=== PATIENT | female | born 1930 | race African-American/Black ===

== ENCOUNTER 2016-08-13 10:10 | Inpatient (IN) | payer OTHER ==
[2016-08-13] MEDS ORDERED: SODIUM CHLORIDE 500 ML IV STA (11:06)
[2016-08-13] MEDS ORDERED: SODIUM CHLORIDE 0.9% 1000 ML INFUS.BAG IV PRN (11:06)
[2016-08-13] MEDS ORDERED: ACETAMINOPHEN 1000 MG/100 ML VIAL (NON FORMULARY) IVPB ONE (11:08)
--- NOTE | 2016-08-13 11:46 | PDOC ---
History of Present Illness - General History Source: Patient Exam Limitations: No Limitations - History of Present Illness Initial Comments: 08/13/16 11:52 The patient is an 86 year old female with significant past medical history of hypertension, a-fib, ESRD on dialysis MWF who presents to the emergency department from home with a cough for 1 week and generalized weakness for 1 day. The patient states that she has had a productive cough for the last week. She has been coughing up white phlegm, no hemoptysis. The patient states that yesterday she started to feel increasingly weak and dizzy. On arrival the patient has a fever, Tmax 99 F, and reports associated chills. She denies any runny nose or sore throat. The patient also started complaining of diffuse abdominal pain that started this morning. She denies any associated nausea, vomiting, or diarrhea. The patient denies any dysuria, frequency, or hematuria. She denies body aches or headache. She denies any recent illness, sick contacts , or recent travels. The patient had her flu shot this year. PMD: Dr. Samaniego Client Care Consultant: Dr. Bean Records Technician: Dr. Dunham <Ruthie Reynoso - Last Filed: 08/13/16 11:52> <Aaron Huizar - Last Filed: 08/13/16 13:59> - General Chief Complaint: Weakness Stated Complaint: WEAKNESS, DIZZY, COUGH Time Seen by Provider: 08/13/16 10:56 Past History <Ruthie Reynoso - Last Filed: 08/13/16 11:52> - Past Medical History Anemia: No Asthma: No Cancer: No Cardiac Disorders: Yes (AFIB) CVA: No COPD: No CHF: No Dementia: No Diabetes: No Dialysis: Yes (M-W-F) GI Disorders: No Disorders: No HTN: Yes Hypercholesterolemia: No Liver Disease: No Seizures: No Thyroid Disease: No - Surgical History Abdominal Surgery: No Appendectomy: No Cardiac Surgery: Yes (pacemaker) Cholecystectomy: No Lung Surgery: No Neurologic Surgery: No Orthopedic Surgery: No - Immunization History Td Vaccination: Yes TDAP Vaccination: No Immunization Up to Date: Yes - Psycho/Social/Smoking Cessation Hx Anxiety: No Suicidal Ideation: No Smoking Status: No Smoking History: Never smoked Have you smoked in the past 12 months: No Number of Cigarettes Smoked Daily: 0 Hx Alcohol Use: No Drug/Substance Use Hx: No Substance Use Type: None Hx Substance Use Treatment: No <Aaron Huizar - Last Filed: 08/13/16 13:59> - Past Medical History Allergies/Adverse Reactions: Allergies Allergy/AdvReac Type Severity Reaction Status Date / Time Penicillins Allergy Severe Hives, RASH Verified 08/13/16 10:18 Home Medications: Ambulatory Orders Metoprolol Succinate [Toprol XL -] 100 mg PO DAILY 03/21/16 Warfarin Na [Coumadin] 6 mg PO DAILY@1800 04/04/16 Review of Systems - Review of Systems Constitutional: Yes: Chills, Fever Respiratory: Yes: Cough. No: Shortness of Breath Cardiac (ROS): Yes: Lightheadedness. No: Chest Pain, Edema ABD/GI: Yes: See HPI. No: Diarrhea, Vomiting : No: Dysuria All Other Systems: Reviewed and Negative <Aaron Huizar - Last Filed: 08/13/16 13:59> *Physical Exam - Vital Signs Last Vital Signs Temp Pulse Resp BP Pulse Ox 99.3 F 108 H 20 121/62 100 08/13/16 10:12 08/13/16 10:12 08/13/16 10:12 08/13/16 10:12 08/13/16 10:12 - Physical Exam Comments: 08/13/16 11:54 GENERAL: The patient is awake, alert, and fully oriented, in no acute distress. HEAD: Normal with no signs of trauma. EYES: Pupils equal, round and reactive to light, extraocular movements intact, sclera anicteric, conjunctiva clear with no pallor. ENT: Ears normal, nares patent, oropharynx clear without exudates. Moist mucous membranes. NECK: Normal range of motion, supple without lymphadenopathy, JVD, or masses. LUNGS: +Coarse and slightly decreased breath sounds at the left base, otherwise good air entry. HEART: +Irregularly irregular and slightly tachycardic. Normal S1 and S2 without murmur or rub. ABDOMEN: Soft/nontender/nondistended. BS wnl. No guarding or rebound. No palpable masses. No hepatosplenomegaly. EXTREMITIES: Normal range of motion, no edema. No clubbing or cyanosis. No cords, erythema, or tenderness. NEUROLOGICAL: Cranial nerves II through XII grossly intact. Normal speech, normal gait. PSYCH: Normal mood, normal affect. SKIN: Warm, Dry, normal turgor, no rashes or lesions noted. <Ruthie Reynoso - Last Filed: 08/13/16 11:52> - Vital Signs Last Vital Signs Temp Pulse Resp BP Pulse Ox 99.3 F 108 H 20 121/62 100 08/13/16 10:12 08/13/16 10:12 08/13/16 10:12 08/13/16 10:12 08/13/16 10:12 <Aaron Huizar - Last Filed: 08/13/16 13:59> Heart Score/ECG Review #1 ECG reviewed & interpreted by me at: 13:39 08/13/16 13:44 Atrial fibrillation at 119, QTC 427, no acute ischemic changes. <Aaron Huizar - Last Filed: 08/13/16 13:59> ED Treatment Course - LABORATORY CBC & Chemistry Diagram: 08/13/16 12:40 08/13/16 12:40 - RADIOLOGY Radiology Studies Ordered: Category Date Time Status CHEST X-RAY PORTABLE* [RAD] Stat Radiology 08/13/16 11:06 Ordered <Aaron Huizar - Last Filed: 08/13/16 13:59> Medical Decision Making - Medical Decision Making 08/13/16 11:43 A portion of this note was documented by scribe services under my direction. I have reviewed the details of the note, within reason, and agree with the documentation with the following case summary and management plan written by me. 86-year-old female with history of hypertension, A. fib status post pacemaker, end-stage renal disease on dialysis Thursday/Thursday/Thursday, peripheral neuropathy and nonambulatory at baseline presents with cough for one week and now generalized weakness with fever/chills/abdominal discomfort this morning. Vital signs as noted, rectal temp pending but oral temp 99.3 Left basilar decreased breath sounds Abdomen nontender, nondistended, soft. No focal guarding or rebound. 86-year-old female presents with cough for one week and now low-grade fever, rule out pneumonia, rule out influenza. Abdominal discomfort but no focal findings on exam, rule out UTI. Sepsis protocol initiated IV fluids Antipyretics Antibiotics as indicated by workup Likely admission 08/13/16 13:29 No leukocytosis, hemoglobin 7.6, near baseline. Chemistries notable for baseline elevated creatinine but no acute electrolytes abnormality. Troponin negative. Chest x-ray shows no acute infiltrate, influenza negative. Awaiting urinalysis, will cover with Levaquin given penicillin ALLERGY, and proceed with admission. 08/13/16 13:51 UA clear, lactate negative. ? bronchitis in frail elderly woman. Received Levaquin earlier 2/ presumed sepsis. Discussed with Dr. Samaniego, agrees with plan, requests admission to Dr. Estevez. 08/13/16 13:58 Accepted for inpatient med/surg by Dr. Estevez. <Aaron Huizar - Last Filed: 08/13/16 13:59> *DC/Admit/Observation/Transfer - Attestations Scribe Attestion: 08/13/16 11:54 Documentation prepared by Ruthie Reynoso, acting as medical radiation dosimetrist for Aaron Huizar MD. <Ruthie Reynoso - Last Filed: 08/13/16 11:52> - Discharge Dispostion Admit: Yes <Aaron Huizar - Last Filed: 08/13/16 13:59> Diagnosis at time of Disposition: ESRD (end stage renal disease) on dialysis, Cough Afib Qualifiers: Atrial fibrillation type: chronic Qualified Code(s): I48.2 - Chronic atrial fibrillation Fever Qualifiers: Fever type: unspecified Qualified Code(s): R50.9 - Fever, unspecified - Discharge Dispostion Condition at time of disposition: Fair - Referrals Referrals: Arnav Samaniego MD [Primary Care Provider] -
--- NOTE | 2016-08-13 12:13 | PN ---
Progress Note (short form) - Note Progress Note: Cardiology Consult Dictated 86F AF, ESRD on HD, Moderate to severe chronic MR presents to ER on her HD day ( missed) for cough of several days with fever and chills. Daughter asked that I see her mother- my office patient. REC: Fever work up--blood cultures, CXR, etc. Will notify renal patient is here (today HD day). Daily INR while on abx.
--- NOTE | 2016-08-13 12:34 | CONS ---
DATE OF CONSULTATION: 08/13/2016 HISTORY OF PRESENT ILLNESS: Patient is in the emergency department, my office patient asked by daughter to see. She is an 86-year-old female with chronic atrial fibrillation, on Coumadin, end-stage renal disease, on hemodialysis, moderate to severe chronic mitral regurgitation with chronic CHF secondary to valvular heart disease and chronic diastolic dysfunction, presents to the ER on her dialysis day with fevers at home, chills, and cough of several days productive. Daughter brought her in for fever workup. Patient is in no acute distress. Denies chest pain, palpitations. She has been coughing for several days with yellow sputum. She was due for dialysis today but did not go and is here in the emergency department. She denies rashes, abdominal pain, diarrhea. No nausea or vomiting. She is allergic to PENICILLIN. MEDICATIONS AT HOME: Include Coumadin and metoprolol succinate 100 mg p.o. daily according to previous medication lists; this needs to be reconciled and confirmed with office records. FAMILY HISTORY: Noncontributory. SOCIAL HISTORY: Nonsmoker. PHYSICAL EXAMINATION: Vital Signs: Temperature 99.3, pulse 108, irregular, blood pressure 121/62, O2 saturation 100% on 2 L. Neck: No bruits. Heart: S1, 2 regular. There is a 3/6 systolic murmur audible at the apex which is chronic. Chest: Clear. No rales. Abdomen: Soft, nontender. Extremities: No significant pitting edema. DIAGNOSTIC DATA: Chest x-ray is pending. Cultures are pending. EKG is pending. IMPRESSION: In summary, an 86-year-old female on dialysis presents to the emergency room with several days of cough, fever, and chills. RECOMMENDATIONS: 1. Fever workup, including chest x-ray, blood cultures. 2. Have notified Nephrology that patient is here on her dialysis day. 3. Recommend daily INRs while patient on antibiotics which is likely. Will follow. Thank you for the consultation. GERA GILBERT M.D. [id number]
[2016-08-13 12:53] LABS: BASOPHIL 0.4 % (0-2.0); EOSINOPHIL 3.4 % (0-4.5); MCH 33.4 pg (25.7-33.7); MCHC 32.9 g/dl (32.0-36.0); MEAN CELL VOLUME 101.3 fl (80-96); MEAN PLT VOLUME 8.3 fl (7.5-11.1); NEUTROPHILS 64.2 % (42.8-82.8); PLATELET COUNT 163 K/MM3 (134-434); RDW 13.2 % (11.6-15.6); WHITE BLOOD COUNT 4.3 K/mm3 (4.0-10.0)
[2016-08-13 13:13] LABS: VENOUS BLOOD GAS HCO3 27.6 meq/L (22-29)
[2016-08-13 13:14] LABS: VENOUS PH 7.46 (7.31-7.41)
[2016-08-13 13:15] LABS: INR 1.28 (0.82-1.09); PROTHROMBIN TIME (PATIENT) 14.2 SEC (9.98-11.88)
[2016-08-13 13:16] LABS: ALBUMIN 2.9 g/dl (3.4-5.0); CALCIUM 8.2 mg/dL (8.5-10.1); CREATININE 4.9 mg/dL (0.55-1.02)
[2016-08-13 13:18] LABS: ACTIVATED PTT 28.1 SECONDS (26.9-34.4)
[2016-08-13 13:20] LABS: BILIRUBIN,TOTAL 0.4 mg/dL (0.2-1.0); TOT PROT 8.3 g/dl (6.4-8.2); TROPONIN I 0.04 ng/ml (0.00-0.05)
[2016-08-13 13:27] LABS: URINE APPEARANCE CLEAR; URINE BILIRUBIN NEGATIVE (NEGATIVE); URINE BLOOD NEGATIVE (NEGATIVE); URINE COLOR LTYELLOW; URINE GLUCOSE (UA) NEGATIVE (NEGATIVE); URINE KETONE NEGATIVE (NEGATIVE); URINE LEUK ESTERASE NEGATIVE (NEGATIVE); URINE NITRITE NEGATIVE (NEGATIVE); URINE UROBILINOGEN NEGATIVE E.U./dl (0.2-1.0)
[2016-08-13] MEDS ORDERED: LEVOFLOXACIN 500 MG IVPB 100 ML IVPB ONE ×2 (13:30→14:54)
[2016-08-13 13:36] LABS: URINE PROTEIN 3+ (NEGATIVE)
[2016-08-13 13:40] LABS: URINE HYALINE CAST 3 /lpf; URINE MUCUS RARE; URINE RBC 5 /hpf (0-3); URINE WBC 1 /hpf (3-5)
--- NOTE | 2016-08-13 15:26 | CONSULT ---
Consult Consult Specialty:: Nephrology Reason for Consultation:: ESRD on HD - History of Present Illness Chief Complaint: cough and generalized weakness History of Present Illness: Pt is an 86 year old female with pmhx of ESRD, a-fib, and HTN who presents to the ER with cough for about 4 days. She feels that it has been getting worse. She now complains of weakness as well. She denies chest pain or palpitations. She complains of decreased PO intake. She says the cough is productive of white phlegm. She did have a fever a few days ago. I was called to evaluate her for HD. She last went to dialysis on Thursday. 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: Yes: Dementia (Pleasant affect and can conduct a reasonable conversation.) Cardio/Vascular: Yes: AFIB, CHF, HTN, Hyperlipdemia, Mitral Insufficiency Pulmonary: Yes: Pneumonia Renal/: Yes: Renal Inusuff, Hemodialysis - Past Surgical History Past Surgical History: Yes: AV Fistula/Graft (03/01/15), Permanent Pacemaker - Alcohol/Substance Use Hx Alcohol Use: No - Smoking History Smoking history: Never smoked Have you smoked in the past 12 months: No Aproximately how many cigarettes per day: 0 - Social History Usual Living Arrangement: Fdc ADL: Support Services History of Recent Travel: No Home Medications - Allergies Allergies/Adverse Reactions: Allergies Allergy/AdvReac Type Severity Reaction Status Date / Time Penicillins Allergy Severe Hives, RASH Verified 08/13/16 10:18 - Home Medications Home Medications: Ambulatory Orders Metoprolol Succinate [Toprol XL -] 100 mg PO DAILY 03/21/16 Warfarin Na [Coumadin] 6 mg PO DAILY@1800 04/04/16 Family Disease History - Family Disease History Family History: Denies Review of Systems - Review of Systems Constitutional: reports: Chills, Fever, Malaise Eyes: reports: No Symptoms HENT: reports: No Symptoms Neck: reports: No Symptoms Cardiovascular: reports: No Symptoms Respiratory: reports: Cough, SOB on Exertion Gastrointestinal: reports: No Symptoms Genitourinary: reports: No Symptoms Musculoskeletal: reports: No Symptoms Integumentary: reports: No Symptoms Neurological: reports: No Symptoms Endocrine: reports: No Symptoms Hematology/Lymphatic: reports: No Symptoms Psychiatric: reports: No Symptoms Physical Exam Vital Signs: Vital Signs Temperature 99.3 F 08/13/16 10:12 Pulse Rate 64 08/13/16 15:08 Respiratory Rate 16 08/13/16 15:08 Blood Pressure 137/90 08/13/16 15:08 O2 Sat by Pulse Oximetry (%) 98 08/13/16 15:08 Constitutional: Yes: Calm Eyes: Yes: Conjunctiva Clear HENT: Yes: Atraumatic Cardiovascular: Yes: S1, S2 Respiratory: Yes: CTA Bilaterally Gastrointestinal: Yes: Normal Bowel Sounds, Soft Musculoskeletal: Yes: WNL Edema: No Integumentary: Yes: WNL Neurological: Yes: Oriented Psychiatric: Yes: Oriented Labs: Laboratory Tests 03/21/16 08/13/16 08/13/16 08:34 12:40 12:40 WBC 4.3 Hgb 7.6 L Sodium 136 136 Potassium 3.7 D 4.9 Chloride 101 Anion Gap 6 L BUN 34 H 21 H D Creatinine 5.3 H 4.9 H Imaging - Results Chest X-ray: Report Reviewed Problem List - Problems (1) Afib Code(s): I48.91 - UNSPECIFIED ATRIAL FIBRILLATION Qualifiers: Atrial fibrillation type: chronic Qualified Code(s): I48.2 - Chronic atrial fibrillation (2) ESRD (end stage renal disease) on dialysis Code(s): N18.6 - END STAGE RENAL DISEASE Z99.2 - DEPENDENCE ON RENAL DIALYSIS (3) Fever Code(s): R50.9 - FEVER, UNSPECIFIED Qualifiers: Fever type: unspecified Qualified Code(s): R50.9 - Fever, unspecified (4) Anemia Code(s): D64.9 - ANEMIA, UNSPECIFIED Qualifiers: Anemia type: other cause Other causes of anemia: other cause, not classified Qualified Code(s): D64.89 - Other specified anemias Assessment/Plan Current Medications Generic Name Dose Route Start Last Admin Trade Name Freq PRN Reason Stop Dose Admin Epoetin Francisco 6,000 units 08/13/16 15:03 Epogen - IVPUSH 08/13/16 15:04 ONCE ONE Sodium Chloride 610 ml 08/13/16 11:06 Normal Saline - IV Q20M PRN MAP<65mm Hg OR SBP <90 Impression 1. ESRD 2. PNA 3. HTN 4. a-fib 5. anemia Plan - will arrange for HD today - epogen on HD - will not take off volume today on dialysis - discussed with cardio - follow up cultures Dr Dunham
[2016-08-13 15:46] VITALS: BMI 23.3
--- NOTE | 2016-08-13 16:04 | EKG ---
Test Reason : Blood Pressure : / mmHG Vent. Rate : 119 BPM Atrial Rate : 120 BPM P-R Int : 000 ms QRS Dur : 084 ms QT Int : 304 ms P-R-T Axes : 000 057 -33 degrees QTc Int : 427 ms ATRIAL FIBRILLATION WITH RAPID VENTRICULAR RESPONSE T WAVE ABNORMALITY, CONSIDER LATERAL ISCHEMIA ABNORMAL ECG WHEN COMPARED WITH ECG OF 21-MAR-2016 08:38, ELECTRONIC DEMAND PACING IS NO LONGER PRESENT VENT. RATE HAS INCREASED BY 53 BPM NON-SPECIFIC CHANGE IN ST SEGMENT IN LATERAL LEADS Confirmed by HIPOLITO LAMB, BINH ([id number]) on 08/13/2016 4:03:35 PM Referred By: Confirmed By:BINH MCMILLAN MD
[2016-08-13] MEDS ORDERED: EPOETIN ALFA 3,000 UNIT/1 ML ML IVPUSH ONE (16:45)
[2016-08-13] MEDS ORDERED: ALBUTEROL SO4 0.083% IH SOL 2.5 MG/3 ML VIAL.NEB. NEB PRN (19:37)
[2016-08-13] MEDS: HEPARIN NA (PORCINE) 5,000 UNITS/ML 1ML VIAL SQ SCH (22:19)
[2016-08-14 08:26] LABS: BASOPHIL 0.2 % (0-2.0); EOSINOPHIL 3.1 % (0-4.5); MCH 33.2 pg (25.7-33.7); MCHC 32.8 g/dl (32.0-36.0); MEAN CELL VOLUME 101.2 fl (80-96); MEAN PLT VOLUME 7.9 fl (7.5-11.1); NEUTROPHILS 67.9 % (42.8-82.8); PLATELET COUNT 140 K/MM3 (134-434); RDW 13.4 % (11.6-15.6); WHITE BLOOD COUNT 4.1 K/mm3 (4.0-10.0)
[2016-08-14 08:54] LABS: INR 1.31 (0.82-1.09); PROTHROMBIN TIME (PATIENT) 14.5 SEC (9.98-11.88)
[2016-08-14 09:08] LABS: ALBUMIN 2.6 g/dl (3.4-5.0); ALK PHOS 74 U/L (45-117); ANION GAP 2 (8-16); BILIRUBIN,TOTAL 0.4 mg/dL (0.2-1.0); CALCIUM 8.3 mg/dL (8.5-10.1); CO2 30 mmol/L (21-32); GLUCOSE,RANDOM 90 mg/dL (74-106); SGOT/AST 16 U/L (15-37); SGPT/ALT < 6 U/L (12-78); TOT PROT 7.4 g/dl (6.4-8.2)
[2016-08-14] MEDS: HEPARIN NA (PORCINE) 5,000 UNITS/ML 1ML VIAL SQ SCH ×2 (09:59→22:02)
[2016-08-14] MEDS: METOPROLOL SUCCINATE 100 MG TAB.SR.24H (FP) PO SCH (10:02)
[2016-08-14 10:14] LABS: HYPOCHROMIA 1+; POLYCHROMASIA 1+
--- NOTE | 2016-08-14 11:02 | PN ---
Progress Note (short form) - Note Progress Note: ID Claudette sputum production chills few days Selected Entries 08/14/16 09:23 Temperature 98.9 F Pulse Rate 101 H Respiratory 16 Rate Blood Pressure 138/98 Lung Rales bases Cor S1 S2 Ext AVF right arm Microbiology Laboratory Tests 08/14/16 06:45 WBC 4.1 MCV 101.2 H Plt Count 140 Assessment ESRD Respiratry tract infection ? PNA Plan Add Tamiflu 30mg bid and Ceftriaxone Mik LAMB Problem List - Problems (1) ESRD (end stage renal disease) on dialysis Code(s): N18.6 - END STAGE RENAL DISEASE Z99.2 - DEPENDENCE ON RENAL DIALYSIS (2) Fever Code(s): R50.9 - FEVER, UNSPECIFIED Qualifiers: Fever type: unspecified Qualified Code(s): R50.9 - Fever, unspecified
--- NOTE | 2016-08-14 12:00 | HP ---
Admitting History and Physical - Primary Care Physician PCP: Arnav Samaniego - Admission Chief Complaint: sent in for cough weakness History of Present Illness: The patient is an 86 year old female with significant past medical history of hypertension, a-fib, ESRD on dialysis MWF who presents to the emergency department from home with a cough for 1 week and generalized weakness for 1 day. The patient states that she has had a productive cough for the last week. She has been coughing up white phlegm, no hemoptysis. The patient states that yesterday she started to feel increasingly weak and dizzy. On arrival the patient has a fever, Tmax 99 F, and reports associated chills. She denies any runny nose or sore throat. The patient also started complaining of diffuse abdominal pain that started this morning. She denies any associated nausea, vomiting, or diarrhea. The patient denies any dysuria, frequency, or hematuria. She denies body aches or headache. She denies any recent illness, sick contacts , or recent travels. The patient had her flu shot this year. PMD: Dr. Samaniego Jewelry Mold Maker: Dr. Bean Underbaster: Dr. 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: Dementia (Pleasant affect and can conduct a reasonable conversation.) Cardiovascular: Yes: AFIB, CHF, HTN, Hyperlipdemia, Mitral Insufficiency Pulmonary: Yes: Pneumonia Renal/: Yes: Renal Inusuff, Hemodialysis Heme/Onc: Yes: Anemia - Past Surgical History Past Surgical History: Yes: AV Fistula/Graft (03/01/15), Permanent Pacemaker - Smoking History Smoking history: Never smoked Have you smoked in the past 12 months: No Aproximately how many cigarettes per day: 0 - Alcohol/Substance Use Hx Alcohol Use: No - Social History ADL: Support Services History of Recent Travel: No Home Medications - Allergies Allergies/Adverse Reactions: Allergies Allergy/AdvReac Type Severity Reaction Status Date / Time Penicillins Allergy Severe Hives, RASH Verified 08/13/16 10:18 - Home Medications Home Medications: Ambulatory Orders Metoprolol Succinate [Toprol XL -] 100 mg PO DAILY 03/21/16 Warfarin Na [Coumadin] 6 mg PO DAILY@1800 04/04/16 Review of Systems - Review of Systems Constitutional: reports: Weakness HENT: reports: Nasal Congestion Respiratory: reports: Cough Physical Examination Vital Signs: Vital Signs Temperature 98.9 F 08/14/16 09:23 Pulse Rate 101 H 08/14/16 09:23 Respiratory Rate 16 08/14/16 09:23 Blood Pressure 138/98 08/14/16 09:23 O2 Sat by Pulse Oximetry (%) 96 08/13/16 22:00 Constitutional: Yes: Calm, Thin Neck: Yes: Trachea Midline Cardiovascular: Yes: Murmur, S1, S2 Respiratory: Yes: Diminished, Rhonchi Gastrointestinal: Yes: Normal Bowel Sounds, Soft Edema: No Neurological: Yes: Alert, Oriented Labs: CBC, BMP 08/14/16 06:45 08/14/16 06:45 Imaging - Results Chest X-ray: Report Reviewed Problem List - Problems (1) Cough Assessment/Plan: seen by HANNA tamodilia and jonatan lactic acid normal WBC normal Microbiology 08/13/16 12:40 Nasopharyngeal Swab Influenza Types A,B Antigen (STACIA) - Final 08/13/16 12:40 Nasopharyngeal Swab - Final Code(s): R05 - COUGH (2) Afib Assessment/Plan: couamdin daily inr metoprolol Code(s): I48.91 - UNSPECIFIED ATRIAL FIBRILLATION Qualifiers: Atrial fibrillation type: chronic Qualified Code(s): I48.2 - Chronic atrial fibrillation (3) ESRD (end stage renal disease) on dialysis Assessment/Plan: HD in am Code(s): N18.6 - END STAGE RENAL DISEASE Z99.2 - DEPENDENCE ON RENAL DIALYSIS (4) Anemia Assessment/Plan: procrit during HD given low h/h will transfuse one unit today Code(s): D64.9 - ANEMIA, UNSPECIFIED Qualifiers: Anemia type: other cause Other causes of anemia: other cause, not classified Qualified Code(s): D64.89 - Other specified anemias
--- NOTE | 2016-08-14 12:00 | CONS ---
DATE OF CONSULTATION: DATE OF DICTATION: 08/14/2016 HISTORY OF PRESENT ILLNESS: This is a 86-year-old female with atrial fibrillation and known end-stage renal disease, who came to the hospital coughing for a week with sputum production, chills, and generalized weakness. Her temperature was noted to be 99, and she was given a dose of Levaquin. I am asked to see her for further evaluation noting that subjectively she states she feels somewhat better today. PAST MEDICAL HISTORY: As noted above. Additional past medical history includes status post pacemaker insertion. MEDICATIONS: Metoprolol and Coumadin. ALLERGIES: To PENICILLIN. SOCIAL HISTORY: Nonsmoker. No history of EtOH use FAMILY HISTORY: Patient unable to provide. REVIEW OF SYSTEMS: Respiratory: Cough. No shortness of breath. Sputum production. No hemoptysis. Cardiac: History of pacemaker, atrial fibrillation. No chest pain, palpitations, syncope. Gastrointestinal: No nausea, vomiting, abdominal pain. Genitourinary: No dysuria or hematuria. PHYSICAL EXAMINATION: General: She was an elderly pleasant woman in no acute distress. Vital signs: Temperature was 98.9, pulse 101, blood pressure 138/98, respirations 16. Neck: Supple. No adenopathy. Lungs: With bibasilar rales. Heart: S1, S2, irregularly irregular. Abdomen: Soft, nontender, without hepatosplenomegaly. Extremities: With a right arm AV graft. The white count was 4.1, hemoglobin 6.9, platelets 140. INR 1.31. Chemistry consistent with end-stage renal disease. Two sets of blood cultures with thus far no growth. Urine culture with no growth. Influenza screening negative. Chest x-ray was reviewed, shows no evidence of acute infiltrate, no pleural effusions seen. ASSESSMENT: An 86-year-old female with end-stage renal disease with flu-like symptoms, possible pneumonia based on physical examination. Would empirically treat with ceftriaxone noting a history of PENICILLIN allergy with rash per patient. Will add Tamiflu empirically for possible influenza. EUNICE SANCHEZ M.D. FARNAZ/[id number]
[2016-08-14] MEDS ORDERED: OSELTAMIVIR PHOSPHATE 30 MG CAPSULE PO ONE (13:00)
[2016-08-14] MEDS: ACETAMINOPHEN 325 MG TABLET (FP) PO PRN (15:39)
--- NOTE | 2016-08-14 16:35 | EKG ---
Test Reason : Blood Pressure : / mmHG Vent. Rate : 132 BPM Atrial Rate : 416 BPM P-R Int : 000 ms QRS Dur : 082 ms QT Int : 266 ms P-R-T Axes : 000 052 -30 degrees QTc Int : 394 ms ATRIAL FIBRILLATION WITH RAPID VENTRICULAR RESPONSE WITH PREMATURE VENTRICULAR OR ABERRANTLY CONDUCTED COMPLEXES NONSPECIFIC T WAVE ABNORMALITY ABNORMAL ECG WHEN COMPARED WITH ECG OF 13-AUG-2016 13:39, NO SIGNIFICANT CHANGE WAS FOUND Confirmed by CARLOS LAMB, JOSE ([id number]) on 08/14/2016 4:35:23 PM Referred By: DONNY AC Confirmed By:JOSE GONZALEZ MD
--- NOTE | 2016-08-14 16:47 | PN ---
Progress Note, Physician History of Present Illness: Pt seen and examined at bedside. She is awake and alert. She feels a little better today. - Current Medication List Current Medications: Active Medications Acetaminophen (Tylenol -) 650 mg PO Q4H PRN PRN Reason: FEVER OR PAIN Last Admin: 08/14/16 15:39 Dose: 650 mg Albuterol Sulfate (Ventolin 0.083% Nebulizer Soln -) 1 amp NEB Q4H PRN PRN Reason: SHORT OF BREATH/WHEEZING Heparin Sodium (Porcine) (Heparin -) 5,000 unit SQ BID [facility] Last Admin: 08/14/16 09:59 Dose: Not Given Ceftriaxone Sodium (Rocephin 1gm Ivpb (Pre-Docked)) 50 mls @ 100 mls/hr IVPB DAILY [facility] Metoprolol Succinate (Toprol Xl -) 100 mg PO DAILY [facility] Last Admin: 08/14/16 10:02 Dose: 100 mg Oseltamivir Phosphate (Tamiflu -) 30 mg PO MoFr [facility] Stop: 08/18/16 14:30 Sodium Chloride (Normal Saline -) 610 ml IV Q20M PRN PRN Reason: MAP<65mm Hg OR SBP <90 Warfarin Sodium (Coumadin -) 6 mg PO DAILY@1800 [facility] - Objective Vital Signs: Vital Signs Temperature 98.9 F 08/14/16 09:23 Pulse Rate 119 H 08/14/16 15:13 Respiratory Rate 18 08/14/16 15:13 Blood Pressure 131/89 08/14/16 15:13 O2 Sat by Pulse Oximetry (%) 96 08/13/16 22:00 Constitutional: Yes: Calm Eyes: Yes: Conjunctiva Clear HENT: Yes: Atraumatic Cardiovascular: Yes: S1, S2 Respiratory: Yes: CTA Bilaterally, On Nasal O2 Gastrointestinal: Yes: Soft Genitourinary: Yes: WNL Extremities: Yes: WNL, Other (right arm weakness, graft with thrill and bruit) Neurological: Yes: Oriented Psychiatric: Yes: Oriented Labs: CBC, BMP 08/14/16 06:45 08/14/16 06:45 INR, PTT INR 1.31 (0.82-1.09) H 08/14/16 06:45 Problem List - Problems (1) Afib Code(s): I48.91 - UNSPECIFIED ATRIAL FIBRILLATION Qualifiers: Atrial fibrillation type: chronic Qualified Code(s): I48.2 - Chronic atrial fibrillation (2) ESRD (end stage renal disease) on dialysis Code(s): N18.6 - END STAGE RENAL DISEASE Z99.2 - DEPENDENCE ON RENAL DIALYSIS (3) Fever Code(s): R50.9 - FEVER, UNSPECIFIED Qualifiers: Fever type: unspecified Qualified Code(s): R50.9 - Fever, unspecified (4) Anemia Code(s): D64.9 - ANEMIA, UNSPECIFIED Qualifiers: Anemia type: other cause Other causes of anemia: other cause, not classified Qualified Code(s): D64.89 - Other specified anemias Assessment/Plan Current Medications Generic Name Dose Route Start Last Admin Trade Name Freq PRN Reason Stop Dose Admin Acetaminophen 650 mg 08/13/16 19:37 08/14/16 15:39 Tylenol - PO 650 mg Q4H PRN Administration FEVER OR PAIN Albuterol Sulfate 1 amp 08/13/16 19:37 Ventolin 0.083% Nebulizer Soln - NEB Q4H PRN SHORT OF BREATH/WHEEZING Heparin Sodium (Porcine) 5,000 unit 08/13/16 22:00 08/14/16 09:59 Heparin - SQ Not Given BID [facility] Ceftriaxone Sodium 50 mls @ 100 mls/hr 08/15/16 10:00 Rocephin 1gm Ivpb (Pre-Docked) IVPB DAILY [facility] Metoprolol Succinate 100 mg 08/14/16 10:00 08/14/16 10:02 Toprol Xl - PO 100 mg DAILY [facility] Administration Oseltamivir Phosphate 30 mg 08/14/16 14:30 Tamiflu - PO 08/18/16 14:30 MoFr [facility] Sodium Chloride 610 ml 08/13/16 11:06 Normal Saline - IV Q20M PRN MAP<65mm Hg OR SBP <90 Warfarin Sodium 6 mg 08/14/16 18:00 Coumadin - PO DAILY@1800 [facility] Impression 1. ESRD 2. PNA 3. HTN 4. a-fib 5. anemia Plan - agree with prbc transfusion - will transfuse more tomorrow on HD - will arrange for HD in am - cont abx - pt is clinically improved - follow up cultures Dr Dunham
[2016-08-14] MEDS: OSELTAMIVIR PHOSPHATE 30 MG CAPSULE PO SCH (17:41)
[2016-08-14] MEDS: WARFARIN NA 3 MG TABLET PO SCH (18:20)
[2016-08-14] MEDS ORDERED: OSELTAMIVIR PHOSPHATE 30 MG CAPSULE PO SCH (22:00)
[2016-08-15 07:48] LABS: BASOPHIL 0.3 % (0-2.0); EOSINOPHIL 3.5 % (0-4.5); MCH 33.2 pg (25.7-33.7); MEAN CELL VOLUME 100.6 fl (80-96); MEAN PLT VOLUME 8.4 fl (7.5-11.1); NEUTROPHILS 70.7 % (42.8-82.8); PLATELET COUNT 151 K/MM3 (134-434); WHITE BLOOD COUNT 4.4 K/mm3 (4.0-10.0)
[2016-08-15 07:49] LABS: INR 1.41 (0.82-1.09); PROTHROMBIN TIME (PATIENT) 15.6 SEC (9.98-11.88)
[2016-08-15 08:15] LABS: ALBUMIN 2.5 g/dl (3.4-5.0); CALCIUM 8.4 mg/dL (8.5-10.1); CREATININE 4.1 mg/dL (0.55-1.02)
[2016-08-15 08:17] LABS: BILIRUBIN,TOTAL 0.5 mg/dL (0.2-1.0); TOT PROT 7.1 g/dl (6.4-8.2)
[2016-08-15] MEDS: METOPROLOL SUCCINATE 100 MG TAB.SR.24H (FP) PO SCH ×2 (09:35→13:40)
[2016-08-15] MEDS: CEFTRIAXONE 1G/50 ML IVPB SCH (09:36)
[2016-08-15] MEDS: HEPARIN NA (PORCINE) 5,000 UNITS/ML 1ML VIAL SQ SCH (09:36)
[2016-08-15] MEDS ORDERED: EPOETIN ALFA 6,000 UNIT, EPOETIN ALFA 2,000 UNIT IVPUSH ONE (12:00)
--- NOTE | 2016-08-15 12:03 | PN ---
Progress Note, Physician Chief Complaint: patient getting HD not able to get prbc bc of antibodies in blood feeling a little better today - Current Medication List Current Medications: Active Medications Acetaminophen (Tylenol -) 650 mg PO Q4H PRN PRN Reason: FEVER OR PAIN Last Admin: 08/14/16 15:39 Dose: 650 mg Albuterol Sulfate (Ventolin 0.083% Nebulizer Soln -) 1 amp NEB Q4H PRN PRN Reason: SHORT OF BREATH/WHEEZING Epoetin Francisco 6,000 unit/ (Epoetin Francisco 2,000 unit) 8,000 unit IVPUSH ONCE ONE Stop: 08/15/16 12:01 Heparin Sodium (Porcine) (Heparin -) 5,000 unit SQ BID [facility] Last Admin: 08/15/16 09:36 Dose: Not Given Ceftriaxone Sodium (Rocephin 1gm Ivpb (Pre-Docked)) 50 mls @ 100 mls/hr IVPB DAILY [facility] Last Admin: 08/15/16 09:36 Dose: Not Given Metoprolol Succinate (Toprol Xl -) 100 mg PO DAILY [facility] Last Admin: 08/15/16 09:35 Dose: Not Given Oseltamivir Phosphate (Tamiflu -) 30 mg PO MoFr [facility] Stop: 08/18/16 14:30 Last Admin: 08/14/16 17:41 Dose: 30 mg Sodium Chloride (Normal Saline -) 610 ml IV Q20M PRN PRN Reason: MAP<65mm Hg OR SBP <90 Warfarin Sodium (Coumadin -) 6 mg PO DAILY@1800 [facility] Last Admin: 08/14/16 18:20 Dose: 6 mg - Objective Vital Signs: Vital Signs Temperature 99.3 F 08/15/16 09:10 Pulse Rate 86 08/15/16 11:05 Respiratory Rate 18 08/15/16 11:05 Blood Pressure 143/92 08/15/16 11:05 O2 Sat by Pulse Oximetry (%) 93 L 08/15/16 09:10 Constitutional: Yes: Calm Neck: Yes: Trachea Midline Cardiovascular: Yes: Regular Rate and Rhythm, Murmur, S1, S2 Respiratory: Yes: CTA Bilaterally Gastrointestinal: Yes: Normal Bowel Sounds, Soft Edema: No Neurological: Yes: Alert, Oriented Labs: CBC, BMP 08/15/16 06:00 08/15/16 06:00 INR, PTT INR 1.41 (0.82-1.09) H 08/15/16 06:00 Problem List - Problems (1) Cough Assessment/Plan: seen by HANNA vergara lactic acid normal WBC normal Microbiology 08/13/16 12:40 Nasopharyngeal Swab Influenza Types A,B Antigen (STACIA) - Final 08/13/16 12:40 Nasopharyngeal Swab - Final Code(s): R05 - COUGH (2) Anemia Assessment/Plan: procrit during HD given low h/h will transfuse one unit today was not able to get it given antibodies in pRBC will get heme on board canot get tranfusion during HD bc of prescence of antibodies Code(s): D64.9 - ANEMIA, UNSPECIFIED Qualifiers: Anemia type: other cause Other causes of anemia: other cause, not classified Qualified Code(s): D64.89 - Other specified anemias (3) Afib Assessment/Plan: couamdin daily inr metoprolol Code(s): I48.91 - UNSPECIFIED ATRIAL FIBRILLATION Qualifiers: Atrial fibrillation type: chronic Qualified Code(s): I48.2 - Chronic atrial fibrillation (4) ESRD (end stage renal disease) on dialysis Assessment/Plan: HD in am Code(s): N18.6 - END STAGE RENAL DISEASE Z99.2 - DEPENDENCE ON RENAL DIALYSIS
--- NOTE | 2016-08-15 12:20 | PN ---
Progress Note (short form) - Note Progress Note: to get prbc today then one unit early childhood tmw prior to HD Tmw Problem List - Problems (1) Cough Code(s): R05 - COUGH (2) Anemia Code(s): D64.9 - ANEMIA, UNSPECIFIED Qualifiers: Anemia type: other cause Other causes of anemia: other cause, not classified Qualified Code(s): D64.89 - Other specified anemias (3) Afib Code(s): I48.91 - UNSPECIFIED ATRIAL FIBRILLATION Qualifiers: Atrial fibrillation type: chronic Qualified Code(s): I48.2 - Chronic atrial fibrillation (4) ESRD (end stage renal disease) on dialysis Code(s): N18.6 - END STAGE RENAL DISEASE Z99.2 - DEPENDENCE ON RENAL DIALYSIS
[2016-08-15] MEDS ORDERED: PT OWN MED DRAWER 7, Y5N ONE (13:38)
[2016-08-15] MEDS: OSELTAMIVIR PHOSPHATE 30 MG CAPSULE PO SCH (13:41)
--- NOTE | 2016-08-15 14:00 | PN ---
Progress Note, Physician History of Present Illness: Pt seen and examined at bedside. She is awake and alert. She says she feels better. She is tolerating HD. - Current Medication List Current Medications: Active Medications Acetaminophen (Tylenol -) 650 mg PO Q4H PRN PRN Reason: FEVER OR PAIN Last Admin: 08/14/16 15:39 Dose: 650 mg Albuterol Sulfate (Ventolin 0.083% Nebulizer Soln -) 1 amp NEB Q4H PRN PRN Reason: SHORT OF BREATH/WHEEZING Heparin Sodium (Porcine) (Heparin -) 5,000 unit SQ BID [facility] Last Admin: 08/15/16 09:36 Dose: Not Given Ceftriaxone Sodium (Rocephin 1gm Ivpb (Pre-Docked)) 50 mls @ 100 mls/hr IVPB DAILY [facility] Last Admin: 08/15/16 09:36 Dose: Not Given Metoprolol Succinate (Toprol Xl -) 100 mg PO DAILY [facility] Last Admin: 08/15/16 13:40 Dose: 100 mg Oseltamivir Phosphate (Tamiflu -) 30 mg PO MoFr [facility] Stop: 08/18/16 14:30 Last Admin: 08/15/16 13:41 Dose: 30 mg Sodium Chloride (Normal Saline -) 610 ml IV Q20M PRN PRN Reason: MAP<65mm Hg OR SBP <90 Warfarin Sodium (Coumadin -) 6 mg PO DAILY@1800 [facility] Last Admin: 08/14/16 18:20 Dose: 6 mg - Objective Vital Signs: Vital Signs Temperature 99.3 F 08/15/16 09:10 Pulse Rate 97 H 08/15/16 12:50 Respiratory Rate 18 08/15/16 12:50 Blood Pressure 139/93 08/15/16 12:50 O2 Sat by Pulse Oximetry (%) 93 L 08/15/16 09:10 Constitutional: Yes: Calm Eyes: Yes: Conjunctiva Clear HENT: Yes: Atraumatic Neck: Yes: Supple Cardiovascular: Yes: S1, S2 Respiratory: Yes: On Nasal O2 Gastrointestinal: Yes: Soft Genitourinary: Yes: WNL Edema: Yes Edema: LLE: Trace, RLE: Trace Neurological: Yes: Oriented Psychiatric: Yes: Oriented Labs: CBC, BMP 08/15/16 06:00 08/15/16 06:00 INR, PTT INR 1.41 (0.82-1.09) H 08/15/16 06:00 Problem List - Problems (1) Afib Code(s): I48.91 - UNSPECIFIED ATRIAL FIBRILLATION Qualifiers: Atrial fibrillation type: chronic Qualified Code(s): I48.2 - Chronic atrial fibrillation (2) ESRD (end stage renal disease) on dialysis Code(s): N18.6 - END STAGE RENAL DISEASE Z99.2 - DEPENDENCE ON RENAL DIALYSIS (3) Fever Code(s): R50.9 - FEVER, UNSPECIFIED Qualifiers: Fever type: unspecified Qualified Code(s): R50.9 - Fever, unspecified (4) Anemia Code(s): D64.9 - ANEMIA, UNSPECIFIED Qualifiers: Anemia type: other cause Other causes of anemia: other cause, not classified Qualified Code(s): D64.89 - Other specified anemias Assessment/Plan Current Medications Generic Name Dose Route Start Last Admin Trade Name Freq PRN Reason Stop Dose Admin Acetaminophen 650 mg 08/13/16 19:37 08/14/16 15:39 Tylenol - PO 650 mg Q4H PRN Administration FEVER OR PAIN Albuterol Sulfate 1 amp 08/13/16 19:37 Ventolin 0.083% Nebulizer Soln - NEB Q4H PRN SHORT OF BREATH/WHEEZING Heparin Sodium (Porcine) 5,000 unit 08/13/16 22:00 08/15/16 09:36 Heparin - SQ Not Given BID [facility] Ceftriaxone Sodium 50 mls @ 100 mls/hr 08/15/16 10:00 08/15/16 09:36 Rocephin 1gm Ivpb (Pre-Docked) IVPB Not Given DAILY [facility] Metoprolol Succinate 100 mg 08/14/16 10:00 08/15/16 13:40 Toprol Xl - PO 100 mg DAILY [facility] Administration Oseltamivir Phosphate 30 mg 08/14/16 14:30 08/15/16 13:41 Tamiflu - PO 08/18/16 14:30 30 mg MoFr [facility] Administration Sodium Chloride 610 ml 08/13/16 11:06 Normal Saline - IV Q20M PRN MAP<65mm Hg OR SBP <90 Warfarin Sodium 6 mg 08/14/16 18:00 08/14/16 18:20 Coumadin - PO 6 mg DAILY@1800 [facility] Administration Impression 1. ESRD 2. PNA 3. HTN 4. a-fib 5. anemia Plan - pt has antibodies and could not get a blood transfusion on HD - transfuse one unit after HD and another unit tomorrow morning - pt may need 2 units tomorrow if the Hg is low - will arrange for an extra HD session tomorrow - cont abx - pt is clinically improved - follow up cultures Dr Dunham
--- NOTE | 2016-08-15 16:20 | PN ---
Progress Note, Physician History of Present Illness: No complaints Temps down- afebrile No c/o dyspnea/ cough No c/o fever/chills - Current Medication List Current Medications: Active Medications Acetaminophen (Tylenol -) 650 mg PO Q4H PRN PRN Reason: FEVER OR PAIN Last Admin: 08/14/16 15:39 Dose: 650 mg Albuterol Sulfate (Ventolin 0.083% Nebulizer Soln -) 1 amp NEB Q4H PRN PRN Reason: SHORT OF BREATH/WHEEZING Epoetin Francisco (Procrit -) 6,000 unit IVPUSH ONCE ONE Stop: 08/16/16 14:01 Heparin Sodium (Porcine) (Heparin -) 5,000 unit SQ BID [facility] Last Admin: 08/15/16 09:36 Dose: Not Given Ceftriaxone Sodium (Rocephin 1gm Ivpb (Pre-Docked)) 50 mls @ 100 mls/hr IVPB DAILY [facility] Last Admin: 08/15/16 09:36 Dose: Not Given Metoprolol Succinate (Toprol Xl -) 100 mg PO DAILY [facility] Last Admin: 08/15/16 13:40 Dose: 100 mg Oseltamivir Phosphate (Tamiflu -) 30 mg PO MoFr [facility] Stop: 08/18/16 14:30 Last Admin: 08/15/16 13:41 Dose: 30 mg Sodium Chloride (Normal Saline -) 610 ml IV Q20M PRN PRN Reason: MAP<65mm Hg OR SBP <90 Warfarin Sodium (Coumadin -) 6 mg PO DAILY@1800 [facility] Last Admin: 08/14/16 18:20 Dose: 6 mg - Objective Vital Signs: Vital Signs Temperature 99.9 F H 08/15/16 14:15 Pulse Rate 109 H 08/15/16 14:15 Respiratory Rate 20 08/15/16 14:15 Blood Pressure 119/75 08/15/16 14:15 O2 Sat by Pulse Oximetry (%) 93 L 08/15/16 09:10 Constitutional: Yes: No Distress Cardiovascular: Yes: Regular Rate and Rhythm, S1, S2 Respiratory: Yes: Diminished Gastrointestinal: Yes: Normal Bowel Sounds, Soft. No: Tenderness Labs: CBC, BMP 08/15/16 06:00 08/15/16 06:00 INR, PTT INR 1.41 (0.82-1.09) H 08/15/16 06:00 Assessment/Plan Possible pneumonia/ viral syndrome ESRD Blood c/s prelim no growth Continue empiric ceftriaxone/ Tamiflu
[2016-08-15] MEDS ORDERED: EPOETIN ALFA 10,000 UNIT/1 ML VIAL IVPUSH ONE (16:47)
[2016-08-15] MEDS: WARFARIN NA 3 MG TABLET PO SCH (18:26)
[2016-08-15] MEDS: ACETAMINOPHEN 325 MG TABLET (FP) PO PRN (19:00)
[2016-08-16 00:07] LABS: HEP B SURFACE AB Reactive (.)
[2016-08-16] MEDS ORDERED: WARFARIN NA 3 MG TABLET PO SCH (09:20)
--- NOTE | 2016-08-16 09:20 | PN ---
Progress Note, Physician Chief Complaint: in hd - Current Medication List Current Medications: Active Medications Acetaminophen (Tylenol -) 650 mg PO Q4H PRN PRN Reason: FEVER OR PAIN Last Admin: 08/15/16 19:00 Dose: 650 mg Albuterol Sulfate (Ventolin 0.083% Nebulizer Soln -) 1 amp NEB Q4H PRN PRN Reason: SHORT OF BREATH/WHEEZING Epoetin Francisco (Procrit -) 6,000 unit IVPUSH ONCE ONE Stop: 08/16/16 14:01 Heparin Sodium (Porcine) (Heparin -) 5,000 unit SQ BID [facility] Last Admin: 08/15/16 09:36 Dose: Not Given Ceftriaxone Sodium (Rocephin 1gm Ivpb (Pre-Docked)) 50 mls @ 100 mls/hr IVPB DAILY [facility] Last Admin: 08/15/16 09:36 Dose: Not Given Metoprolol Succinate (Toprol Xl -) 100 mg PO DAILY [facility] Last Admin: 08/15/16 13:40 Dose: 100 mg Oseltamivir Phosphate (Tamiflu -) 30 mg PO MoFr [facility] Stop: 08/18/16 14:30 Last Admin: 08/15/16 13:41 Dose: 30 mg Sodium Chloride (Normal Saline -) 610 ml IV Q20M PRN PRN Reason: MAP<65mm Hg OR SBP <90 Warfarin Sodium (Coumadin -) 6 mg PO DAILY@1800 [facility] Last Admin: 08/15/16 18:26 Dose: 6 mg - Objective Vital Signs: Vital Signs Temperature 98.0 F 08/16/16 06:00 Pulse Rate 97 H 08/16/16 06:00 Respiratory Rate 20 08/16/16 06:00 Blood Pressure 122/75 08/16/16 06:00 O2 Sat by Pulse Oximetry (%) 99 08/15/16 21:00 Cardiovascular: Yes: Regular Rate and Rhythm, S1, S2 Respiratory: Yes: CTA Bilaterally Gastrointestinal: Yes: Normal Bowel Sounds, Soft Edema: No Labs: CBC, BMP 08/15/16 06:00 08/15/16 06:00 INR, PTT INR 1.41 (0.82-1.09) H 08/15/16 06:00 Problem List - Problems (1) Afib Code(s): I48.91 - UNSPECIFIED ATRIAL FIBRILLATION Qualifiers: Atrial fibrillation type: chronic Qualified Code(s): I48.2 - Chronic atrial fibrillation (2) Anemia Code(s): D64.9 - ANEMIA, UNSPECIFIED Qualifiers: Anemia type: other cause Other causes of anemia: other cause, not classified Qualified Code(s): D64.89 - Other specified anemias (3) Cough Code(s): R05 - COUGH (4) ESRD (end stage renal disease) on dialysis Code(s): N18.6 - END STAGE RENAL DISEASE Z99.2 - DEPENDENCE ON RENAL DIALYSIS Assessment/Plan to get prbc today then one unit rug hooker tmw prior to HD Tmw Problem List - Problems (1) Cough Code(s): R05 - COUGH ID CONSULT NOTED IV ABx CULTURES NEG (2) Anemia Code(s): D64.9 - ANEMIA, UNSPECIFIED Qualifiers: Anemia type: other cause Other causes of anemia: other cause, not classified Qualified Code(s): D64.89 - Other specified anemias S/P pRBC -> PLANNED pRBC x 1 TODAY ALSO HGB 6.9 -> 6.8 - CBC (3) Afib Code(s): I48.91 - UNSPECIFIED ATRIAL FIBRILLATION Qualifiers: Atrial fibrillation type: chronic Qualified Code(s): I48.2 - Chronic atrial fibrillation INR SUBTHERAPEUTIC -> WARFARIN INCed SQ HEPARIN STOPPED -> SCDs (4) ESRD (end stage renal disease) on dialysis Code(s): N18.6 - END STAGE RENAL DISEASE Z99.2 - DEPENDENCE ON RENAL DIALYSIS 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
--- NOTE | 2016-08-16 10:09 | PN ---
Progress Note, Physician - Current Medication List Current Medications: Active Medications Acetaminophen (Tylenol -) 650 mg PO Q4H PRN PRN Reason: FEVER OR PAIN Last Admin: 08/15/16 19:00 Dose: 650 mg Albuterol Sulfate (Ventolin 0.083% Nebulizer Soln -) 1 amp NEB Q4H PRN PRN Reason: SHORT OF BREATH/WHEEZING Epoetin Francisco (Procrit -) 6,000 unit IVPUSH ONCE ONE Stop: 08/16/16 14:01 Ceftriaxone Sodium (Rocephin 1gm Ivpb (Pre-Docked)) 50 mls @ 100 mls/hr IVPB DAILY [facility] Last Admin: 08/15/16 09:36 Dose: Not Given Metoprolol Succinate (Toprol Xl -) 100 mg PO DAILY [facility] Last Admin: 08/15/16 13:40 Dose: 100 mg Oseltamivir Phosphate (Tamiflu -) 30 mg PO MoFr [facility] Stop: 08/18/16 14:30 Last Admin: 08/15/16 13:41 Dose: 30 mg Sodium Chloride (Normal Saline -) 610 ml IV Q20M PRN PRN Reason: MAP<65mm Hg OR SBP <90 Warfarin Sodium 6 mg/ Warfarin (Sodium 0.5 mg) 6.5 mg PO DAILY@1800 [facility] - Objective Vital Signs: Vital Signs Temperature 98.0 F 08/16/16 06:00 Pulse Rate 97 H 08/16/16 06:00 Respiratory Rate 20 08/16/16 06:00 Blood Pressure 122/75 08/16/16 06:00 O2 Sat by Pulse Oximetry (%) 99 08/15/16 21:00 Eyes: Yes: WNL, Conjunctiva Clear, EOM Intact HENT: Yes: WNL, Atraumatic, Normocephalic Neck: Yes: WNL, Supple, Trachea Midline Cardiovascular: Yes: WNL, Regular Rate and Rhythm Respiratory: Yes: WNL, Regular, CTA Bilaterally Gastrointestinal: Yes: WNL, Normal Bowel Sounds Genitourinary: Yes: WNL Musculoskeletal: Yes: WNL Extremities: Yes: WNL Edema: No Integumentary: Yes: WNL Neurological: Yes: WNL, Alert, Oriented ...Motor Strength: WNL Psychiatric: Yes: WNL Labs: CBC, BMP 08/15/16 06:00 08/15/16 06:00 INR, PTT INR 1.41 (0.82-1.09) H 08/15/16 06:00 Assessment/Plan 86F AF, ESRD on HD, Moderate to severe chronic presents to ER on her HD day ( missed) for cough of several days with fever and chills. Daughter asked that I see her mother- my office patient. REC: Fever work up--blood cultures, CXR, etc. Will notify renal patient is here (today HD day). Daily INR while on abx.
[2016-08-16] MEDS: METOPROLOL SUCCINATE 100 MG TAB.SR.24H (FP) PO SCH (10:59)
[2016-08-16] MEDS: CEFTRIAXONE 1G/50 ML IVPB SCH (10:59)
[2016-08-16 12:31] LABS: BASOPHIL 0.5 % (0-2.0); MCH 31.7 pg (25.7-33.7); MEAN CELL VOLUME 93.4 fl (80-96); MEAN PLT VOLUME 8.7 fl (7.5-11.1); NEUTROPHILS 67.5 % (42.8-82.8); PLATELET COUNT 169 K/MM3 (134-434); RDW 18.3 % (11.6-15.6); WHITE BLOOD COUNT 5.4 K/mm3 (4.0-10.0)
[2016-08-16 12:43] LABS: INR 2.07 (0.82-1.09); PROTHROMBIN TIME (PATIENT) 23.1 SEC (9.98-11.88)
[2016-08-16 12:59] LABS: CALCIUM 7.8 mg/dL (8.5-10.1); CREATININE 3.4 mg/dL (0.55-1.02)
--- NOTE | 2016-08-16 12:59 | PN ---
Progress Note, Physician Chief Complaint: Renal f/u Pt seen at the HD unit Unable to access the AVG for HD today so dialysis could not done at this time. 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 and was for an angiogram again in Sep History of Present Illness: Renal F/U Pt seen at - Current Medication List Current Medications: Active Medications Acetaminophen (Tylenol -) 650 mg PO Q4H PRN PRN Reason: FEVER OR PAIN Last Admin: 08/15/16 19:00 Dose: 650 mg Albuterol Sulfate (Ventolin 0.083% Nebulizer Soln -) 1 amp NEB Q4H PRN PRN Reason: SHORT OF BREATH/WHEEZING Epoetin Francisco (Procrit -) 6,000 unit IVPUSH ONCE ONE Stop: 08/16/16 14:01 Ceftriaxone Sodium (Rocephin 1gm Ivpb (Pre-Docked)) 50 mls @ 100 mls/hr IVPB DAILY [facility] Last Admin: 08/16/16 10:59 Dose: 100 mls/hr Metoprolol Succinate (Toprol Xl -) 100 mg PO DAILY [facility] Last Admin: 08/16/16 10:59 Dose: 100 mg Oseltamivir Phosphate (Tamiflu -) 30 mg PO MoFr [facility] Stop: 08/18/16 14:30 Last Admin: 08/15/16 13:41 Dose: 30 mg Sodium Chloride (Normal Saline -) 610 ml IV Q20M PRN PRN Reason: MAP<65mm Hg OR SBP <90 Warfarin Sodium 6 mg/ Warfarin (Sodium 0.5 mg) 6.5 mg PO DAILY@1800 [facility] - Objective Vital Signs: Vital Signs Temperature 98.0 F 08/16/16 06:00 Pulse Rate 97 H 08/16/16 06:00 Respiratory Rate 20 08/16/16 06:00 Blood Pressure 122/75 08/16/16 06:00 O2 Sat by Pulse Oximetry (%) 99 08/15/16 21:00 Constitutional: Yes: No Distress Cardiovascular: Yes: S1, S2 Respiratory: Yes: Other (Occasional rhochus without wheezing) Gastrointestinal: Yes: Soft. No: Tenderness, Rebound Edema: LLE: 1+, RLE: 1+ Labs: CBC, BMP 08/16/16 11:58 INR, PTT INR 2.07 (0.82-1.09) H D 08/16/16 11:58 - ....Imaging Chest X-ray: Report Reviewed Assessment/Plan Impression ESRD with poorly functional AVG so could not receive the extra HD today PNA HTN A-fib Anemia s/p PRBCs Plan Vascular surgery consult with Dr Delcid for angiogram and possible angioplasty on 08/18 No urgent need for HD today since pt had a HD treatment yesterday Await today's BMP Repeat labs in am Dr Parsons
[2016-08-16] MEDS ORDERED: EPOETIN ALFA 3,000 UNIT/1 ML ML IVPUSH ONE (14:00)
[2016-08-16] MEDS ORDERED: WARFARIN NA 1 MG TABLET (FP) ONE (17:47)
[2016-08-16] MEDS ORDERED: WARFARIN NA 3 MG TABLET ONE (17:47)
[2016-08-16] MEDS ORDERED: WARFARIN NA PO SCH (18:00)
--- NOTE | 2016-08-16 23:42 | CONSULT ---
Consult Consult Specialty:: endocrine Referred by:: Reason for Consultation:: hypocalcemia - History of Present Illness Chief Complaint: weakness & cough History of Present Illness: 86 year old female with pmhx of ESRD, a-fib, and HTN who presents to the ER with cough for about 4 days. She feels that it has been getting worse. She now complains of weakness as well.neck pain,difficulty sitting in chair,headache, and cough persistant for past several days,low grade temp,denies chest pain,or recent travel - History Source History Provided By: Patient Limitations to Obtaining History: Clinical Condition - Past Medical History [employer]: Yes: Dementia (Pleasant affect and can conduct a reasonable conversation.) Cardio/Vascular: Yes: AFIB, CHF, HTN, Hyperlipdemia, Mitral Insufficiency Pulmonary: Yes: Pneumonia Renal/: Yes: Renal Inusuff, Hemodialysis - Past Surgical History Past Surgical History: Yes: AV Fistula/Graft (03/01/15), Permanent Pacemaker - Alcohol/Substance Use Hx Alcohol Use: No - Smoking History Smoking history: Never smoked Have you smoked in the past 12 months: No Aproximately how many cigarettes per day: 0 - Social History Usual Living Arrangement: Detention ADL: Support Services History of Recent Travel: No Home Medications - Allergies Allergies/Adverse Reactions: Allergies Allergy/AdvReac Type Severity Reaction Status Date / Time Penicillins Allergy Severe Hives, RASH Verified 08/13/16 10:18 - Home Medications Home Medications: Ambulatory Orders Metoprolol Succinate [Toprol XL -] 100 mg PO DAILY 03/21/16 Warfarin Na [Coumadin] 6 mg PO DAILY@1800 04/04/16 Review of Systems - Review of Systems Constitutional: reports: Lethargy, Loss of Appetite, Weakness Eyes: reports: No Symptoms HENT: reports: No Symptoms Neck: reports: Decreased ROM, Pain on Movement, Stiffness, Tenderness Cardiovascular: reports: Palpitations, Shortness of Breath Respiratory: reports: Exercise Intolerance, Orthopnea, SOB, SOB on Exertion Gastrointestinal: reports: Bloating, Constipation Genitourinary: reports: No Symptoms Breasts: reports: No Symptoms Reported Musculoskeletal: reports: Decreased ROM, Muscle Pain, Muscle Cramps, Muscle Weakness Neurological: reports: Numbness, Weakness Endocrine: reports: No Symptoms Hematology/Lymphatic: reports: No Symptoms Psychiatric: reports: No Symptoms Physical Exam Vital Signs: Vital Signs Temperature 99.4 F 01/07/17 17:55 Pulse Rate 94 H 08/16/16 17:55 Respiratory Rate 16 08/16/16 17:55 Blood Pressure 124/60 08/16/16 17:55 O2 Sat by Pulse Oximetry (%) 96 08/16/16 09:00 Constitutional: Yes: Calm Eyes: Yes: EOM Intact HENT: Yes: Normocephalic Neck: Yes: Trachea Midline Cardiovascular: Yes: Pulse Irregular, Murmur Respiratory: Yes: CTA Bilaterally Gastrointestinal: Yes: Normal Bowel Sounds ...Rectal Exam: Yes: Deferred Renal/: Yes: WNL Breast(s): Yes: WNL Musculoskeletal: Yes: Back Pain, Joint Swelling, Muscle Pain, Muscle Weakness Extremities: Yes: Delayed Capillary Refill, Pallor Edema: No Neurological: Yes: Alert, Oriented, Unsteady Gait, Weakness ...Motor Strength: LLE, RLE Labs: CBC, BMP 08/16/16 11:58 08/16/16 11:58 Problem List - Problems (1) Afib Code(s): I48.91 - UNSPECIFIED ATRIAL FIBRILLATION Qualifiers: Atrial fibrillation type: chronic Qualified Code(s): I48.2 - Chronic atrial fibrillation (2) ESRD (end stage renal disease) on dialysis Code(s): N18.6 - END STAGE RENAL DISEASE Z99.2 - DEPENDENCE ON RENAL DIALYSIS (3) Fever Code(s): R50.9 - FEVER, UNSPECIFIED Qualifiers: Fever type: unspecified Qualified Code(s): R50.9 - Fever, unspecified (4) Anemia Code(s): D64.9 - ANEMIA, UNSPECIFIED Qualifiers: Anemia type: other cause Other causes of anemia: other cause, not classified Qualified Code(s): D64.89 - Other specified anemias (5) A-V fistula Code(s): I77.0 - ARTERIOVENOUS FISTULA, ACQUIRED Assessment/Plan Current Active Problems Afib (Acute) Cough (Acute) ESRD (end stage renal disease) on dialysis (Acute) Fever (Acute) osteomalacia hypocalcemia Laboratory Results - last 24 hr 08/13/16 08/13/16 08/16/16 12:40 16:15 11:58 WBC RBC Hgb Hct MCV MCHC RDW Plt Count MPV Neutrophils % Lymphocytes % Monocytes % Eosinophils % Basophils % INR 2.07 H D Sodium Potassium Chloride Carbon Dioxide Anion Gap BUN Creatinine Random Glucose Calcium Hepatitis A IgM Ab Negative Hepatitis A Ab Total Positive H Hep Bs Antigen Negative Hep Bs Antibody Reactive Hep B Core Total Ab Negative Blood Type A POSITIVE Antibody Screen Positive 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 H Crossmatch See Detail 08/16/16 08/16/16 11:58 11:58 WBC 5.4 RBC 2.92 L D Hgb 9.3 L D Hct 27.3 L D MCV 93.4 MCHC 34.0 RDW 18.3 H D Plt Count 169 MPV 8.7 Neutrophils % 67.5 Lymphocytes % 13.2 Monocytes % 13.8 H Eosinophils % 5.0 H Basophils % 0.5 INR Sodium 135 L Potassium 3.9 Chloride 98 Carbon Dioxide 31 Anion Gap 6 L BUN 12 Creatinine 3.4 H Random Glucose 84 Calcium 7.8 L Hepatitis A IgM Ab Hepatitis A Ab Total Hep Bs Antigen Hep Bs Antibody Hep B Core Total Ab Blood Type Antibody Screen Antibody Identification Direct Antiglob Test Crossmatch Laboratory Tests 08/16/16 11:58 Sodium 135 L Potassium 3.9 Chloride 98 Carbon Dioxide 31 Anion Gap 6 L BUN 12 Creatinine 3.4 H Random Glucose 84 Calcium 7.8 L Current Medications Generic Name Dose Route Start Last Admin Trade Name Freq PRN Reason Stop Dose Admin Acetaminophen 650 mg 08/13/16 19:37 08/15/16 19:00 Tylenol - PO 650 mg Q4H PRN Administration FEVER OR PAIN Albuterol Sulfate 1 amp 08/13/16 19:37 Ventolin 0.083% Nebulizer Soln - NEB Q4H PRN SHORT OF BREATH/WHEEZING Epoetin Francisco 6,000 unit 08/16/16 14:00 Procrit - IVPUSH 08/16/16 14:01 ONCE ONE Ceftriaxone Sodium 50 mls @ 100 mls/hr 08/15/16 10:00 08/16/16 10:59 Rocephin 1gm Ivpb (Pre-Docked) IVPB 100 mls/hr DAILY PH[facility] Administration Metoprolol Succinate 100 mg 08/14/16 10:00 08/16/16 10:59 Toprol Xl - PO 100 mg DAILY PH[facility] Administration Oseltamivir Phosphate 30 mg 08/14/16 14:30 08/15/16 13:41 Tamiflu - PO 08/18/16 14:30 30 mg MoFr PHANI Administration Sodium Chloride 610 ml 08/13/16 11:06 Normal Saline - IV Q20M PRN MAP<65mm Hg OR SBP <90 Warfarin Sodium 6 mg/ Warfarin 6.5 mg 08/16/16 18:00 08/16/16 17:48 Sodium 0.5 mg PO 6.5 mg DAILY@1800 PHANI Administration plan: drisdol 50k weekly oscal 500mg bid ck tsh free t4
[2016-08-17 09:09] LABS: BASOPHIL 0.4 % (0-2.0); EOSINOPHIL 5.2 % (0-4.5); MCH 31.9 pg (25.7-33.7); MCHC 34.1 g/dl (32.0-36.0); MEAN CELL VOLUME 93.6 fl (80-96); MEAN PLT VOLUME 8.2 fl (7.5-11.1); NEUTROPHILS 71.8 % (42.8-82.8); PLATELET COUNT 175 K/MM3 (134-434); RDW 17.9 % (11.6-15.6); WHITE BLOOD COUNT 5.5 K/mm3 (4.0-10.0)
[2016-08-17 09:20] LABS: INR 2.59 (0.82-1.09)
[2016-08-17 09:46] LABS: ALBUMIN 2.4 g/dl (3.4-5.0); BILIRUBIN,TOTAL 0.6 mg/dL (0.2-1.0); CALCIUM 8.1 mg/dL (8.5-10.1); CREATININE 4.1 mg/dL (0.55-1.02); TOT PROT 7.2 g/dl (6.4-8.2)
--- NOTE | 2016-08-17 09:57 | PN ---
Progress Note, Physician - Current Medication List Current Medications: Active Medications Acetaminophen (Tylenol -) 650 mg PO Q4H PRN PRN Reason: FEVER OR PAIN Last Admin: 08/15/16 19:00 Dose: 650 mg Albuterol Sulfate (Ventolin 0.083% Nebulizer Soln -) 1 amp NEB Q4H PRN PRN Reason: SHORT OF BREATH/WHEEZING Calcium/Vitamin D (Oscal 250 Mg+D -) 1 tab PO BID [facility] Epoetin Francisco (Procrit -) 6,000 unit IVPUSH ONCE ONE Stop: 08/16/16 14:01 Ergocalciferol (Drisdol -) 50,000 unit PO ONCE ONE Stop: 08/17/16 10:01 Ceftriaxone Sodium (Rocephin 1gm Ivpb (Pre-Docked)) 50 mls @ 100 mls/hr IVPB DAILY [facility] Last Admin: 08/16/16 10:59 Dose: 100 mls/hr Metoprolol Succinate (Toprol Xl -) 100 mg PO DAILY [facility] Last Admin: 08/16/16 10:59 Dose: 100 mg Oseltamivir Phosphate (Tamiflu -) 30 mg PO MoFr [facility] Stop: 08/18/16 14:30 Last Admin: 08/15/16 13:41 Dose: 30 mg Sodium Chloride (Normal Saline -) 610 ml IV Q20M PRN PRN Reason: MAP<65mm Hg OR SBP <90 Warfarin Sodium 6 mg/ Warfarin (Sodium 0.5 mg) 6.5 mg PO DAILY@1800 [facility] Last Admin: 08/16/16 17:48 Dose: 6.5 mg - Objective Vital Signs: Vital Signs Temperature 99.0 F 08/17/16 06:00 Pulse Rate 104 H 08/17/16 06:00 Respiratory Rate 18 08/17/16 06:00 Blood Pressure 141/68 08/17/16 06:00 O2 Sat by Pulse Oximetry (%) 96 08/16/16 22:00 Eyes: Yes: WNL, Conjunctiva Clear, EOM Intact HENT: Yes: WNL, Atraumatic, Normocephalic Neck: Yes: WNL, Supple, Trachea Midline Cardiovascular: Yes: WNL, Regular Rate and Rhythm Respiratory: Yes: WNL, Regular, CTA Bilaterally Gastrointestinal: Yes: WNL, Normal Bowel Sounds Genitourinary: Yes: WNL Musculoskeletal: Yes: WNL Extremities: Yes: WNL Edema: No Integumentary: Yes: WNL Neurological: Yes: WNL, Alert, Oriented ...Motor Strength: WNL Psychiatric: Yes: WNL Labs: CBC, BMP 08/17/16 08:45 08/17/16 08:45 INR, PTT INR 2.59 (0.82-1.09) H 08/17/16 08:45 Assessment/Plan 86F AF, ESRD on HD, Moderate to severe chronic presents to ER on her HD day ( missed) for cough of several days with fever and chills. Daughter asked that I see her mother- my office patient. REC: Fever work up--blood cultures, CXR, etc. Will notify renal patient is here (today HD day). Daily INR while on abx.
[2016-08-17] MEDS ORDERED: ERGOCALCIFEROL (VITAMIN D2) 50,000 UNIT CAPSULE (FP) PO ONE (10:00)
[2016-08-17] MEDS ORDERED: PT OWN MED DRAWER 7, Y5N ONE (10:28)
[2016-08-17] MEDS: METOPROLOL SUCCINATE 100 MG TAB.SR.24H (FP) PO SCH (10:33)
[2016-08-17] MEDS: CEFTRIAXONE 1G/50 ML IVPB SCH (10:33)
[2016-08-17] MEDS: CALCIUM 250MG/VIT-D 125 UNITS 1 COMBO TABLET PO SCH ×2 (10:33→23:42)
--- NOTE | 2016-08-17 11:51 | PN ---
Progress Note, Physician Chief Complaint: HAD D/W FAMILY & PATIENT - Current Medication List Current Medications: Active Medications Acetaminophen (Tylenol -) 650 mg PO Q4H PRN PRN Reason: FEVER OR PAIN Last Admin: 08/15/16 19:00 Dose: 650 mg Albuterol Sulfate (Ventolin 0.083% Nebulizer Soln -) 1 amp NEB Q4H PRN PRN Reason: SHORT OF BREATH/WHEEZING Calcium/Vitamin D (Oscal 250 Mg+D -) 1 tab PO BID [facility] Last Admin: 08/17/16 10:33 Dose: 1 tab Epoetin Francisco (Procrit -) 6,000 unit IVPUSH ONCE ONE Stop: 08/16/16 14:01 Ceftriaxone Sodium (Rocephin 1gm Ivpb (Pre-Docked)) 50 mls @ 100 mls/hr IVPB DAILY [facility] Last Admin: 08/17/16 10:33 Dose: 100 mls/hr Metoprolol Succinate (Toprol Xl -) 100 mg PO DAILY [facility] Last Admin: 08/17/16 10:33 Dose: 100 mg Oseltamivir Phosphate (Tamiflu -) 30 mg PO MoFr [facility] Stop: 08/18/16 14:30 Last Admin: 08/15/16 13:41 Dose: 30 mg Sodium Chloride (Normal Saline -) 610 ml IV Q20M PRN PRN Reason: MAP<65mm Hg OR SBP <90 Warfarin Sodium 6 mg/ Warfarin (Sodium 0.5 mg) 6.5 mg PO DAILY@1800 [facility] Last Admin: 08/16/16 17:48 Dose: 6.5 mg - Objective Vital Signs: Vital Signs Temperature 99.0 F 08/17/16 06:00 Pulse Rate 96 H 08/17/16 10:32 Respiratory Rate 20 08/17/16 10:32 Blood Pressure 128/83 08/17/16 10:32 O2 Sat by Pulse Oximetry (%) 96 08/16/16 22:00 Constitutional: Yes: Calm Cardiovascular: Yes: S1, S2 Respiratory: Yes: CTA Bilaterally Gastrointestinal: Yes: Normal Bowel Sounds, Soft Edema: Yes Labs: CBC, BMP 08/17/16 08:45 08/17/16 08:45 INR, PTT INR 2.59 (0.82-1.09) H 08/17/16 08:45 Problem List - Problems (1) Afib Code(s): I48.91 - UNSPECIFIED ATRIAL FIBRILLATION Qualifiers: Atrial fibrillation type: chronic Qualified Code(s): I48.2 - Chronic atrial fibrillation (2) Anemia Code(s): D64.9 - ANEMIA, UNSPECIFIED Qualifiers: Anemia type: other cause Other causes of anemia: other cause, not classified Qualified Code(s): D64.89 - Other specified anemias (3) Cough Code(s): R05 - COUGH (4) ESRD (end stage renal disease) on dialysis Code(s): N18.6 - END STAGE RENAL DISEASE Z99.2 - DEPENDENCE ON RENAL DIALYSIS Assessment/Plan Problem List - Problems (1) Cough Code(s): R05 - COUGH ID CONSULT NOTED IV ABx CULTURES NEG (2) Anemia Code(s): D64.9 - ANEMIA, UNSPECIFIED Qualifiers: Anemia type: other cause Other causes of anemia: other cause, not classified Qualified Code(s): D64.89 - Other specified anemias 2/2 ESRD? CEDRIC? HGB 6.9 -> 9.1 s/p pRBC x 2 - FOBT - IRON STUDIES (3) Afib Code(s): I48.91 - UNSPECIFIED ATRIAL FIBRILLATION Qualifiers: Atrial fibrillation type: chronic Qualified Code(s): I48.2 - Chronic atrial fibrillation INR THERAPEUTIC -> AC ON HOLD FOR PROCEDURE SQ HEPARIN STOPPED -> SCDs (4) ESRD (end stage renal disease) on dialysis Code(s): N18.6 - END STAGE RENAL DISEASE Z99.2 - DEPENDENCE ON RENAL DIALYSIS APPRECIATE RENAL CONSULT HD 08/18 PASTOR HERNANDEZ
--- NOTE | 2016-08-17 12:06 | PN ---
Progress Note (short form) - Note Progress Note: Consult to Dr. Delcid called [facility] they were unable to dialyze the patient on wednesday 08/16. She had dialysis on thursday without any difficulty with blood flows of 380. According the the report she has had some stenosis in her upper ext access. Her original AVG was in 02/21 eith a stent placement in 01/23. The patient was admitted to the hospital on 08/13 for cough and weakness. She was febrile earlier in her admission but currently remains afebrile. The patient is being treated with IV abx for possible pneumonia/viral syndrome. As per Vital Signs Period Temp Pulse Resp BP Sys/Tavares Pulse Ox Last 24 Hr 99.0 F-99.6 F 92-104 16-22 110-141/60-83 96 PE: GEN: appears comfortable LUE: good thrill and palpable bruit. No evidence of ecchymosis/skin break down on UE. No erythema. CBC, BMP 08/17/16 08:45 08/17/16 08:45 INR, PTT INR 2.59 (0.82-1.09) H 08/17/16 08:45 Problem List - Problems (1) ESRD (end stage renal disease) on dialysis Assessment/Plan: Last HD on 08/15. The patient has been receiving coumadin and her INR is elevated to 2.[address] Ram and he will hold her coumadin and can recheck her INR in the am. I spoke with Dr. Parsons and she will need HD on 08/18 and may need a temporary catheter placed. I informed Dr. Delcid and surgery to follow the patient tomorrow with possible cathter placement, INR ordered for the am. Code(s): N18.6 - END STAGE RENAL DISEASE Z99.2 - DEPENDENCE ON RENAL DIALYSIS
--- NOTE | 2016-08-17 13:12 | PN ---
Progress Note, Physician Chief Complaint: Renal f/u Pt in no distress eating her lunch She prefers not to have the AVG used for HD since it is very painful to use the arm - Current Medication List Current Medications: Active Medications Acetaminophen (Tylenol -) 650 mg PO Q4H PRN PRN Reason: FEVER OR PAIN Last Admin: 08/15/16 19:00 Dose: 650 mg Albuterol Sulfate (Ventolin 0.083% Nebulizer Soln -) 1 amp NEB Q4H PRN PRN Reason: SHORT OF BREATH/WHEEZING Calcium/Vitamin D (Oscal 250 Mg+D -) 1 tab PO BID [facility] Last Admin: 08/17/16 10:33 Dose: 1 tab Epoetin Francisco (Procrit -) 6,000 unit IVPUSH ONCE ONE Stop: 08/16/16 14:01 Ceftriaxone Sodium (Rocephin 1gm Ivpb (Pre-Docked)) 50 mls @ 100 mls/hr IVPB DAILY [facility] Last Admin: 08/17/16 10:33 Dose: 100 mls/hr Metoprolol Succinate (Toprol Xl -) 100 mg PO DAILY [facility] Last Admin: 08/17/16 10:33 Dose: 100 mg Oseltamivir Phosphate (Tamiflu -) 30 mg PO MoFr [facility] Stop: 08/18/16 14:30 Last Admin: 08/15/16 13:41 Dose: 30 mg Sodium Chloride (Normal Saline -) 610 ml IV Q20M PRN PRN Reason: MAP<65mm Hg OR SBP <90 - Objective Vital Signs: Vital Signs Temperature 99.3 F 08/17/16 12:04 Pulse Rate 96 H 08/17/16 10:32 Respiratory Rate 20 08/17/16 10:32 Blood Pressure 128/83 08/17/16 10:32 O2 Sat by Pulse Oximetry (%) 96 08/16/16 22:00 Constitutional: Yes: No Distress Cardiovascular: Yes: S1, S2 Respiratory: Yes: CTA Bilaterally Gastrointestinal: Yes: Soft. No: Tenderness Edema: LLE: Trace, RLE: Trace Labs: CBC, BMP 08/17/16 08:45 08/17/16 08:45 INR, PTT INR 2.59 (0.82-1.09) H 08/17/16 08:45 Laboratory Tests 08/16/16 08/17/16 11:58 08:45 INR 2.07 H D 2.59 H Assessment/Plan Impression ESRD with poorly functional AVG PNA HTN A-fib Anemia s/p PRBCs Plan Hold Coumadin today For evaluation of the AVG in the RUE Rpt labs in am HD once access available- tentatively scheduled for tomorrow Dr Parsons
[2016-08-18 07:22] LABS: BASOPHIL 0.2 % (0-2.0); MCH 31.8 pg (25.7-33.7); MCHC 33.5 g/dl (32.0-36.0); MEAN CELL VOLUME 94.9 fl (80-96); MEAN PLT VOLUME 8.1 fl (7.5-11.1); NEUTROPHILS 70.2 % (42.8-82.8); PLATELET COUNT 164 K/MM3 (134-434); RDW 16.8 % (11.6-15.6)
[2016-08-18 07:36] LABS: INR 2.49 (0.82-1.09); PROTHROMBIN TIME (PATIENT) 27.9 SEC (9.98-11.88)
[2016-08-18 07:54] LABS: ALBUMIN 2.4 g/dl (3.4-5.0); CALCIUM 7.8 mg/dL (8.5-10.1)
[2016-08-18 08:00] LABS: BILIRUBIN,TOTAL 0.5 mg/dL (0.2-1.0); CREATININE 4.6 mg/dL (0.55-1.02); FERRITIN 211.016 ng/ml (6.9-282.5); TOT PROT 6.9 g/dl (6.4-8.2)
--- NOTE | 2016-08-18 10:12 | PN ---
Progress Note, Physician Chief Complaint: needs temproary cath placed today inr still elevated - Current Medication List Current Medications: Active Medications Acetaminophen (Tylenol -) 650 mg PO Q4H PRN PRN Reason: FEVER OR PAIN Last Admin: 08/15/16 19:00 Dose: 650 mg Albuterol Sulfate (Ventolin 0.083% Nebulizer Soln -) 1 amp NEB Q4H PRN PRN Reason: SHORT OF BREATH/WHEEZING Calcium/Vitamin D (Oscal 250 Mg+D -) 1 tab PO BID [facility] Last Admin: 08/17/16 23:42 Dose: 1 tab Epoetin Francisco (Procrit -) 6,000 unit IVPUSH ONCE ONE Stop: 08/16/16 14:01 Ceftriaxone Sodium (Rocephin 1gm Ivpb (Pre-Docked)) 50 mls @ 100 mls/hr IVPB DAILY [facility] Last Admin: 08/17/16 10:33 Dose: 100 mls/hr Metoprolol Succinate (Toprol Xl -) 100 mg PO DAILY [facility] Last Admin: 08/17/16 10:33 Dose: 100 mg Oseltamivir Phosphate (Tamiflu -) 30 mg PO MoFr [facility] Stop: 08/18/16 14:30 Last Admin: 08/15/16 13:41 Dose: 30 mg Sodium Chloride (Normal Saline -) 610 ml IV Q20M PRN PRN Reason: MAP<65mm Hg OR SBP <90 - Objective Vital Signs: Vital Signs Temperature 98.4 F 08/18/16 06:00 Pulse Rate 104 H 08/18/16 06:00 Respiratory Rate 21 08/18/16 06:00 Blood Pressure 127/93 08/18/16 06:00 O2 Sat by Pulse Oximetry (%) 96 08/17/16 22:00 Constitutional: Yes: Calm, Thin Neck: Yes: Trachea Midline Cardiovascular: Yes: Regular Rate and Rhythm, Murmur, S1, S2 Respiratory: Yes: CTA Bilaterally Gastrointestinal: Yes: Normal Bowel Sounds, Soft Edema: No Neurological: Yes: Alert, Oriented Labs: CBC, BMP 08/18/16 05:35 08/18/16 05:35 INR, PTT INR 2.49 (0.82-1.09) H 08/18/16 05:35 Problem List - Problems (1) Cough Assessment/Plan: seen by HANNA arreaga and rocephin to complete course today last day of tamiflu and today is day 5 of iv abx lactic acid normal WBC normal Microbiology 08/13/16 12:40 Nasopharyngeal Swab Influenza Types A,B Antigen (STACIA) - Final 08/13/16 12:40 Nasopharyngeal Swab - Final Code(s): R05 - COUGH (2) Anemia Assessment/Plan: procrit during HD got prbc now h/h improved Code(s): D64.9 - ANEMIA, UNSPECIFIED Qualifiers: Anemia type: other cause Other causes of anemia: other cause, not classified Qualified Code(s): D64.89 - Other specified anemias (3) Afib Assessment/Plan: couamdin on hold daily inr metoprolol Code(s): I48.91 - UNSPECIFIED ATRIAL FIBRILLATION Qualifiers: Atrial fibrillation type: chronic Qualified Code(s): I48.2 - Chronic atrial fibrillation (4) ESRD (end stage renal disease) on dialysis Assessment/Plan: needs temproary acess AVG is painful to use surgery and vascuar are on board Code(s): N18.6 - END STAGE RENAL DISEASE Z99.2 - DEPENDENCE ON RENAL DIALYSIS
[2016-08-18] MEDS: METOPROLOL SUCCINATE 100 MG TAB.SR.24H (FP) PO SCH (12:39)
[2016-08-18] MEDS: CEFTRIAXONE 1G/50 ML IVPB SCH (12:39)
[2016-08-18] MEDS: CALCIUM 250MG/VIT-D 125 UNITS 1 COMBO TABLET PO SCH ×2 (12:41→21:32)
--- NOTE | 2016-08-18 12:41 | PN ---
Progress Note, Physician - Current Medication List Current Medications: Active Medications Acetaminophen (Tylenol -) 650 mg PO Q4H PRN PRN Reason: FEVER OR PAIN Last Admin: 08/15/16 19:00 Dose: 650 mg Albuterol Sulfate (Ventolin 0.083% Nebulizer Soln -) 1 amp NEB Q4H PRN PRN Reason: SHORT OF BREATH/WHEEZING Calcium/Vitamin D (Oscal 250 Mg+D -) 1 tab PO BID [facility] Last Admin: 08/17/16 23:42 Dose: 1 tab Epoetin Francisco (Procrit -) 6,000 unit IVPUSH ONCE ONE Stop: 08/16/16 14:01 Ceftriaxone Sodium (Rocephin 1gm Ivpb (Pre-Docked)) 50 mls @ 100 mls/hr IVPB DAILY [facility] Last Admin: 08/17/16 10:33 Dose: 100 mls/hr Metoprolol Succinate (Toprol Xl -) 100 mg PO DAILY [facility] Last Admin: 08/17/16 10:33 Dose: 100 mg Oseltamivir Phosphate (Tamiflu -) 30 mg PO MoFr [facility] Stop: 08/18/16 14:30 Last Admin: 08/15/16 13:41 Dose: 30 mg Sodium Chloride (Normal Saline -) 610 ml IV Q20M PRN PRN Reason: MAP<65mm Hg OR SBP <90 - Objective Vital Signs: Vital Signs Temperature 98.4 F 08/18/16 11:00 Pulse Rate 88 08/18/16 11:00 Respiratory Rate 20 08/18/16 11:00 Blood Pressure 140/92 08/18/16 11:00 O2 Sat by Pulse Oximetry (%) 96 08/17/16 22:00 Labs: CBC, BMP 08/18/16 05:35 08/18/16 05:35 INR, PTT INR 2.49 (0.82-1.09) H 08/18/16 05:35 Assessment/Plan 86F AF, ESRD on HD, Moderate to severe chronic MR presents to ER on her HD day ( missed) for cough of several days with fever and chills. REC: COumadin on hold for possible vascular intervention for HD access Once procedures complete would resume coumadin for goal INR 2-3 Cont Toprol at current dose No absolute cardiac contraindication to planned procedures for HD access Cough improving, possible viral URI/PNA Volume removal as needed with HD
[2016-08-18] MEDS ORDERED: PT OWN MED DRAWER 7, Y5N ONE (13:05)
[2016-08-18] MEDS: OSELTAMIVIR PHOSPHATE 30 MG CAPSULE PO SCH (14:33)
--- NOTE | 2016-08-18 14:51 | PN ---
Progress Note, Physician History of Present Illness: Pt seen and examined at bedside. She is awake and alert. She complains of discomfort in her right arm graft. She denies shortness of breath and feels that the cough is improving. - Current Medication List Current Medications: Active Medications Acetaminophen (Tylenol -) 650 mg PO Q4H PRN PRN Reason: FEVER OR PAIN Last Admin: 08/15/16 19:00 Dose: 650 mg Albuterol Sulfate (Ventolin 0.083% Nebulizer Soln -) 1 amp NEB Q4H PRN PRN Reason: SHORT OF BREATH/WHEEZING Calcium/Vitamin D (Oscal 250 Mg+D -) 1 tab PO BID [facility] Last Admin: 08/18/16 12:41 Dose: 1 tab Epoetin Francisco (Procrit -) 6,000 unit IVPUSH ONCE ONE Stop: 08/16/16 14:01 Ceftriaxone Sodium (Rocephin 1gm Ivpb (Pre-Docked)) 50 mls @ 100 mls/hr IVPB DAILY [facility] Last Admin: 08/18/16 12:39 Dose: 100 mls/hr Metoprolol Succinate (Toprol Xl -) 100 mg PO DAILY [facility] Last Admin: 08/18/16 12:39 Dose: 100 mg Sodium Chloride (Normal Saline -) 610 ml IV Q20M PRN PRN Reason: MAP<65mm Hg OR SBP <90 - Objective Vital Signs: Vital Signs Temperature 98.4 F 08/18/16 11:00 Pulse Rate 88 08/18/16 11:00 Respiratory Rate 20 08/18/16 11:00 Blood Pressure 140/92 08/18/16 11:00 O2 Sat by Pulse Oximetry (%) 96 08/17/16 22:00 Constitutional: Yes: Calm Eyes: Yes: Conjunctiva Clear HENT: Yes: Atraumatic Neck: Yes: Supple Cardiovascular: Yes: Pulse Irregular, S1, S2 Respiratory: Yes: On Nasal O2 Gastrointestinal: Yes: Soft Genitourinary: Yes: WNL Musculoskeletal: Yes: Muscle Weakness Extremities: Yes: Other (right arm graft with thrill and bruit) Edema: Yes Edema: LLE: Trace, RLE: Trace Neurological: Yes: Oriented Psychiatric: Yes: Oriented Labs: CBC, BMP 08/18/16 05:35 08/18/16 05:35 INR, PTT INR 2.49 (0.82-1.09) H 08/18/16 05:35 Problem List - Problems (1) Afib Code(s): I48.91 - UNSPECIFIED ATRIAL FIBRILLATION Qualifiers: Atrial fibrillation type: chronic Qualified Code(s): I48.2 - Chronic atrial fibrillation (2) ESRD (end stage renal disease) on dialysis Code(s): N18.6 - END STAGE RENAL DISEASE Z99.2 - DEPENDENCE ON RENAL DIALYSIS (3) Fever Code(s): R50.9 - FEVER, UNSPECIFIED Qualifiers: Fever type: unspecified Qualified Code(s): R50.9 - Fever, unspecified (4) Anemia Code(s): D64.9 - ANEMIA, UNSPECIFIED Qualifiers: Anemia type: other cause Other causes of anemia: other cause, not classified Qualified Code(s): D64.89 - Other specified anemias Assessment/Plan Current Medications Generic Name Dose Route Start Last Admin Trade Name Freq PRN Reason Stop Dose Admin Acetaminophen 650 mg 08/13/16 19:37 08/15/16 19:00 Tylenol - PO 650 mg Q4H PRN Administration FEVER OR PAIN Albuterol Sulfate 1 amp 08/13/16 19:37 Ventolin 0.083% Nebulizer Soln - NEB Q4H PRN SHORT OF BREATH/WHEEZING Calcium/Vitamin D 1 tab 08/17/16 10:00 08/18/16 12:41 Oscal 250 Mg+D - PO 1 tab BID [facility] Administration Epoetin Francisco 6,000 unit 08/16/16 14:00 Procrit - IVPUSH 08/16/16 14:01 ONCE ONE Ceftriaxone Sodium 50 mls @ 100 mls/hr 08/15/16 10:00 08/18/16 12:39 Rocephin 1gm Ivpb (Pre-Docked) IVPB 100 mls/hr DAILY [facility] Administration Metoprolol Succinate 100 mg 08/14/16 10:00 08/18/16 12:39 Toprol Xl - PO 100 mg DAILY [facility] Administration Sodium Chloride 610 ml 08/13/16 11:06 Normal Saline - IV Q20M PRN MAP<65mm Hg OR SBP <90 Impression 1. ESRD 2. PNA 3. HTN 4. a-fib 5. anemia Plan - pt is refusing for graft to be used - spoke to vascular surgery to evaluate her, she is going for venogram on Thursday - will need HD by tomorrow - monitor hg - cont abx - pt is clinically improved - follow up cultures Dr Dunham
--- NOTE | 2016-08-18 16:21 | PN ---
Progress Note, Physician History of Present Illness: Awake, responsive No complaints Denies chest pain/ dyspnea/ cough No c/o fever/ chills - Current Medication List Current Medications: Active Medications Acetaminophen (Tylenol -) 650 mg PO Q4H PRN PRN Reason: FEVER OR PAIN Last Admin: 08/15/16 19:00 Dose: 650 mg Albuterol Sulfate (Ventolin 0.083% Nebulizer Soln -) 1 amp NEB Q4H PRN PRN Reason: SHORT OF BREATH/WHEEZING Calcium/Vitamin D (Oscal 250 Mg+D -) 1 tab PO BID [facility] Last Admin: 08/18/16 12:41 Dose: 1 tab Epoetin Francisco (Procrit -) 6,000 unit IVPUSH ONCE ONE Stop: 08/16/16 14:01 Epoetin Francisco (Epogen -) 10,000 units IVPUSH ONCE ONE Stop: 08/19/16 14:52 Ceftriaxone Sodium (Rocephin 1gm Ivpb (Pre-Docked)) 50 mls @ 100 mls/hr IVPB DAILY [facility] Last Admin: 08/18/16 12:39 Dose: 100 mls/hr Metoprolol Succinate (Toprol Xl -) 100 mg PO DAILY [facility] Last Admin: 08/18/16 12:39 Dose: 100 mg Sodium Chloride (Normal Saline -) 610 ml IV Q20M PRN PRN Reason: MAP<65mm Hg OR SBP <90 - Objective Vital Signs: Vital Signs Temperature 98.0 F 08/18/16 14:25 Pulse Rate 78 08/18/16 14:25 Respiratory Rate 20 08/18/16 14:25 Blood Pressure 144/66 08/18/16 14:25 O2 Sat by Pulse Oximetry (%) 95 08/18/16 09:00 Constitutional: Yes: No Distress Eyes: Yes: Conjunctiva Clear Cardiovascular: Yes: Regular Rate and Rhythm, S1, S2 Respiratory: Yes: Diminished Gastrointestinal: Yes: Normal Bowel Sounds, Soft. No: Tenderness Labs: CBC, BMP 08/18/16 05:35 08/18/16 05:35 INR, PTT INR 2.49 (0.82-1.09) H 08/18/16 05:35 Assessment/Plan Possible pneumonia/ viral syndrome ESRD Blood c/s prelim no growth Completed course of Tamiflu Substitute po ceftin x48hr
--- NOTE | 2016-08-18 20:06 | PN ---
Progress Note (short form) - Note Progress Note: Vascular surgery Pt seen and examined. Right avg with good bruit and thrill. Spoke to pt and family at length. Pt will have AVG used for HD moises. Will do venogram on thu. Coumadin on hold. Alan Delcid DO
[2016-08-18] MEDS: CEFUROXIME AXETIL 250 MG TABLET PO SCH (21:32)
--- NOTE | 2016-08-19 01:50 | PN ---
Progress Note, Physician Chief Complaint: weak and difficulty sitting in bed head and neck discomfort History of Present Illness: cough less frequent dry, denies cp or headache - Current Medication List Current Medications: Active Medications Acetaminophen (Tylenol -) 650 mg PO Q4H PRN PRN Reason: FEVER OR PAIN Last Admin: 08/15/16 19:00 Dose: 650 mg Albuterol Sulfate (Ventolin 0.083% Nebulizer Soln -) 1 amp NEB Q4H PRN PRN Reason: SHORT OF BREATH/WHEEZING Calcium/Vitamin D (Oscal 250 Mg+D -) 1 tab PO BID [facility] Last Admin: 08/18/16 21:32 Dose: 1 tab Cefuroxime Axetil (Ceftin -) 250 mg PO BID [facility] Last Admin: 08/18/16 21:32 Dose: 250 mg Epoetin Francisco (Procrit -) 6,000 unit IVPUSH ONCE ONE Stop: 08/16/16 14:01 Epoetin Francisco (Epogen -) 10,000 units IVPUSH ONCE ONE Stop: 08/19/16 14:52 Metoprolol Succinate (Toprol Xl -) 100 mg PO DAILY [facility] Last Admin: 08/18/16 12:39 Dose: 100 mg Sodium Chloride (Normal Saline -) 610 ml IV Q20M PRN PRN Reason: MAP<65mm Hg OR SBP <90 - Objective Vital Signs: Vital Signs Temperature 99.3 F 08/19/16 01:23 Pulse Rate 114 H 08/19/16 01:23 Respiratory Rate 16 08/19/16 01:23 Blood Pressure 119/84 08/19/16 01:23 O2 Sat by Pulse Oximetry (%) 100 08/18/16 21:00 Constitutional: Yes: Well Nourished, Calm Eyes: Yes: EOM Intact HENT: Yes: Normocephalic Neck: Yes: Trachea Midline Cardiovascular: Yes: Pulse Irregular Respiratory: Yes: CTA Bilaterally Gastrointestinal: Yes: Normal Bowel Sounds ...Rectal Exam: Yes: Deferred Breast(s): Yes: WNL Musculoskeletal: Yes: Back Pain, Joint Stiffness, Joint Swelling, Muscle Weakness Extremities: Yes: WNL Edema: No Peripheral Pulses WNL: Yes Neurological: Yes: Alert, Oriented Labs: CBC, BMP 08/18/16 05:35 08/18/16 05:35 INR, PTT INR 2.49 (0.82-1.09) H 08/18/16 05:35 Problem List - Problems (1) Afib Code(s): I48.91 - UNSPECIFIED ATRIAL FIBRILLATION Qualifiers: Atrial fibrillation type: chronic Qualified Code(s): I48.2 - Chronic atrial fibrillation (2) ESRD (end stage renal disease) on dialysis Code(s): N18.6 - END STAGE RENAL DISEASE Z99.2 - DEPENDENCE ON RENAL DIALYSIS (3) Fever Code(s): R50.9 - FEVER, UNSPECIFIED Qualifiers: Fever type: unspecified Qualified Code(s): R50.9 - Fever, unspecified (4) Anemia Code(s): D64.9 - ANEMIA, UNSPECIFIED Qualifiers: Anemia type: other cause Other causes of anemia: other cause, not classified Qualified Code(s): D64.89 - Other specified anemias (5) A-V fistula Code(s): 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 - ARTERIOVENOUS FISTULA, ACQUIRED Assessment/Plan Current Active Problems Afib (Acute) Cough (Acute) ESRD (end stage renal disease) on dialysis (Acute) Fever (Acute) osteomalacia hypocalcemia Laboratory Results - last 24 hr 08/13/16 08/13/16 08/16/16 12:40 16:15 11:58 WBC RBC Hgb Hct MCV MCHC RDW Plt Count MPV Neutrophils % Lymphocytes % Monocytes % Eosinophils % Basophils % INR 2.07 H D Sodium Potassium Chloride Carbon Dioxide Anion Gap BUN Creatinine Random Glucose Calcium Hepatitis A IgM Ab Negative Hepatitis A Ab Total Positive H Hep Bs Antigen Negative Hep Bs Antibody Reactive Hep B Core Total Ab Negative Blood Type A POSITIVE Antibody Screen Positive 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 H Crossmatch See Detail 08/16/16 08/16/16 11:58 11:58 WBC 5.4 RBC 2.92 L D Hgb 9.3 L D Hct 27.3 L D MCV 93.4 MCHC 34.0 RDW 18.3 H D Plt Count 169 MPV 8.7 Neutrophils % 67.5 Lymphocytes % 13.2 Monocytes % 13.8 H Eosinophils % 5.0 H Basophils % 0.5 INR Sodium 135 L Potassium 3.9 Chloride 98 Carbon Dioxide 31 Anion Gap 6 L BUN 12 Creatinine 3.4 H Random Glucose 84 Calcium 7.8 L Hepatitis A IgM Ab Hepatitis A Ab Total Hep Bs Antigen Hep Bs Antibody Hep B Core Total Ab Blood Type Antibody Screen Antibody Identification Direct Antiglob Test Crossmatch Laboratory Tests 08/16/16 11:58 Sodium 135 L Potassium 3.9 Chloride 98 Carbon Dioxide 31 Anion Gap 6 L BUN 12 Creatinine 3.4 H Random Glucose 84 Calcium 7.8 L Current Medications Generic Name Dose Route Start Last Admin Trade Name Freq PRN Reason Stop Dose Admin Acetaminophen 650 mg 08/13/16 19:37 08/15/16 19:00 Tylenol - PO 650 mg Q4H PRN Administration FEVER OR PAIN Albuterol Sulfate 1 amp 08/13/16 19:37 Ventolin 0.083% Nebulizer Soln - NEB Q4H PRN SHORT OF BREATH/WHEEZING Epoetin Francisco 6,000 unit 08/16/16 14:00 Procrit - IVPUSH 08/16/16 14:01 ONCE ONE Ceftriaxone Sodium 50 mls @ 100 mls/hr 08/15/16 10:00 08/16/16 10:59 Rocephin 1gm Ivpb (Pre-Docked) IVPB 100 mls/hr DAILY [facility] Administration Metoprolol Succinate 100 mg 08/14/16 10:00 08/16/16 10:59 Toprol Xl - PO 100 mg DAILY [facility] Administration Oseltamivir Phosphate 30 mg 08/14/16 14:30 08/15/16 13:41 Tamiflu - PO 08/18/16 14:30 30 mg MoFr [facility] Administration Sodium Chloride 610 ml 08/13/16 11:06 Normal Saline - IV Q20M PRN MAP<65mm Hg OR SBP <90 Warfarin Sodium 6 mg/ Warfarin 6.5 mg 08/16/16 18:00 08/16/16 17:48 Sodium 0.5 mg PO 6.5 mg DAILY@1800 [facility] Administration plan: drisdol 50k weekly oscal 500mg bid ck tsh free t4 Abnormal Lab Results 08/13/16 08/18/16 08/18/16 12:40 05:35 05:35 RBC 2.60 L Hgb 8.3 L Hct 24.6 L RDW 16.8 H Monocytes % 13.8 H Eosinophils % 5.0 H INR Chloride 97 L BUN 22 H D Creatinine 4.6 H Calcium 7.8 L ALT 8 L Albumin 2.4 L Antibody Screen Positive H Direct Antiglob Test Positive H Crossmatch See Detail 08/18/16 05:35 RBC Hgb Hct RDW Monocytes % Eosinophils % INR 2.49 H Chloride BUN Creatinine Calcium ALT Albumin Antibody Screen Direct Antiglob Test Crossmatch plan hemodialysis bed side pt to have vascular procedure
[2016-08-19 06:06] LABS: SERUM IRON 31 ug/dL (27-139); TOTAL IRON BINDING CAPACITY 151 ug/dL (250-450); UIBC 120 ug/dL (118-369)
[2016-08-19 07:29] LABS: INR 1.81 (0.82-1.09); PROTHROMBIN TIME (PATIENT) 20.1 SEC (9.98-11.88)
--- NOTE | 2016-08-19 09:22 | PN ---
Progress Note, Physician Chief Complaint: sitting up comfortable denies chest pain or SOB - Current Medication List Current Medications: Active Medications Acetaminophen (Tylenol -) 650 mg PO Q4H PRN PRN Reason: FEVER OR PAIN Last Admin: 08/15/16 19:00 Dose: 650 mg Albuterol Sulfate (Ventolin 0.083% Nebulizer Soln -) 1 amp NEB Q4H PRN PRN Reason: SHORT OF BREATH/WHEEZING Calcium/Vitamin D (Oscal 250 Mg+D -) 1 tab PO BID [facility] Last Admin: 08/18/16 21:32 Dose: 1 tab Cefuroxime Axetil (Ceftin -) 250 mg PO BID [facility] Last Admin: 08/18/16 21:32 Dose: 250 mg Epoetin Francisco (Procrit -) 6,000 unit IVPUSH ONCE ONE Stop: 08/16/16 14:01 Epoetin Francisco (Epogen -) 10,000 units IVPUSH ONCE ONE Stop: 08/19/16 14:52 Metoprolol Succinate (Toprol Xl -) 100 mg PO DAILY [facility] Last Admin: 08/18/16 12:39 Dose: 100 mg Sodium Chloride (Normal Saline -) 610 ml IV Q20M PRN PRN Reason: MAP<65mm Hg OR SBP <90 - Objective Vital Signs: Vital Signs Temperature 98.6 F 08/19/16 06:00 Pulse Rate 124 H 08/19/16 06:00 Respiratory Rate 18 08/19/16 06:00 Blood Pressure 130/72 08/19/16 06:00 O2 Sat by Pulse Oximetry (%) 100 08/18/16 21:00 Constitutional: Yes: No Distress Cardiovascular: Yes: Pulse Irregular Respiratory: Yes: Other (decreased basilar breath sounds. No rales or wheezing) Gastrointestinal: Yes: Soft (non-tender) Edema: No Neurological: Yes: Alert Labs: CBC, BMP 08/18/16 05:35 08/18/16 05:35 INR, PTT INR 1.81 (0.82-1.09) H 08/19/16 06:25 Microbiology 08/14/16 17:00 Blood - Peripheral Venous Blood Culture - Preliminary NO GROWTH OBTAINED AFTER 96 HOURS, INCUBATION TO CONTINUE FOR 1 DAYS. 08/14/16 17:00 Blood - Peripheral Venous Blood Culture - Preliminary NO GROWTH OBTAINED AFTER 96 HOURS, INCUBATION TO CONTINUE FOR 1 DAYS. Assessment/Plan ssessment/Plan 86F AF, ESRD on HD, Moderate to severe chronic MR presents to ER on her HD day ( missed) for cough of several days with fever and chills. REC: Coumadin on hold for possible vascular intervention for HD access Once procedures complete would resume coumadin for goal INR 2-3 Cont Toprol at current dose No absolute cardiac contraindication to planned procedures for HD access
--- NOTE | 2016-08-19 09:32 | PN ---
Progress Note (short form) - Note Progress Note: Vascular Surgery For venogram, venoplasty of right avg in am. NPO past midnight. Coumadin on hold. INR 1.81 today.. Alan Delcid DO
[2016-08-19] MEDS ORDERED: EPOETIN ALFA 10,000 UNIT/1 ML VIAL IVPUSH ONE (10:00)
--- NOTE | 2016-08-19 12:26 | PN ---
Progress Note, Physician Chief Complaint: getting HD right now to get venogram in AM - Current Medication List Current Medications: Active Medications Acetaminophen (Tylenol -) 650 mg PO Q4H PRN PRN Reason: FEVER OR PAIN Last Admin: 08/15/16 19:00 Dose: 650 mg Albuterol Sulfate (Ventolin 0.083% Nebulizer Soln -) 1 amp NEB Q4H PRN PRN Reason: SHORT OF BREATH/WHEEZING Calcium/Vitamin D (Oscal 250 Mg+D -) 1 tab PO BID [facility] Last Admin: 08/18/16 21:32 Dose: 1 tab Cefuroxime Axetil (Ceftin -) 250 mg PO BID [facility] Last Admin: 08/18/16 21:32 Dose: 250 mg Metoprolol Succinate (Toprol Xl -) 100 mg PO DAILY [facility] Last Admin: 08/18/16 12:39 Dose: 100 mg Sodium Chloride (Normal Saline -) 610 ml IV Q20M PRN PRN Reason: MAP<65mm Hg OR SBP <90 - Objective Vital Signs: Vital Signs Temperature 98.6 F 08/19/16 06:00 Pulse Rate 124 H 08/19/16 06:00 Respiratory Rate 18 08/19/16 06:00 Blood Pressure 130/72 08/19/16 06:00 O2 Sat by Pulse Oximetry (%) 100 08/18/16 21:00 Constitutional: Yes: Calm, Thin Cardiovascular: Yes: Murmur, S1, S2 Respiratory: Yes: CTA Bilaterally Gastrointestinal: Yes: Normal Bowel Sounds, Soft Edema: No Neurological: Yes: Alert, Oriented Labs: CBC, BMP 08/18/16 05:35 08/18/16 05:35 INR, PTT INR 1.81 (0.82-1.09) H 08/19/16 06:25 Problem List - Problems (1) ESRD (end stage renal disease) on dialysis Assessment/Plan: temporary access obtained [facility] Code(s): N18.6 - END STAGE RENAL DISEASE Z99.2 - DEPENDENCE ON RENAL DIALYSIS (2) Cough Assessment/Plan: seen by ID complete tamiflu and needs 48 hrs of ceftin lactic acid normal WBC normal Microbiology 08/13/16 12:40 Nasopharyngeal Swab Influenza Types A,B Antigen (STACIA) - Final 08/13/16 12:40 Nasopharyngeal Swab - Final Code(s): R05 - COUGH (3) Anemia Assessment/Plan: procrit during HD got prbc now h/h improved on procorit Code(s): D64.9 - ANEMIA, UNSPECIFIED Qualifiers: Anemia type: other cause Other causes of anemia: other cause, not classified Qualified Code(s): D64.89 - Other specified anemias (4) Afib Assessment/Plan: couamdin on hold for venogram in AM restart c ouamdin after procedure metoprolol Code(s): I48.91 - UNSPECIFIED ATRIAL FIBRILLATION Qualifiers: Atrial fibrillation type: chronic Qualified Code(s): I48.2 - Chronic atrial fibrillation
--- NOTE | 2016-08-19 13:01 | PN ---
Progress Note, Physician History of Present Illness: Pt seen and examined at bedside. She is tolerating HD so far. She does complain of discomfort when the needles were placed. - Current Medication List Current Medications: Active Medications Acetaminophen (Tylenol -) 650 mg PO Q4H PRN PRN Reason: FEVER OR PAIN Last Admin: 08/15/16 19:00 Dose: 650 mg Albuterol Sulfate (Ventolin 0.083% Nebulizer Soln -) 1 amp NEB Q4H PRN PRN Reason: SHORT OF BREATH/WHEEZING Calcium/Vitamin D (Oscal 250 Mg+D -) 1 tab PO BID [facility] Last Admin: 08/18/16 21:32 Dose: 1 tab Cefuroxime Axetil (Ceftin -) 250 mg PO BID [facility] Last Admin: 08/18/16 21:32 Dose: 250 mg Metoprolol Succinate (Toprol Xl -) 100 mg PO DAILY [facility] Last Admin: 08/18/16 12:39 Dose: 100 mg Sodium Chloride (Normal Saline -) 610 ml IV Q20M PRN PRN Reason: MAP<65mm Hg OR SBP <90 - Objective Vital Signs: Vital Signs Temperature 97.8 F 08/19/16 09:00 Pulse Rate 97 H 08/19/16 12:00 Respiratory Rate 18 08/19/16 12:00 Blood Pressure 148/100 08/19/16 12:00 O2 Sat by Pulse Oximetry (%) 100 08/18/16 21:00 Constitutional: Yes: Calm Eyes: Yes: Conjunctiva Clear HENT: Yes: Atraumatic Cardiovascular: Yes: Pulse Irregular, S1, S2 Respiratory: Yes: CTA Bilaterally Gastrointestinal: Yes: Normal Bowel Sounds, Soft Genitourinary: Yes: WNL Extremities: Yes: WNL Edema: No Neurological: Yes: Oriented Psychiatric: Yes: Oriented Labs: CBC, BMP 08/18/16 05:35 08/18/16 05:35 INR, PTT INR 1.81 (0.82-1.09) H 08/19/16 06:25 Problem List - Problems (1) Afib Code(s): I48.91 - UNSPECIFIED ATRIAL FIBRILLATION Qualifiers: Atrial fibrillation type: chronic Qualified Code(s): I48.2 - Chronic atrial fibrillation (2) ESRD (end stage renal disease) on dialysis Code(s): N18.6 - END STAGE RENAL DISEASE Z99.2 - DEPENDENCE ON RENAL DIALYSIS (3) Fever Code(s): R50.9 - FEVER, UNSPECIFIED Qualifiers: Fever type: unspecified Qualified Code(s): R50.9 - Fever, unspecified (4) Anemia Code(s): D64.9 - ANEMIA, UNSPECIFIED Qualifiers: Anemia type: other cause Other causes of anemia: other cause, not classified Qualified Code(s): D64.89 - Other specified anemias Assessment/Plan Current Medications Generic Name Dose Route Start Last Admin Trade Name Freq PRN Reason Stop Dose Admin Acetaminophen 650 mg 08/13/16 19:37 08/15/16 19:00 Tylenol - PO 650 mg Q4H PRN Administration FEVER OR PAIN Albuterol Sulfate 1 amp 08/13/16 19:37 Ventolin 0.083% Nebulizer Soln - NEB Q4H PRN SHORT OF BREATH/WHEEZING Calcium/Vitamin D 1 tab 08/17/16 10:00 08/18/16 21:32 Oscal 250 Mg+D - PO 1 tab BID [facility] Administration Cefuroxime Axetil 250 mg 08/18/16 22:00 08/18/16 21:32 Ceftin - PO 250 mg BID [facility] Administration Metoprolol Succinate 100 mg 08/14/16 10:00 08/18/16 12:39 Toprol Xl - PO 100 mg DAILY [facility] Administration Sodium Chloride 610 ml 08/13/16 11:06 Normal Saline - IV Q20M PRN MAP<65mm Hg OR SBP <90 Impression 1. ESRD 2. PNA 3. HTN 4. a-fib 5. anemia Plan - pt is tolerating HD so far - scheduled for venogram tomorrow - cont current meds - epogen for anemia - monitor hg - cont abx - pt is clinically improved Dr Dunham
[2016-08-19] MEDS ORDERED: PT OWN MED DRAWER 7, Y5N ONE ×2 (13:19→22:29)
[2016-08-19] MEDS: ACETAMINOPHEN 325 MG TABLET (FP) PO PRN (13:20)
[2016-08-19] MEDS: METOPROLOL SUCCINATE 100 MG TAB.SR.24H (FP) PO SCH (13:20)
[2016-08-19] MEDS: CEFUROXIME AXETIL 250 MG TABLET PO SCH ×2 (13:21→22:51)
[2016-08-19] MEDS: CALCIUM 250MG/VIT-D 125 UNITS 1 COMBO TABLET PO SCH ×2 (13:21→22:51)
[2016-08-20] MEDS ORDERED: LIDOCAINE HCL 1%, 10 MG/ML (20ML VIAL) IJ ONE
--- NOTE | 2016-08-20 08:35 | PN ---
Progress Note, Physician History of Present Illness: IN BED COMFORTABLE - Current Medication List Current Medications: Active Medications Acetaminophen (Tylenol -) 650 mg PO Q4H PRN PRN Reason: FEVER OR PAIN Last Admin: 08/19/16 13:20 Dose: 650 mg Albuterol Sulfate (Ventolin 0.083% Nebulizer Soln -) 1 amp NEB Q4H PRN PRN Reason: SHORT OF BREATH/WHEEZING Calcium/Vitamin D (Oscal 250 Mg+D -) 1 tab PO BID [facility] Last Admin: 08/19/16 22:51 Dose: 1 tab Cefuroxime Axetil (Ceftin -) 250 mg PO BID [facility] Last Admin: 08/19/16 22:51 Dose: 250 mg Metoprolol Succinate (Toprol Xl -) 100 mg PO DAILY [facility] Last Admin: 08/19/16 13:20 Dose: 100 mg Sodium Chloride (Normal Saline -) 610 ml IV Q20M PRN PRN Reason: MAP<65mm Hg OR SBP <90 - Objective Vital Signs: Vital Signs Temperature 98.0 F 08/20/16 07:05 Pulse Rate 88 08/20/16 07:05 Respiratory Rate 20 08/20/16 07:05 Blood Pressure 136/77 08/20/16 07:05 O2 Sat by Pulse Oximetry (%) 100 08/19/16 22:00 Cardiovascular: Yes: Regular Rate and Rhythm Respiratory: Yes: Regular, CTA Bilaterally Gastrointestinal: Yes: Normal Bowel Sounds, Soft. No: Tenderness Labs: CBC, BMP 08/18/16 05:35 08/18/16 05:35 INR, PTT INR 1.81 (0.82-1.09) H 08/19/16 06:25 Assessment/Plan - Problems (1) ESRD (end stage renal disease) on dialysis Assessment/Plan: temporary access obtained to get venogram npo Code(s): N18.6 - END STAGE RENAL DISEASE Z99.2 - DEPENDENCE ON RENAL DIALYSIS (2) Cough Assessment/Plan: seen by ID complete tamiflu and needs 48 hrs of ceftin lactic acid normal WBC normal Microbiology 08/13/16 12:40 Nasopharyngeal Swab Influenza Types A,B Antigen (STACIA) - Final 08/13/16 12:40 Nasopharyngeal Swab - Final Code(s): R05 - COUGH (3) Anemia Assessment/Plan: procrit during HD got prbc now h/h improved on procorit Code(s): D64.9 - ANEMIA, UNSPECIFIED Qualifiers: Anemia type: other cause Other causes of anemia: other cause, not classified Qualified Code(s): D64.89 - Other specified anemias (4) Afib Assessment/Plan: Coumadin on hold for venogram in AM restart Coumadin after procedure metoprolol Code(s): I48.91 - UNSPECIFIED ATRIAL FIBRILLATION Qualifiers: Atrial fibrillation type: chronic Qualified Code(s): I48.2 - Chronic atrial fibrillation
[2016-08-20] MEDS: METOPROLOL SUCCINATE 100 MG TAB.SR.24H (FP) PO SCH (09:20)
[2016-08-20] MEDS: CALCIUM 250MG/VIT-D 125 UNITS 1 COMBO TABLET PO SCH ×2 (09:20→21:31)
[2016-08-20] MEDS: CEFUROXIME AXETIL 250 MG TABLET PO SCH ×2 (09:20→21:31)
--- NOTE | 2016-08-20 12:26 | PN ---
Progress Note, Physician History of Present Illness: Pt seen and examined at bedside. She is awake and alert. She is going for angio today. - Current Medication List Current Medications: Active Medications Acetaminophen (Tylenol -) 650 mg PO Q4H PRN PRN Reason: FEVER OR PAIN Last Admin: 08/19/16 13:20 Dose: 650 mg Albuterol Sulfate (Ventolin 0.083% Nebulizer Soln -) 1 amp NEB Q4H PRN PRN Reason: SHORT OF BREATH/WHEEZING Calcium/Vitamin D (Oscal 250 Mg+D -) 1 tab PO BID [facility] Last Admin: 08/20/16 09:20 Dose: Not Given Cefuroxime Axetil (Ceftin -) 250 mg PO BID [facility] Last Admin: 08/20/16 09:20 Dose: Not Given Metoprolol Succinate (Toprol Xl -) 100 mg PO DAILY [facility] Last Admin: 08/20/16 09:20 Dose: 100 mg Sodium Chloride (Normal Saline -) 610 ml IV Q20M PRN PRN Reason: MAP<65mm Hg OR SBP <90 - Objective Vital Signs: Vital Signs Temperature 98.0 F 08/20/16 07:05 Pulse Rate 88 08/20/16 07:05 Respiratory Rate 20 08/20/16 07:05 Blood Pressure 136/77 08/20/16 07:05 O2 Sat by Pulse Oximetry (%) 100 08/19/16 22:00 Constitutional: Yes: Calm Eyes: Yes: Conjunctiva Clear HENT: Yes: Atraumatic Neck: Yes: Supple Cardiovascular: Yes: S1, S2 Respiratory: Yes: CTA Bilaterally Gastrointestinal: Yes: Soft Genitourinary: Yes: WNL Musculoskeletal: Yes: WNL Edema: Yes Edema: LLE: Trace, RLE: Trace Neurological: Yes: Oriented Psychiatric: Yes: Oriented Labs: CBC, BMP 08/18/16 05:35 08/18/16 05:35 INR, PTT INR 1.81 (0.82-1.09) H 08/19/16 06:25 Problem List - Problems (1) Afib Code(s): I48.91 - UNSPECIFIED ATRIAL FIBRILLATION Qualifiers: Atrial fibrillation type: chronic Qualified Code(s): I48.2 - Chronic atrial fibrillation (2) ESRD (end stage renal disease) on dialysis Code(s): N18.6 - END STAGE RENAL DISEASE Z99.2 - DEPENDENCE ON RENAL DIALYSIS (3) Fever Code(s): R50.9 - FEVER, UNSPECIFIED Qualifiers: Fever type: unspecified Qualified Code(s): R50.9 - Fever, unspecified (4) Anemia Code(s): D64.9 - ANEMIA, UNSPECIFIED Qualifiers: Anemia type: other cause Other causes of anemia: other cause, not classified Qualified Code(s): D64.89 - Other specified anemias Assessment/Plan Current Medications Generic Name Dose Route Start Last Admin Trade Name Freq PRN Reason Stop Dose Admin Acetaminophen 650 mg 08/13/16 19:37 08/19/16 13:20 Tylenol - PO 650 mg Q4H PRN Administration FEVER OR PAIN Albuterol Sulfate 1 amp 08/13/16 19:37 Ventolin 0.083% Nebulizer Soln - NEB Q4H PRN SHORT OF BREATH/WHEEZING Calcium/Vitamin D 1 tab 08/17/16 10:00 08/20/16 09:20 Oscal 250 Mg+D - PO Not Given BID [facility] Cefuroxime Axetil 250 mg 08/18/16 22:00 08/20/16 09:20 Ceftin - PO Not Given BID [facility] Metoprolol Succinate 100 mg 08/14/16 10:00 08/20/16 09:20 Toprol Xl - PO 100 mg DAILY [facility] Administration Sodium Chloride 610 ml 08/13/16 11:06 Normal Saline - IV Q20M PRN MAP<65mm Hg OR SBP <90 Impression 1. ESRD 2. PNA 3. HTN 4. a-fib 5. anemia Plan - HD in am - pt going for angio today - cont current meds - cont epogen on HD - monitor INR - monitor hg - cont abx - pt is clinically improved Dr Dunham
[2016-08-20] MEDS ORDERED: HEPARIN NA (PORCINE) 5,000 UNITS/ML 1ML VIAL ONE (15:40)
[2016-08-20] MEDS ORDERED: oxyCODONE HCL 5 MG TABLET PO PRN ×2 (16:19→17:23)
[2016-08-20] MEDS ORDERED: PROMETHAZINE HCL 25 MG/1 ML VIAL IVPUSH PRN ×2 (16:19→17:23)
[2016-08-20] MEDS ORDERED: ONDANSETRON 4 MG/2 ML VIAL IVPUSH PRN ×2 (16:19→17:23)
--- NOTE | 2016-08-20 16:54 | OP ---
Operative Note - Note: Operative Date: 08/20/16 Pre-Operative Diagnosis: right avg stenosis Operation: venogram, venoplasty right avg Findings: 95% stenosis in axillary vein 10x4 balloon used for venoplasty Post-Operative Diagnosis: Same as Pre-op Surgeon: Alan Delcid Anesthesia: Fractional Estimated Blood Loss (mls): 5 Operative Report Dictated: Yes
[2016-08-20] MEDS ORDERED: SODIUM CHLORIDE 0.9% 1000 ML INFUS.BAG IV PRN (17:23)
[2016-08-20] MEDS ORDERED: EPOETIN ALFA 10,000 UNIT/1 ML VIAL IVPUSH ONE (17:23)
[2016-08-20] MEDS ORDERED: ACETAMINOPHEN 325 MG TABLET (FP) PO PRN (17:23)
[2016-08-20] MEDS ORDERED: ALBUTEROL SO4 0.083% IH SOL 2.5 MG/3 ML VIAL.NEB. NEB PRN (17:23)
[2016-08-20] MEDS ORDERED: OSELTAMIVIR PHOSPHATE 30 MG CAPSULE PO ONE (18:00)
[2016-08-20] MEDS: WARFARIN NA 5 MG TABLET (UD) PO SCH (18:47)
[2016-08-20] MEDS ORDERED: PT OWN MED DRAWER 7, Y5N ONE ×2 (18:53→20:44)
[2016-08-20] MEDS ORDERED: amLODIPine BESYLATE 5 MG TABLET (FP) PO ONE (19:00)
--- NOTE | 2016-08-21 08:34 | PN ---
Progress Note, Physician History of Present Illness: IN BED COMFORTABLE - Current Medication List Current Medications: Active Medications Acetaminophen (Tylenol -) 650 mg PO Q4H PRN PRN Reason: FEVER OR PAIN Albuterol Sulfate (Ventolin 0.083% Nebulizer Soln -) 1 amp NEB Q4H PRN PRN Reason: SHORT OF BREATH/WHEEZING Calcium/Vitamin D (Oscal 250 Mg+D -) 1 tab PO BID [facility] Last Admin: 08/20/16 21:31 Dose: 1 tab Cefuroxime Axetil (Ceftin -) 250 mg PO BID [facility] Last Admin: 08/20/16 21:31 Dose: 250 mg Epoetin Francisco (Procrit -) 8,000 unit IVPUSH ONCE ONE Stop: 08/20/16 17:24 Epoetin Francisco (Epogen -) 10,000 units IVPUSH ONCE ONE Stop: 08/21/16 12:27 Metoprolol Succinate (Toprol Xl -) 100 mg PO DAILY [facility] Oseltamivir Phosphate (Tamiflu -) 30 mg PO ThSa@10 [facility] Stop: 08/23/16 10:01 Oxycodone HCl (Roxicodone -) 5 mg PO Q4H PRN PRN Reason: MILD PAIN Stop: 08/21/16 16:18 Sodium Chloride (Normal Saline -) 610 ml IV Q20M PRN PRN Reason: MAP<65mm Hg OR SBP <90 Warfarin Sodium (Coumadin -) 5 mg PO DAILY@1800 [facility] Last Admin: 08/20/16 18:47 Dose: 5 mg - Objective Vital Signs: Vital Signs Temperature 98.6 F 08/21/16 06:00 Pulse Rate 102 H 08/21/16 06:00 Respiratory Rate 18 08/21/16 06:00 Blood Pressure 123/74 08/21/16 06:00 O2 Sat by Pulse Oximetry (%) 99 08/20/16 21:00 Cardiovascular: Yes: Regular Rate and Rhythm Respiratory: Yes: Regular, CTA Bilaterally Gastrointestinal: Yes: Normal Bowel Sounds, Soft Extremities: Yes: Other (+ BRUIT RT ARM) Labs: CBC, BMP 08/18/16 05:35 08/18/16 05:35 INR, PTT INR 1.81 (0.82-1.09) H 08/19/16 06:25 Assessment/Plan - Problems (1) ESRD (end stage renal disease) on dialysis Assessment/Plan: temporary access obtained to get venogram Operative Date: 08/20/16 Pre-Operative Diagnosis: right avg stenosis Operation: venogram, venoplasty right avg Findings: 95% stenosis in axillary vein 10x4 balloon used for venoplasty Post-Operative Diagnosis: Same as Pre-op Surgeon: Alan Delcid Code(s): N18.6 - END STAGE RENAL DISEASE Z99.2 - DEPENDENCE ON RENAL DIALYSIS (2) Cough Assessment/Plan: seen by ID complete tamiflu and needs 48 hrs of Ceftin lactic acid normal WBC normal Microbiology 08/13/16 12:40 Nasopharyngeal Swab Influenza Types A,B Antigen (STACIA) - Final 08/13/16 12:40 Nasopharyngeal Swab - Final Code(s): R05 - COUGH (3) Anemia Assessment/Plan: procrit during HD got prbc now h/h improved on procrit Code(s): D64.9 - ANEMIA, UNSPECIFIED Qualifiers: Anemia type: other cause Other causes of anemia: other cause, not classified Qualified Code(s): D64.89 - Other specified anemias (4) Afib Assessment/Plan: RESUME Coumadin metoprolol Code(s): I48.91 - UNSPECIFIED ATRIAL FIBRILLATION Qualifiers: Atrial fibrillation type: chronic Qualified Code(s): I48.2 - Chronic atrial fibrillation
[2016-08-21 09:40] LABS: BASOPHIL 0.3 % (0-2.0); EOSINOPHIL 4.6 % (0-4.5); MCH 31.4 pg (25.7-33.7); MCHC 32.4 g/dl (32.0-36.0); MEAN PLT VOLUME 8.2 fl (7.5-11.1); NEUTROPHILS 72.6 % (42.8-82.8); PLATELET COUNT 166 K/MM3 (134-434); RDW 16.3 % (11.6-15.6); WHITE BLOOD COUNT 4.9 K/mm3 (4.0-10.0)
[2016-08-21 09:46] LABS: INR 1.44 (0.82-1.09)
[2016-08-21] MEDS ORDERED: PT OWN MED DRAWER 7, Y5N ONE (09:58)
[2016-08-21] MEDS ORDERED: OSELTAMIVIR PHOSPHATE 30 MG CAPSULE PO SCH (10:00)
[2016-08-21] MEDS: CALCIUM 250MG/VIT-D 125 UNITS 1 COMBO TABLET PO SCH ×2 (10:00→22:15)
[2016-08-21] MEDS: CEFUROXIME AXETIL 250 MG TABLET PO SCH ×2 (10:00→22:15)
[2016-08-21 10:01] LABS: CALCIUM 8.3 mg/dL (8.5-10.1); CREATININE 4.6 mg/dL (0.55-1.02)
[2016-08-21] MEDS: METOPROLOL SUCCINATE 100 MG TAB.SR.24H (FP) PO SCH (10:01)
--- NOTE | 2016-08-21 10:25 | OP ---
DATE OF OPERATION: 08/20/2016 PREOPERATIVE DIAGNOSIS: Right axillary vein graft stenosis. POSTOPERATIVE DIAGNOSIS: Right axillary vein graft stenosis. PROCEDURE: Venogram, venoplasty, right axillary vein graft. SURGEON: Alan Sutton MD ANESTHESIA: Fractional. BLOOD LOSS: 5 mL. INDICATIONS: The patient is an 86-year-old female with a right AV graft. Preoperative ultrasound showed that there is some stenosis in the axillary vein. She was admitted here for a cough and cold and now that she is here, the hemodialysis team was having difficulty cannulating the graft. It was decided that she would need a venogram. Patient's family was consented for the procedure, understanding all risks, benefits, and alternatives. DESCRIPTION OF PROCEDURE: She was then taken to the operating room. Once in the operating room was laid on the operating table in the supine manner. The area of the right arm was prepped and draped in a sterile surgical manner. Under ultrasound guidance, I was able to visualize the right AV graft and 10 mL of lidocaine was injected over the graft. We then went ahead and placed our micropuncture needle into the graft under ultrasound guidance. Micropuncture wire was inserted. A short 6-Korean sheath was placed. We then shot a venogram through the sheath, showing that the axial vein had a 95% stenosis for about 3 cm. At this point, we gave 3000 units of IV heparin. We then placed a floppy guidewire through the stenosis. We then used a 9 x 4 balloon and a 10 x 4 balloon and performed venoplasty of the lesion. Completion venogram showed that the stenosis was patent. There was no recoil and there was good flow and good thrill in the AV graft. At this point, we used a 4-0 Biosyn stitch and a [id number] stitch was placed around the sheath and the sheath was pulled. The area was cleaned and dried and Dermabond was placed. The patient tolerated the procedure with no complications. The patient was transferred to the PACU in stable condition. ALAN SUTTON DO [id number]
[2016-08-21] MEDS ORDERED: EPOETIN ALFA 10,000 UNIT/1 ML VIAL IVPUSH ONE (11:00)
[2016-08-21] MEDS ORDERED: EPOETIN ALFA 2,000 UNITS/1 ML VIAL IVPUSH ONE (12:26)
--- NOTE | 2016-08-21 12:27 | PN ---
Progress Note, Physician History of Present Illness: seen and examined today in nad. in HD. vascular access now working. no overnight events. no new complaints. - Current Medication List Current Medications: Active Medications Acetaminophen (Tylenol -) 650 mg PO Q4H PRN PRN Reason: FEVER OR PAIN Albuterol Sulfate (Ventolin 0.083% Nebulizer Soln -) 1 amp NEB Q4H PRN PRN Reason: SHORT OF BREATH/WHEEZING Calcium/Vitamin D (Oscal 250 Mg+D -) 1 tab PO BID [facility] Last Admin: 08/21/16 10:00 Dose: 1 tab Cefuroxime Axetil (Ceftin -) 250 mg PO BID [facility] Last Admin: 08/21/16 10:00 Dose: 250 mg Epoetin Francisco (Procrit -) 8,000 unit IVPUSH ONCE ONE Stop: 08/20/16 17:24 Metoprolol Succinate (Toprol Xl -) 100 mg PO DAILY [facility] Last Admin: 08/21/16 10:01 Dose: Not Given Oseltamivir Phosphate (Tamiflu -) 30 mg PO ThSa@10 [facility] Stop: 08/23/16 10:01 Last Admin: 08/21/16 10:00 Dose: 30 mg Oxycodone HCl (Roxicodone -) 5 mg PO Q4H PRN PRN Reason: MILD PAIN Stop: 08/21/16 16:18 Sodium Chloride (Normal Saline -) 610 ml IV Q20M PRN PRN Reason: MAP<65mm Hg OR SBP <90 Warfarin Sodium (Coumadin -) 5 mg PO DAILY@1800 [facility] Last Admin: 08/20/16 18:47 Dose: 5 mg - Objective Vital Signs: Vital Signs Temperature 98.8 F 08/21/16 09:33 Pulse Rate 100 H 08/21/16 09:33 Respiratory Rate 18 08/21/16 09:33 Blood Pressure 135/81 08/21/16 09:33 O2 Sat by Pulse Oximetry (%) 99 08/20/16 21:00 Constitutional: Yes: Well Nourished, No Distress, Calm Eyes: Yes: WNL, Conjunctiva Clear, EOM Intact, PERRL HENT: Yes: WNL, Atraumatic, Normocephalic Neck: Yes: WNL, Supple, Trachea Midline Cardiovascular: Yes: Pulse Irregular, Murmur, S1, S2. No: Bradycardia, Tachycardia, Bruit, JVD, Gallop, Rub, S3, S4, Varicosities Respiratory: Yes: Regular, CTA Bilaterally. No: Rales, Rhonchi, Wheezes Gastrointestinal: Yes: WNL, Normal Bowel Sounds, Soft. No: Distention, Tenderness Musculoskeletal: Yes: Muscle Weakness Edema: No Peripheral Pulses WNL: Yes Peripheral Pulses: Left Doralis Pedis: 2+, Right Dorsalis Pedis: 2+ Neurological: Yes: Alert, Oriented Psychiatric: Yes: Alert, Oriented Labs: CBC, BMP 08/21/16 08:57 08/21/16 08:57 INR, PTT INR 1.44 (0.82-1.09) H 08/21/16 08:57 - ....Imaging Chest X-ray: Report Reviewed, Image Reviewed EKG: Report Reviewed, Image Reviewed Other: Report Reviewed, Image Reviewed Assessment/Plan 86F AF, ESRD on HD, Moderate to severe chronic MR presents to ER on her HD day ( missed) for cough of several days with fever and chills. REC: Coumadin resumed, no need for bridging with heparin Cont coumadin for goal INR 2-3 Cont Toprol at current dose Ok from a cardiac standpoint for discharge home, plan for f/up within 1 week of discharge for INR
--- NOTE | 2016-08-21 13:07 | PN ---
Progress Note, Physician History of Present Illness: Pt seen and examined at bedside. She is currently getting HD. - Current Medication List Current Medications: Active Medications Acetaminophen (Tylenol -) 650 mg PO Q4H PRN PRN Reason: FEVER OR PAIN Albuterol Sulfate (Ventolin 0.083% Nebulizer Soln -) 1 amp NEB Q4H PRN PRN Reason: SHORT OF BREATH/WHEEZING Calcium/Vitamin D (Oscal 250 Mg+D -) 1 tab PO BID [facility] Last Admin: 08/21/16 10:00 Dose: 1 tab Cefuroxime Axetil (Ceftin -) 250 mg PO BID [facility] Last Admin: 08/21/16 10:00 Dose: 250 mg Epoetin Francisco (Procrit -) 8,000 unit IVPUSH ONCE ONE Stop: 08/20/16 17:24 Metoprolol Succinate (Toprol Xl -) 100 mg PO DAILY [facility] Last Admin: 08/21/16 10:01 Dose: Not Given Oseltamivir Phosphate (Tamiflu -) 30 mg PO ThSa@10 [facility] Stop: 08/23/16 10:01 Last Admin: 08/21/16 10:00 Dose: 30 mg Oxycodone HCl (Roxicodone -) 5 mg PO Q4H PRN PRN Reason: MILD PAIN Stop: 08/21/16 16:18 Sodium Chloride (Normal Saline -) 610 ml IV Q20M PRN PRN Reason: MAP<65mm Hg OR SBP <90 Warfarin Sodium (Coumadin -) 5 mg PO DAILY@1800 [facility] Last Admin: 08/20/16 18:47 Dose: 5 mg - Objective Vital Signs: Vital Signs Temperature 98.8 F 08/21/16 09:33 Pulse Rate 100 H 08/21/16 09:33 Respiratory Rate 18 08/21/16 09:33 Blood Pressure 135/81 08/21/16 09:33 O2 Sat by Pulse Oximetry (%) 99 08/20/16 21:00 Constitutional: Yes: Calm HENT: Yes: WNL Neck: Yes: WNL Cardiovascular: Yes: Pulse Irregular, S1, S2 Respiratory: Yes: CTA Bilaterally Gastrointestinal: Yes: Soft Genitourinary: Yes: WNL Musculoskeletal: Yes: WNL Extremities: Yes: Other (right arm weakness) Neurological: Yes: Oriented Psychiatric: Yes: Oriented Labs: CBC, BMP 08/21/16 08:57 08/21/16 08:57 INR, PTT INR 1.44 (0.82-1.09) H 08/21/16 08:57 Problem List - Problems (1) Afib Code(s): I48.91 - UNSPECIFIED ATRIAL FIBRILLATION Qualifiers: Atrial fibrillation type: chronic Qualified Code(s): I48.2 - Chronic atrial fibrillation (2) ESRD (end stage renal disease) on dialysis Code(s): N18.6 - END STAGE RENAL DISEASE Z99.2 - DEPENDENCE ON RENAL DIALYSIS (3) Fever Code(s): R50.9 - FEVER, UNSPECIFIED Qualifiers: Fever type: unspecified Qualified Code(s): R50.9 - Fever, unspecified (4) Anemia Code(s): D64.9 - ANEMIA, UNSPECIFIED Qualifiers: Anemia type: other cause Other causes of anemia: other cause, not classified Qualified Code(s): D64.89 - Other specified anemias Assessment/Plan Current Medications Generic Name Dose Route Start Last Admin Trade Name Freq PRN Reason Stop Dose Admin Acetaminophen 650 mg 08/20/16 17:23 Tylenol - PO Q4H PRN FEVER OR PAIN Albuterol Sulfate 1 amp 08/20/16 17:23 Ventolin 0.083% Nebulizer Soln - NEB Q4H PRN SHORT OF BREATH/WHEEZING Calcium/Vitamin D 1 tab 08/20/16 22:00 08/21/16 10:00 Oscal 250 Mg+D - PO 1 tab BID [facility] Administration Cefuroxime Axetil 250 mg 08/20/16 22:00 08/21/16 10:00 Ceftin - PO 250 mg BID [facility] Administration Epoetin Francisco 8,000 unit 08/20/16 17:23 Procrit - IVPUSH 08/20/16 17:24 ONCE ONE Metoprolol Succinate 100 mg 08/21/16 10:00 08/21/16 10:01 Toprol Xl - PO Not Given DAILY [facility] Oseltamivir Phosphate 30 mg 08/21/16 10:00 08/21/16 10:00 Tamiflu - PO 08/23/16 10:01 30 mg ThSa@10 [facility] Administration Oxycodone HCl 5 mg 08/20/16 17:23 Roxicodone - PO 08/21/16 16:18 Q4H PRN MILD PAIN Sodium Chloride 610 ml 08/20/16 17:23 Normal Saline - IV Q20M PRN MAP<65mm Hg OR SBP <90 Warfarin Sodium 5 mg 08/20/16 18:00 08/20/16 18:47 Coumadin - PO 5 mg DAILY@1800 [facility] Administration Impression 1. ESRD 2. PNA 3. HTN 4. a-fib 5. anemia Plan - pt is tolerating HD - discussed with vascular - HD set up as outpt for tomorrow - monitor hg - pt to resume coumadin - epogen for anemia - monitor INR - monitor hg - cont abx - pt is clinically improved Dr Dunham
[2016-08-21] MEDS: WARFARIN NA 5 MG TABLET (UD) PO SCH (18:03)
--- NOTE | 2016-08-22 08:17 | DS ---
Physical Examination Vital Signs: Vital Signs Temperature 98.4 F 08/22/16 06:00 Pulse Rate 101 H 08/22/16 06:00 Respiratory Rate 16 08/22/16 06:00 Blood Pressure 123/71 08/22/16 06:00 O2 Sat by Pulse Oximetry (%) 100 08/21/16 22:00 Findings/Remarks: he patient is an 86 year old female with significant past medical history of hypertension, a-fib, ESRD on dialysis MWF who presents to the emergency department from home with a cough for 1 week and generalized weakness for 1 day. The patient states that she has had a productive cough for the last week. She has been coughing up white phlegm, no hemoptysis. The patient states that yesterday she started to feel increasingly weak and dizzy. On arrival the patient has a fever, Tmax 99 F, and reports associated chills. She denies any runny nose or sore throat. The patient also started complaining of diffuse abdominal pain that started this morning. She denies any associated nausea, vomiting, or diarrhea. The patient denies any dysuria, frequency, or hematuria. She denies body aches or headache. She denies any recent illness, sick contacts , or recent travels. The patient had her flu shot this year. PMD: Dr. Samaniego Can Technician: Dr. Bean Agile Scrum Master: Dr. Roly armstrong in ER got HD yesterday History Source: Patient - Past Medical History CARE ADVOCATE: Yes: Dementia (Pleasant affect and can conduct a reasonable conversation.) Cardiovascular: Yes: AFIB, CHF, HTN, Hyperlipdemia, Mitral Insufficiency Pulmonary: Yes: Pneumonia Renal/: Yes: Renal Inusuff, Hemodialysis Heme/Onc: Yes: Anemia - Past Surgical History Past Surgical History: Yes: AV Fistula/Graft (03/01/15), Permanent Pacemaker Cardiovascular: Yes: Regular Rate and Rhythm Respiratory: Yes: Regular, CTA Bilaterally Gastrointestinal: Yes: Normal Bowel Sounds, Soft. No: Tenderness Labs: CBC, BMP 08/21/16 08:57 08/21/16 08:57 Discharge Summary Reason For Visit: ESRD ON DIALYSIS,ATRIAL FIB,COUGH Current Active Problems Afib (Acute) Cough (Acute) ESRD (end stage renal disease) on dialysis (Acute) Fever (Acute) Hospital Course: - Problems (1) ESRD (end stage renal disease) on dialysis Assessment/Plan: temporary access obtained to get venogram Operative Date: 08/20/16 Pre-Operative Diagnosis: right avg stenosis Operation: venogram, venoplasty right avg Findings: 95% stenosis in axillary vein 10x4 balloon used for venoplasty Post-Operative Diagnosis: Same as Pre-op Surgeon: Alan Delcid Code(s): N18.6 - END STAGE RENAL DISEASE Z99.2 - DEPENDENCE ON RENAL DIALYSIS (2) Cough Assessment/Plan: seen by ID complete tamiflu and needs 48 hrs of Ceftin lactic acid normal WBC normal Microbiology 08/13/16 12:40 Nasopharyngeal Swab Influenza Types A,B Antigen (STACIA) - Final 08/13/16 12:40 Nasopharyngeal Swab - Final Code(s): R05 - COUGH (3) Anemia Assessment/Plan: procrit during HD got prbc now h/h improved on procrit Code(s): D64.9 - ANEMIA, UNSPECIFIED Qualifiers: Anemia type: other cause Other causes of anemia: other cause, not classified Qualified Code(s): D64.89 - Other specified anemias (4) Afib Assessment/Plan: RESUME Coumadin metoprolol Code(s): I48.91 - UNSPECIFIED ATRIAL FIBRILLATION Qualifiers: Atrial fibrillation type: chronic Qualified Code(s): I48.2 - Chronic atrial fibrillation Condition: Improved - Instructions Referrals: Arnav Samaniego MD [Primary Care Provider] - 2 Weeks Disposition: HOME - Home Medications Comprehensive Discharge Medication List: Ambulatory Orders Metoprolol Succinate [Toprol XL -] 100 mg PO DAILY 03/21/16 Warfarin Na [Coumadin -] 6 mg PO DAILY@1800 04/04/16 Acetaminophen [Tylenol .Regular Strength -] 650 mg PO Q4H PRN #0 tablet Calcium 250Mg/Vit-D 125 Units [Oscal 250 mg+D -] 1 tab PO BID tab 08/22/16 Cefuroxime Axetil [Ceftin -] 250 mg PO BID #10 tablet 08/22/16
[2016-08-22 08:33] LABS: INR 1.7 (0.82-1.09); PROTHROMBIN TIME (PATIENT) 18.9 SEC (9.98-11.88)
[2016-08-22] MEDS ORDERED: PT OWN MED DRAWER 7, Y5N ONE (10:36)
[2016-08-22] MEDS: CEFUROXIME AXETIL 250 MG TABLET PO SCH (10:40)
[2016-08-22] MEDS: METOPROLOL SUCCINATE 100 MG TAB.SR.24H (FP) PO SCH ×3 (10:40→17:45)
[2016-08-22] MEDS: CALCIUM 250MG/VIT-D 125 UNITS 1 COMBO TABLET PO SCH (10:40)
[2016-08-22] MEDS ORDERED: EPOETIN ALFA 10,000 UNIT/1 ML VIAL IVPUSH ONE (15:15)
--- NOTE | 2016-08-22 17:24 | PN ---
Progress Note, Physician History of Present Illness: Pt seen and examined at bedside. She is awake and alert. She is tolerating dialysis. - Current Medication List Current Medications: Active Medications Acetaminophen (Tylenol -) 650 mg PO Q4H PRN PRN Reason: FEVER OR PAIN Albuterol Sulfate (Ventolin 0.083% Nebulizer Soln -) 1 amp NEB Q4H PRN PRN Reason: SHORT OF BREATH/WHEEZING Calcium/Vitamin D (Oscal 250 Mg+D -) 1 tab PO BID [facility] Last Admin: 08/22/16 10:40 Dose: 1 tab Cefuroxime Axetil (Ceftin -) 250 mg PO BID [facility] Last Admin: 08/22/16 10:40 Dose: 250 mg Epoetin Francisco (Procrit -) 8,000 unit IVPUSH ONCE ONE Stop: 08/20/16 17:24 Metoprolol Succinate (Toprol Xl -) 100 mg PO DAILY [facility] Last Admin: 08/22/16 10:41 Dose: Not Given Oseltamivir Phosphate (Tamiflu -) 30 mg PO ThSa@10 [facility] Stop: 08/23/16 10:01 Last Admin: 08/21/16 10:00 Dose: 30 mg Sodium Chloride (Normal Saline -) 610 ml IV Q20M PRN PRN Reason: MAP<65mm Hg OR SBP <90 Warfarin Sodium (Coumadin -) 5 mg PO DAILY@1800 [facility] Last Admin: 08/21/16 18:03 Dose: 5 mg - Objective Vital Signs: Vital Signs Temperature 97.8 F 08/22/16 14:55 Pulse Rate 110 H 08/22/16 15:30 Respiratory Rate 18 08/22/16 15:30 Blood Pressure 147/96 08/22/16 15:30 O2 Sat by Pulse Oximetry (%) 96 08/22/16 09:00 Constitutional: Yes: Calm Eyes: Yes: Conjunctiva Clear HENT: Yes: Atraumatic Cardiovascular: Yes: S1, S2 Respiratory: Yes: CTA Bilaterally Gastrointestinal: Yes: Soft Genitourinary: Yes: WNL Musculoskeletal: Yes: WNL Neurological: Yes: Oriented Psychiatric: Yes: Oriented Labs: CBC, BMP 08/21/16 08:57 08/21/16 08:57 INR, PTT INR 1.70 (0.82-1.09) H 08/22/16 07:00 Problem List - Problems (1) Afib Code(s): I48.91 - UNSPECIFIED ATRIAL FIBRILLATION Qualifiers: Atrial fibrillation type: chronic Qualified Code(s): I48.2 - Chronic atrial fibrillation (2) ESRD (end stage renal disease) on dialysis Code(s): N18.6 - END STAGE RENAL DISEASE Z99.2 - DEPENDENCE ON RENAL DIALYSIS (3) Fever Code(s): R50.9 - FEVER, UNSPECIFIED Qualifiers: Fever type: unspecified Qualified Code(s): R50.9 - Fever, unspecified (4) Anemia Code(s): D64.9 - ANEMIA, UNSPECIFIED Qualifiers: Anemia type: other cause Other causes of anemia: other cause, not classified Qualified Code(s): D64.89 - Other specified anemias Assessment/Plan Current Medications Generic Name Dose Route Start Last Admin Trade Name Freq PRN Reason Stop Dose Admin Acetaminophen 650 mg 08/20/16 17:23 Tylenol - PO Q4H PRN FEVER OR PAIN Albuterol Sulfate 1 amp 08/20/16 17:23 Ventolin 0.083% Nebulizer Soln - NEB Q4H PRN SHORT OF BREATH/WHEEZING Calcium/Vitamin D 1 tab 08/20/16 22:00 08/22/16 10:40 Oscal 250 Mg+D - PO 1 tab BID [facility] Administration Cefuroxime Axetil 250 mg 08/20/16 22:00 08/22/16 10:40 Ceftin - PO 250 mg BID [facility] Administration Epoetin Francisco 8,000 unit 08/20/16 17:23 Procrit - IVPUSH 08/20/16 17:24 ONCE ONE Metoprolol Succinate 100 mg 08/21/16 10:00 08/22/16 10:41 Toprol Xl - PO Not Given DAILY [facility] Oseltamivir Phosphate 30 mg 08/21/16 10:00 08/21/16 10:00 Tamiflu - PO 08/23/16 10:01 30 mg ThSa@10 [facility] Administration Sodium Chloride 610 ml 08/20/16 17:23 Normal Saline - IV Q20M PRN MAP<65mm Hg OR SBP <90 Warfarin Sodium 5 mg 08/20/16 18:00 08/21/16 18:03 Coumadin - PO 5 mg DAILY@1800 [facility] Administration Impression 1. ESRD 2. PNA 3. HTN 4. a-fib 5. anemia Plan - pt is getting HD today to get back on schedule, this will be her third treatment this week - epogen for anemia - she is cleared for discharge from renal perspective - discussed with PMD - monitor INR - monitor hg - cont abx - pt is clinically improved Dr Dunham
[2016-08-22] MEDS: WARFARIN NA 5 MG TABLET (UD) PO SCH (17:45)
[2016-08-22 18:50] VITALS: BP 134/77; PULSE 119; TEMP 98.8
== END 2016-08-22 10:00 | disposition home or self-care (01) | DRG 252 ==
LOC: JER 10:10 → UNDOADMIN 14:29 → JERBED 14:29 → J5S 19:20 → JERBED 19:37
PROVIDERS: ADMIT Family Medicine; ATTEND Family Medicine
PROC: 5A1D60Z (ICD-10-PCS; 2016-08-13)
PROC: 30233N1 Transfusion of Nonautologous Red Blood Cells into Peripheral Vein, Percutaneous Approach (ICD-10-PCS; 2016-08-14)
PROC: B50MYZZ Plain Radiography of Right Upper Extremity Veins using Other Contrast (ICD-10-PCS; 2016-08-20)
PROC: 3E033GC Introduction of Other Therapeutic Substance into Peripheral Vein, Percutaneous Approach (ICD-10-PCS; 2016-08-20)
PROC: 05773ZZ Dilation of Right Axillary Vein, Percutaneous Approach (ICD-10-PCS; principal; 2016-08-20 12:00)
DX: T82.858A Stenosis of other vascular prosthetic devices, implants and grafts, initial encounter (principal); N18.6 End stage renal disease; J18.9 Pneumonia, unspecified organism; I13.2 Hypertensive heart and chronic kidney disease with heart failure and with stage 5 chronic kidney disease, or end stage renal disease; I48.2 Chronic atrial fibrillation; F03.90 Unspecified dementia, unspecified severity, without behavioral disturbance, psychotic disturbance, mood disturbance, and anxiety; I34.0 Nonrheumatic mitral (valve) insufficiency; E78.5 Hyperlipidemia, unspecified; I50.9 Heart failure, unspecified; R50.9 Fever, unspecified; D64.89 Other specified anemias; B34.9 Viral infection, unspecified; I77.0 Arteriovenous fistula, acquired; Z99.2 Dependence on renal dialysis; Z95.0 Presence of cardiac pacemaker
CPT/HCPCS: 36415; 36430; 71010-TC; 76000-TC; 80048; 80053; 81003; 81015; 82272; 82550; 82728; 82803; 83540; 83550; 83605; 84484; 85025; 85610; 85730; 86704; 86706; 86708; 86803; 86850; 86870; 86880; 86900; 86901; 86902; 86922; 87040; 87086; 87340; 87804; 93005; 93010; 94760; 97163-GP; 99281-25; J0885; J1644; P9058

== ENCOUNTER 2017-04-20 12:14 | Emergency (ER) | payer OTHER ==
[2017-04-20 12:25] VITALS: TEMP 98.2; BMI 21.6
[2017-04-20 13:16] LABS: BASOPHIL 0.7 % (0-2.0); EOSINOPHIL 4.6 % (0-4.5); MCH 30.8 pg (25.7-33.7); MCHC 32.1 g/dl (32.0-36.0); MEAN CELL VOLUME 95.9 fl (80-96); MEAN PLT VOLUME 7.6 fl (7.5-11.1); NEUTROPHILS 51.3 % (42.8-82.8); PLATELET COUNT 152 K/MM3 (134-434); RDW 17.4 % (11.6-15.6); WHITE BLOOD COUNT 3.9 K/mm3 (4.0-10.0)
[2017-04-20 13:26] LABS: INR 1.95 (0.82-1.09); PROTHROMBIN TIME (PATIENT) 21.7 SEC (9.98-11.88)
[2017-04-20 13:29] LABS: ALBUMIN 2.4 g/dl (3.4-5.0); ANION GAP 9 (8-16); BILIRUBIN,TOTAL 0.5 mg/dL (0.2-1.0); CALCIUM 8.6 mg/dL (8.5-10.1); CO2 30 mmol/L (21-32); CREATININE 4.4 mg/dL (0.55-1.02); GLUCOSE,RANDOM 81 mg/dL (74-106); SGOT/AST 17 U/L (15-37); SGPT/ALT 13 U/L (12-78); TOT PROT 7.8 g/dl (6.4-8.2)
--- NOTE | 2017-04-20 13:29 | PDOC ---
History of Present Illness - General Chief Complaint: Vaginal Bleeding Stated Complaint: VAGINAL BLEEDING Time Seen by Provider: 04/20/17 13:10 History Source: Family Exam Limitations: Dementia - History of Present Illness Initial Comments: This is an 87 yo female with h/o ESRD (on HD MWF with minimal urine production, does not urinate daily), A-fib on coumadin, CHF, pacemaker use, and HTN who presents with her daughter and pleasure craft sailor c/o vaginal bleeding and increased fatigue over the past three days. They note that on Thursday the pleasure craft sailor noted a small amount of blood-tinged fluid in her diaper. The same thing happened on Thursday, and then this morning there was a larger amount of param blood in her diaper. She has additionally been sleeping more than normal and has seemed more confused. She had her dialysis on Thursday but did not have it today because the family opted to bring her into the ED for her symptoms. The patient has additionally had increased edema, weight gain, dry cough, and shallow rapid breathing over the past several days. She has had poor appetite over the past month since stopping her appetite stimulant medication (megestrol). She has otherwise had no additional symptoms of illness lately. She saw her bed setter (Dr. Harding) about two weeks ago for the increased edema and was noted to have subtherapeutic INR at that time, so her warfarin was doubled. Past History - Past Medical History Allergies/Adverse Reactions: Allergies Allergy/AdvReac Type Severity Reaction Status Date / Time Penicillins Allergy Severe Hives, RASH Verified 04/20/17 12:25 Home Medications: Ambulatory Orders Metoprolol Succinate [Toprol XL -] 75 mg PO DAILY 03/21/16 Warfarin Na [Coumadin -] 2.5 mg PO DAILY@1800 04/04/16 Acetaminophen [Tylenol .Regular Strength -] 650 mg PO Q4H PRN #0 tablet Calcium 250Mg/Vit-D 125 Units [Oscal 250 mg+D -] 1 tab PO BID tab 08/22/16 Ammonium Lactate Cream [Lac-Hydrin 12% *Cream*] 1 applic TP BID 04/20/17 Anemia: No Asthma: No Cancer: No Cardiac Disorders: Yes (AFIB) CVA: No COPD: No CHF: No Dementia: No Diabetes: No Dialysis: Yes (MON WED FRI) GI Disorders: No Disorders: No HTN: Yes Hypercholesterolemia: No Liver Disease: No Seizures: No Thyroid Disease: No - Surgical History Abdominal Surgery: No Appendectomy: No Cardiac Surgery: Yes (pacemaker) Cholecystectomy: No Lung Surgery: No Neurologic Surgery: No Orthopedic Surgery: No - Immunization History Td Vaccination: Yes TDAP Vaccination: No Immunization Up to Date: Yes - Psycho/Social/Smoking Cessation Hx Anxiety: No Suicidal Ideation: No Smoking Status: No Smoking History: Never smoked Have you smoked in the past 12 months: No Number of Cigarettes Smoked Daily: 0 Information on smoking cessation initiated: No Hx Alcohol Use: No Drug/Substance Use Hx: No Substance Use Type: None Hx Substance Use Treatment: No Review of Systems - Review of Systems Able to Perform ROS?: Yes (most ROS provided by RN) Constitutional: Yes: Loss of Appetite, Other (tiredness). No: Chills, Fever, Unexplained wgt Loss HEENTM: No: Nose Congestion, Throat Pain Respiratory: Yes: Cough, Shortness of Breath Cardiac (ROS): Yes: Edema. No: Chest Pain, Palpitations ABD/GI: No: Constipated, Diarrhea, Nausea, Vomiting : Yes: Other (bleeding in diaper). No: Frequency Musculoskeletal: No: Back Pain, Neck Pain Integumentary: No: Bruising, Rash Neurological: No: Headache, Numbness, Tingling, Weakness, Dizziness Endocrine: Yes: Unexplained Weight Gain. No: Unexplained Weight Loss *Physical Exam - Vital Signs Last Vital Signs Temp Pulse Resp BP Pulse Ox 98.2 F 115 H 18 123/76 04/20/17 12:21 04/20/17 12:21 04/20/17 12:21 04/20/17 12:21 - Physical Exam General Appearance: Yes: Nourished, Appropriately Dressed, Other (sleeping but opens eyes to voice, answers questions appropriately, not particularly conversive but does interact, no eye contact). No: Apparent Distress HEENT: positive: ESTEPHANIE, Normal Voice, Hearing Grossly Normal. negative: Scleral Icterus (R), Scleral Icterus (L), Nasal Congestion Neck: positive: Trachea midline, Supple. negative: Tender, Rigid Respiratory/Chest: positive: Lungs Clear, Normal Breath Sounds, Decreased Breath Sounds (shallow breathing). negative: Respiratory Distress, Crackles, Rhonchi, Stridor, Wheezing Cardiovascular: positive: Regular Rate, Edema (trace BLE pitting edema), JVD, Murmur (2/6 systolic ejection murmur), Irregularly Irregular, Other (AV fistula in place RUE with good bruit and thrill) Female Pelvic Exam: positive: normal external exam, vaginal bleeding (scant dark blood in the vaginal vault), other (no discharge). negative: lesions Gastrointestinal/Abdominal: positive: Normal Bowel Sounds, Soft. negative: Tender, Organomegaly, Pulsatile Mass, Guarding Rectal Exam: positive: heme negative stool, normal exam, other (moderate amount of brown-yellow stool in the rectal vault, normal rectal tone) Musculoskeletal: positive: Normal Inspection. negative: Decreased Range of Motion, Vertebral Tenderness Extremity: positive: Normal Capillary Refill, Normal Inspection, Normal Range of Motion, Other (bilateral mild knee tenderness to palpation and stated pain on ROM). negative: Tender, Cyanosis Integumentary: positive: Normal Color, Dry, Warm. negative: Erythema, Rash, Bruising Neurologic: positive: motor coach operator II-XII NML intact, Alert (opens eyes to voice and answers questions), Normal Mood/Affect, Normal Response, Other (oriented to full name, date, and type of building (hospital). Disoriented to year, season, and age) Heart Score/ECG Review #1 ECG reviewed & interpreted by me at: 13:20 A-fib with rate 95, EDe=[id number], otherwise unremarkable EKG ED Treatment Course - LABORATORY CBC & Chemistry Diagram: 04/20/17 13:05 04/20/17 13:05 Medical Decision Making - Medical Decision Making 87 yof with h/o anemia, ESRD on HD MWF, CHF, A-fib, p/w vaginal bleeding for the past four days. On exam does not know the year or season or name of the hospital. On pelvic exam scant dark blood in vaginal vault. Otherwise nothing acute on exam. DDX includes supratherapeutic INR, malignancy, vaginal fissure, hematuria ( unlikely given pelvic exam). Main ED concern is for anemia though it seems that this has been spotting rather than large blood. Ordered is CBCD, CMP, FOBT, INR, EKG, CXR, US pelvic transvaginal. FOBT negative, INR just under 2, CBCD shows Hgb 10 but this is improved from prior. CMP remarkably normal given her last HD was Thursday. CXR with bibasilar opacities consistent with CHF or PNA or volume overload. This could be explained by her lack of HD since Thursday but the patient has no SOB or wet cough. Spoke with Pt's renal Dr. Dunham who recommends HD tomorrow afternoon (Pt's family will call in the AM). The pelvic US returns without interval change from 2015 study. She is appropriate for OP follow up with PCP for vaginal bleeding workup. *DC/Admit/Observation/Transfer Diagnosis at time of Disposition: Abnormal vaginal bleeding Anemia Qualifiers: Anemia type: unspecified type Qualified Code(s): D64.9 - Anemia, unspecified - Discharge Dispostion Disposition: HOME Condition at time of disposition: Stable Admit: No - Patient Instructions Printed Discharge Instructions: DI for Vaginal Bleeding Additional Instructions: You were seen in the ED today for vaginal bleeding. We checked a rectal exam which was normal without blood. We did a pelvic exam which was also normal aside from a small amount of blood. We checked your blood levels and your INR was slightly lower than it should be (just below 2). Your electrolytes were surprisingly normal given that you haven't been to dialysis since Thursday. Your hemoglobin was 10 which is better than it was in our prior records. Your pelvic ultrasound showed no difference from the same study you had in 2015. Please call your dialysis clinic early tomorrow morning and make an appointment for dialysis for tomorrow afternoon. Follow up with your regular doctor for further workup to find the cause of the vaginal bleeding. Return to the ED for any new or worsening symptoms like increased bleeding, dizziness, headache, chest pain, or other symptoms.
[2017-04-20 13:30] LABS: ALK PHOS 85 U/L (45-117)
[2017-04-20 14:12] LABS: MAGNESIUM 2.2 mg/dL (1.8-2.4); PHOSPHOROUS 3.1 mg/dL (2.5-4.9)
--- NOTE | 2017-04-20 15:17 | PDOC ---
Attending Attestation - HPI HPI: 04/20/17 15:33 87 yo F with PMHx of ESRD (on HD MWF), HTN, Afib (on coumadin), DM, CHF who presents with vaginal bleeding. Patient is accompanied by daughter and plastic battery assembler who states the patient began spotting blood in her diaper with no clots for the past 4 days. Roofer Metal noted today that her bleeding was slightly heavier. Patient also endorses mild SOB. Patients last HD was 3 days ago. Patient recently started on Megestrol and family is concerned her symptoms may be related. - Physicial Exam PE: 04/20/17 15:34 GENERAL: Awake, alert, and fully oriented, in no acute distress HEAD: No signs of trauma EYES: PERRLA, EOMI, sclera anicteric, conjunctiva clear ENT: Auricles normal inspection, nares patent, Moist mucosa NECK: Normal ROM, supple, no lymphadenopathy, JVD, or masses LUNGS: Breath sounds equal, clear to auscultation bilaterally. No wheezes, and no crackles HEART: Irregularly regular. +Systolic murmur. Normal S1 and S2, no rubs or gallops ABDOMEN: Soft, nontender, normoactive bowel sounds. No guarding, no rebound. No palpable masses. EXTREMITIES: Normal range of motion, no edema. No clubbing or cyanosis. No cords, erythema, or tenderness. +RUE fistula with good thrill no erythema. NEUROLOGICAL: Normal speech SKIN: Warm, Dry, normal turgor, no rashes or lesions noted. PELVIC: On exam, speculum has scant dark blood in os. No active bleeding. No clots. Bimanual exam deferred. - Medical Decision Making 04/20/17 15:34 Documentation prepared by Bina Haynes, acting as medical concierge for Yuko Brink MD <Bina Haynes - Last Filed: 04/20/17 15:33> - Resident Resident Name: Jeanne Finch - ED Attending Attestation I have performed the following: I have examined & evaluated the patient, The case was reviewed & discussed with the resident, I agree w/resident's findings & plan, Exceptions are as noted - Medical Decision Making 04/20/17 17:43 pt ultrasound unchanged from prior. recommend out pt blindstitch lapel padder followup. dc home labs stable. d/w dr. galarza, audit associate state pt can be dialyzed tomorrow afternoon. d/w pt and family dc home. copies of results given to pt. <Yuko Brink - Last Filed: 04/20/17 17:44> Heart Score/ECG Review #1 General ECG Interpretation: Normal Rate, Normal Intervals, No acute ischemic changes Compared to previous ECG there are: No significant change (comparison 08/14/16) - ECG Intrepretation Rhythm: Regularly Irregular Comment:: 04/20/17 16:49 afib. <Yuko Brink - Last Filed: 04/20/17 17:44>
[2017-04-20 18:58] VITALS: BP 146/91; PULSE 84
--- NOTE | 2017-04-20 21:28 | EKG ---
Test Reason : Blood Pressure : / mmHG Vent. Rate : 095 BPM Atrial Rate : 101 BPM P-R Int : 000 ms QRS Dur : 082 ms QT Int : 378 ms P-R-T Axes : 000 050 016 degrees QTc Int : 475 ms ATRIAL FIBRILLATION CANNOT RULE OUT ANTERIOR INFARCT , AGE UNDETERMINED ABNORMAL ECG WHEN COMPARED WITH ECG OF 14-AUG-2016 09:10, T WAVE VARIATION Confirmed by ESVIN MORILLO MD ([id number]) on 04/20/2017 9:27:53 PM Referred By: Confirmed By:ESVIN MORILLO MD
== END 2017-04-20 18:00 | disposition home or self-care (01) ==
LOC: JER 12:14
DX: N93.8 Other specified abnormal uterine and vaginal bleeding (principal); I48.91 Unspecified atrial fibrillation; Z79.01 Long term (current) use of anticoagulants; I13.2 Hypertensive heart and chronic kidney disease with heart failure and with stage 5 chronic kidney disease, or end stage renal disease; N18.6 End stage renal disease; I50.9 Heart failure, unspecified; Z99.2 Dependence on renal dialysis; Z95.0 Presence of cardiac pacemaker
CPT/HCPCS: 36415; 71010-TC; 76830-TC; 80053; 82272; 83735; 83880; 84100; 85025; 85610; 85730; 93005; 93010; 99282-25

== ENCOUNTER 2017-07-16 00:13 | Emergency (ER) | payer OTHER ==
[2017-07-16 00:36] VITALS: TEMP 98.6; BMI 19.7
--- NOTE | 2017-07-16 01:25 | PDOC ---
History of Present Illness - General Chief Complaint: Edema Stated Complaint: DIALYSIS PORT PROBLEM Time Seen by Provider: 07/16/17 01:07 - History of Present Illness Initial Comments: 07/16/17 01:24 CHIEF COMPLAINT: swelling to site of dialysis port HISTORY OF PRESENT ILLNESS: 87 yo F with PMHx of ESRD (on HD MWF, last dialyzed today), HTN, Afib (on coumadin), DM, CHF who presents to ED with swelling at site of dialysis port. Family is at bedside and report she has had a history of similar episodes and is followed by Dr. Delcid. Family and patient deny any pain to site, chest pain, shortness of breath, fever, chills, vomiting, diarrhea. PAST MEDICAL HISTORY: Denies past medical history FAMILY HISTORY: Denies SOCIAL HISTORY: Denies tobacco, alcohol, illicit drug use. SURGICAL HISTORY: Denies ALLERGIES: PCN REVIEW OF SYSTEMS General/Constitutional: Denies fever or chills. Denies weakness. HEENT: Denies change in vision. Denies ear pain or discharge. Denies sore throat. Cardiovascular: Denies chest pain or shortness of breath. Respiratory: Denies cough, wheezing, or hemoptysis. Gastrointestinal: Denies nausea, vomiting, diarrhea or constipation. Denies rectal bleeding. Genitourinary: Denies dysuria, frequency, or change in urination. Musculoskeletal: "She has swelling to the site of her dialysis port." Denies joint or muscle swelling or pain. Denies neck or back pain. Skin and breasts: Denies rash or easy bruising. Neurologic: Denies headache, vertigo, loss of consciousness, or loss of sensation. PHYSICAL EXAM General Appearance: Well-appearing, appropriately dressed. No apparent distress. HEENT: EOMI, PERRLA. No photophobia, scleral icterus. Respiratory/Chest: Lungs CTAB. Cardiovascular: RRR. S1, S2. Vascular Pulses: Dorsalis-Pedis (R): 2+, Dorsalis-Pedis (L): 2+ Gastrointestinal/Abdominal: Normal bowel sounds. Abdomen soft, non-distended. No tenderness or rebound tenderness. No organomegaly, pulsatile mass, guarding , hernia, hepatomegaly, splenomegaly. Musculoskeletal/Extremities: Swelling approximately 8cm x 8cm in diameter to site of dialysis port. Normal inspection. FROM of all extremities, normal capillary refill. Pelvis Stable. No CVA tenderness. No tenderness to extremities, pedal edema, swelling, erythema or deformity. Integumentary: Appropriate color, dry, warm. No cyanosis, erythema, jaundice or rash Neurologic: screener and blender II-XII intact. Fully oriented, alert. Appropriate mood/affect. Motor strength 5/5. No appreciable EOM palsy, facial droop or sensory deficit. 07/16/17 05:59 Past History - Past Medical History Allergies/Adverse Reactions: Allergies Allergy/AdvReac Type Severity Reaction Status Date / Time Penicillins Allergy Severe Hives, RASH Verified 07/16/17 00:35 Home Medications: Ambulatory Orders Metoprolol Succinate [Toprol XL -] 75 mg PO DAILY 03/21/16 Warfarin Na [Coumadin -] 2.5 mg PO DAILY@1800 04/04/16 Warfarin Na [Coumadin] 5 mg PO ASDIR 07/16/17 Anemia: No Asthma: No Cancer: No Cardiac Disorders: Yes (AFIB) CVA: No COPD: No CHF: No Dementia: No Diabetes: No Dialysis: Yes (Thu) GI Disorders: No Disorders: No HTN: Yes Hypercholesterolemia: No Liver Disease: No Seizures: No Thyroid Disease: No - Surgical History Abdominal Surgery: No Appendectomy: No Cardiac Surgery: Yes (pacemaker) Cholecystectomy: No Lung Surgery: No Neurologic Surgery: No Orthopedic Surgery: No - Immunization History Td Vaccination: Yes TDAP Vaccination: No Immunization Up to Date: Yes - Suicide/Smoking/Psychosocial Hx Smoking Status: No Smoking History: Never smoked Have you smoked in the past 12 months: No Number of Cigarettes Smoked Daily: 0 Information on smoking cessation initiated: No Hx Alcohol Use: No Drug/Substance Use Hx: No Substance Use Type: None Hx Substance Use Treatment: No *Physical Exam - Vital Signs Last Vital Signs Temp Pulse Resp BP Pulse Ox 98.6 F 87 18 114/78 95 07/16/17 00:35 07/16/17 00:35 07/16/17 00:35 07/16/17 00:35 07/16/17 00:35 ED Treatment Course - LABORATORY CBC & Chemistry Diagram: 07/16/17 03:25 07/16/17 03:25 - RADIOLOGY Radiology Studies Ordered: Category Date Time Status DUPLEX VASCUL US-1 ARM [US] Stat Ultrasound 07/16/17 01:20 Ordered Medical Decision Making - Medical Decision Making 07/16/17 06:04 87 yo F with PMHx of ESRD (on HD MWF, last dialyzed today), HTN, Afib (on coumadin), DM, CHF who presents to ED with swelling at site of dialysis port. -CBC, CMP, PT/INR -Duplex US of RUE Ultrasound positive for 2 saccular aneurysms. Labs: WBC 2.3 Discussed case with vascular surgeon Bhavin - no intervention required at this time and patient may f/u as outpatient. 07/16/17 06:28 Discussed case with MD Izquierdo, covering for PCP Herb at this time. Patient is stable to be discharged to home and f/u outpatient. Advised family of signs and symptoms for return to ER; family verbalized understanding and agrees to plan. *DC/Admit/Observation/Transfer Diagnosis at time of Disposition: Saccular aneurysm Problem with dialysis shunt Qualifiers: Encounter type: initial encounter Qualified Code(s): T82.898A - Other specified complication of vascular prosthetic devices, implants and grafts, initial encounter - Discharge Dispostion Disposition: HOME Condition at time of disposition: Stable Admit: No - Referrals Referrals: Acacia Estevez MD [Staff Physician] - Alan Delcid MD [Staff Physician] - - Patient Instructions Additional Instructions: Please follow up with Dr. Delcid in his office. If you develop any fever, chills , nausea, vomiting, diarrhea, or any new or worsening symptoms, please return to the ER. - Post Discharge Activity
--- NOTE | 2017-07-16 01:55 | PDOC ---
*Physical Exam - Vital Signs Last Vital Signs Temp Pulse Resp BP Pulse Ox 98.6 F 87 18 114/78 95 07/16/17 00:35 07/16/17 00:35 07/16/17 00:35 07/16/17 00:35 07/16/17 00:35 ED Treatment Course - LABORATORY CBC & Chemistry Diagram: 07/16/17 03:25 07/16/17 03:25 Medical Decision Making - Medical Decision Making 07/16/17 01:54 agree with care from TI Whitt *DC/Admit/Observation/Transfer Diagnosis at time of Disposition: Problem with dialysis shunt, Saccular aneurysm - Discharge Dispostion Disposition: HOME Condition at time of disposition: Stable - Referrals Referrals: Acacia Estevez MD [Staff Physician] - Alan Delcid MD [Staff Physician] - - Patient Instructions Additional Instructions: Please follow up with Dr. Delcid in his office. If you develop any fever, chills , nausea, vomiting, diarrhea, or any new or worsening symptoms, please return to the ER. - Post Discharge Activity
[2017-07-16 04:07] LABS: BASOPHIL 0.9 % (0-2.0); EOSINOPHIL 0.6 % (0-4.5); MCH 29.9 pg (25.7-33.7); MCHC 31.6 g/dl (32.0-36.0); MEAN CELL VOLUME 94.7 fl (80-96); MEAN PLT VOLUME 7.3 fl (7.5-11.1); NEUTROPHILS 38.5 % (42.8-82.8); PLATELET COUNT 132 K/MM3 (134-434); WHITE BLOOD COUNT 2.3 K/mm3 (4.0-10.0)
[2017-07-16 04:19] LABS: INR 3.42 (0.82-1.09); PROTHROMBIN TIME (PATIENT) 38.6 SEC (9.98-11.88)
[2017-07-16 04:33] LABS: ALBUMIN 2.2 g/dl (3.4-5.0); ANION GAP 4 (8-16); BILIRUBIN,TOTAL 0.4 mg/dL (0.2-1.0); CALCIUM 8.2 mg/dL (8.5-10.1); CO2 36 mmol/L (21-32); CREATININE 2.8 mg/dL (0.55-1.02); GLUCOSE,RANDOM 84 mg/dL (74-106); SGOT/AST 19 U/L (15-37); SGPT/ALT 10 U/L (12-78); TOT PROT 7.5 g/dl (6.4-8.2)
[2017-07-16 04:34] LABS: ALK PHOS 71 U/L (45-117)
[2017-07-16 06:47] VITALS: BP 119/73; PULSE 77
--- NOTE | 2017-07-16 11:33 | EKG ---
Test Reason : Blood Pressure : / mmHG Vent. Rate : 094 BPM Atrial Rate : 084 BPM P-R Int : 000 ms QRS Dur : 094 ms QT Int : 366 ms P-R-T Axes : 000 031 -21 degrees QTc Int : 457 ms ATRIAL FIBRILLATION ABNORMAL ECG WHEN COMPARED WITH ECG OF 20-APR-2017 13:16, NO SIGNIFICANT CHANGE WAS FOUND Confirmed by JOSE GONZALEZ MD ([id number]) on 07/16/2017 11:32:53 AM Referred By: Confirmed By:JOSE GONZALEZ MD
== END 2017-07-16 12:20 | disposition home or self-care (01) ==
LOC: JER 00:13
DX: T82.898A Other specified complication of vascular prosthetic devices, implants and grafts, initial encounter (principal); Q27.31 Arteriovenous malformation of vessel of upper limb; I13.2 Hypertensive heart and chronic kidney disease with heart failure and with stage 5 chronic kidney disease, or end stage renal disease; N18.6 End stage renal disease; I50.9 Heart failure, unspecified; N17.8 Other acute kidney failure; Z99.2 Dependence on renal dialysis; I48.91 Unspecified atrial fibrillation; Z79.01 Long term (current) use of anticoagulants; Z95.0 Presence of cardiac pacemaker
CPT/HCPCS: 36415; 80053; 85025; 85610; 86850; 86870; 86900; 86901; 86902; 93005; 93010; 93971; 99281-25

== ENCOUNTER 2017-07-23 09:28 | Day surgery (SDC) | payer OTHER ==
[2017-07-22 17:54] VITALS: BMI 19.3
[~2017-07-23 09:28] MED LIST: HEPARIN NA (PORCINE) 5,000 UNITS/ML 1ML VIAL SQ ONE; LIDOCAINE HCL 1%, 10 MG/ML (20ML VIAL) INF ONE
[2017-07-23] MEDS ORDERED: ONDANSETRON 4 MG/2 ML VIAL IVPUSH PRN (10:13)
--- NOTE | 2017-07-23 10:16 | HP ---
Admitting History and Physical - Admission Chief Complaint: Pseudoanuryms of right avg Limitations to Obtaining History: No Limitations - Past Medical History FUR TAILOR: Yes: Dementia (Pleasant affect and can conduct a reasonable conversation.) Cardiovascular: Yes: AFIB, CHF, HTN, Hyperlipdemia, Mitral Insufficiency Pulmonary: Yes: Pneumonia Renal/: Yes: Renal Inusuff, Hemodialysis Heme/Onc: Yes: Anemia - Past Surgical History Past Surgical History: Yes: AV Fistula/Graft (03/01/15), Permanent Pacemaker - Advance Directives Advance Directives: Yes: Health Care Proxy - Smoking History Smoking history: Never smoked Have you smoked in the past 12 months: No Aproximately how many cigarettes per day: 0 - Alcohol/Substance Use Hx Alcohol Use: No - Social History ADL: Support Services History of Recent Travel: No Home Medications - Allergies Allergies/Adverse Reactions: Allergies Allergy/AdvReac Type Severity Reaction Status Date / Time Penicillins Allergy Severe Hives, RASH Verified 07/22/17 18:01 - Home Medications Home Medications: Ambulatory Orders Metoprolol Succinate [Toprol XL -] 75 mg PO DAILY 03/21/16 Warfarin Na [Coumadin -] 2.5 mg PO DAILY@1800 04/04/16 Warfarin Na [Coumadin] 5 mg PO ASDIR 07/16/17 Review of Systems - Review of Systems Constitutional: reports: No Symptoms Eyes: reports: No Symptoms HENT: reports: No Symptoms Neck: reports: No Symptoms Cardiovascular: reports: No Symptoms Respiratory: reports: No Symptoms Gastrointestinal: reports: No Symptoms Genitourinary: reports: No Symptoms Breasts: reports: No Symptoms Reported Musculoskeletal: reports: No Symptoms Integumentary: reports: No Symptoms Neurological: reports: No Symptoms Endocrine: reports: No Symptoms Hematology/Lymphatic: reports: No Symptoms Psychiatric: reports: No Symptoms Physical Examination Constitutional: Yes: Well Nourished, No Distress, Calm Eyes: Yes: WNL, Conjunctiva Clear, EOM Intact HENT: Yes: WNL, Atraumatic, Normocephalic Neck: Yes: WNL, Supple, Trachea Midline Cardiovascular: Yes: WNL, Regular Rate and Rhythm Respiratory: Yes: WNL, Regular, CTA Bilaterally Gastrointestinal: Yes: WNL, Normal Bowel Sounds Musculoskeletal: Yes: WNL Extremities: Yes: WNL Edema: No Integumentary: Yes: WNL Neurological: Yes: WNL, Alert, Oriented ...Motor Strength: WNL Psychiatric: Yes: WNL Problem List - Problems (1) ESRD (end stage renal disease) on dialysis Code(s): N18.6 - END STAGE RENAL DISEASE; Z99.2 - DEPENDENCE ON RENAL DIALYSIS Assessment/Plan Pseuodaneurym right avg 1. for venogram, covered stent placement today.
[2017-07-23] MEDS ORDERED: PROPOFOL 20 ML ONE (11:00)
[2017-07-23] MEDS ORDERED: ceFAZolin SODIUM 1 GM VIAL ONE (11:08)
[2017-07-23] MEDS ORDERED: ceFAZolin SODIUM 1 GM VIAL IVPB ONE (11:10)
[2017-07-23] MEDS ORDERED: LIDOCAINE HCL 1%, 10 MG/ML (20ML VIAL) INF ONE ×2 (11:20)
[2017-07-23] MEDS ORDERED: HEPARIN NA (PORCINE) 5,000 UNITS/ML 1ML VIAL SQ ONE (11:21)
[2017-07-23] MEDS ORDERED: PROTAMINE SULFATE 50 MG/5 ML VIAL ONE (11:57)
[2017-07-23] MEDS ORDERED: CEFAZOLIN 1 GM PUSH 1 GM/10 ML DISP.SYRIN IVPUSH ONE (12:00)
--- NOTE | 2017-07-23 13:31 | OP ---
Operative Note - Note: Operative Date: 07/23/17 Pre-Operative Diagnosis: Pseudoaneurysm right avg Operation: Venogram, venoplasty , covered stent placement right avg Post-Operative Diagnosis: Same as Pre-op Surgeon: Alan Delcid Anesthesia: Fractional Estimated Blood Loss (mls): 75 Operative Report Dictated: Yes
[2017-07-23 14:02] VITALS: TEMP 97.9
[2017-07-23 14:14] VITALS: BP 156/82; PULSE 100
--- NOTE | 2017-07-24 11:50 | OP ---
DATE OF OPERATION: 07/23/2017 PREOPERATIVE DIAGNOSIS: Pseudoaneurysms, right arteriovenous graft. POSTOPERATIVE DIAGNOSIS: Pseudoaneurysms, right arteriovenous graft. PROCEDURE: Venogram, venoplasty, covered stent placement, right arteriovenous graft. SURGEON: Alan Sutton DO ANESTHESIA: Fractional. BLOOD LOSS: 75 mL INDICATION FOR PROCEDURE: The patient is an 87-year-old female who comes in with a pseudoaneurysm of the right AV graft. It was decided that she would need a venogram and a covered stent. Patient came in through Ambulatory Surgery. Patient's family was consented for the procedure, understanding all risks, benefits, and alternatives. She was then brought into the operating room. DESCRIPTION OF PROCEDURE: Once in the operating room, she was laid on the operating table in supine manner, and the area of the right arm was prepped and draped in a sterile surgical manner. We then went ahead and, under ultrasound guidance, visualized the proximal AV graft and took our micropuncture needle and punctured the right AV graft. Micropuncture wire was inserted, and a traditional short 7-Malay sheath was inserted. We then placed a 0.035 floppy guidewire up through the graft. We then shot a venogram via hand injection, showing that there were 2 areas of pseudoaneurysm that were filling and the graft was patent. At this point, we administered 5000 units of IV heparin to the patient, and we then went ahead and placed a 7 x 15 Viabahn stent graft across the 2 areas of the pseudoaneurysm. Once we deployed the graft, we then went ahead and used an 8 x 6 Lutonix balloon and performed venoplasty of the entire covered-stent graft. We then shot a completion venogram showing that the graft was patent, and the pseudoaneurysms were covered. We then went ahead and used a 4-0 Biosyn stitch and placed a figure-of-8 stitch around our sheath, and the sheath was pulled. The area was wet and dried, and Dermabond was placed. The patient tolerated the procedure with no complications. Patient transferred to the PACU in stable condition. Total blood loss: 75 mL. ALAN SUTTON DO [id number]
== END 2017-07-23 15:00 | disposition home or self-care (01) ==
LOC: JASU-SURG 09:28
PROVIDERS: ATTEND Surgery Vascular Surgery
PROC: 067Y3DZ Dilation of Lower Vein with Intraluminal Device, Percutaneous Approach (ICD-10-PCS; principal; 2017-07-23 10:30)
DX: T82.898A Other specified complication of vascular prosthetic devices, implants and grafts, initial encounter (principal); I12.0 Hypertensive chronic kidney disease with stage 5 chronic kidney disease or end stage renal disease; N18.6 End stage renal disease; Z99.2 Dependence on renal dialysis
CPT/HCPCS: 36415; 76000-TC; 84132; 94760; J1644

== ENCOUNTER 2017-09-30 12:43 | Inpatient (IN) | payer OTHER ==
[2017-09-30 12:47] VITALS: BMI 21.1
--- NOTE | 2017-09-30 14:56 | PDOC ---
Attending Attestation - HPI HPI: 09/30/17 16:02 The patient is an 87 year old female with significant history of hypertension, DM, ESRD (on HD MWF, last dialyzed Thursday), brought in with her family for complaints of intermittent, "throbbing" RLQ pain that began today. The also report complaints of rectal discomfort this morning. No fever or chills. No nausea, vomiting, diarrhea, or constipation. No chest pain or shortness of breath. Documentation prepared by Janeth Vela, acting as biomedical manager for Zhang Galindo MD. <Janeth Vela - Last Filed: 09/30/17 16:08> - Resident Resident Name: Oumar Arias - ED Attending Attestation I have performed the following: I have examined & evaluated the patient, The case was reviewed & discussed with the resident, I agree w/resident's findings & plan, Exceptions are as noted - Physicial Exam PE: 10/02/17 16:11 seen and evaluated by me on day of arrival. PE recorded 2 days later somnolent, easily arousable, moans when stimulated, follows commands nc, atr cta tachycardic, irregularly irregular soft. nd, + mild to modetrate ttp in the rlq rue av fistula wiht thrill distally - Medical Decision Making 10/02/17 16:13 87 y/o female with multile comorbidities with fever, abd pain. blood/urine culture/chest x-ray, ct abd-pelvis, iv abx, admission <Zhang Galindo - Last Filed: 10/02/17 16:13>
[2017-09-30] MEDS ORDERED: ACETAMINOPHEN 1000 MG/100 ML VIAL (NON FORMULARY) IVPB ONE (15:03)
--- NOTE | 2017-09-30 15:21 | PDOC ---
History of Present Illness - General Chief Complaint: Pain Stated Complaint: ABD PAIN Time Seen by Provider: 09/30/17 14:36 History Source: Patient, Family Exam Limitations: Clinical Condition - History of Present Illness Initial Comments: 09/30/17 15:12 The patient is an 87F with a PMH of ESRD (on HD MWF, not dialyzed today), HTN, Afib (on coumadin), DM, CHF who presents to the ER with complaints of abdominal pain. The patient is with her daughters who provide most of the history. The patient woke up and had rectal pain around [id number] this morning then around 9 am she had throbbing, intermittent RLQ pain, which she has never had before. LBM this morning and yesterday and the patient is passing gas. She denies any fever, chills, nausea, vomiting. She also states she has pain in her R arm fistula. She cannot describe the pain further. The history is limited by the patient's clinical condition. Daughters at bedside do state the patient is more lethargic than usual. Past History - Past Medical History Allergies/Adverse Reactions: Allergies Allergy/AdvReac Type Severity Reaction Status Date / Time Penicillins Allergy Severe Hives, RASH Verified 09/30/17 12:47 Home Medications: Ambulatory Orders Metoprolol Succinate [Toprol XL -] 75 mg PO DAILY 03/21/16 Warfarin Na [Coumadin -] 2.5 mg PO DAILY@1800 04/04/16 Warfarin Na [Coumadin] 5 mg PO ASDIR 07/16/17 Anemia: No Asthma: No Cancer: No Cardiac Disorders: Yes CVA: No COPD: No CHF: No Dementia: No Diabetes: No Dialysis: Yes (thu-thu-thu) GI Disorders: No Disorders: No HTN: Yes Hypercholesterolemia: No Liver Disease: No Seizures: No Thyroid Disease: No - Surgical History Abdominal Surgery: No Appendectomy: No Cardiac Surgery: Yes (pacemaker) Cholecystectomy: No Lung Surgery: No Neurologic Surgery: No Orthopedic Surgery: No - Immunization History Td Vaccination: Yes TDAP Vaccination: No Immunization Up to Date: Yes - Suicide/Smoking/Psychosocial Hx Smoking Status: No Smoking History: Never smoked Have you smoked in the past 12 months: No Number of Cigarettes Smoked Daily: 0 Hx Alcohol Use: No Drug/Substance Use Hx: No Substance Use Type: None Hx Substance Use Treatment: No Review of Systems - Review of Systems Able to Perform ROS?: Yes (Limited) Is the patient limited Luxembourgish proficient: No Constitutional: No: Chills, Fever HEENTM: No: Blurred Vision, Hearing Loss Respiratory: No: Cough, Shortness of Breath Cardiac (ROS): No: Chest Pain ABD/GI: Yes: Other (Abd pain). No: Constipated, Diarrhea, Nausea, Vomiting : No: Burning, Dysuria Integumentary: Yes: Other (Pain at AV fistula). No: Bruising, Dryness *Physical Exam - Vital Signs Last Vital Signs Temp Pulse Resp BP Pulse Ox 65 18 141/90 99 09/30/17 12:43 09/30/17 12:43 09/30/17 12:43 09/30/17 12:43 - Physical Exam Comments: 09/30/17 15:39 GENERAL: Well developed, well nourished. Awake. Lethargic. HEENT: Normocephalic, atraumatic. Hearing grossly normal. Moist mucous membranes. PERRLA, EOMI. No conjunctival pallor. Sclera are non-icteric. NECK: Supple. Full ROM. No JVD. CARDIOVASCULAR: Regular rate and rhythm. No murmurs, rubs, or gallops. PULMONARY: No evidence of respiratory distress. Rhonchi in b/l lower lung oropeza. ABDOMINAL: Soft. Tenderness to deep palpation in RLQ and RUQ. Negative billings. Non-distended. No rebound or guarding. MUSCULOSKELETAL: Normal range of motion at all joints. No bony deformities or tenderness. EXTREMITIES: No cyanosis. No clubbing. No edema. No calf tenderness. Warm to touch, nonexudative, nonpustular AV fistual present in R arm with palpable thrill. SKIN: Warm and dry. Normal capillary refill. No rashes. No jaundice. NEUROLOGICAL: Alert, awake, appropriate. Cranial nerves 2-12 intact. No deficits to light touch and temperature in face, upper extremities and lower extremities. No motor deficits in the in face, upper extremities and lower extremities. Normal speech. Gait is normal without ataxia. PSYCHIATRIC: Cooperative. Good eye contact. Inappropriate mood and affect. Heart Score/ECG Review - History History: Slightly suspicious - Electrocardiogram EKG: Normal - Risk Factors Risk Factors Heart Score: Yes Hx Hypertension, Yes Hx Diabetes Based on the list above the patient has:: 1-2 risk factors - Troponin Troponin: </= normal limit #1 ECG reviewed & interpreted by me at: 15:41 General ECG Interpretation: Sinus Rhythm, Normal Rate, Normal Intervals, No acute ischemic changes Compared to previous ECG there are: Changes noted 09/30/17 15:52 A-fib with RVR noted Rate 133 Qtc 452 Previous EKG notable for a-fib, not in RVR. ED Treatment Course - LABORATORY CBC & Chemistry Diagram: 09/30/17 15:20 09/30/17 15:20 - RADIOLOGY Radiology Studies Ordered: Category Date Time Status CHEST X-RAY PORTABLE* [RAD] Stat Radiology 09/30/17 15:00 Ordered Medical Decision Making - Medical Decision Making 09/30/17 15:55 The patient is an 87F with an extensive PMH who presents to the ER with abdominal pain and pain from her R fistula. Vitals notable for fever to 101+, tachycardia. Septic protocol is initiated. Fluids not being given because the patient did not go to dialysis today and I do not want to fluid overload her. Will image her abdomen and chest (XR). Pending labs and imaging. Giving vanc and gentamycin for coverage. 09/30/17 19:06 Labs show CBC without any abnormalities from pt's previous labs. CMP does not show hypokalemia but does indicate hypernatremia and unchanged Cr. U/S discussed with Dr. Alan Delcid. I have spoken with Dr. Dunham who is aware of patient and will see pt during her admission for dialysis. Pending CT. 09/30/17 20:[address] shows R pleural effusion with no gross abdominal pathology. Pending official read. Hospitalist microblogged for admission. 09/30/17 20:47 I have endorsed the patient to hospitalist [employer] [place] who accepts admission under Dr. Camp. *DC/Admit/Observation/Transfer Diagnosis at time of Disposition: ESRD (end stage renal disease) on dialysis Pneumonia Qualifiers: Pneumonia type: due to unspecified organism Laterality: right Lung location: lower lobe of lung Qualified Code(s): J18.1 - Lobar pneumonia, unspecified organism - Discharge Dispostion Condition at time of disposition: Stable Admit: Yes - Referrals Referrals: Arnav Samaniego MD [Primary Care Provider] - - Patient Instructions - Post Discharge Activity
[2017-09-30] MEDS ORDERED: ACETAMINOPHEN INJECTION 100 ML IVPB ONE (15:24)
[2017-09-30 15:29] LABS: BASO % 0.4 % (0-2.0); HEMATOCRIT 30.9 % (32.4-45.2); LYMPH % 3.4 % (8-40); MCH 31.7 pg (25.7-33.7); MCHC 32.3 g/dl (32.0-36.0); MEAN CELL VOLUME 98.1 fl (80-96); MEAN PLT VOLUME 9.6 fl (7.5-11.1); MONO % 6.7 % (3.8-10.2); NEUT % 89.5 % (42.8-82.8); PLATELET COUNT 92 K/MM3 (134-434); RBC 3.15 M/mm3 (3.60-5.2); RDW 17.1 % (11.6-15.6); WHITE BLOOD COUNT 8.4 K/mm3 (4.0-10.0)
[2017-09-30 15:31] LABS: VENOUS PC02 40.1 mmHg (38-52); VENOUS PH 7.47 (7.32-7.42); VENOUS PO2 30.4 mmHg (28-48)
[2017-09-30 15:45] LABS: INR 1.89 (0.82-1.09); PROTHROMBIN TIME (PATIENT) 21.4 SEC (9.98-11.88)
[2017-09-30 16:11] LABS: ALBUMIN 3.2 g/dl (3.4-5.0); ANION GAP 12 (8-16); BILIRUBIN,TOTAL 1.1 mg/dL (0.2-1.0); BLOOD UREA NITROGEN 26 mg/dL (7-18); CALCIUM 8.6 mg/dL (8.5-10.1); CHLORIDE 90 mmol/L (98-107); CO2 29 mmol/L (21-32); CREATININE 4.8 mg/dL (0.55-1.02); GLUCOSE,RANDOM 111 mg/dL (74-106); MAGNESIUM 2.2 mg/dL (1.8-2.4); POTASSIUM 3.9 mmol/L (3.5-5.1); SGOT/AST 22 U/L (15-37); SGPT/ALT 11 U/L (12-78); SODIUM 131 mmol/L (136-145); TOT PROT 9.1 g/dl (6.4-8.2)
[2017-09-30 16:14] LABS: ALK PHOS 103 U/L (45-117)
[2017-09-30] MEDS ORDERED: VANCOMYCIN 1,000 MG VIAL (RESTRICTED TO ID ONLY) IVPB ONE (16:35)
[2017-09-30] MEDS ORDERED: GENTAMICIN INJECTION 100 MG in SODIUM CHLORIDE 97.5 ML IVPB ONE (16:36)
[2017-09-30] MEDS ORDERED: VANCOMYCIN 1,000 MG in DEXTROSE 5%-WATER - 250 ML IVPB ONE (16:38)
[2017-09-30 18:38] LABS: URINE APPEARANCE CLEAR; URINE BILIRUBIN NEGATIVE (NEGATIVE); URINE BLOOD 1+ (NEGATIVE); URINE COLOR YELLOW; URINE GLUCOSE (UA) 1+ (NEGATIVE); URINE KETONE NEGATIVE (NEGATIVE); URINE NITRITE NEGATIVE (NEGATIVE); URINE UROBILINOGEN NEGATIVE mg/dL (0.2-1.0)
[2017-09-30 18:39] LABS: URINE LEUK ESTERASE 1+ (NEGATIVE); URINE PROTEIN 3+ (NEGATIVE)
[2017-09-30 18:41] LABS: EPI CELLS RARE /HPF (FEW)
--- NOTE | 2017-09-30 21:37 | HP ---
Admitting History and Physical - Primary Care Physician PCP: Arnav Samaniego - Admission Chief Complaint: Abdominal Pain, R- Arm Graft Pain History of Present Illness: This is a 87 y/o woman from home who presents to the ED with her family c/o R- sided abdominal pain, R- upper arm pain at AV- graft, fever, lethargy. Per patient's daughter the patient has been crying out and not acting her baseline. The daughter also reports that the patient had increased pain today. Patient missed her HD session, secondary to the pain and was sent here instead for eval. Patient's daughter reports her mom had a BM today- soft. Patient's daughter denies her mother having: chills, MAYERS, CP, palpitations, N/V, constipation, dysuria. History Source: Family Member Limitations to Obtaining History: Clinical Condition, Dementia, Poor Historian - Past Medical History [employer]: Yes: Dementia (Pleasant affect and can conduct a reasonable conversation.) Cardiovascular: Yes: AFIB, CHF, HTN, Hyperlipdemia, Mitral Insufficiency Pulmonary: Yes: Pneumonia Renal/: Yes: Renal Inusuff, Hemodialysis Heme/Onc: Yes: Anemia - Past Surgical History Past Surgical History: Yes: AV Fistula/Graft (03/01/15), Permanent Pacemaker - Smoking History Smoking history: Never smoked Have you smoked in the past 12 months: No Aproximately how many cigarettes per day: 0 - Alcohol/Substance Use Hx Alcohol Use: No - Social History ADL: Support Services History of Recent Travel: No Home Medications - Allergies Allergies/Adverse Reactions: Allergies Allergy/AdvReac Type Severity Reaction Status Date / Time Penicillins Allergy Severe Hives, RASH Verified 09/30/17 12:47 - Home Medications Home Medications: Ambulatory Orders Metoprolol Succinate [Toprol XL -] 75 mg PO DAILY 03/21/16 Warfarin Na [Coumadin -] 2.5 mg PO DAILY@1800 04/04/16 Warfarin Na [Coumadin] 5 mg PO ASDIR 07/16/17 Family Disease History - Family Disease History Family History: Unable to Obtain Review of Systems Unable to obtain ROS, reason: Dementia hx Physical Examination Vital Signs: Vital Signs Temperature Pulse Rate 122 H 09/30/17 21:00 Respiratory Rate 18 09/30/17 21:00 Blood Pressure 129/93 09/30/17 21:00 O2 Sat by Pulse Oximetry (%) 98 09/30/17 19:20 Constitutional: Yes: Thin. No: Poor Hygeine Eyes: Yes: Conjunctiva Clear, PERRL, Ptosis HENT: Yes: WNL, Atraumatic, Normocephalic Neck: Yes: Tenderness. No: Trachea Midline Cardiovascular: Yes: Pulse Irregular, S1, S2 Gastrointestinal: Yes: Normal Bowel Sounds, Distention. No: Tenderness, Tenderness, Epigastrium, Tenderness, Rebound ...Rectal Exam: Yes: Deferred Renal/: Yes: Incontinence Breast(s): Yes: WNL Musculoskeletal: Yes: Joint Stiffness, Muscle Weakness, Other (contracted extremities right upper arm pain) Extremities: Yes: Other (+thrill to RUE AV Graft) Peripheral Pulses WNL: Yes Neurological: Yes: Confusion, Facial Droop (right droop- per daughter baseline when sleeping) Psychiatric: Yes: Other (Dementia- Baseline) Labs: CBC, BMP 09/30/17 15:20 09/30/17 15:20 Laboratory Results - last 24 hr 09/30/17 09/30/17 09/30/17 15:05 15:20 15:20 WBC 8.4 D RBC 3.15 L Hgb 10.0 L D Hct 30.9 L D MCV 98.1 H MCH 31.7 MCHC 32.3 RDW 17.1 H Plt Count 92 L D MPV 9.6 D Neutrophils % 89.5 H D Lymphocytes % 3.4 L D Monocytes % 6.7 Eosinophils % 0.0 D Basophils % 0.4 PT with INR 21.40 H INR 1.89 H D PTT (Actin FS) 30.0 VBG pH 7.47 H POC VBG pCO2 40.1 POC VBG pO2 30.4 Mixed VBG HCO3 29.0 H Sodium Potassium Chloride Carbon Dioxide Anion Gap BUN Creatinine Creat Clearance w eGFR Random Glucose Lactic Acid Calcium Phosphorus Magnesium Total Bilirubin AST ALT Alkaline Phosphatase Creatine Kinase Troponin I C-Reactive Protein Total Protein Albumin Triglycerides Cholesterol Total LDL Cholesterol HDL Cholesterol Urine Color Urine Appearance Urine pH Ur Specific [place] Urine Protein Urine Glucose (UA) Urine Ketones Urine Blood Urine Nitrite Urine Bilirubin Urine Urobilinogen Ur Leukocyte Esterase Urine WBC (Auto) Urine RBC (Auto) Ur Epithelial Cells Stool Occult Blood Random Vancomycin Blood Type Antibody Screen Antibody Identification Antigen Identification Direct Antiglob Test 09/30/17 09/30/17 09/30/17 15:20 15:20 15:20 WBC RBC Hgb Hct MCV MCH MCHC RDW Plt Count MPV Neutrophils % Lymphocytes % Monocytes % Eosinophils % Basophils % PT with INR INR PTT (Actin FS) VBG pH POC VBG pCO2 POC VBG pO2 Mixed VBG HCO3 Sodium 131 L Potassium 3.9 Chloride 90 L Carbon Dioxide 29 Anion Gap 12 BUN 26 H Creatinine 4.8 H Creat Clearance w eGFR 8.58 Random Glucose 111 H Lactic Acid 3.2 H* Calcium 8.6 Phosphorus Magnesium 2.2 Total Bilirubin 1.1 H D AST 22 ALT 11 L Alkaline Phosphatase 103 Creatine Kinase 38 Troponin I 0.08 H C-Reactive Protein Total Protein 9.1 H Albumin 3.2 L Triglycerides Cholesterol Total LDL Cholesterol HDL Cholesterol Urine Color Urine Appearance Urine pH Ur Specific [place] Urine Protein Urine Glucose (UA) Urine Ketones Urine Blood Urine Nitrite Urine Bilirubin Urine Urobilinogen Ur Leukocyte Esterase Urine WBC (Auto) Urine RBC (Auto) Ur Epithelial Cells Stool Occult Blood Random Vancomycin Blood Type A POSITIVE Antibody Screen Positive H Antibody Identification Anti-e Antigen Identification No Result Required. Direct Antiglob Test Negative 09/30/17 09/30/17 09/30/17 15:20 16:40 18:27 WBC RBC Hgb Hct MCV MCH MCHC RDW Plt Count MPV Neutrophils % Lymphocytes % Monocytes % Eosinophils % Basophils % PT with INR INR PTT (Actin FS) VBG pH POC VBG pCO2 POC VBG pO2 Mixed VBG HCO3 Sodium Potassium Chloride Carbon Dioxide Anion Gap BUN Creatinine Creat Clearance w eGFR Random Glucose Lactic Acid Calcium Phosphorus Magnesium Cancelled Total Bilirubin AST ALT Alkaline Phosphatase Creatine Kinase Troponin I C-Reactive Protein Total Protein Albumin Triglycerides Cholesterol Total LDL Cholesterol HDL Cholesterol Urine Color Yellow Urine Appearance Clear Urine pH 8.0 Ur Specific [place] 1.010 Urine Protein 3+ H Urine Glucose (UA) 1+ H Urine Ketones Negative Urine Blood 1+ H Urine Nitrite Negative Urine Bilirubin Negative Urine Urobilinogen Negative Ur Leukocyte Esterase 1+ H Urine WBC (Auto) 12 Urine RBC (Auto) 10 Ur Epithelial Cells Rare Stool Occult Blood Negative Random Vancomycin Blood Type Antibody Screen Antibody Identification Antigen Identification Direct Antiglob Test 09/30/17 10/01/17 10/01/17 18:51 06:45 06:45 WBC 9.4 RBC 2.96 L Hgb 9.2 L Hct 29.0 L MCV 98.0 H MCH 31.2 MCHC 31.9 L RDW 17.0 H Plt Count 77 L MPV 9.8 Neutrophils % 88.8 H Lymphocytes % 3.3 L Monocytes % 7.7 Eosinophils % 0.0 Basophils % 0.2 PT with INR INR PTT (Actin FS) VBG pH POC VBG pCO2 POC VBG pO2 Mixed VBG HCO3 Sodium 131 L Potassium 4.3 Chloride 92 L Carbon Dioxide 30 Anion Gap 9 BUN 33 H Creatinine 5.5 H Creat Clearance w eGFR Random Glucose 110 H Lactic Acid 2.0 Calcium 8.3 L Phosphorus 5.6 H Magnesium 2.0 Total Bilirubin AST ALT Alkaline Phosphatase Creatine Kinase Troponin I C-Reactive Protein Total Protein Albumin Triglycerides 53 Cholesterol 109 Total LDL Cholesterol 52 HDL Cholesterol 51 Urine Color Urine Appearance Urine pH Ur Specific [place] Urine Protein Urine Glucose (UA) Urine Ketones Urine Blood Urine Nitrite Urine Bilirubin Urine Urobilinogen Ur Leukocyte Esterase Urine WBC (Auto) Urine RBC (Auto) Ur Epithelial Cells Stool Occult Blood Random Vancomycin Blood Type Antibody Screen Antibody Identification Antigen Identification Direct Antiglob Test 10/01/17 10/01/17 08:20 08:20 WBC RBC Hgb Hct MCV MCH MCHC RDW Plt Count MPV Neutrophils % Lymphocytes % Monocytes % Eosinophils % Basophils % PT with INR INR PTT (Actin FS) VBG pH POC VBG pCO2 POC VBG pO2 Mixed VBG HCO3 Sodium Potassium Chloride Carbon Dioxide Anion Gap BUN Creatinine Creat Clearance w eGFR Random Glucose Lactic Acid Calcium Phosphorus Magnesium Total Bilirubin AST ALT Alkaline Phosphatase Creatine Kinase Troponin I C-Reactive Protein 11.0 H Total Protein Albumin Triglycerides Cholesterol Total LDL Cholesterol HDL Cholesterol Urine Color Urine Appearance Urine pH Ur Specific [place] Urine Protein Urine Glucose (UA) Urine Ketones Urine Blood Urine Nitrite Urine Bilirubin Urine Urobilinogen Ur Leukocyte Esterase Urine WBC (Auto) Urine RBC (Auto) Ur Epithelial Cells Stool Occult Blood Random Vancomycin 14.538 Blood Type Antibody Screen Antibody Identification Antigen Identification Direct Antiglob Test Intake & Output 09/28/17 09/29/17 09/30/17 10/01/17 23:59 23:59 23:59 23:59 Weight 57.606 kg Current Medications Generic Name Dose Route Start Last Admin Trade Name Freq PRN Reason Stop Dose Admin Aztreonam 0.5 gm/ Dextrose 50 mls @ 100 mls/hr 10/01/17 10:00 IVPB Q8H-IV PHANI Protocol Metronidazole 500 mg in 100 mls @ 100 mls/hr 10/01/17 10:00 Flagyl 500mg Premixed Ivpb - IVPB Q8H-IV PHANI Metoprolol Succinate 50 mg 09/30/17 22:00 09/30/17 22:52 Toprol Xl - PO 50 mg HS PHANI Administration Warfarin Sodium 5 mg 10/02/17 18:00 Coumadin - PO MOWEFR@1800 PHANI Warfarin Sodium 2.5 mg 10/01/17 18:00 Coumadin - PO SUTUTHSA@1800 PHANI Imaging - Results Chest X-ray: Image Reviewed (pulm vascular congestion, ?infiltrate RLL) Cat Scan: Image Reviewed EKG: Image Reviewed Other: Report Reviewed (Duplex R upper arm artery- thrombosed pseudoaneurysm) Problem List - Problems (1) Pneumonia Code(s): J18.9 - PNEUMONIA, UNSPECIFIED ORGANISM Qualifiers: Pneumonia type: due to unspecified organism Laterality: right Lung location: lower lobe of lung Qualified Code(s): J18.1 - Lobar pneumonia, unspecified organism (2) Pleural effusion Code(s): J90 - PLEURAL EFFUSION, NOT ELSEWHERE CLASSIFIED (3) Abdominal pain Code(s): R10.9 - UNSPECIFIED ABDOMINAL PAIN (4) Right arm pain Code(s): M79.601 - PAIN IN RIGHT ARM (5) Confusion Code(s): R41.0 - DISORIENTATION, UNSPECIFIED (6) Pseudoaneurysm of AV hemodialysis fistula Code(s): T82.898A - OTH COMPLICATION OF VASCULAR PROSTH DEV/GRFT, INIT (7) ESRD (end stage renal disease) on dialysis Code(s): N18.6 - END STAGE RENAL DISEASE; Z99.2 - DEPENDENCE ON RENAL DIALYSIS (8) Chronic diastolic CHF (congestive heart failure) Code(s): I50.32 - CHRONIC DIASTOLIC (CONGESTIVE) HEART FAILURE (9) Afib Code(s): I48.91 - UNSPECIFIED ATRIAL FIBRILLATION Qualifiers: Atrial fibrillation type: chronic Qualified Code(s): I48.2 - Chronic atrial fibrillation (10) Anemia Code(s): D64.9 - ANEMIA, UNSPECIFIED Qualifiers: Anemia type: unspecified type Qualified Code(s): D64.9 - Anemia, unspecified (11) Elevated serum creatinine Code(s): R79.89 - OTHER SPECIFIED ABNORMAL FINDINGS OF BLOOD CHEMISTRY (12) Renal insufficiency Code(s): N28.9 - DISORDER OF KIDNEY AND URETER, UNSPECIFIED (13) DVT prophylaxis Code(s): [id number] - Assessment/Plan This is a 87 y/o woman with a PMHx of Dementia, ESRD (HD- Mo,,Fr), HTN, Afib, DM. Admitted to Telemetry for Pneumonia, Pleural Effusion, Afib with RVR Plan: 1. ID: Pneumonia, Pleural Effusion - CURB65 score 3 - Chest Xray- image reviewed appears RML infiltrate - Blood Cultures, Urine Culture-pending - Lactic Acidemia 3.2~2.0 - Given Vancomycin ,Gentamycin in the ED, will continue Vancomycin, renal dosing - Appreciate ID consult - Monitor vitals - Repeat CBC, BMP in am - Consider Thoracentesis if condition worsens 2. Cardiology: Afib, HTN - Tele monitoring - [id number] - INR 1.89 - Monitor INRs - Continue Warfarin as directed (verified with the daughter) - EKG- Afib with RVR low 100's - On applied research director patient is Paroxysmal AFib. Will hold Lopressor IV for now 2/2 Hypotensive - Continue home meds, will hold HCTZ 2/2 CKD 3. Nephrology: End Stage Renal Disease - HD (Mo, , Fr) - Missed HD today - CXR- +vascular congestion - Consider Lasix for HF, monitor BP judiciously 4. GI: Abdominal Pain - CTAP- image reviewed, pending report - On exam: soft, nontender, hypoactive BS - Consider GI consult if condition worsens - Monitor BMP 5. Musculoskeletal: R- Upper Extremity Pain - Duplex RUE Artery- Pseudoaneurysm - Appreciate Vascular Consult - Neurovascular checks 6. Endocrinology:DM - Stable - Novolog SQ - ISS - HgbA1C this am 7. F/E/N - 1L Fluid Restriction - Replete lytes prn - Low Na soft, mechanical Diet 8. DVT Prophylaxis - SCDs - Continue Warfarin Code Status: Full Code Dispo: Requires Inpatient Care Visit type - Emergency Visit Emergency Visit: Yes ED Registration Date: 09/30/17 Care time: The patient presented to the Emergency Department on the above date and was hospitalized for further evaluation of their emergent condition. - New Patient This patient is new to me today: Yes Date on this admission: 09/30/17 - Critical Care Critical Care patient: No Hospitalist Screening - Colonoscopy Questionnaire Colonoscopy Questionnaire: Colonoscopy Questionnaire - Patient: 50 - 75 years old and never had a screening colonoscopy: Unknown History of colon or rectal polyps, or CA: Unknown History of IBD, Crohn's disease or UC: Unknown History of abdominal radiation therapy as a child: Unknown - Relative: 1 with colon or rectal CA, or polyps at age 60 or younger: Unknown Colon or rectal CA diagnosed at age 45 or younger: Unknown Multiple relatives with colon or rectal CA: Unknown - Outcome: Screening Result: Negative Screen
[2017-09-30] MEDS ORDERED: WARFARIN NA 5 MG TABLET (UD) PO ONE (22:22)
[2017-09-30] MEDS ORDERED: WARFARIN NA 5 MG TABLET (UD) ONE (22:55)
[2017-10-01 07:31] LABS: ANION GAP 9 (8-16); BLOOD UREA NITROGEN 33 mg/dL (7-18); CALCIUM 8.3 mg/dL (8.5-10.1); CHLORIDE 92 mmol/L (98-107); CHOLESTEROL 109 mg/dL (50-200); CO2 30 mmol/L (21-32); CREATININE 5.5 mg/dL (0.55-1.02); GLUCOSE,RANDOM 110 mg/dL (74-106); LDL CHOLESTEROL (ONLY SJRH) 52 mg/dL (5-100); PHOSPHOROUS 5.6 mg/dL (2.5-4.9); SODIUM 131 mmol/L (136-145); TRIGLYCERIDES 53 mg/dL (35-160)
[2017-10-01 07:33] LABS: HDL CHOLESTEROL 51 mg/dL (40-60)
[2017-10-01 07:40] LABS: BASO % 0.2 % (0-2.0); HEMOGLOBIN 9.2 GM/dL (10.7-15.3); LYMPH % 3.3 % (8-40); MCH 31.2 pg (25.7-33.7); MCHC 31.9 g/dl (32.0-36.0); MEAN PLT VOLUME 9.8 fl (7.5-11.1); MONO % 7.7 % (3.8-10.2); NEUT % 88.8 % (42.8-82.8); PLATELET COUNT 77 K/MM3 (134-434); RBC 2.96 M/mm3 (3.60-5.2); WHITE BLOOD COUNT 9.4 K/mm3 (4.0-10.0)
--- NOTE | 2017-10-01 07:43 | PN ---
Progress Note, Physician Chief Complaint: ID Patient a poor historian but according to her daughter pain in her abd and right arm dialysis access site since yesterday with fever. Currently n abd pain. She is alert and in NAD Afebrile here Some couph noted during exam - Current Medication List Current Medications: Active Medications Metoprolol Succinate (Toprol Xl -) 50 mg PO HS [facility] Last Admin: 09/30/17 22:52 Dose: 50 mg Warfarin Sodium (Coumadin -) 5 mg PO MOWEFR@1800 PHANI Warfarin Sodium (Coumadin -) 2.5 mg PO SUTUTHSA@1800 PHANI - Objective Vital Signs: Vital Signs Temperature 98.5 F 10/01/17 06:50 Pulse Rate 103 H 10/01/17 06:42 Respiratory Rate 22 10/01/17 06:42 Blood Pressure 122/77 10/01/17 06:42 O2 Sat by Pulse Oximetry (%) 100 10/01/17 06:42 HENT: Yes: WNL, Atraumatic Neck: Yes: WNL, Supple Cardiovascular: Yes: Tachycardia, Pulse Irregular, S1, S2 Respiratory: Yes: WNL, Regular, CTA Bilaterally Gastrointestinal: Yes: Soft. No: Tenderness, Tenderness, Rebound Extremities: Yes: Other (AFG right arm) Edema: No Labs: INR, PTT INR 1.89 (0.82-1.09) H D 09/30/17 15:20 Problem List - Problems (1) Abdominal pain Code(s): R10.9 - UNSPECIFIED ABDOMINAL PAIN (2) ESRD (end stage renal disease) on dialysis Code(s): N18.6 - END STAGE RENAL DISEASE; Z99.2 - DEPENDENCE ON RENAL DIALYSIS (3) Pneumonia Code(s): J18.9 - PNEUMONIA, UNSPECIFIED ORGANISM Qualifiers: Pneumonia type: due to unspecified organism Laterality: right Lung location: lower lobe of lung Qualified Code(s): J18.1 - Lobar pneumonia, unspecified organism (4) Afib Code(s): I48.91 - UNSPECIFIED ATRIAL FIBRILLATION Qualifiers: Atrial fibrillation type: chronic Qualified Code(s): I48.2 - Chronic atrial fibrillation Assessment/Plan Microbiology Laboratory Tests 09/30/17 09/30/17 09/30/17 15:20 15:20 15:20 WBC 8.4 D RBC 3.15 L Hct 30.9 L D Plt Count 92 L D INR 1.89 H D Total Bilirubin 1.1 H D ALT 11 L Total Protein 9.1 H Albumin 3.2 L Ur Leukocyte Esterase Urine WBC (Auto) Urine RBC (Auto) 09/30/17 18:27 WBC RBC Hct Plt Count INR Total Bilirubin ALT Total Protein Albumin Ur Leukocyte Esterase 1+ H Urine WBC (Auto) 12 Urine RBC (Auto) 10 Assessment Abd pain unclear etiology ( CT pending) Pseudoaneursym of the right arm AVG ESRD Possible pneumonia Atrial fibrillation PCN urticaria Plan [facility] cultures [facility] c/s Add Aztreonam and metronidazole for intrabdominal coverage pending cultures and CT imaging [facility]
[2017-10-01 07:55] LABS: POTASSIUM 4.3 mmol/L (3.5-5.1)
--- NOTE | 2017-10-01 08:45 | CONS ---
INFECTIOUS DISEASE CONSULTATION DATE OF CONSULTATION: DATE OF DICTATION: 10/01/2017 HISTORY OF PRESENT ILLNESS: This is an 87-year-old female with end-stage renal disease, who presented to the emergency room with chief complaint of abdominal pain for approximately 1 day. She has hypertension, atrial fibrillation, diabetes, and a history of congestive heart failure. The history, by and large , was given by her daughter, though the patient is awake and able to answer some questions. According to the ER note, she had experienced lower abdominal pain and rectal pain which she had never previously had before. She did have a normal bowel movement in the preceding day. There was no fever, chills, nausea, or vomiting, although the daughter said she may have had fever. She has a right arm fistula placed by Dr. Delcid and also complained of pain in the fistula. She apparently is on 3-time-a -week dialysis in [facility], but missed her dialysis yesterday. She had no fever here. A CAT scan of the abdomen has been obtained, but the reading is currently pending. She is allergic to PENICILLIN and was given a dose of vancomycin and gentamicin. PAST MEDICAL HISTORY: As noted above. MEDICATIONS: Metoprolol, Coumadin. ALLERGIES: PENICILLIN with urticaria, rash. SOCIAL HISTORY: Nonsmoker. No history of EtOH use. Lives at home, cared for by her daughters. FAMILY HISTORY: Reviewed and noncontributory. REVIEW OF SYSTEMS: Respiratory: No cough or shortness of breath. Cardiac: No chest pain, palpitations, syncope. Gastrointestinal: Currently, no abdominal pain. No vomiting, blood per rectum, diarrhea. Genitourinary: No dysuria, hematuria, or urinary frequency. End-stage renal disease. PHYSICAL EXAMINATION: General: She was an elderly woman in no acute distress. Vital Signs: The temperature was 98.5, pulse 103, blood pressure 122/77, respiratory rate 22. Neck: Supple without adenopathy. Lungs: Clear to percussion and auscultation. Heart: S1, S2. Regular rhythm without audible murmur. Abdomen: Soft, with positive bowel sounds. No localized tenderness, guarding, or rebound. Extremities: No clubbing, cyanosis, or edema. A right AV graft noted in the right arm, was nontender to touch. A duplex study of the right arm suggested pseudoaneurysm of the AV fistula. White count was 8.4, hemoglobin 10, platelets of 92,000. Chemistries consistent with end-stage renal disease. Liver enzymes within normal limit. Total protein of 9.1 g with an albumin of 3.2. Urinalysis with 12 WBCs, 10 RBCs, 1+ leukocyte esterase. Chest x-ray shows some pulmonary congestion, possible infiltrate in right left lower lobe. ASSESSMENT: An 87-year-old female who presents with some cough noted during her examination, as well as complaints of abdominal pain and pain in the area of the right arm fistula. Currently, she denies any abdominal pain. She has no fever, chills, and does not appear toxic. A CAT scan of the abdomen is currently pending, but she has no findings to suggest any acute intraabdominal process. That being said, I would treat her empirically for both pneumonia as well as possible intraabdominal pathology including diverticulitis. As she is a dialysis patient will need to cover Satph and GNB Has a pacemaker. PLAN: In light of her PENICILLIN allergy, we will give her a combination of vancomycin, aztreonam, and metronidazole, which, depending on her CAT scan and cultures, can be modified or discontinued in the next 24-48 hours. EUNICE SANCHEZ M.D. [id number] MTDD
[2017-10-01] MEDS ORDERED: AZTREONAM 0.5 GM in DEXTROSE 5%-WATER - 50 ML IVPB SCH (10:00)
--- NOTE | 2017-10-01 11:33 | PN ---
Progress Note, Physician Chief Complaint: patient awake alert says she was nauseous earlier in the morning - Current Medication List Current Medications: Active Medications Aztreonam 0.5 gm/ Dextrose 50 mls @ 100 mls/hr IVPB Q8H-IV PHANI PRN Reason: Protocol Last Admin: 10/01/17 10:46 Dose: 100 mls/hr Metronidazole (Flagyl 500mg Premixed Ivpb -) 500 mg in 100 mls @ 100 mls/hr IVPB Q8H-IV PHANI Last Admin: 10/01/17 11:06 Dose: 100 mls/hr Metoprolol Succinate (Toprol Xl -) 50 mg PO HS PHANI Last Admin: 09/30/17 22:52 Dose: 50 mg Warfarin Sodium (Coumadin -) 5 mg PO MOWEFR@1800 PHANI Warfarin Sodium (Coumadin -) 2.5 mg PO SUTUTHSA@1800 PHANI - Objective Vital Signs: Vital Signs Temperature 98.5 F 10/01/17 06:50 Pulse Rate 103 H 10/01/17 06:42 Respiratory Rate 22 10/01/17 06:42 Blood Pressure 122/77 10/01/17 06:42 O2 Sat by Pulse Oximetry (%) 100 10/01/17 06:42 Constitutional: Yes: Calm Cardiovascular: Yes: Regular Rate and Rhythm, S1, S2 Respiratory: Yes: CTA Bilaterally Gastrointestinal: Yes: Normal Bowel Sounds, Soft Extremities: Yes: Other (AVG thrill noted on right arm) Edema: No Labs: CBC, BMP 10/01/17 06:45 10/01/17 06:45 INR, PTT INR 1.89 (0.82-1.09) H D 09/30/17 15:20 Problem List - Problems (1) Abdominal pain Assessment/Plan: ct scan noted for rectal impaction laxatives Code(s): R10.9 - UNSPECIFIED ABDOMINAL PAIN (2) ESRD (end stage renal disease) on dialysis Assessment/Plan: HD per renal fistula is patent and thrombosed pseudoaneurysm noted on arm duplex Code(s): N18.6 - END STAGE RENAL DISEASE; Z99.2 - DEPENDENCE ON RENAL DIALYSIS (3) Afib Assessment/Plan: toprol and Coumadin monitor INR Code(s): I48.91 - UNSPECIFIED ATRIAL FIBRILLATION Qualifiers: Atrial fibrillation type: chronic Qualified Code(s): I48.2 - Chronic atrial fibrillation (4) Pleural effusion Assessment/Plan: HD Code(s): J90 - PLEURAL EFFUSION, NOT ELSEWHERE CLASSIFIED (5) Positive blood culture Assessment/Plan: gram postive cocci cluster per ID note stop flagyl and aztreonam vanco renal dose Code(s): R78.81 - BACTEREMIA
[2017-10-01] MEDS ORDERED: EPOETIN ALFA 2,000 UNIT/1 ML VIAL IVPUSH ONE (14:30)
--- NOTE | 2017-10-01 15:27 | CONSULT ---
Consultation: REQUESTING PROVIDER: Dr. Arias CONSULT REQUEST: We have been asked to medically evaluate this patient for Dialysis. HISTORY OF PRESENT ILLNESS: Patient is an 87 year old female with ESRD (HD n M,W,F), HTN, Atrial Fibrillation on Coumadin, CHF, who presented with abdominal pain. According to patients daughter, she woke up with intermittent RLQ abdominal pain and then patient became more lethargic and confused from baseline. Patient missed dialysis yesterday and we were consulted for dialysis session. Patient denies nausea, vomiting, chest pain, palpitation, shortness of breath, fever, chills. PMHx: Dementia, Atrial Fibrillation, HTN, HLD, ESRD on Dialysis, CHF, Severe Chronic Mitral Regurgitation, Anemia PSHx: AV Fistula/Graft (03/01/15), Permanent pacemaker Social: Denies smoking, drugs , alcohol, REVIEW OF SYSTEMS: unable to obtain PHYSICAL EXAMINATION Vital Signs - 24 hr 09/30/17 09/30/17 09/30/17 19:20 21:00 22:33 Temperature Pulse Rate Pulse Rate [ 113 H 122 H 108 H Apical] Respiratory 18 18 26 H Rate Blood Pressure Blood Pressure 121/80 129/93 129/98 [Left Arm] O2 Sat by Pulse 98 96 Oximetry (%) 10/01/17 10/01/17 10/01/17 06:42 06:50 12:00 Temperature 98.5 F Pulse Rate Pulse Rate [ 103 H 97 H Apical] Respiratory 22 18 Rate Blood Pressure Blood Pressure 122/77 133/98 [Left Arm] O2 Sat by Pulse 100 100 Oximetry (%) 10/01/17 10/01/17 10/01/17 13:40 13:45 14:00 Temperature 98.4 F 97.2 F L Pulse Rate 80 97 H 100 H Pulse Rate [ Apical] Respiratory 18 18 Rate Blood Pressure 120/82 125/83 132/66 Blood Pressure [Left Arm] O2 Sat by Pulse Oximetry (%) 10/01/17 10/01/17 10/01/17 14:15 14:16 14:45 Temperature 98.6 F Pulse Rate 99 H 98 H 79 Pulse Rate [ Apical] Respiratory 18 18 18 Rate Blood Pressure 117/81 127/66 125/80 Blood Pressure [Left Arm] O2 Sat by Pulse 100 Oximetry (%) 10/01/17 15:15 Temperature Pulse Rate 90 Pulse Rate [ Apical] Respiratory 18 Rate Blood Pressure 133/90 Blood Pressure [Left Arm] O2 Sat by Pulse Oximetry (%) GENERAL: Awake, confused, lethargic, in no acute distress. HEAD: Normal with no signs of trauma. EYES: Pupils equal, round and reactive to light, sclera anicteric, conjunctiva clear. No lid lag. EARS, NOSE, THROAT: Moist mucous membranes. NECK: Normal range of motion, supple without lymphadenopathy, JVD, or masses. LUNGS: Rhonchi's throughout lung bases bilaterally. No accessory muscle use. HEART: Regular rate with irregularly irregular rhythm, normal S1 and S2 ABDOMEN: Soft, tenderness upon palpation of Suprapubic region, not distended, normoactive bowel sounds, no guarding, no rebound, no masses. MUSCULOSKELETAL: No CVA tenderness. UPPER EXTREMITIES: good palpable thrill of right upper extremity. Contracted extremities LOWER EXTREMITIES: 2+ pulses, warm, well-perfused. No calf tenderness. No peripheral edema. NEUROLOGICAL: unable to assess PSYCHIATRIC: Confused and lethargic SKIN: Warm, dry, normal turgor, no rashes or lesions noted. Laboratory Results - last 24 hr 09/30/17 09/30/17 09/30/17 15:20 16:40 18:27 WBC RBC Hgb Hct MCV MCH MCHC RDW Plt Count MPV Neutrophils % Lymphocytes % Monocytes % Eosinophils % Basophils % PT with INR INR PTT (Actin FS) VBG pH POC VBG pCO2 POC VBG pO2 Mixed VBG HCO3 Sodium Potassium Chloride Carbon Dioxide Anion Gap BUN Creatinine Creat Clearance w eGFR Random Glucose Lactic Acid Calcium Phosphorus Magnesium Cancelled Total Bilirubin AST ALT Alkaline Phosphatase Creatine Kinase Troponin I C-Reactive Protein Total Protein Albumin Triglycerides Cholesterol Total LDL Cholesterol HDL Cholesterol Urine Color Yellow Urine Appearance Clear Urine pH 8.0 Ur Specific [place] 1.010 Urine Protein 3+ H Urine Glucose (UA) 1+ H Urine Ketones Negative Urine Blood 1+ H Urine Nitrite Negative Urine Bilirubin Negative Urine Urobilinogen Negative Ur Leukocyte Esterase 1+ H Urine WBC (Auto) 12 Urine RBC (Auto) 10 Ur Epithelial Cells Rare Stool Occult Blood Negative Random Vancomycin Blood Type Antibody Screen Antibody Identification Antigen Identification Direct Antiglob Test 09/30/17 10/01/17 10/01/17 18:51 06:45 06:45 WBC 9.4 RBC 2.96 L Hgb 9.2 L Hct 29.0 L MCV 98.0 H MCH 31.2 MCHC 31.9 L RDW 17.0 H Plt Count 77 L MPV 9.8 Neutrophils % 88.8 H Lymphocytes % 3.3 L Monocytes % 7.7 Eosinophils % 0.0 Basophils % 0.2 PT with INR INR PTT (Actin FS) VBG pH POC VBG pCO2 POC VBG pO2 Mixed VBG HCO3 Sodium 131 L Potassium 4.3 Chloride 92 L Carbon Dioxide 30 Anion Gap 9 BUN 33 H Creatinine 5.5 H Creat Clearance w eGFR Random Glucose 110 H Lactic Acid 2.0 Calcium 8.3 L Phosphorus 5.6 H Magnesium 2.0 Total Bilirubin AST ALT Alkaline Phosphatase Creatine Kinase Troponin I C-Reactive Protein Total Protein Albumin Triglycerides 53 Cholesterol 109 Total LDL Cholesterol 52 HDL Cholesterol 51 Urine Color Urine Appearance Urine pH Ur Specific [place] Urine Protein Urine Glucose (UA) Urine Ketones Urine Blood Urine Nitrite Urine Bilirubin Urine Urobilinogen Ur Leukocyte Esterase Urine WBC (Auto) Urine RBC (Auto) Ur Epithelial Cells Stool Occult Blood Random Vancomycin Blood Type Antibody Screen Antibody Identification Antigen Identification Direct Antiglob Test Active Medications Generic Name Dose Route Start Last Admin Trade Name Freq PRN Reason Stop Dose Admin Metoprolol Succinate 50 mg 09/30/17 22:00 09/30/17 22:52 Toprol Xl - PO 50 mg HS PHANI Administration Warfarin Sodium 5 mg 10/02/17 18:00 Coumadin - PO MOWEFR@1800 PHANI Warfarin Sodium 2.5 mg 10/01/17 18:00 Coumadin - PO SUTUTHSA@1800 PHANI Impression 1. Pneumonia 2. Pleural Effusions 3. ESRD on HD 4. Atrial Fibrillation 5. HTN 6. Severe Mitral Regurgitation 7. Anemia PLAN: -Patient had missed dialysis yesterday. Dialysis set for this afternoon with 4000 units of Epogen -Continue to control BP with Metoprolol. Continue to monitor BP -Urine and blood cultures pending with blood cultures growing organisms. Continue IV abx, as per ID -Continue to monitor daily BMP Dispo: We will continue to follow the patient. Thank you for this consultative opportunity. Visit type - Emergency Visit Emergency Visit: Yes ED Registration Date: 09/30/17 Care time: The patient presented to the Emergency Department on the above date and was hospitalized for further evaluation of their emergent condition. - New Patient This patient is new to me today: Yes Date on this admission: 10/01/17 - Critical Care Critical Care patient: No
--- NOTE | 2017-10-01 16:09 | EKG ---
Test Reason : Blood Pressure : / mmHG Vent. Rate : 133 BPM Atrial Rate : 129 BPM P-R Int : 000 ms QRS Dur : 088 ms QT Int : 304 ms P-R-T Axes : 000 069 -40 degrees QTc Int : 452 ms POOR DATA QUALITY, INTERPRETATION MAY BE ADVERSELY AFFECTED ATRIAL FIBRILLATION WITH RAPID VENTRICULAR RESPONSE WITH PREMATURE VENTRICULAR OR ABERRANTLY CONDUCTED COMPLEXES NONSPECIFIC T WAVE ABNORMALITY ABNORMAL ECG WHEN COMPARED WITH ECG OF 16-JUL-2017 09:02, NONSPECIFIC T WAVE ABNORMALITY NOW EVIDENT IN LATERAL LEADS Confirmed by JOSE GONZALEZ MD ([id number]) on 10/01/2017 4:08:33 PM Referred By: Confirmed By:JOSE GONZALEZ MD
[2017-10-01 17:01] LABS: INR 2.6 (0.82-1.09); PROTHROMBIN TIME (PATIENT) 29.4 SEC (9.98-11.88)
[2017-10-01] MEDS ORDERED: WARFARIN NA 2.5 MG TABLET (FP) PO SCH (18:00)
--- NOTE | 2017-10-01 18:39 | PN ---
Teaching Attending Note Name of Resident: Naya Orozco (Nephrology) ATTENDING PHYSICIAN STATEMENT I saw and evaluated the patient. I reviewed the resident's note and discussed the case with the resident. I agree with the resident's findings and plan as documented. Nephtology Consult Pt is an 87 year old female with pmhx of esrd, afib and htn who presents to the ER with abdominal pain. She missed her HD session yesterday. She denies shortness of breath. She complains of constipation. pmhx esrd htn afib pshx av graft social hx denies family hx denies ros abd pain Current Medications Generic Name Dose Route Start Last Admin Trade Name Freq PRN Reason Stop Dose Admin Metoprolol Succinate 50 mg 09/30/17 22:00 09/30/17 22:52 Toprol Xl - PO 50 mg HS PHANI Administration Mineral Oil 133 ml 10/01/17 18:00 Fleet Mineral Oil Rectal Enema - CT 10/02/17 00:01 Q3H PHANI Warfarin Sodium 5 mg 10/02/17 18:00 Coumadin - PO MOWEFR@1800 PHANI Warfarin Sodium 2.5 mg 10/01/17 18:00 10/01/17 17:56 Coumadin - PO 2.5 mg SUTUTHSA@1800 PHANI Administration Last Vital Signs Temp Pulse Resp BP Pulse Ox 98.6 F 86 18 144/88 100 10/01/17 14:16 10/01/17 16:50 10/01/17 16:50 10/01/17 16:50 10/01/17 14:16 Laboratory Tests 09/30/17 09/30/17 10/01/17 15:20 18:51 06:45 Hgb 10.0 L D 9.2 L Sodium Potassium BUN Creatinine Lactic Acid 2.0 10/01/17 06:45 Hgb Sodium 131 L Potassium 4.3 BUN 33 H Creatinine 5.5 H Lactic Acid cardio s1s2 irreg pulm clear GI llq tenderness ext edema neuro awake Impression 1. esrd 2. constipation 3. abd pain 4. a-fib 5. htn 6. anemia 7. bacteremia Plan - will arrange for HD today - will need bowel regimen - follow cultures - ID follow up - epogen for anemia Dr Dunham
--- NOTE | 2017-10-01 18:58 | PN ---
Progress Note (short form) - Note Progress Note: VAscular Surgery Pt seen and examined. Right avg with good bruit and thrill. Pt just got back from HD with no issues. Cont present care. Spoke to family at bedside. Medical management. Alan Delcid DO
--- NOTE | 2017-10-01 19:20 | CON.GI ---
Consult Consult Specialty:: Gastroenterology Reason for Consultation:: abdominal pain - History of Present Illness History of Present Illness: 87 y/o female with PMH of ESRD was adoing well until today when she developed abdominal pain, abdominal bloating and constipation. She had minimal rectal pain. 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: Dementia (Pleasant affect and can conduct a reasonable conversation.) Cardio/Vascular: Yes: AFIB, CHF, HTN, Hyperlipdemia, Mitral Insufficiency Pulmonary: Yes: Pneumonia Renal/: Yes: Renal Inusuff, Hemodialysis - Past Surgical History Past Surgical History: Yes: AV Fistula/Graft (03/01/15), Permanent Pacemaker - Alcohol/Substance Use Hx Alcohol Use: No - Smoking History Smoking history: Never smoked Have you smoked in the past 12 months: No Aproximately how many cigarettes per day: 0 - Social History Usual Living Arrangement: Alf ADL: Support Services History of Recent Travel: No Home Medications - Allergies Allergies/Adverse Reactions: Allergies Allergy/AdvReac Type Severity Reaction Status Date / Time Penicillins Allergy Severe Hives, RASH Verified 09/30/17 12:47 - Home Medications Home Medications: Ambulatory Orders Metoprolol Succinate [Toprol XL -] 75 mg PO DAILY 03/21/16 Warfarin Na [Coumadin -] 2.5 mg PO DAILY@1800 04/04/16 Warfarin Na [Coumadin] 5 mg PO ASDIR 07/16/17 Review of Systems Unable to obtain ROS, reason: medical condition Physical Exam-GI Vital Signs: Vital Signs Temperature 97.7 F 10/01/17 17:00 Pulse Rate 99 H 10/01/17 17:00 Respiratory Rate 20 10/01/17 17:00 Blood Pressure 141/101 10/01/17 17:00 O2 Sat by Pulse Oximetry (%) 100 10/01/17 14:16 Constitutional: Yes: Well Nourished Eyes: Yes: Conjunctiva Clear HENT: Yes: Atraumatic Neck: Yes: Supple Cardiovascular: Yes: Regular Rate and Rhythm Respiratory: Yes: CTA Bilaterally ...Palpate: Yes: Soft. No: Firm/Rigid, Guarding, Hepatomegaly, Mass, Pulsatile Mass, Splenomegaly, Tenderness Labs: CBC, BMP 10/01/17 06:45 10/01/17 06:45 INR, PTT INR 2.60 (0.82-1.09) H D 10/01/17 16:00 Problem List - Problems (1) Irritable bowel syndrome (IBS) Assessment/Plan: with constipation, suspect small bacterial overgrowth, suspect pancreatic insufficiency R> Flagyl 250mg tid for 2 weeks pancrease with meals consider cologuard test as an outpatient stool guaiac od x 3 Code(s): K58.9 - IRRITABLE BOWEL SYNDROME WITHOUT DIARRHEA
[2017-10-01] MEDS: MINERAL OIL ENEMA 133 ML ENEMA PR SCH ×2 (20:08→23:18)
[2017-10-01] MEDS ORDERED: PANTOPRAZOLE SODIUM 40 MG VIAL IVPUSH ONE (21:26)
--- NOTE | 2017-10-01 21:49 | HOSP ---
Subjective - Review of Symptoms Events since last encounter: Asked to evaluate patient for chest pain. Subjective: Found patient asleep in bed. She was easily awakened and appeared comfortable. When asked about the pain she points to the epigastric area. She has no nausea. She was admitted yesterday with abdominal pain and constipation. She had a bowel movement earlier today. Physical Examination Vital Signs: Vital Signs Temperature 97.7 F 10/01/17 17:00 Pulse Rate 99 H 10/01/17 17:00 Respiratory Rate 20 10/01/17 17:00 Blood Pressure 141/101 10/01/17 17:00 O2 Sat by Pulse Oximetry (%) 100 10/01/17 14:16 Constitutional: Yes: No Distress Cardiovascular: Yes: Pulse Irregular Respiratory: Yes: Regular, CTA Bilaterally Gastrointestinal: Yes: Normal Bowel Sounds, Soft, Tenderness, Epigastrium. No: Distention, Tenderness, Rebound Edema: Yes Edema: LLE: 1+ Peripheral Pulses WNL: Yes Labs: CBC, BMP 10/01/17 06:45 10/01/17 06:45 Hospitalist Encounter Assessment: Abdominal pain secondary to IBS with constipation, bacterial overgrowth, gram positive bacteremia, pancreatic insufficiency Recommendations/Interventions: 1. Protonix has been given tonight 2. Flagyl PO to start tonight 3. Pancreatic enzymes to start tomorrow 4. Vancomycin as per ID 5. Follow up blood cultures 6. No further intervention at this time
--- NOTE | 2017-10-01 22:32 | CONSULT ---
Consult Consult Specialty:: endocrine Referred by:: luis peterson md. Reason for Consultation:: endocrine - History of Present Illness Chief Complaint: weakness and pain History of Present Illness: 87 y/o woman from home who presents to the ED with her family c/o R-sided abdominal pain, R- upper arm pain at AV- graft, fever, lethargy. Per patient's daughter the patient has been crying out and not acting her baseline. The daughter also reports that the patient had increased pain today. 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: Dementia (Pleasant affect and can conduct a reasonable conversation.) Cardio/Vascular: Yes: AFIB, CHF, HTN, Hyperlipdemia, Mitral Insufficiency Pulmonary: Yes: Pneumonia Renal/: Yes: Renal Inusuff, Hemodialysis - Past Surgical History Past Surgical History: Yes: AV Fistula/Graft (03/01/15), Permanent Pacemaker - Alcohol/Substance Use Hx Alcohol Use: No - Smoking History Smoking history: Never smoked Have you smoked in the past 12 months: No Aproximately how many cigarettes per day: 0 - Social History Usual Living Arrangement: Care Home ADL: Support Services History of Recent Travel: No Home Medications - Allergies Allergies/Adverse Reactions: Allergies Allergy/AdvReac Type Severity Reaction Status Date / Time Penicillins Allergy Severe Hives, RASH Verified 09/30/17 12:47 - Home Medications Home Medications: Ambulatory Orders Metoprolol Succinate [Toprol XL -] 75 mg PO DAILY 03/21/16 Warfarin Na [Coumadin -] 2.5 mg PO DAILY@1800 04/04/16 Warfarin Na [Coumadin] 5 mg PO ASDIR 07/16/17 Review of Systems - Review of Systems Constitutional: reports: Lethargy Eyes: reports: No Symptoms HENT: reports: Difficult Swallowing Neck: reports: Decreased ROM Cardiovascular: reports: Shortness of Breath Respiratory: reports: Exercise Intolerance, SOB, SOB on Exertion Gastrointestinal: reports: Bloating, Constipation Musculoskeletal: reports: Back Pain Integumentary: reports: No Symptoms Neurological: reports: Dizziness, Unsteady Gait, Weakness Endocrine: reports: Unexplained Weight Loss Physical Exam Vital Signs: Vital Signs Temperature 97.7 F 10/01/17 17:00 Pulse Rate 99 H 10/01/17 17:00 Respiratory Rate 20 10/01/17 17:00 Blood Pressure 141/101 10/01/17 17:00 O2 Sat by Pulse Oximetry (%) 100 10/01/17 14:16 Constitutional: Yes: Anxious Eyes: Yes: EOM Intact HENT: Yes: Normocephalic Neck: Yes: Trachea Midline Cardiovascular: Yes: Pulse Irregular Respiratory: Yes: CTA Bilaterally Gastrointestinal: Yes: Normal Bowel Sounds ...Rectal Exam: Yes: Deferred Renal/: Yes: Anuria Breast(s): Yes: WNL Musculoskeletal: Yes: Joint Stiffness, Muscle Pain, Muscle Weakness Edema: No Peripheral Pulses WNL: No Integumentary: Yes: Venous Stasis Changes Neurological: Yes: Alert, Lethargy, Weakness Labs: CBC, BMP 10/01/17 06:45 10/01/17 06:45 Problem List - Problems (1) DVT prophylaxis Code(s): [id number] - (2) ESRD (end stage renal disease) on dialysis Code(s): N18.6 - END STAGE RENAL DISEASE; Z99.2 - DEPENDENCE ON RENAL DIALYSIS (3) Irritable bowel syndrome (IBS) Code(s): K58.9 - IRRITABLE BOWEL SYNDROME WITHOUT DIARRHEA (4) A-V fistula Code(s): I77.0 - ARTERIOVENOUS FISTULA, ACQUIRED Assessment/Plan Current Active Problems Abdominal pain (Acute) DVT prophylaxis (Acute) ESRD (end stage renal disease) on dialysis (Acute) Irritable bowel syndrome (IBS) (Acute) Pleural effusion (Acute) Pneumonia (Acute) Positive blood culture (Acute) Abnormal Lab Results 10/01/17 10/01/17 10/01/17 06:45 06:45 08:20 RBC 2.96 L Hgb 9.2 L Hct 29.0 L MCV 98.0 H MCHC 31.9 L RDW 17.0 H Plt Count 77 L Neutrophils % 88.8 H Lymphocytes % 3.3 L PT with INR INR Sodium 131 L Chloride 92 L BUN 33 H Creatinine 5.5 H Random Glucose 110 H Calcium 8.3 L Phosphorus 5.6 H C-Reactive Protein 11.0 H 10/01/17 16:00 RBC Hgb Hct MCV MCHC RDW Plt Count Neutrophils % Lymphocytes % PT with INR 29.40 H INR 2.60 H D Sodium Chloride BUN Creatinine Random Glucose Calcium Phosphorus C-Reactive Protein Current Medications Generic Name Dose Route Start Last Admin Trade Name Freq PRN Reason Stop Dose Admin Docusate Sodium 100 mg 10/01/17 22:00 Colace - PO TID [facility] Metoprolol Succinate 50 mg 09/30/17 22:00 09/30/17 22:52 Toprol Xl - PO 50 mg HS [facility] Administration Metronidazole 250 mg 10/01/17 22:00 Flagyl - PO TID [facility] Mineral Oil 133 ml 10/01/17 18:00 10/01/17 20:08 Fleet Mineral Oil Rectal Enema - [place] 10/02/17 00:01 133 ml Q3H [facility] Administration Pancrelipase 1 cap 10/02/17 08:00 Brian Pillai 36,000 Units Capsule PO TIDCM [facility] Warfarin Sodium 5 mg 10/02/17 18:00 Coumadin - PO MOWEFR@1800 [facility] Warfarin Sodium 2.5 mg 10/01/17 18:00 10/01/17 17:56 Coumadin - PO 2.5 mg SUTUTHSA@1800 [facility] Administration plan: replace calcium vitamin d check tsh free t4
[2017-10-01] MEDS: DOCUSATE SODIUM 100 MG CAPSULE (FP) PO SCH ×2 (22:48→23:36)
[2017-10-01] MEDS: metroNIDAZOLE 250 MG TABLET PO SCH ×2 (22:49→23:36)
[2017-10-01] MEDS ORDERED: ERGOCALCIFEROL (VITAMIN D2) 50,000 UNIT CAPSULE (FP) PO ONE (23:00)
--- NOTE | 2017-10-02 06:16 | PN ---
Progress Note, Physician Chief Complaint: ASLEEP NOTES AND EVENTS REVIEWED - Current Medication List Current Medications: Active Medications Calcium/Vitamin D (Oscal 250 Mg+D -) 1 tab PO BID ON LICENSE OF [facility] Docusate Sodium (Colace -) 100 mg PO TID ON LICENSE OF [facility] Last Admin: 10/01/17 23:36 Dose: Not Given Metoprolol Succinate (Toprol Xl -) 50 mg PO HS ON LICENSE OF [facility] Last Admin: 10/01/17 23:36 Dose: Not Given Metronidazole (Flagyl -) 250 mg PO TID ON LICENSE OF [facility] Last Admin: 10/01/17 23:36 Dose: Not Given Pancrelipase (Brian Pillai 36,000 Units Capsule) 1 cap PO TIDCM ON LICENSE OF [facility] Warfarin Sodium (Coumadin -) 5 mg PO MOWEFR@1800 ON LICENSE OF [facility] Warfarin Sodium (Coumadin -) 2.5 mg PO SUTUTHSA@1800 ON LICENSE OF [facility] Last Admin: 10/01/17 17:56 Dose: 2.5 mg - Objective Vital Signs: Vital Signs Temperature 99.0 F 10/02/17 06:00 Pulse Rate 107 H 10/02/17 06:00 Respiratory Rate 20 10/02/17 06:00 Blood Pressure 113/77 10/02/17 06:00 O2 Sat by Pulse Oximetry (%) 100 10/01/17 21:00 Constitutional: Yes: Mild Distress Eyes: Yes: WNL HENT: Yes: WNL Neck: Yes: WNL Cardiovascular: Yes: Pulse Irregular Respiratory: Yes: On Nasal O2, SOB Gastrointestinal: Yes: WNL Genitourinary: Yes: Incontinence Musculoskeletal: Yes: Muscle Weakness Extremities: Yes: WNL Edema: No Peripheral Pulses WNL: Yes Integumentary: Yes: WNL Wound/Incision: Yes: Dressing Dry and Intact Neurological: Yes: Pre-Existing Deficit ...Motor Strength: LLE, RLE Psychiatric: Yes: Other Labs: CBC, BMP 10/01/17 06:45 10/01/17 06:45 INR, PTT INR 2.60 (0.82-1.09) H D 10/01/17 16:00 Problem List - Problems (1) Abdominal pain Code(s): R10.9 - UNSPECIFIED ABDOMINAL PAIN (2) DVT prophylaxis Code(s): [id number] - (3) ESRD (end stage renal disease) on dialysis Code(s): N18.6 - END STAGE RENAL DISEASE; Z99.2 - DEPENDENCE ON RENAL DIALYSIS (4) Irritable bowel syndrome (IBS) Code(s): K58.9 - IRRITABLE BOWEL SYNDROME WITHOUT DIARRHEA (5) Pneumonia Code(s): J18.9 - PNEUMONIA, UNSPECIFIED ORGANISM Qualifiers: Pneumonia type: due to unspecified organism Laterality: right Lung location: lower lobe of lung Qualified Code(s): J18.1 - Lobar pneumonia, unspecified organism (6) Positive blood culture Code(s): R78.81 - BACTEREMIA (7) A-V fistula Code(s): I77.0 - ARTERIOVENOUS FISTULA, ACQUIRED (8) Anemia Code(s): D64.9 - ANEMIA, UNSPECIFIED Qualifiers: Anemia type: unspecified type Qualified Code(s): D64.9 - Anemia, unspecified Assessment/Plan IV ABX COUMADIN ADJUSTED FOR INR ESRD ON HD ID FOLLOW UP LABS REVIEWED MONITOR ANEMIA
[2017-10-02] MEDS: metroNIDAZOLE 250 MG TABLET PO SCH ×3 (06:47→21:29)
[2017-10-02] MEDS: DOCUSATE SODIUM 100 MG CAPSULE (FP) PO SCH ×3 (06:47→21:29)
[2017-10-02 08:07] LABS: INR 3.12 (0.82-1.09); PROTHROMBIN TIME (PATIENT) 35.2 SEC (9.98-11.88)
--- NOTE | 2017-10-02 08:42 | PN ---
Progress Note (short form) - Note Progress Note: ID Alert and NAD Report of positive blood culture gram positive cocci clusters Vancomcyin given Microbiology 09/30/17 15:17 Blood - Peripheral Venous Blood Culture - Preliminary Pending Organism 09/30/17 15:17 Blood - Peripheral Venous Blood Culture - Preliminary Pending Organism Selected Entries 10/02/17 06:00 Temperature 99.0 F Pulse Rate 107 H Respiratory 20 Rate Blood Pressure 113/77 Laboratory Tests 10/01/17 10/01/17 10/01/17 06:45 08:20 08:20 WBC 9.4 Hgb 9.2 L Hct 29.0 L Plt Count 77 L C-Reactive Protein 11.0 H Random Vancomycin 14.538 Assessment Staphylococcal bacteremia Pseudoaneursym per Dr Delcid Rule out endocarditis Plan Repeat blood cultures Redose Vancomycin now 2 D ECHO ATUL Houser MD Problem List - Problems (1) Abdominal pain Code(s): R10.9 - UNSPECIFIED ABDOMINAL PAIN (2) ESRD (end stage renal disease) on dialysis Code(s): N18.6 - END STAGE RENAL DISEASE; Z99.2 - DEPENDENCE ON RENAL DIALYSIS (3) Pneumonia Code(s): J18.9 - PNEUMONIA, UNSPECIFIED ORGANISM Qualifiers: Pneumonia type: due to unspecified organism Laterality: right Lung location: lower lobe of lung Qualified Code(s): J18.1 - Lobar pneumonia, unspecified organism (4) Afib Code(s): I48.91 - UNSPECIFIED ATRIAL FIBRILLATION Qualifiers: Atrial fibrillation type: chronic Qualified Code(s): I48.2 - Chronic atrial fibrillation
[2017-10-02] MEDS ORDERED: VANCOMYCIN 1,000 MG in DEXTROSE 5%-WATER - 250 ML IVPB ONE (08:46)
[2017-10-02] MEDS: LIPASE/PROTEASE/AMYLASE 36,000 UNIT CAPSULE PO SCH ×3 (09:17→17:46)
[2017-10-02] MEDS: CALCIUM 250MG/VIT-D 125 UNITS 1 COMBO TABLET PO SCH ×2 (09:21→21:29)
--- NOTE | 2017-10-02 15:49 | PN ---
Progress Note, Physician History of Present Illness: Pt seen and examined at bedside. She feels a little better today. She denies shortness of breath. - Current Medication List Current Medications: Active Medications Calcium/Vitamin D (Oscal 250 Mg+D -) 1 tab PO BID [facility] Last Admin: 10/02/17 09:21 Dose: 1 tab Docusate Sodium (Colace -) 100 mg PO TID [facility] Last Admin: 10/02/17 13:41 Dose: 100 mg Metoprolol Succinate (Toprol Xl -) 50 mg PO HS [facility] Last Admin: 10/01/17 23:36 Dose: Not Given Metronidazole (Flagyl -) 250 mg PO TID [facility] Last Admin: 10/02/17 13:41 Dose: 250 mg Pancrelipase (Creon Dr 36,000 Units Capsule) 1 cap PO TIDCM [facility] Last Admin: 10/02/17 12:12 Dose: 1 cap Warfarin Sodium (Coumadin -) 5 mg PO MOWEFR@1800 [facility] Warfarin Sodium (Coumadin -) 2.5 mg PO SUTUTHSA@1800 [facility] Last Admin: 10/01/17 17:56 Dose: 2.5 mg - Objective Vital Signs: Vital Signs Temperature 98.9 F 10/02/17 14:00 Pulse Rate 113 H 10/02/17 14:00 Respiratory Rate 18 10/02/17 10:00 Blood Pressure 126/88 10/02/17 14:00 O2 Sat by Pulse Oximetry (%) 100 10/02/17 09:00 Constitutional: Yes: Calm Eyes: Yes: Conjunctiva Clear HENT: Yes: Atraumatic Neck: Yes: Supple Cardiovascular: Yes: S1, S2 Respiratory: Yes: CTA Bilaterally Gastrointestinal: Yes: Soft Genitourinary: Yes: WNL Edema: Yes Edema: LLE: 1+, RLE: 1+ Neurological: Yes: Oriented Psychiatric: Yes: Oriented Labs: CBC, BMP 10/01/17 06:45 10/01/17 06:45 INR, PTT INR 3.12 (0.82-1.09) H 10/02/17 06:30 Problem List - Problems (1) ESRD (end stage renal disease) on dialysis Code(s): N18.6 - END STAGE RENAL DISEASE; Z99.2 - DEPENDENCE ON RENAL DIALYSIS (2) Pleural effusion Code(s): J90 - PLEURAL EFFUSION, NOT ELSEWHERE CLASSIFIED (3) Anemia Code(s): D64.9 - ANEMIA, UNSPECIFIED Qualifiers: Anemia type: unspecified type Qualified Code(s): D64.9 - Anemia, unspecified (4) Chronic atrial fibrillation Code(s): I48.2 - CHRONIC ATRIAL FIBRILLATION Assessment/Plan Current Medications Generic Name Dose Route Start Last Admin Trade Name Carlito PRN Reason Stop Dose Admin Calcium/Vitamin D 1 tab 10/02/17 10:00 10/02/17 09:21 Oscal 250 Mg+D - PO 1 tab BID PHANI Administration Docusate Sodium 100 mg 10/01/17 22:00 10/02/17 13:41 Colace - PO 100 mg TID PHANI Administration Metoprolol Succinate 50 mg 09/30/17 22:00 10/01/17 23:36 Toprol Xl - PO Not Given HS PHANI Metronidazole 250 mg 10/01/17 22:00 10/02/17 13:41 Flagyl - PO 250 mg TID PHANI Administration Pancrelipase 1 cap 10/02/17 08:00 10/02/17 12:12 Brian Pillai 36,000 Units Capsule PO 1 cap TIDCM PHANI Administration Warfarin Sodium 5 mg 10/02/17 18:00 Coumadin - PO MOWEFR@1800 PHANI Warfarin Sodium 2.5 mg 10/01/17 18:00 10/01/17 17:56 Coumadin - PO 2.5 mg SUTUTHSA@1800 PHANI Administration Impression 1. esrd 2. constipation 3. abd pain 4. a-fib 5. htn 6. anemia 7. bacteremia Plan - HD in am - GI input appreciated - pt is on a schedule and should go back to her schedule by Thursday - christopher for anemia - follow cultures - ID follow up
[2017-10-02] MEDS: WARFARIN NA 5 MG TABLET (UD) PO SCH (17:47)
[2017-10-02] MEDS ORDERED: PT OWN MED DRAWER 7, Y5N ONE (21:06)
[2017-10-03 00:07] LABS: HBSAG SCREEN Negative (Negative); HEP A AB, IGM Negative (Negative); HEP B CORE AB, TOT Negative (Negative)
[2017-10-03] MEDS: metroNIDAZOLE 250 MG TABLET PO SCH ×3 (06:35→21:48)
[2017-10-03] MEDS: DOCUSATE SODIUM 100 MG CAPSULE (FP) PO SCH ×3 (06:35→21:48)
[2017-10-03 07:35] LABS: INR 3.7 (0.82-1.09); PROTHROMBIN TIME (PATIENT) 41.8 SEC (9.98-11.88)
[2017-10-03] MEDS: LIPASE/PROTEASE/AMYLASE 36,000 UNIT CAPSULE PO SCH ×3 (09:16→17:57)
[2017-10-03] MEDS ORDERED: EPOETIN ALFA 3,000 UNIT, EPOETIN ALFA 2,000 UNIT IVPUSH ONE (09:30)
[2017-10-03 10:21] LABS: HEMATOCRIT 26.1 % (32.4-45.2); HEMOGLOBIN 8.2 GM/dL (10.7-15.3); MCH 30.6 pg (25.7-33.7); MCHC 31.4 g/dl (32.0-36.0); MEAN CELL VOLUME 97.7 fl (80-96); MEAN PLT VOLUME 9.5 fl (7.5-11.1); PLATELET COUNT 107 K/MM3 (134-434); RBC 2.67 M/mm3 (3.60-5.2); RDW 16.5 % (11.6-15.6); WHITE BLOOD COUNT 5.1 K/mm3 (4.0-10.0)
[2017-10-03 10:37] LABS: ANION GAP 11 (8-16); BLOOD UREA NITROGEN 30 mg/dL (7-18); CALCIUM 8.4 mg/dL (8.5-10.1); CHLORIDE 95 mmol/L (98-107); CO2 30 mmol/L (21-32); CREATININE 4.2 mg/dL (0.55-1.02); GLUCOSE,RANDOM 107 mg/dL (74-106); POTASSIUM 3.8 mmol/L (3.5-5.1); SODIUM 136 mmol/L (136-145)
--- NOTE | 2017-10-03 10:55 | PN ---
Progress Note, Physician Chief Complaint: ID Dialysis in progress Remains sable NAD Given Vancomycin yesterday for gram positives in the blood cultures. Turns out to be MSSA - Current Medication List Current Medications: Active Medications Calcium/Vitamin D (Oscal 250 Mg+D -) 1 tab PO BID [facility] Last Admin: 10/02/17 21:29 Dose: 1 tab Docusate Sodium (Colace -) 100 mg PO TID [facility] Last Admin: 10/03/17 06:35 Dose: 100 mg Metoprolol Succinate (Toprol Xl -) 50 mg PO HS [facility] Last Admin: 10/02/17 21:29 Dose: 50 mg Metronidazole (Flagyl -) 250 mg PO TID [facility] Last Admin: 10/03/17 06:35 Dose: 250 mg Pancrelipase (Creon Dr 36,000 Units Capsule) 1 cap PO TIDCM [facility] Last Admin: 10/02/17 17:46 Dose: 1 cap Warfarin Sodium (Coumadin -) 5 mg PO MOWEFR@1800 [facility] Last Admin: 10/02/17 17:47 Dose: Not Given Warfarin Sodium (Coumadin -) 2.5 mg PO SUTUTHSA@1800 [facility] Last Admin: 10/01/17 17:56 Dose: 2.5 mg - Objective Vital Signs: Vital Signs Temperature 98.5 F 10/03/17 09:00 Pulse Rate 93 H 10/03/17 10:40 Respiratory Rate 18 10/03/17 10:40 Blood Pressure 135/89 10/03/17 10:40 O2 Sat by Pulse Oximetry (%) 99 10/02/17 21:00 Neck: Yes: WNL, Supple Cardiovascular: Yes: S1, S2 Respiratory: Yes: WNL, Regular, CTA Bilaterally Labs: CBC, BMP 10/03/17 09:55 10/03/17 09:55 INR, PTT INR 3.70 (0.82-1.09) H 10/03/17 05:10 Problem List - Problems (1) Abdominal pain Code(s): R10.9 - UNSPECIFIED ABDOMINAL PAIN (2) ESRD (end stage renal disease) on dialysis Code(s): N18.6 - END STAGE RENAL DISEASE; Z99.2 - DEPENDENCE ON RENAL DIALYSIS (3) Pneumonia Code(s): J18.9 - PNEUMONIA, UNSPECIFIED ORGANISM Qualifiers: Pneumonia type: due to unspecified organism Laterality: right Lung location: lower lobe of lung Qualified Code(s): J18.1 - Lobar pneumonia, unspecified organism (4) Afib Code(s): I48.91 - UNSPECIFIED ATRIAL FIBRILLATION Qualifiers: Atrial fibrillation type: chronic Qualified Code(s): I48.2 - Chronic atrial fibrillation Assessment/Plan Microbiology 10/02/17 10:00 Blood - Peripheral Venous Blood Culture - Preliminary NO GROWTH OBTAINED AFTER 24 HOURS, INCUBATION TO CONTINUE FOR 4 DAYS. 10/02/17 09:50 Blood - Peripheral Venous Blood Culture - Preliminary NO GROWTH OBTAINED AFTER 24 HOURS, INCUBATION TO CONTINUE FOR 4 DAYS. 09/30/17 15:17 Blood - Peripheral Venous Blood Culture - Preliminary Presumptive Mssa (Pbp2a Neg) 09/30/17 15:17 Blood - Peripheral Venous Blood Culture - Preliminary Presumptive Mssa (Pbp2a Neg) Laboratory Tests 10/01/17 10/01/17 10/03/17 08:20 08:20 09:55 WBC 5.1 D Hgb 8.2 L D Plt Count 107 L D C-Reactive Protein 11.0 H Random Vancomycin 14.538 Assessment MSSA bacteremia ESRD ECHO neg for vegetations though she does have a pacemaker Plan Plan could be to discharge on tiw Cefazolin 2grs Duration 3 weeks Mik LAMB
[2017-10-03] MEDS ORDERED: CEFAZOLIN 1 GM in DEXTROSE 5%-WATER - 50 ML IVPB SCH (11:00)
--- NOTE | 2017-10-03 11:26 | PN ---
Progress Note (short form) - Note Progress Note: Problem List - Problems (1) Abdominal pain resolving patient has no complaints (2) DVT prophylaxis patient is therapeutic INR hold coumadin for tonight repeat level tomorrow (3) ESRD (end stage renal disease) on dialysis patien is being dialized today (4) Irritable bowel syndrome (IBS) stable (5) Pneumonia no fever or chills (6) Positive blood culture c/w antibiotics (8) Anemia will repeat CBC now to evaluate the Hb drop patient stated no active bleeding no bloody stools no melena Visit type - Emergency Visit Emergency Visit: No - New Patient This patient is new to me today: Yes Date on this admission: 10/03/17 - Critical Care Critical Care patient: No - Discharge Referral Referred to [facility] Med P.C.: No
[2017-10-03] MEDS ORDERED: CEFAZOLIN 1 GM PUSH 1 GM/10 ML DISP.SYRIN IVPUSH SCH (11:30)
--- NOTE | 2017-10-03 12:00 | PN ---
Progress Note (short form) - Note Progress Note: RENAL Pt awake and alert currently on hemodialysis Last Vital Signs Temp Pulse Resp BP Pulse Ox 98.5 F 93 H 18 135/89 99 10/03/17 09:00 10/03/17 10:40 10/03/17 10:40 10/03/17 10:40 10/02/17 21:00 lungs clear cvs s1s2 rr, ppm abd soft ext no edema neuro a+ox3 CBC, BMP 10/03/17 09:55 10/03/17 09:55 Current Medications Generic Name Dose Route Start Last Admin Trade Name Carlito PRN Reason Stop Dose Admin Calcium/Vitamin D 1 tab 10/02/17 10:00 10/02/17 21:29 Oscal 250 Mg+D - PO 1 tab BID PHANI Administration Docusate Sodium 100 mg 10/01/17 22:00 10/03/17 06:35 Colace - PO 100 mg TID PHANI Administration Metoprolol Succinate 50 mg 09/30/17 22:00 10/02/17 21:29 Toprol Xl - PO 50 mg HS PHANI Administration Metronidazole 250 mg 10/01/17 22:00 10/03/17 06:35 Flagyl - PO 250 mg TID PHANI Administration Pancrelipase 1 cap 10/02/17 08:00 10/02/17 17:46 Crejasbir Pillai 36,000 Units Capsule PO 1 cap TIDCM PHANI Administration Warfarin Sodium 5 mg 10/02/17 18:00 10/02/17 17:47 Coumadin - PO Not Given MOWEFR@1800 PHANI Warfarin Sodium 2.5 mg 10/01/17 18:00 10/01/17 17:56 Coumadin - PO 2.5 mg SUTUTHSA@1800 PHANI Administration Impression 1. esrd 2. constipation 3. abd pain 4. a-fib 5. htn 6. anemia 7. bacteremia Plan continue hd tiw reduce coumadin MV
[2017-10-03 12:21] LABS: HEMATOCRIT 26.1 % (32.4-45.2); HEMOGLOBIN 8.2 GM/dL (10.7-15.3); MCH 30.8 pg (25.7-33.7); MCHC 31.6 g/dl (32.0-36.0); MEAN CELL VOLUME 97.4 fl (80-96); MEAN PLT VOLUME 9.6 fl (7.5-11.1); PLATELET COUNT 107 K/MM3 (134-434); RBC 2.68 M/mm3 (3.60-5.2); RDW 16.5 % (11.6-15.6); WHITE BLOOD COUNT 5.4 K/mm3 (4.0-10.0)
[2017-10-03] MEDS: CALCIUM 250MG/VIT-D 125 UNITS 1 COMBO TABLET PO SCH ×2 (13:30→21:48)
[2017-10-03 14:24] LABS: PLATELET ESTIMATE ADEQUATE
[2017-10-03] MEDS ORDERED: EPOETIN ALFA 2,000 UNIT/1 ML VIAL IVPUSH ONE (15:52)
[2017-10-04] MEDS: metroNIDAZOLE 250 MG TABLET PO SCH ×3 (06:20→22:04)
[2017-10-04] MEDS: DOCUSATE SODIUM 100 MG CAPSULE (FP) PO SCH ×3 (06:20→22:04)
[2017-10-04 06:33] LABS: BASO % 0.4 % (0-2.0); EOS % 1.1 % (0-4.5); HEMATOCRIT 26.3 % (32.4-45.2); HEMOGLOBIN 8.5 GM/dL (10.7-15.3); LYMPH % 12.2 % (8-40); MCH 31.9 pg (25.7-33.7); MCHC 32.4 g/dl (32.0-36.0); MEAN CELL VOLUME 98.3 fl (80-96); MEAN PLT VOLUME 9.2 fl (7.5-11.1); MONO % 18.1 % (3.8-10.2); NEUT % 68.2 % (42.8-82.8); PLATELET COUNT 119 K/MM3 (134-434); RBC 2.67 M/mm3 (3.60-5.2); RDW 16.4 % (11.6-15.6); WHITE BLOOD COUNT 4.6 K/mm3 (4.0-10.0)
[2017-10-04 06:45] LABS: INR 3.62 (0.82-1.09); PROTHROMBIN TIME (PATIENT) 40.9 SEC (9.98-11.88)
[2017-10-04 06:47] LABS: ALBUMIN 2.1 g/dl (3.4-5.0); ANION GAP 9 (8-16); BLOOD UREA NITROGEN 17 mg/dL (7-18); CALCIUM 8.3 mg/dL (8.5-10.1); CHLORIDE 97 mmol/L (98-107); CO2 32 mmol/L (21-32); CREATININE 2.8 mg/dL (0.55-1.02); GLUCOSE,RANDOM 87 mg/dL (74-106); POTASSIUM 3.5 mmol/L (3.5-5.1); SGOT/AST 14 U/L (15-37); SGPT/ALT 11 U/L (12-78); SODIUM 138 mmol/L (136-145)
[2017-10-04 06:49] LABS: ALK PHOS 62 U/L (45-117); BILIRUBIN,TOTAL 0.5 mg/dL (0.2-1.0); TOT PROT 7.1 g/dl (6.4-8.2)
[2017-10-04] MEDS: LIPASE/PROTEASE/AMYLASE 36,000 UNIT CAPSULE PO SCH ×3 (09:03→16:58)
[2017-10-04] MEDS: CALCIUM 250MG/VIT-D 125 UNITS 1 COMBO TABLET PO SCH ×2 (09:03→22:04)
[2017-10-04] MEDS ORDERED: VANCOMYCIN 1,000 MG in DEXTROSE 5%-WATER - 250 ML IVPB ONE (09:44)
--- NOTE | 2017-10-04 09:44 | PN ---
Progress Note, Physician Chief Complaint: ID Vancomycin dosing based on levels Says leg pains but no back pains (MSSA) - Current Medication List Current Medications: Active Medications Calcium/Vitamin D (Oscal 250 Mg+D -) 1 tab PO BID [facility] Last Admin: 10/04/17 09:03 Dose: 1 tab Docusate Sodium (Colace -) 100 mg PO TID [facility] Last Admin: 10/04/17 06:20 Dose: 100 mg Metoprolol Succinate (Toprol Xl -) 50 mg PO [facility] Last Admin: 10/03/17 21:48 Dose: 50 mg Metronidazole (Flagyl -) 250 mg PO TID [facility] Last Admin: 10/04/17 06:20 Dose: 250 mg Pancrelipase (Creon Dr 36,000 Units Capsule) 1 cap PO TIDCM [facility] Last Admin: 10/04/17 09:03 Dose: 1 cap Warfarin Sodium (Coumadin -) 5 mg PO MOWEFR@1800 [facility] Last Admin: 10/02/17 17:47 Dose: Not Given Warfarin Sodium (Coumadin -) 2.5 mg PO SUTUTHSA@1800 [facility] Last Admin: 10/01/17 17:56 Dose: 2.5 mg - Objective Vital Signs: Vital Signs Temperature 98.6 F 10/04/17 05:00 Pulse Rate 71 10/04/17 05:00 Respiratory Rate 20 10/04/17 05:00 Blood Pressure 120/75 10/04/17 05:00 O2 Sat by Pulse Oximetry (%) 100 10/03/17 20:48 Constitutional: Yes: No Distress HENT: Yes: WNL, Atraumatic Neck: Yes: WNL, Supple Cardiovascular: Yes: Regular Rate and Rhythm, S1, S2. No: Murmur Respiratory: Yes: WNL, Regular, CTA Bilaterally Extremities: Yes: Other (AVF) Labs: CBC, BMP 10/04/17 05:05 10/04/17 05:05 INR, PTT INR 3.62 (0.82-1.09) H 10/04/17 05:05 Problem List - Problems (1) Abdominal pain Code(s): R10.9 - UNSPECIFIED ABDOMINAL PAIN (2) ESRD (end stage renal disease) on dialysis Code(s): N18.6 - END STAGE RENAL DISEASE; Z99.2 - DEPENDENCE ON RENAL DIALYSIS (3) Pneumonia Code(s): J18.9 - PNEUMONIA, UNSPECIFIED ORGANISM Qualifiers: Pneumonia type: due to unspecified organism Laterality: right Lung location: lower lobe of lung Qualified Code(s): J18.1 - Lobar pneumonia, unspecified organism (4) Afib Code(s): I48.91 - UNSPECIFIED ATRIAL FIBRILLATION Qualifiers: Atrial fibrillation type: chronic Qualified Code(s): I48.2 - Chronic atrial fibrillation Assessment/Plan Microbiology 10/02/17 10:00 Blood - Peripheral Venous Blood Culture - Final Presumptive Mssa (Pbp2a Neg) 09/30/17 15:17 Blood - Peripheral Venous Blood Culture - Final Staphylococcus Aureus 09/30/17 15:17 Blood - Peripheral Venous Blood Culture - Final Presumptive Mssa (Pbp2a Neg) Laboratory Tests 10/02/17 10/04/17 10/04/17 06:30 05:05 08:30 WBC 4.6 Hgb 8.5 L Hct 26.3 L Plt Count 119 L C-Reactive Protein 12.5 H Random Vancomycin 12.576 ASSESSMENT MSSA BACTEREMIA ESRD WITH AVF PACEMAKER NO VEGETATIONS PLAN REDOSE VANCOMYCIN 1 GRAM TODAY AND REPEAT THE BLOOD CULTURES TOMORROW LAURA LAMB
[2017-10-04] MEDS ORDERED: PT OWN MED DRAWER 7, Y5N ONE (11:33)
--- NOTE | 2017-10-04 11:39 | PN ---
Progress Note (short form) - Note Progress Note: Problem List - Problems (1) Abdominal pain resolving patient has no complaints (2) DVT prophylaxis patient is therapeutic INR hold coumadin for tonight repeat level tomorrow (3) ESRD (end stage renal disease) on dialysis patien is being dialized today (4) Irritable bowel syndrome (IBS) stable (5) Pneumonia no fever or chills (6) Positive blood culture c/w antibiotics (8) Anemia will repeat CBC tomorrow since Hb is stable patient stated no active bleeding no bloody stools no melena Visit type - Emergency Visit Emergency Visit: No - New Patient This patient is new to me today: No - Critical Care Critical Care patient: No - Discharge Referral Referred to [facility] Med P.C.: No
--- NOTE | 2017-10-04 13:01 | PN ---
Progress Note (short form) - Note Progress Note: RENAL Pt awake and alert no complaints Last Vital Signs Temp Pulse Resp BP Pulse Ox 98.6 F 71 20 120/75 100 10/04/17 05:00 10/04/17 05:00 10/04/17 05:00 10/04/17 05:00 10/03/17 20:48 lungs clear cvs s1s2 irr, ppm abd soft ext no edema neuro a+ox3 CBC, BMP 10/04/17 05:05 10/04/17 05:05 Current Medications Generic Name Dose Route Start Last Admin Trade Name Carlito PRN Reason Stop Dose Admin Calcium/Vitamin D 1 tab 10/02/17 10:00 10/04/17 09:03 Oscal 250 Mg+D - PO 1 tab BID PHANI Administration Docusate Sodium 100 mg 10/01/17 22:00 10/04/17 06:20 Colace - PO 100 mg TID PHANI Administration Metoprolol Succinate 50 mg 09/30/17 22:00 10/03/17 21:48 Toprol Xl - PO 50 mg HS PHANI Administration Metronidazole 250 mg 10/01/17 22:00 10/04/17 06:20 Flagyl - PO 250 mg TID PHANI Administration Pancrelipase 1 cap 10/02/17 08:00 10/04/17 11:[address] 36,000 Units Capsule PO 1 cap TIDCM PHANI Administration Warfarin Sodium 5 mg 10/02/17 18:00 10/02/17 17:47 Coumadin - PO Not Given MOWEFR@1800 PHANI Warfarin Sodium 2.5 mg 10/01/17 18:00 10/01/17 17:56 Coumadin - PO 2.5 mg SUTUTHSA@1800 PHANI Administration Impression 1. esrd 2. constipation 3. abd pain 4. a-fib 5. htn 6. anemia 7. bacteremia Plan continue hd tiw coumadin per inr antibiotics per id. MV
[2017-10-05] MEDS: metroNIDAZOLE 250 MG TABLET PO SCH ×3 (07:05→22:36)
[2017-10-05 07:16] LABS: BASO % 0.4 % (0-2.0); HEMATOCRIT 28.5 % (32.4-45.2); HEMOGLOBIN 8.9 GM/dL (10.7-15.3); LYMPH % 12.3 % (8-40); MCH 30.4 pg (25.7-33.7); MCHC 31.4 g/dl (32.0-36.0); MEAN PLT VOLUME 8.8 fl (7.5-11.1); MONO % 14.5 % (3.8-10.2); NEUT % 71.8 % (42.8-82.8); PLATELET COUNT 145 K/MM3 (134-434); RBC 2.94 M/mm3 (3.60-5.2); RDW 16.1 % (11.6-15.6); WHITE BLOOD COUNT 5.6 K/mm3 (4.0-10.0)
--- NOTE | 2017-10-05 08:16 | PN ---
Progress Note, Physician Chief Complaint: ID Vancomycin yesterday Febrile 100.6 NAD - Current Medication List Current Medications: Active Medications Acetaminophen (Tylenol -) 650 mg PO Q6H PRN PRN Reason: fever Calcium/Vitamin D (Oscal 250 Mg+D -) 1 tab PO BID [facility] Last Admin: 10/04/17 22:04 Dose: Not Given Docusate Sodium (Colace -) 100 mg PO TID [facility] Last Admin: 10/04/17 22:04 Dose: Not Given Metoprolol Succinate (Toprol Xl -) 50 mg PO HS [facility] Last Admin: 10/04/17 22:04 Dose: Not Given Metronidazole (Flagyl -) 250 mg PO TID [facility] Last Admin: 10/05/17 07:05 Dose: Not Given Pancrelipase (Creon Dr 36,000 Units Capsule) 1 cap PO TIDCM [facility] Last Admin: 10/04/17 16:58 Dose: 1 cap Warfarin Sodium (Coumadin -) 5 mg PO MOWEFR@1800 [facility] Last Admin: 10/02/17 17:47 Dose: Not Given Warfarin Sodium (Coumadin -) 2.5 mg PO SUTUTHSA@1800 [facility] Last Admin: 10/01/17 17:56 Dose: 2.5 mg - Objective Vital Signs: Vital Signs Temperature 98.9 F 10/05/17 05:34 Pulse Rate 111 H 10/05/17 05:34 Respiratory Rate 20 10/05/17 05:34 Blood Pressure 133/86 10/05/17 05:34 O2 Sat by Pulse Oximetry (%) 97 10/04/17 20:14 Constitutional: Yes: Well Nourished, No Distress HENT: Yes: WNL, Atraumatic Neck: Yes: Supple Cardiovascular: Yes: Regular Rate and Rhythm, S1, S2 Respiratory: Yes: WNL, Regular, CTA Bilaterally Gastrointestinal: Yes: Soft. No: Tenderness Extremities: Yes: Other (AVF) Labs: CBC, BMP 10/05/17 06:25 10/04/17 05:05 INR, PTT INR 3.62 (0.82-1.09) H 10/04/17 05:05 Problem List - Problems (1) Abdominal pain Code(s): R10.9 - UNSPECIFIED ABDOMINAL PAIN (2) ESRD (end stage renal disease) on dialysis Code(s): N18.6 - END STAGE RENAL DISEASE; Z99.2 - DEPENDENCE ON RENAL DIALYSIS (3) Pneumonia Code(s): J18.9 - PNEUMONIA, UNSPECIFIED ORGANISM Qualifiers: Pneumonia type: due to unspecified organism Laterality: right Lung location: lower lobe of lung Qualified Code(s): J18.1 - Lobar pneumonia, unspecified organism (4) Afib Code(s): I48.91 - UNSPECIFIED ATRIAL FIBRILLATION Qualifiers: Atrial fibrillation type: chronic Qualified Code(s): I48.2 - Chronic atrial fibrillation Assessment/Plan Microbiology 10/02/17 10:00 Blood - Peripheral Venous Blood Culture - Final Presumptive Mssa (Pbp2a Neg) 09/30/17 15:17 Blood - Peripheral Venous Blood Culture - Final Staphylococcus Aureus 09/30/17 15:17 Blood - Peripheral Venous Blood Culture - Final Presumptive Mssa (Pbp2a Neg) Laboratory Tests 10/04/17 10/05/17 08:30 06:25 WBC 5.6 Hgb 8.9 L Hct 28.5 L Plt Count 145 D Random Vancomycin 12.576 Assessment ESRD MSSA bacteremia AVF right arm with pseudoaneursym CRP 12 Plan Blood cultures on dialysis today with vanco level Assuming bacteremia clears can be discharged on dialysis Cefazolin 2gr 2gr 3gr regimen Mik LAMB
[2017-10-05 08:18] LABS: PROTHROMBIN TIME (PATIENT) 48.1 SEC (9.98-11.88)
[2017-10-05] MEDS: DOCUSATE SODIUM 100 MG CAPSULE (FP) PO SCH ×3 (08:58→22:38)
[2017-10-05] MEDS: LIPASE/PROTEASE/AMYLASE 36,000 UNIT CAPSULE PO SCH ×3 (08:58→17:55)
--- NOTE | 2017-10-05 09:33 | PN ---
Progress Note, Physician History of Present Illness: awake poor apetite - Current Medication List Current Medications: Active Medications Acetaminophen (Tylenol -) 650 mg PO Q6H PRN PRN Reason: fever Calcium/Vitamin D (Oscal 250 Mg+D -) 1 tab PO BID [facility] Last Admin: 10/04/17 22:04 Dose: Not Given Docusate Sodium (Colace -) 100 mg PO TID [facility] Last Admin: 10/05/17 08:58 Dose: Not Given Metoprolol Succinate (Toprol Xl -) 50 mg PO HS [facility] Last Admin: 10/04/17 22:04 Dose: Not Given Metronidazole (Flagyl -) 250 mg PO TID [facility] Last Admin: 10/05/17 07:05 Dose: Not Given Pancrelipase (Creon Dr 36,000 Units Capsule) 1 cap PO TIDCM [facility] Last Admin: 10/05/17 08:58 Dose: 1 cap Warfarin Sodium (Coumadin -) 5 mg PO MOWEFR@1800 [facility] Last Admin: 10/02/17 17:47 Dose: Not Given Warfarin Sodium (Coumadin -) 2.5 mg PO SUTUTHSA@1800 [facility] Last Admin: 10/01/17 17:56 Dose: 2.5 mg - Objective Vital Signs: Vital Signs Temperature 98.9 F 10/05/17 05:34 Pulse Rate 111 H 10/05/17 05:34 Respiratory Rate 20 10/05/17 05:34 Blood Pressure 133/86 10/05/17 05:34 O2 Sat by Pulse Oximetry (%) 97 10/04/17 20:14 Respiratory: Yes: On Nasal O2, Rhonchi, SOB on Exertion Gastrointestinal: Yes: Normal Bowel Sounds, Soft Labs: CBC, BMP 10/05/17 06:25 10/04/17 05:05 INR, PTT INR 4.26 (0.82-1.09) H* 10/05/17 07:20 Assessment/Plan - Problems (1) Abdominal pain Assessment/Plan: ct scan noted for rectal impaction laxatives Code(s): R10.9 - UNSPECIFIED ABDOMINAL PAIN (2) ESRD (end stage renal disease) on dialysis Assessment/Plan: HD per renal fistula is patent and 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
[2017-10-05] MEDS: ALBUTEROL SO4 2.5/IPRATROPIUM 0.5 INH SOL 3 ML VIAL.NEB. NEB SCH ×3 (11:29→19:03)
[2017-10-05] MEDS: CALCIUM 250MG/VIT-D 125 UNITS 1 COMBO TABLET PO SCH ×2 (12:17→22:36)
[2017-10-05] MEDS ORDERED: EPOETIN ALFA 3,000 UNIT, EPOETIN ALFA 2,000 UNIT IVPUSH ONE (12:30)
--- NOTE | 2017-10-05 13:03 | PN ---
Progress Note (short form) - Note Progress Note: PULMONARY CONSULTATION DICTATED 10/05/17 IMP CHF ESRD ON HD COUGH RML INFILTRATE BACTEREMIA BILATERAL PLEURAL EFFUSIONS AFIB S/P PPM HLD HTN PLAN HD PER RENAL O2 INHALED BRONCHODILATORS ABX PER ID ANTITUSSIVES F/U CHEST X-RAY DR RED Problem List - Problems (1) Abdominal pain Code(s): R10.9 - UNSPECIFIED ABDOMINAL PAIN (2) DVT prophylaxis Code(s): [id number] - (3) ESRD (end stage renal disease) on dialysis Code(s): N18.6 - END STAGE RENAL DISEASE; Z99.2 - DEPENDENCE ON RENAL DIALYSIS (4) Pleural effusion Code(s): J90 - PLEURAL EFFUSION, NOT ELSEWHERE CLASSIFIED (5) Pneumonia Code(s): J18.9 - PNEUMONIA, UNSPECIFIED ORGANISM Qualifiers: Pneumonia type: due to unspecified organism Laterality: right Lung location: lower lobe of lung Qualified Code(s): J18.1 - Lobar pneumonia, unspecified organism (6) Afib Code(s): I48.91 - UNSPECIFIED ATRIAL FIBRILLATION Qualifiers: Atrial fibrillation type: chronic Qualified Code(s): I48.2 - Chronic atrial fibrillation (7) Anemia Code(s): D64.9 - ANEMIA, UNSPECIFIED Qualifiers: Anemia type: unspecified type Qualified Code(s): D64.9 - Anemia, unspecified (8) Chronic atrial fibrillation Code(s): I48.2 - CHRONIC ATRIAL FIBRILLATION (9) Cough Code(s): R05 - COUGH (10) Diastolic CHF due to valvular disease Code(s): I38 - ENDOCARDITIS, VALVE UNSPECIFIED; I50.30 - UNSPECIFIED DIASTOLIC ( CONGESTIVE) HEART FAILURE (11) Hypertension Code(s): I10 - ESSENTIAL (PRIMARY) HYPERTENSION Qualifiers: Hypertension type: essential hypertension Qualified Code(s): I10 - Essential (primary) hypertension (12) Positive blood culture Code(s): R78.81 - BACTEREMIA
--- NOTE | 2017-10-05 14:27 | PN ---
Progress Note, Physician History of Present Illness: Pt seen and examined at bedside. She is awake and alert. She complains of discomfort from her graft. Pain improved when BFR is decreased to 350. - Current Medication List Current Medications: Active Medications Acetaminophen (Tylenol -) 650 mg PO Q6H PRN PRN Reason: fever Albuterol/Ipratropium (Duoneb -) 1 amp NEB RQID [facility] Last Admin: 10/05/17 11:29 Dose: 1 amp Calcium/Vitamin D (Oscal 250 Mg+D -) 1 tab PO BID [facility] Last Admin: 10/05/17 12:17 Dose: Not Given Docusate Sodium (Colace -) 100 mg PO TID [facility] Last Admin: 10/05/17 08:58 Dose: Not Given Metoprolol Succinate (Toprol Xl -) 50 mg PO HS [facility] Last Admin: 10/04/17 22:04 Dose: Not Given Metronidazole (Flagyl -) 250 mg PO TID [facility] Last Admin: 10/05/17 07:05 Dose: Not Given Pancrelipase (Creon Dr 36,000 Units Capsule) 1 cap PO TIDCM [facility] Last Admin: 10/05/17 12:48 Dose: Not Given Warfarin Sodium (Coumadin -) 5 mg PO MOWEFR@1800 [facility] Last Admin: 10/02/17 17:47 Dose: Not Given Warfarin Sodium (Coumadin -) 2.5 mg PO SUTUTHSA@1800 [facility] Last Admin: 10/01/17 17:56 Dose: 2.5 mg - Objective Vital Signs: Vital Signs Temperature 99.4 F 10/05/17 09:00 Pulse Rate 68 10/05/17 13:30 Respiratory Rate 18 10/05/17 13:30 Blood Pressure 115/85 10/05/17 13:30 O2 Sat by Pulse Oximetry (%) 98 10/05/17 09:00 Constitutional: Yes: Calm Eyes: Yes: Conjunctiva Clear Cardiovascular: Yes: Pulse Irregular, S1, S2 Respiratory: Yes: CTA Bilaterally Gastrointestinal: Yes: Soft Genitourinary: Yes: WNL Musculoskeletal: Yes: Muscle Weakness Edema: No Neurological: Yes: Oriented Psychiatric: Yes: Oriented Labs: CBC, BMP 10/05/17 06:25 10/04/17 05:05 INR, PTT INR 4.26 (0.82-1.09) H* 10/05/17 07:20 Problem List - Problems (1) ESRD (end stage renal disease) on dialysis Code(s): N18.6 - END STAGE RENAL DISEASE; Z99.2 - DEPENDENCE ON RENAL DIALYSIS (2) Pleural effusion Code(s): J90 - PLEURAL EFFUSION, NOT ELSEWHERE CLASSIFIED (3) Anemia Code(s): D64.9 - ANEMIA, UNSPECIFIED Qualifiers: Anemia type: unspecified type Qualified Code(s): D64.9 - Anemia, unspecified (4) Chronic atrial fibrillation Code(s): I48.2 - CHRONIC ATRIAL FIBRILLATION Assessment/Plan Current Medications Generic Name Dose Route Start Last Admin Trade Name Freq PRN Reason Stop Dose Admin Acetaminophen 650 mg 10/04/17 20:12 Tylenol - PO Q6H PRN fever Albuterol/Ipratropium 1 amp 10/05/17 12:00 10/05/17 11:29 Duoneb - NEB 1 amp RQID [facility] Administration Calcium/Vitamin D 1 tab 10/02/17 10:00 10/05/17 12:17 Oscal 250 Mg+D - PO Not Given BID [facility] Docusate Sodium 100 mg 10/01/17 22:00 10/05/17 08:58 Colace - PO Not Given TID [facility] Metoprolol Succinate 50 mg 09/30/17 22:00 10/04/17 22:04 Toprol Xl - PO Not Given HS [facility] Metronidazole 250 mg 10/01/17 22:00 10/05/17 07:05 Flagyl - PO Not Given TID [facility] Pancrelipase 1 cap 10/02/17 08:00 10/05/17 12:48 Brian Pillai 36,000 Units Capsule PO Not Given TIDCM [facility] Warfarin Sodium 5 mg 10/02/17 18:00 10/02/17 17:47 Coumadin - PO Not Given MOWEFR@1800 [facility] Warfarin Sodium 2.5 mg 10/01/17 18:00 10/01/17 17:56 Coumadin - PO 2.5 mg SUTUTHSA@1800 [facility] Administration Impression 1. esrd 2. constipation 3. abd pain 4. a-fib 5. htn 6. anemia 7. bacteremia Plan - HD today - pt back on MWF schedule - cont epogen - monitor bp - cont current meds
[2017-10-05] MEDS: ACETAMINOPHEN 325 MG TABLET (FP) PO PRN (16:56)
--- NOTE | 2017-10-05 19:18 | CONS ---
DATE OF CONSULTATION: 10/05/2017 REFERRING PHYSICIAN: Acacia Estevez MD The patient is an 87-year-old black female with past medical history of end-stage renal disease, maintained on hemodialysis 3 times weekly; hypertension; atrial fibrillation, status post permanent pacemaker, patient maintained on Coumadin; congestive heart failure; severe chronic mitral valve regurgitation; anemia; history of AV fistula graft, March 01, 2015; nonsmoker, admitted to [facility] with right lower quadrant abdominal pain. Patient has been getting progressively more lethargic and confused. Patient apparently missed dialysis the day prior to admission. The patient was admitted with the above. On admission, she was noted on a chest CT to have abnormal CT, to have bilateral pleural effusions, right side greater than the left, with a possible right middle lobe infiltrate. She was evaluated by Dr. Houser from Infectious Disease who placed the patient on broad-spectrum antibiotics to cover for possible pneumonia as well as intraabdominal process. Patient, as stated before, is a nonsmoker. She was born in [place] and moved to the [facility] greater than 30 years ago. There is no history of occupational exposure to chemicals or fumes. During this current hospitalization, she has been also placed on inhaled bronchodilators. She has also had episodes of coughing. She underwent a chest x-ray today, which revealed increasing right-sided pleural effusion. PAST MEDICAL HISTORY: Again, includes atrial fibrillation, status post pacemaker, congestive heart failure, mitral valve regurgitation, chronic end-stage renal disease, on hemodialysis, status post AV fistula, and hypertension. REVIEW OF SYSTEMS: Positive orthopnea. Positive occasional cough. No chest pain. No palpitations. No fever. No chills. No hemoptysis. No abdominal pain at this time. CURRENT MEDICATIONS: Include Tylenol, Coumadin, DuoNeb. PHYSICAL EXAMINATION: General: The patient is an elderly black female, well-developed, well-nourished, awake, alert, currently on hemodialysis, appears comfortable, in no acute respiratory distress. Vital Signs: She is currently afebrile. Blood pressure is 130/87, respiratory rate is 20, O2 saturation is 98% on 2 L. HEENT: Normocephalic, atraumatic. Neck: Supple.Heart: Irregular. S1, S2. Chest: Bibasilar crackles. Abdomen: Soft. Bowel sounds are positive. Extremities: No cyanosis or edema. LABORATORY DATA: WBC is 5.6, hemoglobin 8.9, hematocrit 28.5 with a platelet count of 145,000. INR is 4.26. Venous blood gas showed pH of 7.47, pCO2 of 40, a pO2 of 30, bicarbonate of 29. BUN 17, creatinine 2.8. Abdominal CT, again, reveals extensive cardiac enlargement with bilateral pleural and pericardial effusions; small patchy infiltrates, right middle lobe. Chest x-ray today reveals increasing pulmonary vascular congestion, increased right pleural effusion. IMPRESSION: 1. Dyspnea and cough, most likely secondary to mild fluid overload, left congestive heart failure. 2. Possible pneumonia. 3. End-stage renal disease, on hemodialysis. 4. Atrial fibrillation, status post permanent pacemaker. 5. Hypertension. 6. Severe mitral regurgitation. PLAN: Continue antibiotic therapy, as per Infectious Disease; inhaled bronchodilators; supplemental O2; obtain followup chest x-ray; hemodialysis, as per Renal; antitussives. Molly [id number]
--- NOTE | 2017-10-05 22:33 | PN ---
Progress Note, Physician Chief Complaint: resting no complaint History of Present Illness: chf,afib,ashd,pneumonia,sepsis admitted with weakness confusion and chest pain - Current Medication List Current Medications: Active Medications Acetaminophen (Tylenol -) 650 mg PO Q6H PRN PRN Reason: fever Last Admin: 10/05/17 16:56 Dose: 650 mg Albuterol/Ipratropium (Duoneb -) 1 amp NEB RQID [facility] Last Admin: 10/05/17 19:03 Dose: 1 amp Calcium/Vitamin D (Oscal 250 Mg+D -) 1 tab PO BID [facility] Last Admin: 10/05/17 12:17 Dose: Not Given Docusate Sodium (Colace -) 100 mg PO TID [facility] Last Admin: 10/05/17 15:22 Dose: 100 mg Metoprolol Succinate (Toprol Xl -) 50 mg PO HS [facility] Last Admin: 10/04/17 22:04 Dose: Not Given Metronidazole (Flagyl -) 250 mg PO TID [facility] Last Admin: 10/05/17 15:22 Dose: 250 mg Pancrelipase (Creon Dr 36,000 Units Capsule) 1 cap PO TIDCM [facility] Last Admin: 10/05/17 17:55 Dose: 1 cap Warfarin Sodium (Coumadin -) 5 mg PO MOWEFR@1800 [facility] Last Admin: 10/02/17 17:47 Dose: Not Given Warfarin Sodium (Coumadin -) 2.5 mg PO SUTUTHSA@1800 [facility] Last Admin: 10/01/17 17:56 Dose: 2.5 mg - Objective Vital Signs: Vital Signs Temperature 99.1 F 10/05/17 19:38 Pulse Rate 108 H 10/05/17 19:38 Respiratory Rate 20 10/05/17 19:38 Blood Pressure 99/64 10/05/17 19:38 O2 Sat by Pulse Oximetry (%) 98 10/05/17 19:22 Constitutional: Yes: Calm Eyes: Yes: EOM Intact HENT: Yes: Normocephalic Neck: Yes: Trachea Midline Cardiovascular: Yes: Tachycardia, Murmur Respiratory: Yes: Diminished, Rales Gastrointestinal: Yes: Normal Bowel Sounds ...Rectal Exam: Yes: Deferred Breast(s): Yes: WNL Extremities: Yes: WNL Neurological: Yes: Alert Labs: CBC, BMP 10/05/17 06:25 10/04/17 05:05 INR, PTT INR 4.26 (0.82-1.09) H* 10/05/17 07:20 Problem List - Problems (1) DVT prophylaxis Code(s): [id number] - (2) ESRD (end stage renal disease) on dialysis Code(s): N18.6 - END STAGE RENAL DISEASE; Z99.2 - DEPENDENCE ON RENAL DIALYSIS (3) Irritable bowel syndrome (IBS) Code(s): K58.9 - IRRITABLE BOWEL SYNDROME WITHOUT DIARRHEA (4) A-V fistula Code(s): I77.0 - ARTERIOVENOUS FISTULA, ACQUIRED Assessment/Plan Current Active Problems Abdominal pain (Acute) DVT prophylaxis (Acute) ESRD (end stage renal disease) on dialysis (Acute) Irritable bowel syndrome (IBS) (Acute) Pleural effusion (Acute) Pneumonia (Acute) Positive blood culture (Acute) euthyroid sick syndrome abnormal tfts Abnormal Lab Results 10/05/17 10/05/17 06:25 07:20 RBC 2.94 L Hgb 8.9 L Hct 28.5 L MCV 97.0 H MCHC 31.4 L RDW 16.1 H Monocytes % 14.5 H PT with INR 48.10 H INR 4.26 H* Laboratory Results - last 24 hr 10/05/17 10/05/17 06:25 07:20 WBC 5.6 RBC 2.94 L Hgb 8.9 L Hct 28.5 L MCV 97.0 H MCH 30.4 MCHC 31.4 L RDW 16.1 H Plt Count 145 D MPV 8.8 Neutrophils % 71.8 Lymphocytes % 12.3 Monocytes % 14.5 H Eosinophils % 1.0 Basophils % 0.4 PT with INR 48.10 H INR 4.26 H* Laboratory Tests 10/02/17 06:30 TSH 1.65 Free T4 1.64 H plan: given frail condition multi system comorbid illness euthyroid sick
[2017-10-06] MEDS: DOCUSATE SODIUM 100 MG CAPSULE (FP) PO SCH ×2 (05:16→14:17)
[2017-10-06] MEDS: metroNIDAZOLE 250 MG TABLET PO SCH ×3 (05:16→14:59)
[2017-10-06] MEDS: ALBUTEROL SO4 2.5/IPRATROPIUM 0.5 INH SOL 3 ML VIAL.NEB. NEB SCH ×4 (07:17→20:49)
[2017-10-06] MEDS: LIPASE/PROTEASE/AMYLASE 36,000 UNIT CAPSULE PO SCH ×2 (08:31→14:17)
[2017-10-06 09:05] LABS: INR 2.73 (0.82-1.09); PROTHROMBIN TIME (PATIENT) 30.8 SEC (9.98-11.88)
[2017-10-06] MEDS: CALCIUM 250MG/VIT-D 125 UNITS 1 COMBO TABLET PO SCH (09:32)
--- NOTE | 2017-10-06 12:53 | PN ---
Progress Note (short form) - Note Progress Note: Breathing feels OK today. No acute events overnight. Intake & Output 10/03/17 10/04/17 10/05/17 10/06/17 23:59 23:59 23:59 23:59 Intake Total 380 250 100 10 Output Total 2 4 Balance 380 248 96 10 Weight 129 lb 9.6 oz 130 lb 126 lb 9.6 oz 121 lb 3.2 oz Last Vital Signs Temp Pulse Resp BP Pulse Ox 98.5 F 106 H 20 114/78 100 10/06/17 09:33 10/06/17 09:33 10/06/17 09:33 10/06/17 09:33 10/06/17 09:00 Active Medications Acetaminophen (Tylenol -) 650 mg PO Q6H PRN PRN Reason: fever Last Admin: 10/05/17 16:56 Dose: 650 mg Albuterol/Ipratropium (Duoneb -) 1 amp NEB RQID [facility] Last Admin: 10/06/17 11:42 Dose: 1 amp Calcium/Vitamin D (Oscal 250 Mg+D -) 1 tab PO BID [facility] Last Admin: 10/06/17 09:32 Dose: Not Given Docusate Sodium (Colace -) 100 mg PO TID [facility] Last Admin: 10/06/17 05:16 Dose: Not Given Metoprolol Succinate (Toprol Xl -) 50 mg PO HS [facility] Last Admin: 10/05/17 22:35 Dose: 50 mg Metronidazole (Flagyl -) 250 mg PO TID [facility] Last Admin: 10/06/17 05:16 Dose: Not Given Pancrelipase (Creon Dr 36,000 Units Capsule) 1 cap PO TIDCM [facility] Last Admin: 10/06/17 08:31 Dose: Not Given Warfarin Sodium (Coumadin -) 5 mg PO MOWEFR@1800 [facility] Last Admin: 10/02/17 17:47 Dose: Not Given Warfarin Sodium (Coumadin -) 2.5 mg PO SUTUTHSA@1800 [facility] Last Admin: 10/01/17 17:56 Dose: 2.5 mg Constitutional: Yes: NAD Eyes: Yes: Conjunctiva Clear Cardiovascular: Yes: Pulse Irregular, S1, S2 Respiratory: Yes: Clear Gastrointestinal: Yes: Soft Genitourinary: Yes: WNL Musculoskeletal: Yes: Muscle Weakness Edema: No Neurological: Yes: Oriented Psychiatric: Yes: Oriented Laboratory Results - last 24 hr 10/06/17 08:25 PT with INR 30.80 H INR 2.73 H D Problem List - Problems (1) Abdominal pain Code(s): R10.9 - UNSPECIFIED ABDOMINAL PAIN (2) DVT prophylaxis Code(s): [id number] - (3) ESRD (end stage renal disease) on dialysis Code(s): N18.6 - END STAGE RENAL DISEASE; Z99.2 - DEPENDENCE ON RENAL DIALYSIS (4) Pleural effusion Code(s): J90 - PLEURAL EFFUSION, NOT ELSEWHERE CLASSIFIED (5) Pneumonia Code(s): J18.9 - PNEUMONIA, UNSPECIFIED ORGANISM Qualifiers: Pneumonia type: due to unspecified organism Laterality: right Lung location: lower lobe of lung Qualified Code(s): J18.1 - Lobar pneumonia, unspecified organism (6) Afib Code(s): I48.91 - UNSPECIFIED ATRIAL FIBRILLATION Qualifiers: Atrial fibrillation type: chronic Qualified Code(s): I48.2 - Chronic atrial fibrillation (7) Anemia Code(s): D64.9 - ANEMIA, UNSPECIFIED Qualifiers: Anemia type: unspecified type Qualified Code(s): D64.9 - Anemia, unspecified (8) Chronic atrial fibrillation Code(s): I48.2 - CHRONIC ATRIAL FIBRILLATION (9) Cough Code(s): R05 - COUGH (10) Diastolic CHF due to valvular disease Code(s): I38 - ENDOCARDITIS, VALVE UNSPECIFIED; I50.30 - UNSPECIFIED DIASTOLIC ( CONGESTIVE) HEART FAILURE (11) Hypertension Code(s): I10 - ESSENTIAL (PRIMARY) HYPERTENSION Qualifiers: Hypertension type: essential hypertension Qualified Code(s): I10 - Essential (primary) hypertension (12) Positive blood culture Code(s): R78.81 - BACTEREMIA IMP CHF ESRD ON HD COUGH RML INFILTRATE BACTEREMIA BILATERAL PLEURAL EFFUSIONS AFIB S/P PPM HLD HTN PLAN HD PER RENAL O2 NEEDED TO MAINTAIN SATURATION INHALED BRONCHODILATORS ABX PER ID ANTITUSSIVES DR HARPER
--- NOTE | 2017-10-06 13:27 | EKG ---
Test Reason : Blood Pressure : / mmHG Vent. Rate : 112 BPM Atrial Rate : 110 BPM P-R Int : 000 ms QRS Dur : 082 ms QT Int : 334 ms P-R-T Axes : 000 089 -34 degrees QTc Int : 455 ms ATRIAL FIBRILLATION WITH RAPID VENTRICULAR RESPONSE WITH PREMATURE VENTRICULAR OR ABERRANTLY CONDUCTED COMPLEXES NONSPECIFIC T WAVE ABNORMALITY ABNORMAL ECG WHEN COMPARED WITH ECG OF 30-SEP-2017 14:53, NO SIGNIFICANT CHANGE WAS FOUND Confirmed by MD Lauro, Dallas ([id number]) on 10/06/2017 1:26:49 PM Referred By: Confirmed By:Dallas Restrepo MD
[2017-10-06] MEDS ORDERED: PT OWN MED DRAWER 7, Y5N ONE (14:43)
[2017-10-06] MEDS ORDERED: SODIUM CHLORIDE 1,000 ML IV SCH (15:00)
[2017-10-06] MEDS ORDERED: PHYTONADIONE 10 MG/1 ML AMP SQ ONE (15:07)
--- NOTE | 2017-10-06 15:07 | PN ---
Progress Note, Physician Chief Complaint: ASLEEP, AROUSABLE STAFF ALERTED ME THAT PATIENT COUGHING AND POSSIBLY ASPIRATING - Current Medication List Current Medications: Active Medications Acetaminophen (Tylenol -) 650 mg PO Q6H PRN PRN Reason: fever Last Admin: 10/05/17 16:56 Dose: 650 mg Albuterol/Ipratropium (Duoneb -) 1 amp NEB RQID [facility] Last Admin: 10/06/17 11:42 Dose: 1 amp Sodium Chloride (Normal Saline -) 1,000 mls @ 42 mls/hr IV ASDIR [facility] Metoprolol Tartrate (Lopressor Injection -) 5 mg IVPUSH Q4H PRN PRN Reason: HYPERTENSION Warfarin Sodium (Coumadin -) 5 mg PO MOWEFR@1800 [facility] Last Admin: 10/02/17 17:47 Dose: Not Given - Objective Vital Signs: Vital Signs Temperature 98.2 F 10/06/17 14:44 Pulse Rate 114 H 10/06/17 14:44 Respiratory Rate 18 10/06/17 14:44 Blood Pressure 126/71 10/06/17 14:44 O2 Sat by Pulse Oximetry (%) 100 10/06/17 09:00 Constitutional: Yes: Mild Distress Eyes: Yes: WNL, Other Neck: Yes: WNL Cardiovascular: Yes: Pulse Irregular Respiratory: Yes: On Nasal O2, Rhonchi Gastrointestinal: Yes: WNL Genitourinary: Yes: Incontinence Musculoskeletal: Yes: Muscle Weakness Extremities: Yes: WNL Edema: No Peripheral Pulses WNL: Yes Integumentary: Yes: WNL Wound/Incision: Yes: Clean/Dry Neurological: Yes: Pre-Existing Deficit ...Motor Strength: LLE, RLE Psychiatric: Yes: Other Labs: CBC, BMP 10/05/17 06:25 10/04/17 05:05 INR, PTT INR 2.73 (0.82-1.09) H D 10/06/17 08:25 Problem List - Problems (1) Abdominal pain Code(s): R10.9 - UNSPECIFIED ABDOMINAL PAIN (2) DVT prophylaxis Code(s): [id number] - (3) ESRD (end stage renal disease) on dialysis Code(s): N18.6 - END STAGE RENAL DISEASE; Z99.2 - DEPENDENCE ON RENAL DIALYSIS (4) Irritable bowel syndrome (IBS) Code(s): K58.9 - IRRITABLE BOWEL SYNDROME WITHOUT DIARRHEA (5) Pneumonia Code(s): J18.9 - PNEUMONIA, UNSPECIFIED ORGANISM Qualifiers: Pneumonia type: due to unspecified organism Laterality: right Lung location: lower lobe of lung Qualified Code(s): J18.1 - Lobar pneumonia, unspecified organism (6) Positive blood culture Code(s): R78.81 - BACTEREMIA (7) A-V fistula Code(s): I77.0 - ARTERIOVENOUS FISTULA, ACQUIRED (8) Anemia Code(s): D64.9 - ANEMIA, UNSPECIFIED Qualifiers: Anemia type: unspecified type Qualified Code(s): D64.9 - Anemia, unspecified (9) Aspiration into airway Code(s): T17.908A - UNSP FB IN RESP TRACT, PART UNSP CAUSING OTH INJURY, INIT Assessment/Plan CHECK MODIFIED BARIUM NPO CHANGE MEDS TO IV SWALLOW EVAL LABS VIT K 2.5 SQ X 1 D/W GI, WILL NEED TO DISCUSS WITH FAMILY AFTER MODIFIED BARIUM RESULTS
--- NOTE | 2017-10-06 16:41 | CONSULT ---
Admitting History and Physical - Past Medical History [facility] RECEPTIONIST: Yes: Dementia (Pleasant affect and can conduct a reasonable conversation.) Cardiovascular: Yes: AFIB, CHF, HTN, Hyperlipdemia, Mitral Insufficiency Pulmonary: Yes: Pneumonia Renal/: Yes: Renal Inusuff, Hemodialysis Heme/Onc: Yes: Anemia - Past Surgical History Past Surgical History: Yes: AV Fistula/Graft (03/01/15), Permanent Pacemaker - Smoking History Smoking history: Never smoked Have you smoked in the past 12 months: No Aproximately how many cigarettes per day: 0 - Alcohol/Substance Use Hx Alcohol Use: No - Social History ADL: Support Services History of Recent Travel: No History - Admission Reason For Visit: PNEUMONIA Speech Evaluation - Communication Primary Language: LATVIAN Communication: Yes: Simple Responses Oral Expression Ability: Yes: Moderate Impairment - Speech Production Dysarthria: Yes: Flaccid Apraxia: No Able to Make Needs Known: Yes: Mildly Impaired Intelligibility: Yes: Mildly Impaired - Speech Characteristics Voice Loudness: Mildly Soft/Quiet Voice Pitch: Yes: Limited Variation Speech Pattern: Normal Nasal Resonance: Normal Articulation: Yes: Precise Rate of Speech: Too Slow Voice Comment: weak but WNL - Language/Auditory Comprehension Follows: Yes: 1 Stage Simple Commands Observation: Able to respond to yes/no queries: Yes, Yes/No Confusion: No, Comprehends Conversational Speech: Yes, Benefits from Slow Speech: Yes, Benefits from Repetiton: Yes, Benefits from Increased Volume of Speech: Yes - Language/Verbal Expression Able to Respond to Simple Queries: Yes: Mildly Impaired (needs verbal prompting) Able to Communicate Wants and Needs: Yes: Mildly Impaired Functional Communication Status: Yes: Mildly Impaired Aware of Errors: No Attempts to Correct Errors: No Use of Gestures: Yes Written Expression: not examined Oral Expression: limited responses. Reading Comprehension: not examined Calculations: not examined Attention: Yes: Intact - Memory/Perception senior care Memory: Yes: Moderately Impaired Short Term Memory: Yes: Mildly Impaired - Swallow Evaluation/Bedside Assessment Current Nutritional Intake: NPO (pending swallow eval) Oral Secretions: Yes: WFL Tracheostomy Present: No Patient on Ventilator: No Dentition: Yes: Edentulous, Missing Teeth Facial Symmetry at Rest: Symmetrical Facial Symmetry on Retraction: Symmetrical Facial Movement: Controlled Sensation: Normal Facial Comment: WFL for speech and swallowing purposes Jaw Position: Closed at Rest Against Resistance Opening: Normal Against Resistance Closing: Normal Lips, Comment: WFL for speech and swallowing purposes Lingual Movement: Reduced Tip Elevation, Reduced Lt Lateralization, Reduced Rt Lateralization, Reduced Protrusion Lingual Speed of Movement: Reduced Lingual Movement Strgth Against Opposition: Normal Lingual Movement Characteristics: Normal Lingual Comment: diminished but WFL for speech and swallowing purposes Soft Palate Description: Normal Color Hard Palate Description: Normal Color Gag Reflex: Weak Velopharyngeal Movement: Normal Laryngeal Elevation: WFL Laryngeal Movement: Able to Palpate Needs Assistance: Yes Rate of Intake: Slow/Holding Bolus Size: Small Labial Seal: WFL Chewing: Impaired (secondary to edentulous status) A-P Transit: WFL Pocketing: None Timing of Swallow: Delayed (2-3 seconds average) Odynophagia: Oral Coughing/Throat Clear: No Change in Voice: No Other Findings/Remarks: 87 yo female seen at bedside for swallow eval to rule out dysphagia. Pt was lethargic but arousable with auditory stimuli. Pt was consuming meals when first admitted to [facility] but rn hemodialysis charge reported aspiration-like behaviors over the past 24 hours. Pt current diet is NPO. Pt given po trials of puree with total assistance revealed good acceptance, adequate bolus control and transport. Pharyngeal swallow are slightly delayed 2 -3 with no cough or changes in respiration. Pt given po trials of honey thicken liquids via teaspoon only revealed good acceptance, adequate bolus control and transport. Pharyngeal swallow are slightly delayed 2-3 with no cough or changes in respiration. Recommendations - Speech Evaluation, Impression/Plan Impression: 87 yo female presents with mild vikash-pharyngeal dysphagia for pureed and honey thicken liquids with no s/s of aspiration at bedside. Limited speech sample. Pt is able to respond to y/n questions. Telecom Billing Analyst Goals: tolerate the least restrictive diet without s/s of aspiration. Short Term Goals: tolerate puree and honey thicken liquids w/o s/s of aspiration. Recommended Frequency for Therapy: Follow Up PRN - Dysphagia Impressions/Plan Swallowing Skills: Impaired Dysphagia Impressions: Mild Impairment, Risk of Aspiration, Suspect Aspiration *Silent aspiration: cannot be R/O at bedside Dysphagia Treatment Plan: Small Bites, Safe Rate, 1/2 tsp. at a time, Elevate HOB during feed, Other (Monitor nutritional intake and pulmonary status. Offer honey thicken liquids by spoon.) Dysphagia Evaluation Summary: Trial puree and honey thicken liquids via spoon at tolerate. Observe standard aspiration precaution. Crush meds in applesauce. MBS scheduled for 10/07/17. SITE ADMINISTRATOR to follow up. Discontinue po if pt demonstrate aspiration-like behaviors. Results given verbally to rn hemodialysis charge and to pcp via chart Recommendations: Modified Barium Swallow (scheduled.) - Recommendations Diet Consistency: Dysphagia Pureed Medication Administration: Crushed with applesauce Liquids: Honey Thick (via spoon.)
--- NOTE | 2017-10-06 16:41 | PN ---
Progress Note, Physician History of Present Illness: Pt seen and examined at bedside. She is going for a barrium swallow. - Current Medication List Current Medications: Active Medications Acetaminophen (Tylenol -) 650 mg PO Q6H PRN PRN Reason: fever Last Admin: 10/05/17 16:56 Dose: 650 mg Albuterol/Ipratropium (Duoneb -) 1 amp NEB RQID [facility] Last Admin: 10/06/17 11:42 Dose: 1 amp Sodium Chloride (Normal Saline -) 1,000 mls @ 42 mls/hr IV ASDIR [facility] Metoprolol Tartrate (Lopressor Injection -) 5 mg IVPUSH Q4H PRN PRN Reason: HYPERTENSION Warfarin Sodium (Coumadin -) 5 mg PO MOWEFR@1800 [facility] Last Admin: 10/02/17 17:47 Dose: Not Given - Objective Vital Signs: Vital Signs Temperature 98.2 F 10/06/17 14:44 Pulse Rate 114 H 10/06/17 14:44 Respiratory Rate 18 10/06/17 14:44 Blood Pressure 126/71 10/06/17 14:44 O2 Sat by Pulse Oximetry (%) 100 10/06/17 09:00 Constitutional: Yes: Calm Eyes: Yes: Conjunctiva Clear HENT: Yes: Atraumatic Cardiovascular: Yes: S1, S2 Respiratory: Yes: On Nasal O2 Gastrointestinal: Yes: Soft Genitourinary: Yes: WNL Musculoskeletal: Yes: WNL Edema: Yes Edema: LLE: Trace, RLE: Trace Neurological: Yes: Oriented Psychiatric: Yes: Oriented Labs: CBC, BMP 10/05/17 06:25 10/04/17 05:05 INR, PTT INR 2.73 (0.82-1.09) H D 10/06/17 08:25 Problem List - Problems (1) ESRD (end stage renal disease) on dialysis Code(s): N18.6 - END STAGE RENAL DISEASE; Z99.2 - DEPENDENCE ON RENAL DIALYSIS (2) Pleural effusion Code(s): J90 - PLEURAL EFFUSION, NOT ELSEWHERE CLASSIFIED (3) Anemia Code(s): D64.9 - ANEMIA, UNSPECIFIED Qualifiers: Anemia type: unspecified type Qualified Code(s): D64.9 - Anemia, unspecified (4) Chronic atrial fibrillation Code(s): I48.2 - CHRONIC ATRIAL FIBRILLATION Assessment/Plan Current Medications Generic Name Dose Route Start Last Admin Trade Name Carlito PRN Reason Stop Dose Admin Acetaminophen 650 mg 10/04/17 20:12 10/05/17 16:56 Tylenol - PO 650 mg Q6H PRN Administration fever Albuterol/Ipratropium 1 amp 10/05/17 12:00 10/06/17 11:42 Duoneb - NEB 1 amp RQID [facility] Administration Sodium Chloride 1,000 mls @ 42 mls/hr 10/06/17 15:00 Normal Saline - IV ASDIR [facility] Metoprolol Tartrate 5 mg 10/06/17 14:58 Lopressor Injection - IVPUSH Q4H PRN HYPERTENSION Warfarin Sodium 5 mg 10/02/17 18:00 10/02/17 17:47 Coumadin - PO Not Given MOWEFR@1800 [facility] Impression 1. esrd 2. constipation 3. abd pain 4. a-fib 5. htn 6. anemia 7. bacteremia Plan - HD in am - d/c saline and switch to d5 /2 to start later today while NPO - speech and swallow follow up - cont epogen - monitor bp - cont current meds
[2017-10-06] MEDS ORDERED: DEXTROSE 5%-0.45% SALINE 1,000 ML IV SCH (16:45)
[2017-10-07 07:05] LABS: INR 2.62 (0.82-1.09); PROTHROMBIN TIME (PATIENT) 29.6 SEC (9.98-11.88)
[2017-10-07 07:13] LABS: HEMOGLOBIN 8.8 GM/dL (10.7-15.3); MCH 30.4 pg (25.7-33.7); MCHC 31.3 g/dl (32.0-36.0); MEAN CELL VOLUME 97.1 fl (80-96); MEAN PLT VOLUME 8.4 fl (7.5-11.1); PLATELET COUNT 190 K/MM3 (134-434); RBC 2.88 M/mm3 (3.60-5.2); RDW 16.3 % (11.6-15.6); WHITE BLOOD COUNT 5.4 K/mm3 (4.0-10.0)
[2017-10-07 07:31] LABS: ANION GAP 6 (8-16); BLOOD UREA NITROGEN 20 mg/dL (7-18); CALCIUM 8.3 mg/dL (8.5-10.1); CHLORIDE 97 mmol/L (98-107); CO2 33 mmol/L (21-32); CREATININE 3.7 mg/dL (0.55-1.02); GLUCOSE,RANDOM 83 mg/dL (74-106); POTASSIUM 3.8 mmol/L (3.5-5.1); SODIUM 136 mmol/L (136-145)
[2017-10-07] MEDS: ALBUTEROL SO4 2.5/IPRATROPIUM 0.5 INH SOL 3 ML VIAL.NEB. NEB SCH ×4 (08:40→20:56)
--- NOTE | 2017-10-07 09:08 | PN ---
Progress Note, Physician History of Present Illness: awake monitor intake - Current Medication List Current Medications: Active Medications Acetaminophen (Tylenol -) 650 mg PO Q6H PRN PRN Reason: fever Last Admin: 10/05/17 16:56 Dose: 650 mg Albuterol/Ipratropium (Duoneb -) 1 amp NEB RQID [facility] Last Admin: 10/07/17 08:40 Dose: 1 amp Epoetin Francisco (Epogen -) 6,000 unit IVPUSH ONCE ONE Stop: 10/07/17 16:43 Metoprolol Tartrate (Lopressor Injection -) 5 mg IVPUSH Q4H PRN PRN Reason: HYPERTENSION Warfarin Sodium (Coumadin -) 5 mg PO MOWEFR@1800 [facility] Last Admin: 10/02/17 17:47 Dose: Not Given - Objective Vital Signs: Vital Signs Temperature 99.0 F 10/07/17 07:10 Pulse Rate 100 H 10/07/17 07:10 Respiratory Rate 18 10/07/17 07:30 Blood Pressure 139/82 10/07/17 07:10 O2 Sat by Pulse Oximetry (%) 100 10/07/17 07:30 Cardiovascular: Yes: S1, S2 Respiratory: Yes: Regular, CTA Bilaterally Gastrointestinal: Yes: Normal Bowel Sounds, Soft Labs: CBC, BMP 10/07/17 06:35 10/07/17 06:35 INR, PTT INR 2.62 (0.82-1.09) H 10/07/17 06:35 Assessment/Plan - Problems (1) Abdominal pain Assessment/Plan: ct scan noted for rectal impaction laxatives f/u xray Code(s): R10.9 - UNSPECIFIED ABDOMINAL PAIN (2) ESRD (end stage renal disease) on dialysis Assessment/Plan: HD per renal fistula is patent and thrombosed pseudoaneurysm noted on arm duplex Code(s): N18.6 - END STAGE RENAL DISEASE; Z99.2 - DEPENDENCE ON RENAL DIALYSIS (3) Afib Assessment/Plan: toprol and Coumadin monitor INR Code(s): I48.91 - UNSPECIFIED ATRIAL FIBRILLATION Qualifiers: Atrial fibrillation type: chronic Qualified Code(s): I48.2 - Chronic atrial fibrillation (4) Pleural effusion--Pneumonia Assessment/Plan: -on iv abx --cxr -swaloow eval--mbs (5) Positive blood culture Assessment/Plan: gram postive cocci cluster per ID note stop flagyl and aztreonam vanco renal dose id on board Code(s): R78.81 - BACTEREMIA
--- NOTE | 2017-10-07 11:11 | PN ---
Progress Note, Physician History of Present Illness: PULMONARY ALERT,CONFUSED,-RESP DISTRESS. BLOOD CULTURES + MSSA - Current Medication List Current Medications: Active Medications Acetaminophen (Tylenol -) 650 mg PO Q6H PRN PRN Reason: fever Last Admin: 10/05/17 16:56 Dose: 650 mg Albuterol/Ipratropium (Duoneb -) 1 amp NEB RQID [facility] Last Admin: 10/07/17 08:40 Dose: 1 amp Epoetin Francisco (Epogen -) 6,000 unit IVPUSH ONCE ONE Stop: 10/07/17 16:43 Metoprolol Tartrate (Lopressor Injection -) 5 mg IVPUSH Q4H PRN PRN Reason: HYPERTENSION Warfarin Sodium (Coumadin -) 5 mg PO MOWEFR@1800 [facility] Last Admin: 10/02/17 17:47 Dose: Not Given - Objective Vital Signs: Vital Signs Temperature 99.0 F 10/07/17 07:10 Pulse Rate 100 H 10/07/17 07:10 Respiratory Rate 18 10/07/17 07:30 Blood Pressure 139/82 10/07/17 07:10 O2 Sat by Pulse Oximetry (%) 100 10/07/17 07:30 Constitutional: Yes: Well Nourished, Calm Eyes: Yes: WNL HENT: Yes: WNL Neck: Yes: WNL Cardiovascular: Yes: Pulse Irregular, S1, S2 Respiratory: Yes: Wheezes (FEW WHEEZES) Gastrointestinal: Yes: Normal Bowel Sounds, Soft Extremities: Yes: WNL Edema: No Labs: CBC, BMP 10/07/17 06:35 10/07/17 06:35 INR, PTT INR 2.62 (0.82-1.09) H 10/07/17 06:35 Problem List - Problems (1) Abdominal pain Code(s): R10.9 - UNSPECIFIED ABDOMINAL PAIN (2) DVT prophylaxis Code(s): [id number] - (3) ESRD (end stage renal disease) on dialysis Code(s): N18.6 - END STAGE RENAL DISEASE; Z99.2 - DEPENDENCE ON RENAL DIALYSIS (4) Pleural effusion Code(s): J90 - PLEURAL EFFUSION, NOT ELSEWHERE CLASSIFIED (5) Pneumonia Code(s): J18.9 - PNEUMONIA, UNSPECIFIED ORGANISM Qualifiers: Pneumonia type: due to unspecified organism Laterality: right Lung location: lower lobe of lung Qualified Code(s): J18.1 - Lobar pneumonia, unspecified organism (6) Afib Code(s): I48.91 - UNSPECIFIED ATRIAL FIBRILLATION Qualifiers: Atrial fibrillation type: chronic Qualified Code(s): I48.2 - Chronic atrial fibrillation (7) Anemia Code(s): D64.9 - ANEMIA, UNSPECIFIED Qualifiers: Anemia type: unspecified type Qualified Code(s): D64.9 - Anemia, unspecified (8) Chronic atrial fibrillation Code(s): I48.2 - CHRONIC ATRIAL FIBRILLATION (9) Cough Code(s): R05 - COUGH (10) Diastolic CHF due to valvular disease Code(s): I38 - ENDOCARDITIS, VALVE UNSPECIFIED; I50.30 - UNSPECIFIED DIASTOLIC ( CONGESTIVE) HEART FAILURE (11) Hypertension Code(s): I10 - ESSENTIAL (PRIMARY) HYPERTENSION Qualifiers: Hypertension type: essential hypertension Qualified Code(s): I10 - Essential (primary) hypertension (12) Positive blood culture Code(s): R78.81 - BACTEREMIA Assessment/Plan IMP CHF ESRD ON HD COUGH RML INFILTRATE BACTEREMIA MSSA BILATERAL PLEURAL EFFUSIONS AFIB S/P PPM HLD HTN PLAN HD PER RENAL O2 INHALED BRONCHODILATORS ABX PER ID ANTITUSSIVES F/U CHEST X-RAY DR RED Problem List - Problems (1) Abdominal pain Code(s): R10.9 - UNSPECIFIED ABDOMINAL PAIN (2) DVT prophylaxis Code(s): [id number] - (3) ESRD (end stage renal disease) on dialysis Code(s): N18.6 - END STAGE RENAL DISEASE; Z99.2 - DEPENDENCE ON RENAL DIALYSIS (4) Pleural effusion Code(s): J90 - PLEURAL EFFUSION, NOT ELSEWHERE CLASSIFIED (5) Pneumonia Code(s): J18.9 - PNEUMONIA, UNSPECIFIED ORGANISM Qualifiers: Pneumonia type: due to unspecified organism Laterality: right Lung location: lower lobe of lung Qualified Code(s): J18.1 - Lobar pneumonia, unspecified organism (6) Afib Code(s): I48.91 - UNSPECIFIED ATRIAL FIBRILLATION Qualifiers: Atrial fibrillation type: chronic Qualified Code(s): I48.2 - Chronic atrial fibrillation (7) Anemia Code(s): D64.9 - ANEMIA, UNSPECIFIED Qualifiers: Anemia type: unspecified type Qualified Code(s): D64.9 - Anemia, unspecified (8) Chronic atrial fibrillation Code(s): I48.2 - CHRONIC ATRIAL FIBRILLATION (9) Cough Code(s): R05 - COUGH (10) Diastolic CHF due to valvular disease Code(s): I38 - ENDOCARDITIS, VALVE UNSPECIFIED; I50.30 - UNSPECIFIED DIASTOLIC ( CONGESTIVE) HEART FAILURE (11) Hypertension Code(s): I10 - ESSENTIAL (PRIMARY) HYPERTENSION Qualifiers: Hypertension type: essential hypertension Qualified Code(s): I10 - Essential (primary) hypertension (12) Positive blood culture Code(s): R78.81 - BACTEREMIA
--- NOTE | 2017-10-07 13:12 | PN ---
Progress Note, Physician History of Present Illness: Pt seen and examined at bedside. She is awake and alert. She is eager to go home. She denies fevers or chills. - Current Medication List Current Medications: Active Medications Acetaminophen (Tylenol -) 650 mg PO Q6H PRN PRN Reason: fever Last Admin: 10/05/17 16:56 Dose: 650 mg Albuterol/Ipratropium (Duoneb -) 1 amp NEB RQID [facility] Last Admin: 10/07/17 08:40 Dose: 1 amp Epoetin Francisco (Epogen -) 6,000 unit IVPUSH ONCE ONE Stop: 10/07/17 16:43 Metoprolol Tartrate (Lopressor Injection -) 5 mg IVPUSH Q4H PRN PRN Reason: HYPERTENSION Warfarin Sodium (Coumadin -) 5 mg PO MOWEFR@1800 [facility] Last Admin: 10/02/17 17:47 Dose: Not Given - Objective Vital Signs: Vital Signs Temperature 99.0 F 10/07/17 07:10 Pulse Rate 100 H 10/07/17 07:10 Respiratory Rate 18 10/07/17 07:30 Blood Pressure 139/82 10/07/17 07:10 O2 Sat by Pulse Oximetry (%) 100 10/07/17 07:30 Constitutional: Yes: Calm Eyes: Yes: Conjunctiva Clear HENT: Yes: Atraumatic Neck: Yes: Supple Cardiovascular: Yes: S1, S2 Respiratory: Yes: CTA Bilaterally Gastrointestinal: Yes: Soft Genitourinary: Yes: WNL Musculoskeletal: Yes: WNL Extremities: Yes: Other (graft with thrill and bruit) Edema: Yes Edema: LLE: Trace, RLE: Trace Neurological: Yes: Oriented Psychiatric: Yes: Oriented Labs: CBC, BMP 10/07/17 06:35 10/07/17 06:35 INR, PTT INR 2.62 (0.82-1.09) H 10/07/17 06:35 Problem List - Problems (1) ESRD (end stage renal disease) on dialysis Code(s): N18.6 - END STAGE RENAL DISEASE; Z99.2 - DEPENDENCE ON RENAL DIALYSIS (2) Pleural effusion Code(s): J90 - PLEURAL EFFUSION, NOT ELSEWHERE CLASSIFIED (3) Anemia Code(s): D64.9 - ANEMIA, UNSPECIFIED Qualifiers: Anemia type: unspecified type Qualified Code(s): D64.9 - Anemia, unspecified (4) Chronic atrial fibrillation Code(s): I48.2 - CHRONIC ATRIAL FIBRILLATION Assessment/Plan Current Medications Generic Name Dose Route Start Last Admin Trade Name Freq PRN Reason Stop Dose Admin Acetaminophen 650 mg 10/04/17 20:12 10/05/17 16:56 Tylenol - PO 650 mg Q6H PRN Administration fever Albuterol/Ipratropium 1 amp 10/05/17 12:00 10/07/17 08:40 Duoneb - NEB 1 amp RQID [facility] Administration Epoetin Francisco 6,000 unit 10/07/17 16:42 Epogen - IVPUSH 10/07/17 16:43 ONCE ONE Metoprolol Tartrate 5 mg 10/06/17 14:58 Lopressor Injection - IVPUSH Q4H PRN HYPERTENSION Warfarin Sodium 5 mg 10/02/17 18:00 10/02/17 17:47 Coumadin - PO Not Given MOWEFR@1800 [facility] Impression 1. esrd 2. constipation 3. abd pain 4. a-fib 5. htn 6. anemia 7. bacteremia Plan - HD today - discussed access with vascular, no active issues - follow speech and swallow - pt now on diet, d/c fluids - cont epogen - will follow Dr Dunham
[2017-10-07 14:29] LABS: INR 4.26 (0.82-1.09)
[2017-10-07] MEDS: DOCUSATE SODIUM 100 MG CAPSULE (FP) PO SCH ×3 (16:19→21:55)
[2017-10-07] MEDS ORDERED: EPOETIN ALFA 3,000 UNIT/1 ML ML IVPUSH ONE (17:30)
[2017-10-07] MEDS: WARFARIN NA 5 MG TABLET (UD) PO SCH (17:44)
[2017-10-08] MEDS: DOCUSATE SODIUM 100 MG CAPSULE (FP) PO SCH ×3 (05:54→21:04)
[2017-10-08] MEDS: ALBUTEROL SO4 2.5/IPRATROPIUM 0.5 INH SOL 3 ML VIAL.NEB. NEB SCH ×4 (08:10→20:22)
[2017-10-08] MEDS: METOPROLOL TARTRATE 5 MG/5 ML VIAL IVPUSH PRN ×2 (08:46→12:32)
[2017-10-08] MEDS: ACETAMINOPHEN 325 MG TABLET (FP) PO PRN ×2 (08:47→13:25)
--- NOTE | 2017-10-08 08:50 | PN ---
Progress Note, Physician History of Present Illness: awake monitor intake - Current Medication List Current Medications: Active Medications Acetaminophen (Tylenol -) 650 mg PO Q6H PRN PRN Reason: fever Last Admin: 10/08/17 08:47 Dose: 650 mg Albuterol/Ipratropium (Duoneb -) 1 amp NEB RQID [facility] Last Admin: 10/08/17 08:10 Dose: 1 amp Docusate Sodium (Colace -) 100 mg PO TID [facility] Last Admin: 10/08/17 05:54 Dose: 100 mg Metoprolol Tartrate (Lopressor Injection -) 5 mg IVPUSH Q4H PRN PRN Reason: HYPERTENSION Last Admin: 10/08/17 08:46 Dose: 5 mg Warfarin Sodium (Coumadin -) 5 mg PO MOWEFR@1800 [facility] Last Admin: 10/07/17 17:44 Dose: 5 mg - Objective Vital Signs: Vital Signs Temperature 99.6 F 10/08/17 06:00 Pulse Rate 130 H 10/08/17 08:46 Respiratory Rate 20 10/08/17 06:00 Blood Pressure 141/95 10/08/17 08:46 O2 Sat by Pulse Oximetry (%) 100 10/07/17 21:00 Cardiovascular: Yes: S1, S2 Respiratory: Yes: Rales (AT THE BASES) Gastrointestinal: Yes: Normal Bowel Sounds, Soft Labs: CBC, BMP 10/07/17 06:35 10/07/17 06:35 INR, PTT INR 2.62 (0.82-1.09) H 10/07/17 06:35 Assessment/Plan - Problems (1) Abdominal pain Assessment/Plan: RESOLVED ct scan noted for rectal impaction laxatives f/u xray Code(s): R10.9 - UNSPECIFIED ABDOMINAL PAIN (2) ESRD (end stage renal disease) on dialysis Assessment/Plan: HD per renal fistula is patent and thrombosed pseudoaneurysm noted on arm duplex Code(s): N18.6 - END STAGE RENAL DISEASE; Z99.2 - DEPENDENCE ON RENAL DIALYSIS (3) Afib Assessment/Plan: toprol and Coumadin monitor INR Code(s): I48.91 - UNSPECIFIED ATRIAL FIBRILLATION Qualifiers: Atrial fibrillation type: chronic Qualified Code(s): I48.2 - Chronic atrial fibrillation (4) Pleural effusion--Pneumonia Assessment/Plan: -off abx --cxr with congestion--repeat -swaloow eval--mbs noted (5) Positive blood culture Assessment/Plan: gram postive cocci cluster per ID note stop flagyl and aztreonam vanco renal dose--on dc cefazolin id on board Code(s): R78.81 - BACTEREMIA
[2017-10-08] MEDS ORDERED: METOPROLOL TARTRATE 25 MG TABLET (FP) PO ONE (13:05)
--- NOTE | 2017-10-08 14:35 | PN ---
Progress Note, Physician Chief Complaint: ID Concerned as she is still febrile above 100 NAD Nonverbal - Current Medication List Current Medications: Active Medications Acetaminophen (Tylenol -) 650 mg PO Q4H PRN PRN Reason: fever Last Admin: 10/08/17 13:25 Dose: 650 mg Albuterol/Ipratropium (Duoneb -) 1 amp NEB RQID [facility] Last Admin: 10/08/17 11:10 Dose: 1 amp Docusate Sodium (Colace -) 100 mg PO TID [facility] Last Admin: 10/08/17 05:54 Dose: 100 mg Metoprolol Tartrate (Lopressor Injection -) 5 mg IVPUSH Q4H PRN PRN Reason: HYPERTENSION Last Admin: 10/08/17 12:32 Dose: 5 mg Warfarin Sodium (Coumadin -) 5 mg PO MOWEFR@1800 [facility] Last Admin: 10/07/17 17:44 Dose: 5 mg - Objective Vital Signs: Vital Signs Temperature 100.1 F H 10/08/17 12:56 Pulse Rate 124 H 10/08/17 12:56 Respiratory Rate 20 10/08/17 10:00 Blood Pressure 130/76 10/08/17 12:56 O2 Sat by Pulse Oximetry (%) 100 10/08/17 10:00 Constitutional: Yes: No Distress Neck: Yes: WNL, Supple Cardiovascular: Yes: S1, S2 Respiratory: Yes: WNL, Regular, CTA Bilaterally Gastrointestinal: Yes: Soft. No: Tenderness Edema: No Labs: CBC, BMP 10/07/17 06:35 10/07/17 06:35 INR, PTT INR 2.62 (0.82-1.09) H 10/07/17 06:35 Problem List - Problems (1) Abdominal pain Code(s): R10.9 - UNSPECIFIED ABDOMINAL PAIN (2) ESRD (end stage renal disease) on dialysis Code(s): N18.6 - END STAGE RENAL DISEASE; Z99.2 - DEPENDENCE ON RENAL DIALYSIS (3) Pneumonia Code(s): J18.9 - PNEUMONIA, UNSPECIFIED ORGANISM Qualifiers: Pneumonia type: due to unspecified organism Laterality: right Lung location: lower lobe of lung Qualified Code(s): J18.1 - Lobar pneumonia, unspecified organism (4) Afib Code(s): I48.91 - UNSPECIFIED ATRIAL FIBRILLATION Qualifiers: Atrial fibrillation type: chronic Qualified Code(s): I48.2 - Chronic atrial fibrillation Assessment/Plan Microbiology 10/02/17 10:00 Blood - Peripheral Venous Blood Culture - Final Presumptive Mssa (Pbp2a Neg) 09/30/17 15:17 Blood - Peripheral Venous Blood Culture - Final Staphylococcus Aureus 09/30/17 15:17 Blood - Peripheral Venous Blood Culture - Final Presumptive Mssa (Pbp2a Neg) Laboratory Tests 10/02/17 10/07/17 06:30 06:35 WBC 5.4 Hgb 8.8 L Plt Count 190 D C-Reactive Protein 12.5 H Assessment MSSA bacteremia. AVF with pseudoaneursym as noted ? endovascular or other focus of infection Per family she apparently had severe skin reaction with hives to PCN Blood cultures ESR CRP CT imaging Could the aneursym be infected ??
--- NOTE | 2017-10-08 14:43 | PN ---
Progress Note (short form) - Note Progress Note: Breathing appears stable. Low grade fever. No acute events overnight. Intake & Output 10/05/17 10/06/17 10/07/17 10/08/17 23:59 23:59 23:59 23:59 Intake Total 648 99 7870 250 Output Total 4 Balance 96 20 1070 250 Weight 126 lb 9.6 oz 121 lb 3.2 oz 120 lb 117 lb 3.2 oz Last Vital Signs Temp Pulse Resp BP Pulse Ox 100.1 F H 124 H 20 130/76 100 10/08/17 12:56 10/08/17 12:56 10/08/17 10:00 10/08/17 12:56 10/08/17 10:00 Active Medications Acetaminophen (Tylenol -) 650 mg PO Q4H PRN PRN Reason: fever Last Admin: 10/08/17 13:25 Dose: 650 mg Albuterol/Ipratropium (Duoneb -) 1 amp NEB RQID [facility] Last Admin: 10/08/17 11:10 Dose: 1 amp Docusate Sodium (Colace -) 100 mg PO TID [facility] Last Admin: 10/08/17 05:54 Dose: 100 mg Vancomycin HCl 1,000 mg/ (Dextrose) 500 mls @ 250 mls/hr IVPB ONCE ONE PRN Reason: Protocol Stop: 10/08/17 16:35 Metoprolol Tartrate (Lopressor Injection -) 5 mg IVPUSH Q4H PRN PRN Reason: HYPERTENSION Last Admin: 10/08/17 12:32 Dose: 5 mg Warfarin Sodium (Coumadin -) 5 mg PO MOWEFR@1800 [facility] Last Admin: 10/07/17 17:44 Dose: 5 mg Constitutional: Yes: NAD Eyes: Yes: Conjunctiva Clear Cardiovascular: Yes: Pulse Irregular, S1, S2 Respiratory: Yes: Clear Gastrointestinal: Yes: Soft Genitourinary: Yes: WNL Musculoskeletal: Yes: Muscle Weakness Edema: No Neurological: Yes: Oriented Psychiatric: Yes: Oriented Problem List - Problems (1) Abdominal pain Code(s): R10.9 - UNSPECIFIED ABDOMINAL PAIN (2) DVT prophylaxis Code(s): [id number] - (3) ESRD (end stage renal disease) on dialysis Code(s): N18.6 - END STAGE RENAL DISEASE; Z99.2 - DEPENDENCE ON RENAL DIALYSIS (4) Pleural effusion Code(s): J90 - PLEURAL EFFUSION, NOT ELSEWHERE CLASSIFIED (5) Pneumonia Code(s): J18.9 - PNEUMONIA, UNSPECIFIED ORGANISM Qualifiers: Pneumonia type: due to unspecified organism Laterality: right Lung location: lower lobe of lung Qualified Code(s): J18.1 - Lobar pneumonia, unspecified organism (6) Afib Code(s): I48.91 - UNSPECIFIED ATRIAL FIBRILLATION Qualifiers: Atrial fibrillation type: chronic Qualified Code(s): I48.2 - Chronic atrial fibrillation (7) Anemia Code(s): D64.9 - ANEMIA, UNSPECIFIED Qualifiers: Anemia type: unspecified type Qualified Code(s): D64.9 - Anemia, unspecified (8) Chronic atrial fibrillation Code(s): I48.2 - CHRONIC ATRIAL FIBRILLATION (9) Cough Code(s): R05 - COUGH (10) Diastolic CHF due to valvular disease Code(s): I38 - ENDOCARDITIS, VALVE UNSPECIFIED; I50.30 - UNSPECIFIED DIASTOLIC ( CONGESTIVE) HEART FAILURE (11) Hypertension Code(s): I10 - ESSENTIAL (PRIMARY) HYPERTENSION Qualifiers: Hypertension type: essential hypertension Qualified Code(s): I10 - Essential (primary) hypertension (12) Positive blood culture Code(s): R78.81 - BACTEREMIA IMP CHF ESRD ON HD COUGH RML INFILTRATE BACTEREMIA BILATERAL PLEURAL EFFUSIONS AFIB S/P PPM HLD HTN PLAN HD PER RENAL O2 NEEDED TO MAINTAIN SATURATION INHALED BRONCHODILATORS ABX PER ID ANTITUSSIVES DR HARPER
[2017-10-08] MEDS ORDERED: VANCOMYCIN 1,000 MG in DEXTROSE 5%-WATER - 250 ML IVPB ONE ×2 (14:45→19:00)
--- NOTE | 2017-10-08 15:16 | PN ---
Progress Note, Physician History of Present Illness: Pt seen and examined at bedside. She is awake and alert. She has had fevers overnight. - Current Medication List Current Medications: Active Medications Acetaminophen (Tylenol -) 650 mg PO Q4H PRN PRN Reason: fever Last Admin: 10/08/17 13:25 Dose: 650 mg Albuterol/Ipratropium (Duoneb -) 1 amp NEB RQID [facility] Last Admin: 10/08/17 11:10 Dose: 1 amp Docusate Sodium (Colace -) 100 mg PO TID [facility] Last Admin: 10/08/17 05:54 Dose: 100 mg Vancomycin HCl 1,000 mg/ (Dextrose) 250 mls @ 500 mls/hr IVPB ONCE ONE PRN Reason: Protocol Stop: 10/08/17 15:14 Metoprolol Tartrate (Lopressor Injection -) 5 mg IVPUSH Q4H PRN PRN Reason: HYPERTENSION Last Admin: 10/08/17 12:32 Dose: 5 mg Warfarin Sodium (Coumadin -) 5 mg PO MOWEFR@1800 [facility] Last Admin: 10/07/17 17:44 Dose: 5 mg - Objective Vital Signs: Vital Signs Temperature 100.1 F H 10/08/17 12:56 Pulse Rate 124 H 10/08/17 12:56 Respiratory Rate 20 10/08/17 10:00 Blood Pressure 130/76 10/08/17 12:56 O2 Sat by Pulse Oximetry (%) 100 10/08/17 10:00 Constitutional: Yes: Calm Eyes: Yes: Conjunctiva Clear HENT: Yes: Atraumatic Cardiovascular: Yes: Pulse Irregular, S1, S2 Respiratory: Yes: CTA Bilaterally, On Nasal O2 Gastrointestinal: Yes: Soft Genitourinary: Yes: WNL Musculoskeletal: Yes: WNL Edema: No Neurological: Yes: Oriented Psychiatric: Yes: Oriented Labs: CBC, BMP 10/07/17 06:35 10/07/17 06:35 INR, PTT INR 2.62 (0.82-1.09) H 10/07/17 06:35 Problem List - Problems (1) ESRD (end stage renal disease) on dialysis Code(s): N18.6 - END STAGE RENAL DISEASE; Z99.2 - DEPENDENCE ON RENAL DIALYSIS (2) Pleural effusion Code(s): J90 - PLEURAL EFFUSION, NOT ELSEWHERE CLASSIFIED (3) Anemia Code(s): D64.9 - ANEMIA, UNSPECIFIED Qualifiers: Anemia type: unspecified type Qualified Code(s): D64.9 - Anemia, unspecified (4) Chronic atrial fibrillation Code(s): I48.2 - CHRONIC ATRIAL FIBRILLATION Assessment/Plan Current Medications Generic Name Dose Route Start Last Admin Trade Name Freq PRN Reason Stop Dose Admin Acetaminophen 650 mg 10/08/17 13:05 10/08/17 13:25 Tylenol - PO 650 mg Q4H PRN Administration fever Albuterol/Ipratropium 1 amp 10/05/17 12:00 10/08/17 11:10 Duoneb - NEB 1 amp RQID [facility] Administration Docusate Sodium 100 mg 10/07/17 14:00 10/08/17 05:54 Colace - PO 100 mg TID [facility] Administration Vancomycin HCl 1,000 mg/ 250 mls @ 500 mls/hr 10/08/17 14:45 Dextrose IVPB 10/08/17 15:14 ONCE ONE Protocol Metoprolol Tartrate 5 mg 10/06/17 14:58 10/08/17 12:32 Lopressor Injection - IVPUSH 5 mg Q4H PRN Administration HYPERTENSION Warfarin Sodium 5 mg 10/02/17 18:00 10/07/17 17:44 Coumadin - PO 5 mg MOWEFR@1800 [facility] Administration Impression 1. esrd 2. constipation 3. abd pain 4. a-fib 5. htn 6. anemia 7. bacteremia 8. fever Plan - will arrange for HD in am - check cultures as she is having fevers - cont epogen - will follow Dr Dunham
--- NOTE | 2017-10-08 17:26 | PN ---
Progress Note, INSTRUMENTATION TECHNOLOGIST - Note Progress Note: 87 yo seen at bedside for follow up to MBS with recommendations for puree and nectar thicken liquids. Meal consumption has slightly improved but extension service specialist in charge reported that pt is refusing thicken liquids. Trial of water were given at bedside no good acceptance, adequate bolus control and transport. No aspiration -like behaviors were observed at this time. Recommendation: Trial thin liquids with meals as tolerated. Observe standard aspiration precautions. If cough occurs, offer nectar thick liquids again. INSTRUMENTATION TECHNOLOGIST to follow up for diet tolerance. Results given to extension service specialist in chargeJENNIFER Penn and to pcp via chart.
[2017-10-09] MEDS: DOCUSATE SODIUM 100 MG CAPSULE (FP) PO SCH ×3 (05:39→21:25)
[2017-10-09] MEDS: ACETAMINOPHEN 325 MG TABLET (FP) PO PRN ×2 (05:43→17:15)
[2017-10-09 07:21] LABS: INR 3.63 (0.82-1.09)
[2017-10-09] MEDS: ALBUTEROL SO4 2.5/IPRATROPIUM 0.5 INH SOL 3 ML VIAL.NEB. NEB SCH ×4 (07:51→21:17)
--- NOTE | 2017-10-09 09:03 | PN ---
Progress Note, Physician Chief Complaint: Ms. Craig is my office patient with permanent AF, severe MR (not surgical candidate), ESRD admitted here for multiple days with fever, bacteremia and concern for fistula infection. She also has a pacemaker. Was asked to see her for heart rate control. She denies CP, SOB but states she had a fever yesterday. Review of tele shows uncontrolled AF in 130s. Her home Toprol needs to be ordered. - Current Medication List Current Medications: Active Medications Acetaminophen (Tylenol -) 650 mg PO Q4H PRN PRN Reason: fever Last Admin: 10/09/17 05:43 Dose: 650 mg Albuterol/Ipratropium (Duoneb -) 1 amp NEB RQID [facility] Last Admin: 10/09/17 07:51 Dose: 1 amp Docusate Sodium (Colace -) 100 mg PO TID [facility] Last Admin: 10/09/17 05:39 Dose: Not Given Epoetin Francisco (Epogen -) 6,000 unit IVPUSH ONCE ONE Stop: 10/09/17 15:19 Metoprolol Tartrate (Lopressor Injection -) 5 mg IVPUSH Q4H PRN PRN Reason: HYPERTENSION Last Admin: 10/08/17 12:32 Dose: 5 mg Warfarin Sodium (Coumadin -) 5 mg PO MOWEFR@1800 [facility] Last Admin: 10/07/17 17:44 Dose: 5 mg - Objective Vital Signs: Vital Signs Temperature 101.1 F H 10/09/17 06:00 Pulse Rate 118 H 10/09/17 06:00 Respiratory Rate 19 10/09/17 06:00 Blood Pressure 133/89 10/09/17 06:00 O2 Sat by Pulse Oximetry (%) 100 10/08/17 21:00 Constitutional: Yes: Calm Cardiovascular: Yes: Tachycardia, Pulse Irregular Respiratory: Yes: CTA Bilaterally Gastrointestinal: Yes: Soft Edema: Yes Edema: LLE: 1+, RLE: 1+ Neurological: Yes: Alert, Oriented Labs: CBC, BMP 10/07/17 06:35 10/07/17 06:35 INR, PTT INR 3.63 (0.82-1.09) H D 10/09/17 06:48 Microbiology 10/02/17 10:00 Blood - Peripheral Venous Blood Culture - Final Presumptive Mssa (Pbp2a Neg) Laboratory Tests 09/30/17 10/07/17 10/07/17 16:40 06:35 06:35 Hgb 8.8 L Plt Count 190 D INR Potassium 3.8 Creatinine 3.7 H Stool Occult Blood Negative 10/09/17 06:48 Hgb Plt Count INR 3.63 H D Potassium Creatinine Stool Occult Blood - ....Imaging Chest X-ray: Image Reviewed Cat Scan: Pending EKG: Image Reviewed Assessment/Plan IMP: Permanent AF, with RVR now Fever, MSSA bacteremia ESRD REC: AF: -Resume home Toprol XL -Continue Tele -INR goal 2-3, adjust coumadin 2. Fever/bacteremia: -Work up as per ID -TTE was negative for vegetation 3. Severe MR: -chronic, not a surgical candidate 4. HTN: -Add Toprol at home dose of 50mg daily. -Observe on tele Will follow
[2017-10-09] MEDS: METOPROLOL TARTRATE 5 MG/5 ML VIAL IVPUSH PRN ×2 (09:07→17:14)
--- NOTE | 2017-10-09 09:48 | PN ---
Progress Note, Physician Chief Complaint: ID Febrile once again 101 No distress Given Vancomcyin yesterday ESRD - Current Medication List Current Medications: Active Medications Acetaminophen (Tylenol -) 650 mg PO Q4H PRN PRN Reason: fever Last Admin: 10/09/17 05:43 Dose: 650 mg Albuterol/Ipratropium (Duoneb -) 1 amp NEB RQID [facility] Last Admin: 10/09/17 07:51 Dose: 1 amp Docusate Sodium (Colace -) 100 mg PO TID [facility] Last Admin: 10/09/17 05:39 Dose: Not Given Epoetin Francisco (Epogen -) 6,000 unit IVPUSH ONCE ONE Stop: 10/09/17 15:19 Metoprolol Succinate (Toprol Xl -) 50 mg PO DAILY [facility] Last Admin: 10/09/17 09:09 Dose: Not Given Metoprolol Tartrate (Lopressor Injection -) 5 mg IVPUSH Q4H PRN PRN Reason: HYPERTENSION Last Admin: 10/09/17 09:07 Dose: 5 mg Warfarin Sodium (Coumadin -) 5 mg PO MOWEFR@1800 [facility] Last Admin: 10/07/17 17:44 Dose: 5 mg - Objective Vital Signs: Vital Signs Temperature 101.1 F H 10/09/17 06:00 Pulse Rate 130 H 10/09/17 09:07 Respiratory Rate 19 10/09/17 06:00 Blood Pressure 147/80 10/09/17 09:07 O2 Sat by Pulse Oximetry (%) 100 10/08/17 21:00 Constitutional: Yes: No Distress Neck: Yes: WNL, Supple Cardiovascular: Yes: S1, S2. No: Murmur Respiratory: Yes: WNL, Regular, CTA Bilaterally Gastrointestinal: Yes: WNL, Normal Bowel Sounds, Soft. No: Tenderness, Tenderness, Epigastrium Edema: No Labs: CBC, BMP 10/07/17 06:35 10/07/17 06:35 INR, PTT INR 3.63 (0.82-1.09) H D 10/09/17 06:48 Problem List - Problems (1) Abdominal pain Code(s): R10.9 - UNSPECIFIED ABDOMINAL PAIN (2) ESRD (end stage renal disease) on dialysis Code(s): N18.6 - END STAGE RENAL DISEASE; Z99.2 - DEPENDENCE ON RENAL DIALYSIS (3) Pneumonia Code(s): J18.9 - PNEUMONIA, UNSPECIFIED ORGANISM Qualifiers: Pneumonia type: due to unspecified organism Laterality: right Lung location: lower lobe of lung Qualified Code(s): J18.1 - Lobar pneumonia, unspecified organism (4) Afib Code(s): I48.91 - UNSPECIFIED ATRIAL FIBRILLATION Qualifiers: Atrial fibrillation type: chronic Qualified Code(s): I48.2 - Chronic atrial fibrillation Assessment/Plan Microbiology 10/02/17 10:00 Blood - Peripheral Venous Blood Culture - Final Presumptive Mssa (Pbp2a Neg) 09/30/17 15:17 Blood - Peripheral Venous Blood Culture - Final Staphylococcus Aureus 09/30/17 15:17 Blood - Peripheral Venous Blood Culture - Final Presumptive Mssa (Pbp2a Neg) Laboratory Tests 10/02/17 10/09/17 06:30 06:48 ESR 54 H C-Reactive Protein 12.5 H Assessment Persistant MSSA bacteremia ? focu of infection includes 1. Infected thrombus right AVF 2.Large right effusion 3. Pacemaker Plan Check Vanco level today Redose if less then 10 -12 Repeat blood cultures Consider thoracentesis but on anaticoagulation ? NEISHA if bacateremia persists Mik LAMB
--- NOTE | 2017-10-09 10:18 | PN ---
Progress Note, FILL MANAGER - Note Progress Note: ID Assessment Persistant MSSA bacteremia ? focu of infection includes 1. Infected thrombus right AVF 2.Large right effusion 3. Pacemaker Pt on puree/nectar, however dislikes [place] thick liquid. Refused trial of Thin liquid during MBS. Bedside assessment with no overt signs of aspiration today with 3 oz water test. Pt says she is "alright with pureed food". Edentulous.Good vocal quality. CXR/Chest CT noted Selected Entries 10/08/17 10/08/17 10/08/17 02:00 04:03 06:00 Breakfast Lunch Supper Temperature 99.9 F H 99.4 F 99.6 F 10/08/17 10/08/17 10/08/17 08:30 12:54 12:56 Breakfast 50% Lunch 50% Supper Temperature 100 F H 100.1 F H 10/08/17 10/08/17 10/08/17 15:53 17:00 18:52 Breakfast Lunch Supper 50% Temperature 98.6 F 98.9 F 10/08/17 10/09/17 10/09/17 21:00 02:00 06:00 Breakfast Lunch Supper Temperature 98.9 F 100.1 F H 101.1 F H Suggest trial of thin liquid, ensure plus/magic cup as indicated. Continue pureed diet.
--- NOTE | 2017-10-09 10:54 | PN ---
Progress Note, Physician - Current Medication List Current Medications: Active Medications Acetaminophen (Tylenol -) 650 mg PO Q4H PRN PRN Reason: fever Last Admin: 10/09/17 05:43 Dose: 650 mg Albuterol/Ipratropium (Duoneb -) 1 amp NEB RQID [facility] Last Admin: 10/09/17 07:51 Dose: 1 amp Docusate Sodium (Colace -) 100 mg PO TID [facility] Last Admin: 10/09/17 05:39 Dose: Not Given Epoetin Francisco (Epogen -) 6,000 unit IVPUSH ONCE ONE Stop: 10/09/17 15:19 Metoprolol Succinate (Toprol Xl -) 50 mg PO DAILY [facility] Last Admin: 10/09/17 09:09 Dose: Not Given Metoprolol Tartrate (Lopressor Injection -) 5 mg IVPUSH Q4H PRN PRN Reason: HYPERTENSION Last Admin: 10/09/17 09:07 Dose: 5 mg Warfarin Sodium (Coumadin -) 5 mg PO MOWEFR@1800 [facility] Last Admin: 10/07/17 17:44 Dose: 5 mg - Objective Vital Signs: Vital Signs Temperature 101.1 F H 10/09/17 06:00 Pulse Rate 130 H 10/09/17 09:07 Respiratory Rate 19 10/09/17 06:00 Blood Pressure 147/80 10/09/17 09:07 O2 Sat by Pulse Oximetry (%) 100 10/08/17 21:00 Cardiovascular: Yes: S1, S2 Respiratory: Yes: Regular, CTA Bilaterally Gastrointestinal: Yes: Normal Bowel Sounds, Soft. No: Tenderness Labs: CBC, BMP 10/07/17 06:35 10/07/17 06:35 INR, PTT INR 3.63 (0.82-1.09) H D 10/09/17 06:48 Assessment/Plan - Problems (1) Abdominal pain Assessment/Plan: RESOLVED CT SCAN-- REPEAT--EFFUSION Code(s): R10.9 - UNSPECIFIED ABDOMINAL PAIN (2) ESRD (end stage renal disease) on dialysis Assessment/Plan: HD per renal fistula is patent and thrombosed pseudoaneurysm noted on arm duplex Code(s): N18.6 - END STAGE RENAL DISEASE; Z99.2 - DEPENDENCE ON RENAL DIALYSIS (3) Afib Assessment/Plan: toprol and Coumadin monitor INR Code(s): I48.91 - UNSPECIFIED ATRIAL FIBRILLATION Qualifiers: Atrial fibrillation type: chronic Qualified Code(s): I48.2 - Chronic atrial fibrillation (4) Pleural effusion--Pneumonia Assessment/Plan: - abx per id --cxr with congestion--ct scan noted -swaloow eval--mbs noted (5) Positive blood culture Assessment/Plan: gram postive cocci cluster per ID note stop flagyl and aztreonam vanco renal dose--on dc cefazolin id on board low grade fever--id follow up noted--ct scan mod effusion--for dialysis today Code(s): R78.81 - BACTEREMIA
--- NOTE | 2017-10-09 11:53 | PN ---
Progress Note, Physician History of Present Illness: PULMONARY ALERT,COMFORTABLE,-RESP DISTRESS,FEBRILE T 101.I - Current Medication List Current Medications: Active Medications Acetaminophen (Tylenol -) 650 mg PO Q4H PRN PRN Reason: fever Last Admin: 10/09/17 05:43 Dose: 650 mg Albuterol/Ipratropium (Duoneb -) 1 amp NEB RQID [facility] Last Admin: 10/09/17 11:04 Dose: 1 amp Docusate Sodium (Colace -) 100 mg PO TID [facility] Last Admin: 10/09/17 05:39 Dose: Not Given Epoetin Francisco (Epogen -) 6,000 unit IVPUSH ONCE ONE Stop: 10/09/17 15:19 Metoprolol Succinate (Toprol Xl -) 50 mg PO DAILY [facility] Last Admin: 10/09/17 09:09 Dose: Not Given Metoprolol Tartrate (Lopressor Injection -) 5 mg IVPUSH Q4H PRN PRN Reason: HYPERTENSION Last Admin: 10/09/17 09:07 Dose: 5 mg Warfarin Sodium (Coumadin -) 5 mg PO MOWEFR@1800 [facility] Last Admin: 10/07/17 17:44 Dose: 5 mg - Objective Vital Signs: Vital Signs Temperature 101.1 F H 10/09/17 06:00 Pulse Rate 130 H 10/09/17 09:07 Respiratory Rate 19 10/09/17 06:00 Blood Pressure 147/80 10/09/17 09:07 O2 Sat by Pulse Oximetry (%) 100 10/08/17 21:00 Constitutional: Yes: Well Nourished, Calm Eyes: Yes: WNL HENT: Yes: WNL Neck: Yes: WNL Cardiovascular: Yes: Pulse Irregular, S1, S2 Respiratory: Yes: Rhonchi (SCATTERED ELPIDIO RHONCHI) Gastrointestinal: Yes: Normal Bowel Sounds, Soft Extremities: Yes: WNL Edema: No Labs: INR, PTT INR 3.63 (0.82-1.09) H D 10/09/17 06:48 - ....Imaging Cat Scan: Report Reviewed, Image Reviewed Problem List - Problems (1) Abdominal pain Code(s): R10.9 - UNSPECIFIED ABDOMINAL PAIN (2) DVT prophylaxis Code(s): [id number] - (3) ESRD (end stage renal disease) on dialysis Code(s): N18.6 - END STAGE RENAL DISEASE; Z99.2 - DEPENDENCE ON RENAL DIALYSIS (4) Pleural effusion Code(s): J90 - PLEURAL EFFUSION, NOT ELSEWHERE CLASSIFIED (5) Pneumonia Code(s): J18.9 - PNEUMONIA, UNSPECIFIED ORGANISM Qualifiers: Pneumonia type: due to unspecified organism Laterality: right Lung location: lower lobe of lung Qualified Code(s): J18.1 - Lobar pneumonia, unspecified organism (6) Afib Code(s): I48.91 - UNSPECIFIED ATRIAL FIBRILLATION Qualifiers: Atrial fibrillation type: chronic Qualified Code(s): I48.2 - Chronic atrial fibrillation (7) Anemia Code(s): D64.9 - ANEMIA, UNSPECIFIED Qualifiers: Anemia type: unspecified type Qualified Code(s): D64.9 - Anemia, unspecified (8) Chronic atrial fibrillation Code(s): I48.2 - CHRONIC ATRIAL FIBRILLATION (9) Cough Code(s): R05 - COUGH (10) Diastolic CHF due to valvular disease Code(s): I38 - ENDOCARDITIS, VALVE UNSPECIFIED; I50.30 - UNSPECIFIED DIASTOLIC ( CONGESTIVE) HEART FAILURE (11) Hypertension Code(s): I10 - ESSENTIAL (PRIMARY) HYPERTENSION Qualifiers: Hypertension type: essential hypertension Qualified Code(s): I10 - Essential (primary) hypertension (12) Positive blood culture Code(s): R78.81 - BACTEREMIA Assessment/Plan IMP CHF ESRD ON HD COUGH RML INFILTRATE BACTEREMIA MSSA BILATERAL PLEURAL EFFUSIONS AFIB S/P PPM HLD HTN PLAN HD PER RENAL O2 INHALED BRONCHODILATORS ABX PER ID ANTITUSSIVES F/U CHEST X-RAY CONSIDER THORACENTESIS IF PT REMAINS FEBRILE DR RED Problem List - Problems (1) Abdominal pain Code(s): R10.9 - UNSPECIFIED ABDOMINAL PAIN (2) DVT prophylaxis Code(s): [id number] - (3) ESRD (end stage renal disease) on dialysis Code(s): N18.6 - END STAGE RENAL DISEASE; Z99.2 - DEPENDENCE ON RENAL DIALYSIS (4) Pleural effusion Code(s): J90 - PLEURAL EFFUSION, NOT ELSEWHERE CLASSIFIED (5) Pneumonia Code(s): J18.9 - PNEUMONIA, UNSPECIFIED ORGANISM Qualifiers: Pneumonia type: due to unspecified organism Laterality: right Lung location: lower lobe of lung Qualified Code(s): J18.1 - Lobar pneumonia, unspecified organism (6) Afib Code(s): I48.91 - UNSPECIFIED ATRIAL FIBRILLATION Qualifiers: Atrial fibrillation type: chronic Qualified Code(s): I48.2 - Chronic atrial fibrillation (7) Anemia Code(s): D64.9 - ANEMIA, UNSPECIFIED Qualifiers: Anemia type: unspecified type Qualified Code(s): D64.9 - Anemia, unspecified (8) Chronic atrial fibrillation Code(s): I48.2 - CHRONIC ATRIAL FIBRILLATION (9) Cough Code(s): R05 - COUGH (10) Diastolic CHF due to valvular disease Code(s): I38 - ENDOCARDITIS, VALVE UNSPECIFIED; I50.30 - UNSPECIFIED DIASTOLIC ( CONGESTIVE) HEART FAILURE (11) Hypertension Code(s): I10 - ESSENTIAL (PRIMARY) HYPERTENSION Qualifiers: Hypertension type: essential hypertension Qualified Code(s): I10 - Essential (primary) hypertension (12) Positive blood culture Code(s): R78.81 - BACTEREMIA
[2017-10-09] MEDS ORDERED: EPOETIN ALFA 3,000 UNIT/1 ML ML IVPUSH ONE (13:30)
[2017-10-09 13:58] LABS: HEMATOCRIT 25.6 % (32.4-45.2); HEMOGLOBIN 8.4 GM/dL (10.7-15.3); MCHC 32.6 g/dl (32.0-36.0); MEAN PLT VOLUME 8.3 fl (7.5-11.1); PLATELET COUNT 191 K/MM3 (134-434); RDW 16.1 % (11.6-15.6); WHITE BLOOD COUNT 7.1 K/mm3 (4.0-10.0)
[2017-10-09 14:17] LABS: ANION GAP 7 (8-16); BLOOD UREA NITROGEN 13 mg/dL (7-18); CALCIUM 7.8 mg/dL (8.5-10.1); CHLORIDE 96 mmol/L (98-107); CO2 32 mmol/L (21-32); CREATININE 3.1 mg/dL (0.55-1.02); GLUCOSE,RANDOM 88 mg/dL (74-106); POTASSIUM 3.9 mmol/L (3.5-5.1); SODIUM 135 mmol/L (136-145)
--- NOTE | 2017-10-09 16:53 | PN ---
Progress Note, Physician History of Present Illness: Pt seen and examined at bedside. She is awake and alert. She denies shortness of breath. - Current Medication List Current Medications: Active Medications Acetaminophen (Tylenol -) 650 mg PO Q4H PRN PRN Reason: fever Last Admin: 10/09/17 05:43 Dose: 650 mg Albuterol/Ipratropium (Duoneb -) 1 amp NEB RQID [facility] Last Admin: 10/09/17 15:48 Dose: 1 amp Docusate Sodium (Colace -) 100 mg PO TID [facility] Last Admin: 10/09/17 14:06 Dose: Not Given Metoprolol Succinate (Toprol Xl -) 50 mg PO DAILY [facility] Last Admin: 10/09/17 09:09 Dose: Not Given Metoprolol Tartrate (Lopressor Injection -) 5 mg IVPUSH Q4H PRN PRN Reason: HYPERTENSION Last Admin: 10/09/17 09:07 Dose: 5 mg Warfarin Sodium (Coumadin -) 5 mg PO MOWEFR@1800 [facility] Last Admin: 10/07/17 17:44 Dose: 5 mg - Objective Vital Signs: Vital Signs Temperature 99.2 F 10/09/17 13:52 Pulse Rate 59 L 10/09/17 16:29 Respiratory Rate 18 10/09/17 16:29 Blood Pressure 141/83 10/09/17 16:29 O2 Sat by Pulse Oximetry (%) 100 10/08/17 21:00 Constitutional: Yes: Calm Eyes: Yes: Conjunctiva Clear HENT: Yes: Atraumatic Neck: Yes: Supple Cardiovascular: Yes: S1, S2 Respiratory: Yes: On Nasal O2 Gastrointestinal: Yes: Soft Genitourinary: Yes: Incontinence Musculoskeletal: Yes: WNL Edema: No Neurological: Yes: Oriented Psychiatric: Yes: Oriented Labs: CBC, BMP 10/09/17 13:10 10/09/17 13:10 INR, PTT INR 3.63 (0.82-1.09) H D 10/09/17 06:48 Problem List - Problems (1) ESRD (end stage renal disease) on dialysis Code(s): N18.6 - END STAGE RENAL DISEASE; Z99.2 - DEPENDENCE ON RENAL DIALYSIS (2) Pleural effusion Code(s): J90 - PLEURAL EFFUSION, NOT ELSEWHERE CLASSIFIED (3) Anemia Code(s): D64.9 - ANEMIA, UNSPECIFIED Qualifiers: Anemia type: unspecified type Qualified Code(s): D64.9 - Anemia, unspecified (4) Chronic atrial fibrillation Code(s): I48.2 - CHRONIC ATRIAL FIBRILLATION Assessment/Plan Current Medications Generic Name Dose Route Start Last Admin Trade Name Freq PRN Reason Stop Dose Admin Acetaminophen 650 mg 10/08/17 13:05 10/09/17 05:43 Tylenol - PO 650 mg Q4H PRN Administration fever Albuterol/Ipratropium 1 amp 10/05/17 12:00 10/09/17 15:48 Duoneb - NEB 1 amp RQID [facility] Administration Docusate Sodium 100 mg 10/07/17 14:00 10/09/17 14:06 Colace - PO Not Given TID [facility] Metoprolol Succinate 50 mg 10/09/17 09:15 10/09/17 09:09 Toprol Xl - PO Not Given DAILY [facility] Metoprolol Tartrate 5 mg 10/06/17 14:58 10/09/17 09:07 Lopressor Injection - IVPUSH 5 mg Q4H PRN Administration HYPERTENSION Warfarin Sodium 5 mg 10/02/17 18:00 10/07/17 17:44 Coumadin - PO 5 mg MOWEFR@1800 [facility] Administration Impression 1. esrd 2. constipation 3. abd pain 4. a-fib 5. htn 6. anemia 7. bacteremia 8. fever Plan - HD today - prelim repeat cultures negative - cont current meds - cont epogen - will follow Dr Dunham
[2017-10-09] MEDS: WARFARIN NA 5 MG TABLET (UD) PO SCH (17:14)
--- NOTE | 2017-10-09 17:24 | PN ---
Progress Note (short form) - Note Progress Note: Vascular Surgery CT of right arm ordered without contrast to rule out abscess. Pt has tendereness in the Right upper ext. Will follow Discussed with HANNA rome dO
[2017-10-10] MEDS: DOCUSATE SODIUM 100 MG CAPSULE (FP) PO SCH ×3 (05:48→22:01)
[2017-10-10] MEDS: ALBUTEROL SO4 2.5/IPRATROPIUM 0.5 INH SOL 3 ML VIAL.NEB. NEB SCH ×4 (07:25→20:50)
[2017-10-10] MEDS: ACETAMINOPHEN 325 MG TABLET (FP) PO PRN (09:08)
[2017-10-10 09:11] LABS: PROTHROMBIN TIME (PATIENT) 48.8 SEC (9.98-11.88)
[2017-10-10 09:19] LABS: INR 4.32 (0.82-1.09)
[2017-10-10] MEDS: METOPROLOL TARTRATE 5 MG/5 ML VIAL IVPUSH PRN ×2 (09:48→17:14)
--- NOTE | 2017-10-10 10:34 | PN ---
Progress Note, Physician History of Present Illness: seen and examined today in nad. tired, wants to sleep. no new complaints. states shes feeling better. - Current Medication List Current Medications: Active Medications Acetaminophen (Tylenol -) 650 mg PO Q4H PRN PRN Reason: fever Last Admin: 10/09/17 17:15 Dose: 650 mg Albuterol/Ipratropium (Duoneb -) 1 amp NEB RQID [facility] Last Admin: 10/10/17 07:25 Dose: 1 amp Docusate Sodium (Colace -) 100 mg PO TID [facility] Last Admin: 10/10/17 05:48 Dose: Not Given Metoprolol Succinate (Toprol Xl -) 50 mg PO DAILY [facility] Last Admin: 10/09/17 09:09 Dose: Not Given Metoprolol Tartrate (Lopressor Injection -) 5 mg IVPUSH Q4H PRN PRN Reason: HYPERTENSION Last Admin: 10/10/17 09:48 Dose: 5 mg Warfarin Sodium (Coumadin -) 5 mg PO MOWEFR@1800 [facility] Last Admin: 10/09/17 17:14 Dose: Not Given - Objective Vital Signs: Vital Signs Temperature 99.1 F 10/10/17 06:00 Pulse Rate 126 H 10/10/17 09:48 Respiratory Rate 18 10/10/17 09:00 Blood Pressure 132/98 10/10/17 09:48 O2 Sat by Pulse Oximetry (%) 100 10/10/17 09:00 Constitutional: Yes: No Distress, Calm Eyes: Yes: Conjunctiva Clear, EOM Intact, PERRL HENT: Yes: Atraumatic, Normocephalic Neck: Yes: Supple, Trachea Midline Cardiovascular: Yes: Tachycardia, Pulse Irregular, Murmur, S1, S2. No: Regular Rate and Rhythm, Bradycardia, Bruit, JVD, Gallop, Rub, S3, S4, Varicosities Respiratory: Yes: Regular, Diminished, On Nasal O2. No: Rales, Rhonchi, SOB, Wheezes Gastrointestinal: Yes: Normal Bowel Sounds, Soft. No: Distention, Tenderness Musculoskeletal: Yes: Muscle Weakness Edema: No Neurological: Yes: Alert, Oriented Psychiatric: Yes: Alert, Oriented Labs: CBC, BMP 10/09/17 13:10 10/09/17 13:10 INR, PTT INR 4.32 (0.82-1.09) H* 10/10/17 08:40 - ....Imaging Chest X-ray: Report Reviewed, Image Reviewed EKG: Report Reviewed, Image Reviewed Other: Report Reviewed, Image Reviewed (tele-Afib with RVR, NSVT 8beats) Assessment/Plan IMP: Permanent AF, with RVR now Fever, MSSA bacteremia ESRD REC: AF:with RVR -give this am Toprol XL 50mg daily then re-evaluate HR -IV Lopressor PRN -Continue Tele -INR goal 2-3, currently supratherapeutic adjust coumadin 2. Fever/bacteremia: -Work up as per ID -TTE did not show a vegetation 3. Severe MR: -chronic, not a surgical candidate 4. HTN: -Toprol as above then re-evaluate -Observe on tele
--- NOTE | 2017-10-10 14:46 | PN ---
Progress Note, Physician Chief Complaint: Pneumonia History of Present Illness: NAD seen by nephrology and pulmonary dialysis yesterday CXR shows no change - Current Medication List Current Medications: Active Medications Acetaminophen (Tylenol Suppository -) 650 mg [place] Q4H PRN PRN Reason: FEVER Albuterol/Ipratropium (Duoneb -) 1 amp NEB RQID [facility] Last Admin: 10/10/17 11:34 Dose: 1 amp Docusate Sodium (Colace -) 100 mg PO TID [facility] Last Admin: 10/10/17 05:48 Dose: Not Given Metoprolol Succinate (Toprol Xl -) 50 mg PO DAILY [facility] Last Admin: 10/10/17 10:38 Dose: Not Given Metoprolol Tartrate (Lopressor Injection -) 5 mg IVPUSH Q4H PRN PRN Reason: HYPERTENSION Last Admin: 10/10/17 09:48 Dose: 5 mg Warfarin Sodium (Coumadin -) 5 mg PO MOWEFR@1800 [facility] Last Admin: 10/09/17 17:14 Dose: Not Given - Objective Vital Signs: Vital Signs Temperature 99.6 F 10/10/17 10:00 Pulse Rate 124 H 10/10/17 13:55 Respiratory Rate 18 10/10/17 13:55 Blood Pressure 109/68 10/10/17 13:55 O2 Sat by Pulse Oximetry (%) 100 10/10/17 09:00 Constitutional: Yes: No Distress, Calm, Thin Cardiovascular: Yes: Pulse Irregular Respiratory: Yes: Regular Gastrointestinal: Yes: Normal Bowel Sounds, Soft Musculoskeletal: Yes: WNL Extremities: Yes: WNL Edema: No Peripheral Pulses WNL: Yes Neurological: Yes: Alert, Oriented Psychiatric: Yes: Alert, Oriented Labs: CBC, BMP 10/09/17 13:10 10/09/17 13:10 INR, PTT INR 4.32 (0.82-1.09) H* 10/10/17 08:40 Problem List - Problems (1) ESRD (end stage renal disease) on dialysis Assessment/Plan: dialysis yesterday -seen by Nephrology Code(s): N18.6 - END STAGE RENAL DISEASE; Z99.2 - DEPENDENCE ON RENAL DIALYSIS (2) Pleural effusion Assessment/Plan: -seen by Pulmonary -Repeat CXR shows no change -Thoracentesis? Code(s): J90 - PLEURAL EFFUSION, NOT ELSEWHERE CLASSIFIED (3) Afib Assessment/Plan: chronic -warfarin on hold for elevated INR -monitor daily PT/INR Code(s): I48.91 - UNSPECIFIED ATRIAL FIBRILLATION Qualifiers: Atrial fibrillation type: chronic Qualified Code(s): I48.2 - Chronic atrial fibrillation (4) Anemia Assessment/Plan: -2/2 CKD -check Iron profile -recheck B12, history of deficiency -normal transfusion parameters Code(s): D64.9 - ANEMIA, UNSPECIFIED Qualifiers: Anemia type: unspecified type Qualified Code(s): D64.9 - Anemia, unspecified Assessment/Plan see problem list
--- NOTE | 2017-10-10 15:00 | PN ---
Progress Note (short form) - Note Progress Note: covering dr alvarez Problems 1. esrd 2. constipation 3. abd pain 4. a-fib 5. htn 6. anemia 7. bacteremia 8. fever Active Medications Acetaminophen (Tylenol Suppository -) 650 mg [place] Q4H PRN PRN Reason: FEVER Albuterol/Ipratropium (Duoneb -) 1 amp NEB RQID [facility] Last Admin: 10/10/17 11:34 Dose: 1 amp Docusate Sodium (Colace -) 100 mg PO TID [facility] Last Admin: 10/10/17 05:48 Dose: Not Given Metoprolol Succinate (Toprol Xl -) 50 mg PO DAILY [facility] Last Admin: 10/10/17 10:38 Dose: Not Given Metoprolol Tartrate (Lopressor Injection -) 5 mg IVPUSH Q4H PRN PRN Reason: HYPERTENSION Last Admin: 10/10/17 09:48 Dose: 5 mg Warfarin Sodium (Coumadin -) 5 mg PO MOWEFR@1800 [facility] Last Admin: 10/09/17 17:14 Dose: Not Given Last Vital Signs Temp Pulse Resp BP Pulse Ox 99.6 F 124 H 18 109/68 100 10/10/17 10:00 10/10/17 13:55 10/10/17 13:55 10/10/17 13:55 10/10/17 09:00 CBC, BMP 10/09/17 13:10 10/09/17 13:10 Stable on dialysis
--- NOTE | 2017-10-10 15:29 | PN ---
Progress Note (short form) - Note Progress Note: PULMONARY Denies shortness of breath, cough or fevers. Last Vital Signs Temp Pulse Resp BP Pulse Ox 99.6 F 124 H 18 109/68 100 10/10/17 10:00 10/10/17 13:55 10/10/17 13:55 10/10/17 13:55 10/10/17 09:00 Gen: mildly tachypneic at rest Heart: tachycardic, irregular Lung: decreased breath sounds at the bases Abd: soft, nontender Ext: no edema CBC, BMP 10/09/17 13:10 10/09/17 13:10 Active Medications Acetaminophen (Tylenol Suppository -) 650 mg [place] Q4H PRN PRN Reason: FEVER Albuterol/Ipratropium (Duoneb -) 1 amp NEB RQID [facility] Last Admin: 10/10/17 11:34 Dose: 1 amp Docusate Sodium (Colace -) 100 mg PO TID [facility] Last Admin: 10/10/17 05:48 Dose: Not Given Metoprolol Succinate (Toprol Xl -) 50 mg PO DAILY [facility] Last Admin: 10/10/17 10:38 Dose: Not Given Metoprolol Tartrate (Lopressor Injection -) 5 mg IVPUSH Q4H PRN PRN Reason: HYPERTENSION Last Admin: 10/10/17 09:48 Dose: 5 mg Warfarin Sodium (Coumadin -) 5 mg PO MOWEFR@1800 [facility] Last Admin: 10/09/17 17:14 Dose: Not Given A/P Pneumonia Staph Bacteremia Sepsis Atrial Fibrillation with RVR ESRD on HD Pleural Effusions Mitral Regurgitation HTN Hyperlipidemia - continue antibiotics - HD per renal - inhaled bronchodilators as needed - rate control - continue anticoagulation - O2 to keep SpO2 >90%
--- NOTE | 2017-10-10 19:30 | PN ---
Progress Note, Physician History of Present Illness: Awake, alert No complaints of pain Denies R arm pain Temp overnight noted Drainage from R UE swelling reported. Culture sent - Current Medication List Current Medications: Active Medications Acetaminophen (Tylenol Suppository -) 650 mg [place] Q4H PRN PRN Reason: FEVER Albuterol/Ipratropium (Duoneb -) 1 amp NEB RQID [facility] Last Admin: 10/10/17 16:50 Dose: 1 amp Docusate Sodium (Colace -) 100 mg PO TID [facility] Last Admin: 10/10/17 17:16 Dose: Not Given Metoprolol Succinate (Toprol Xl -) 50 mg PO DAILY [facility] Last Admin: 10/10/17 10:38 Dose: Not Given Metoprolol Tartrate (Lopressor Injection -) 5 mg IVPUSH Q4H PRN PRN Reason: HYPERTENSION Last Admin: 10/10/17 17:14 Dose: 5 mg Warfarin Sodium (Coumadin -) 5 mg PO MOWEFR@1800 [facility] Last Admin: 10/09/17 17:14 Dose: Not Given - Objective Vital Signs: Vital Signs Temperature 98.9 F 10/10/17 17:00 Pulse Rate 133 H 10/10/17 17:14 Respiratory Rate 18 10/10/17 17:00 Blood Pressure 129/100 10/10/17 17:14 O2 Sat by Pulse Oximetry (%) 100 10/10/17 09:00 Constitutional: Yes: No Distress, Thin Eyes: Yes: Conjunctiva Clear Cardiovascular: Yes: Regular Rate and Rhythm, S1, S2 Respiratory: Yes: Diminished Gastrointestinal: Yes: Normal Bowel Sounds, Soft, Abdomen, Obese Edema: Yes Labs: CBC, BMP 10/09/17 13:10 10/09/17 13:10 INR, PTT INR 4.32 (0.82-1.09) H* 10/10/17 08:40 Assessment/Plan MSSA bacteremia Soft tissue abscess R UE ESRD Check vanco trough, redose accordingly Surgical follow up
[2017-10-10] MEDS: ACETAMINOPHEN 650 MG SUPP.RECT PR PRN (19:41)
[2017-10-11] MEDS: DOCUSATE SODIUM 100 MG CAPSULE (FP) PO SCH ×3 (05:28→22:03)
[2017-10-11] MEDS: ACETAMINOPHEN 650 MG SUPP.RECT PR PRN ×2 (06:24→13:32)
[2017-10-11] MEDS: ALBUTEROL SO4 2.5/IPRATROPIUM 0.5 INH SOL 3 ML VIAL.NEB. NEB SCH ×4 (07:46→20:00)
[2017-10-11 08:10] LABS: BASO % 0.2 % (0-2.0); EOS % 0.4 % (0-4.5); HEMOGLOBIN 9.4 GM/dL (10.7-15.3); MCH 31.1 pg (25.7-33.7); MCHC 32.4 g/dl (32.0-36.0); MEAN CELL VOLUME 95.9 fl (80-96); MEAN PLT VOLUME 8.1 fl (7.5-11.1); MONO % 13.8 % (3.8-10.2); NEUT % 77.6 % (42.8-82.8); PLATELET COUNT 229 K/MM3 (134-434); RBC 3.02 M/mm3 (3.60-5.2); RDW 16.2 % (11.6-15.6); WHITE BLOOD COUNT 7.3 K/mm3 (4.0-10.0)
[2017-10-11 08:21] LABS: INR 3.36 (0.82-1.09)
[2017-10-11 08:32] LABS: ALBUMIN 2.3 g/dl (3.4-5.0); ANION GAP 11 (8-16); BLOOD UREA NITROGEN 19 mg/dL (7-18); CALCIUM 8.4 mg/dL (8.5-10.1); CHLORIDE 97 mmol/L (98-107); CO2 30 mmol/L (21-32); GLUCOSE,RANDOM 68 mg/dL (74-106); POTASSIUM 4.4 mmol/L (3.5-5.1); SODIUM 138 mmol/L (136-145)
[2017-10-11 09:01] LABS: ALK PHOS 74 U/L (45-117); BILIRUBIN,TOTAL 0.5 mg/dL (0.2-1.0); CREATININE 3.9 mg/dL (0.55-1.02); SGOT/AST 11 U/L (15-37); SGPT/ALT < 6 U/L (12-78)
--- NOTE | 2017-10-11 10:28 | PN ---
Progress Note, Physician History of Present Illness: Awake, alert No complaints of pain Denies R arm pain Temp overnight noted BC +GPCCL 2/4 bottles - Current Medication List Current Medications: Active Medications Acetaminophen (Tylenol Suppository -) 650 mg [place] Q4H PRN PRN Reason: FEVER Last Admin: 10/11/17 06:24 Dose: 650 mg Albuterol/Ipratropium (Duoneb -) 1 amp NEB RQID [facility] Last Admin: 10/11/17 07:46 Dose: 1 amp Docusate Sodium (Colace -) 100 mg PO TID [facility] Last Admin: 10/11/17 05:28 Dose: Not Given Metoprolol Succinate (Toprol Xl -) 50 mg PO DAILY [facility] Last Admin: 10/11/17 09:39 Dose: 50 mg Metoprolol Tartrate (Lopressor Injection -) 5 mg IVPUSH Q4H PRN PRN Reason: HYPERTENSION Last Admin: 10/10/17 17:14 Dose: 5 mg Warfarin Sodium (Coumadin -) 5 mg PO MOWEFR@1800 [facility] Last Admin: 10/09/17 17:14 Dose: Not Given - Objective Vital Signs: Vital Signs Temperature 99.6 F 10/11/17 05:40 Pulse Rate 118 H 10/11/17 05:40 Respiratory Rate 18 10/11/17 05:40 Blood Pressure 126/90 10/11/17 05:40 O2 Sat by Pulse Oximetry (%) 100 10/10/17 21:00 Constitutional: Yes: No Distress Eyes: Yes: Conjunctiva Clear Cardiovascular: Yes: Regular Rate and Rhythm, S1, S2 Respiratory: Yes: CTA Bilaterally Gastrointestinal: Yes: Normal Bowel Sounds, Soft. No: Tenderness Extremities: Yes: Other (+large soft tissue swelling R UE above fistula) Edema: Yes Edema: LLE: 1+, RLE: 1+ Labs: CBC, BMP 10/11/17 06:48 10/11/17 06:48 INR, PTT INR 3.36 (0.82-1.09) H 10/11/17 06:48 Assessment/Plan MSSA bacteremia Soft tissue abscess R UE ESRD Check vanco trough, redose accordingly Surgical follow up
[2017-10-11] MEDS ORDERED: dilTIAZem HCL 50 MG/10 ML - 10 ML VIAL IVPUSH ONE (11:15)
[2017-10-11] MEDS ORDERED: VANCOMYCIN 1,000 MG in DEXTROSE 5%-WATER - 250 ML IVPB ONE (12:30)
--- NOTE | 2017-10-11 12:56 | PN ---
Progress Note, Physician History of Present Illness: seen and examined today in [facility]. found to have bacteremia. no new complaints. - Current Medication List Current Medications: Active Medications Acetaminophen (Tylenol Suppository -) 650 mg [place] Q4H PRN PRN Reason: FEVER Last Admin: 10/11/17 06:24 Dose: 650 mg Albuterol/Ipratropium (Duoneb -) 1 amp NEB RQID [facility] Last Admin: 10/11/17 11:45 Dose: 1 amp Docusate Sodium (Colace -) 100 mg PO TID [facility] Last Admin: 10/11/17 05:28 Dose: Not Given Vancomycin HCl 1,000 mg/ (Dextrose) 250 mls @ 200 mls/hr IVPB ONCE ONE Stop: 10/11/17 13:44 Metoprolol Succinate (Toprol Xl -) 50 mg PO DAILY [facility] Last Admin: 10/11/17 09:39 Dose: 50 mg Metoprolol Tartrate (Lopressor Injection -) 5 mg IVPUSH Q4H PRN PRN Reason: HYPERTENSION Last Admin: 10/10/17 17:14 Dose: 5 mg Warfarin Sodium (Coumadin -) 5 mg PO MOWEFR@1800 [facility] Last Admin: 10/09/17 17:14 Dose: Not Given - Objective Vital Signs: Vital Signs Temperature 98.8 F 10/11/17 10:00 Pulse Rate 120 H 10/11/17 10:00 Respiratory Rate 18 10/11/17 10:00 Blood Pressure 146/90 10/11/17 10:00 O2 Sat by Pulse Oximetry (%) 100 10/11/17 09:00 Constitutional: Yes: No Distress, Calm Eyes: Yes: Conjunctiva Clear, EOM Intact HENT: Yes: Normocephalic Neck: Yes: Supple Cardiovascular: Yes: Tachycardia, Pulse Irregular, Murmur, S1, S2. No: Bradycardia, Bruit, JVD, Gallop, Rub, S3, S4, Varicosities Respiratory: Yes: Regular, Diminished. No: Rales, Rhonchi, SOB, Wheezes Gastrointestinal: Yes: Normal Bowel Sounds, Soft. No: Distention, Tenderness Edema: No Neurological: Yes: Alert, Oriented Psychiatric: Yes: Alert, Oriented Labs: CBC, BMP 10/11/17 06:48 10/11/17 06:48 INR, PTT INR 3.36 (0.82-1.09) H 10/11/17 06:48 - ....Imaging Chest X-ray: Report Reviewed, Image Reviewed EKG: Report Reviewed, Image Reviewed Other: Report Reviewed, Image Reviewed (tele-AFib with RVR) Assessment/Plan IMP: Permanent AF, with RVR now Fever, MSSA bacteremia ESRD REC: AF:with RVR, most likely exacerbated by sepsis/fever -did not take her Toprol yesterday, as per report spit it out, but did receive Lopressor IV with no sig response in HR -took Toprol 50mg this am, no sig response -will give 1 dose cardizem IV today to see if responds and if she does will add po cardizem -Continue Tele -INR goal 2-3, adjust coumadin 2. Fever/bacteremia: -receiving Abx -TTE did not show a vegetation 3. Severe MR: -chronic, not a surgical candidate 4. HTN:variable, adequate for now -Toprol as above then re-evaluate -Observe on tele
[2017-10-11] MEDS: METOPROLOL TARTRATE 5 MG/5 ML VIAL IVPUSH PRN ×2 (13:35→18:37)
--- NOTE | 2017-10-11 13:59 | PN ---
Progress Note (short form) - Note Progress Note: PULMONARY Febrile and repeat blood cultures growing gram positive cocci. Denies shortness of breath but visibly tachypneic. Last Vital Signs Temp Pulse Resp BP Pulse Ox 99.6 F 124 H 18 109/68 100 10/10/17 10:00 10/10/17 13:55 10/10/17 13:55 10/10/17 13:55 10/10/17 09:00 Gen: tachypneic at rest Heart: tachycardic, irregular Lung: decreased breath sounds at the bases Abd: soft, nontender Ext: no edema CBC, BMP 10/11/17 06:48 10/11/17 06:48 Active Medications Acetaminophen (Tylenol Suppository -) 650 mg [place] Q4H PRN PRN Reason: FEVER Last Admin: 10/11/17 13:32 Dose: 650 mg Albuterol/Ipratropium (Duoneb -) 1 amp NEB RQID [facility] Last Admin: 10/11/17 11:45 Dose: 1 amp Docusate Sodium (Colace -) 100 mg PO TID [facility] Last Admin: 10/11/17 05:28 Dose: Not Given Metoprolol Succinate (Toprol Xl -) 50 mg PO BID [facility] Metoprolol Tartrate (Lopressor Injection -) 5 mg IVPUSH Q4H PRN PRN Reason: HYPERTENSION Last Admin: 10/11/17 13:35 Dose: 5 mg Warfarin Sodium (Coumadin -) 5 mg PO MOWEFR@1800 [facility] Last Admin: 10/09/17 17:14 Dose: Not Given A/P Pneumonia RUE Abscess Staph Bacteremia Sepsis Atrial Fibrillation with RVR ESRD on HD Pleural Effusions Mitral Regurgitation HTN Hyperlipidemia - continue antibiotics - f/u cultures - IVF bolsues as needed - HD per renal - inhaled bronchodilators as needed - rate control - continue anticoagulation - O2 to keep SpO2 >90%
--- NOTE | 2017-10-11 17:51 | PN ---
Progress Note, Physician Chief Complaint: Pneumonia History of Present Illness: NAD seen by nephrology and pulmonary dialysis yesterday family at bedside - Current Medication List Current Medications: Active Medications Acetaminophen (Tylenol Suppository -) 650 mg [place] Q4H PRN PRN Reason: FEVER Last Admin: 10/11/17 13:32 Dose: 650 mg Albuterol/Ipratropium (Duoneb -) 1 amp NEB RQID [facility] Last Admin: 10/11/17 16:25 Dose: 1 amp Docusate Sodium (Colace -) 100 mg PO TID [facility] Last Admin: 10/11/17 14:35 Dose: 100 mg Metoprolol Succinate (Toprol Xl -) 50 mg PO BID [facility] Metoprolol Tartrate (Lopressor Injection -) 5 mg IVPUSH Q4H PRN PRN Reason: HYPERTENSION Last Admin: 10/11/17 13:35 Dose: 5 mg Warfarin Sodium (Coumadin -) 5 mg PO MOWEFR@1800 [facility] Last Admin: 10/09/17 17:14 Dose: Not Given - Objective Vital Signs: Vital Signs Temperature 100.6 F H 10/11/17 14:00 Pulse Rate 132 H 10/11/17 14:00 Respiratory Rate 18 10/11/17 14:00 Blood Pressure 143/85 10/11/17 14:00 O2 Sat by Pulse Oximetry (%) 100 10/11/17 09:00 Constitutional: Yes: No Distress, Calm, Thin Cardiovascular: Yes: Pulse Irregular Respiratory: Yes: Regular Musculoskeletal: Yes: WNL Extremities: Yes: WNL Neurological: Yes: Alert, Oriented Psychiatric: Yes: Alert, Oriented Labs: CBC, BMP 10/11/17 06:48 10/11/17 06:48 INR, PTT INR 3.36 (0.82-1.09) H 10/11/17 06:48 Problem List - Problems (1) ESRD (end stage renal disease) on dialysis Assessment/Plan: on dialysis -seen by Nephrology Code(s): N18.6 - END STAGE RENAL DISEASE; Z99.2 - DEPENDENCE ON RENAL DIALYSIS (2) Pleural effusion Assessment/Plan: -seen by Pulmonary -Repeat CXR shows no change Code(s): J90 - PLEURAL EFFUSION, NOT ELSEWHERE CLASSIFIED (3) Afib Assessment/Plan: chronic -warfarin on hold for elevated INR -monitor daily PT/INR Code(s): I48.91 - UNSPECIFIED ATRIAL FIBRILLATION Qualifiers: Atrial fibrillation type: chronic Qualified Code(s): I48.2 - Chronic atrial fibrillation (4) Anemia Assessment/Plan: -2/2 CKD -check Iron profile -recheck B12, history of deficiency -normal transfusion parameters Code(s): D64.9 - ANEMIA, UNSPECIFIED Qualifiers: Anemia type: unspecified type Qualified Code(s): D64.9 - Anemia, unspecified Assessment/Plan see problem list
--- NOTE | 2017-10-11 20:24 | PN ---
Progress Note (short form) - Note Progress Note: covering dr alvarez Problems 1. esrd 2. constipation 3. abd pain 4. a-fib 5. htn 6. anemia 7. bacteremia 8. fever Current Medications Acetaminophen (Tylenol Suppository -) 650 mg [place] Q4H PRN PRN Reason: FEVER Last Admin: 10/11/17 13:32 Dose: 650 mg Albuterol/Ipratropium (Duoneb -) 1 amp NEB RQID [facility] Last Admin: 10/11/17 16:25 Dose: 1 amp Docusate Sodium (Colace -) 100 mg PO TID [facility] Last Admin: 10/11/17 14:35 Dose: 100 mg Metoprolol Succinate (Toprol Xl -) 50 mg PO BID [facility] Metoprolol Tartrate (Lopressor Injection -) 5 mg IVPUSH Q4H PRN PRN Reason: HYPERTENSION Last Admin: 10/11/17 18:37 Dose: 5 mg Warfarin Sodium (Coumadin -) 5 mg PO MOWEFR@1800 [facility] Last Admin: 10/09/17 17:14 Dose: Not Given Last Vital Signs Temp Pulse Resp BP Pulse Ox 99.1 F 135 H 18 115/73 100 10/11/17 17:00 10/11/17 18:37 10/11/17 17:00 10/11/17 18:37 10/11/17 09:00 sleeping afebrile Lungs clear Heart reg abd soft ext no edema CBC, BMP 10/11/17 06:48 10/11/17 06:48 IMP- ESRD Stable on dialysis
[2017-10-11] MEDS ORDERED: PT OWN MED DRAWER 7, Y5N ONE (23:30)
[2017-10-12] MEDS: ACETAMINOPHEN 650 MG SUPP.RECT PR PRN ×2 (01:43→14:19)
[2017-10-12] MEDS: METOPROLOL TARTRATE 5 MG/5 ML VIAL IVPUSH PRN (01:57)
[2017-10-12] MEDS: DOCUSATE SODIUM 100 MG CAPSULE (FP) PO SCH ×3 (05:12→22:49)
[2017-10-12 07:13] LABS: BASO % 0.8 % (0-2.0); EOS % 0.2 % (0-4.5); HEMATOCRIT 30.3 % (32.4-45.2); HEMOGLOBIN 9.8 GM/dL (10.7-15.3); LYMPH % 6.6 % (8-40); MCH 30.9 pg (25.7-33.7); MCHC 32.2 g/dl (32.0-36.0); MEAN CELL VOLUME 95.9 fl (80-96); MEAN PLT VOLUME 8.1 fl (7.5-11.1); MONO % 12.5 % (3.8-10.2); NEUT % 79.9 % (42.8-82.8); PLATELET COUNT 258 K/MM3 (134-434); RBC 3.16 M/mm3 (3.60-5.2); RDW 16.6 % (11.6-15.6); WHITE BLOOD COUNT 8.2 K/mm3 (4.0-10.0)
[2017-10-12 07:20] LABS: INR 3.02 (0.82-1.09); PROTHROMBIN TIME (PATIENT) 34.1 SEC (9.98-11.88)
[2017-10-12] MEDS: ALBUTEROL SO4 2.5/IPRATROPIUM 0.5 INH SOL 3 ML VIAL.NEB. NEB SCH ×4 (07:40→20:30)
[2017-10-12 07:46] LABS: ALBUMIN 2.4 g/dl (3.4-5.0); ANION GAP 10 (8-16); BILIRUBIN,TOTAL 0.5 mg/dL (0.2-1.0); BLOOD UREA NITROGEN 28 mg/dL (7-18); CALCIUM 8.4 mg/dL (8.5-10.1); CHLORIDE 93 mmol/L (98-107); CO2 30 mmol/L (21-32); CREATININE 4.9 mg/dL (0.55-1.02); GLUCOSE,RANDOM 97 mg/dL (74-106); POTASSIUM 4.7 mmol/L (3.5-5.1); SGOT/AST 15 U/L (15-37); SGPT/ALT 7 U/L (12-78); SODIUM 133 mmol/L (136-145); TOT PROT 8.6 g/dl (6.4-8.2)
[2017-10-12 07:47] LABS: ALK PHOS 73 U/L (45-117)
--- NOTE | 2017-10-12 08:30 | PN ---
Progress Note, Physician Chief Complaint: ID Patient now 13 days inpatient. Remains febrile above 102 Getting Vancomycin Complains of abd pains today Appears in no distress Her appetite poor per her daughter - Current Medication List Current Medications: Active Medications Acetaminophen (Tylenol Suppository -) 650 mg [place] Q4H PRN PRN Reason: FEVER Last Admin: 10/12/17 01:43 Dose: 650 mg Albuterol/Ipratropium (Duoneb -) 1 amp NEB RQID [facility] Last Admin: 10/11/17 20:00 Dose: 1 amp Docusate Sodium (Colace -) 100 mg PO TID [facility] Last Admin: 10/12/17 05:12 Dose: Not Given Metoprolol Succinate (Toprol Xl -) 50 mg PO BID [facility] Last Admin: 10/11/17 21:44 Dose: 50 mg Metoprolol Tartrate (Lopressor Injection -) 5 mg IVPUSH Q4H PRN PRN Reason: HYPERTENSION Last Admin: 10/12/17 01:57 Dose: 5 mg - Objective Vital Signs: Vital Signs Temperature 98.7 F 10/12/17 06:00 Pulse Rate 109 H 10/12/17 06:00 Respiratory Rate 20 10/12/17 06:00 Blood Pressure 129/93 10/12/17 06:00 O2 Sat by Pulse Oximetry (%) 99 10/11/17 20:00 Constitutional: Yes: No Distress Cardiovascular: Yes: S1, S2 Respiratory: Yes: WNL, Regular, CTA Bilaterally Gastrointestinal: Yes: Soft. No: Tenderness, Tenderness, Epigastrium Extremities: Yes: Other (right arm AVF) Labs: CBC, BMP 10/12/17 06:45 INR, PTT INR 3.02 (0.82-1.09) H 10/12/17 06:45 Problem List - Problems (1) Abdominal pain Code(s): R10.9 - UNSPECIFIED ABDOMINAL PAIN (2) ESRD (end stage renal disease) on dialysis Code(s): N18.6 - END STAGE RENAL DISEASE; Z99.2 - DEPENDENCE ON RENAL DIALYSIS (3) Pneumonia Code(s): J18.9 - PNEUMONIA, UNSPECIFIED ORGANISM Qualifiers: Pneumonia type: due to unspecified organism Laterality: right Lung location: lower lobe of lung Qualified Code(s): J18.1 - Lobar pneumonia, unspecified organism (4) Afib Code(s): I48.91 - UNSPECIFIED ATRIAL FIBRILLATION Qualifiers: Atrial fibrillation type: chronic Qualified Code(s): I48.2 - Chronic atrial fibrillation Assessment/Plan Laboratory Tests 10/09/17 10/11/17 10/11/17 10:10 06:48 06:48 WBC 7.3 RBC 3.02 L Hct 29.0 L Plt Count 229 Random Vancomycin 25.484 17.504 Assessment Persistent MSSA bacteremia despite therapeutic drug levels suggesting metastatic focus of infection Possibilities include : 1. Endocarditis 2. Infection of the pacemaker 3. Infected pleural effusion 4. Infected pseud aneurysm with thrombosis Plan Repeat blood cultures on dialysis Thoracentesis Cardiology evaluation for NEISHA Houser MD
--- NOTE | 2017-10-12 10:58 | PN ---
Progress Note, Physician History of Present Illness: seen and examined today in nad. starting HD. - Current Medication List Current Medications: Active Medications Acetaminophen (Tylenol Suppository -) 650 mg [place] Q4H PRN PRN Reason: FEVER Last Admin: 10/12/17 01:43 Dose: 650 mg Albuterol/Ipratropium (Duoneb -) 1 amp NEB RQID [facility] Last Admin: 10/12/17 07:40 Dose: 1 amp Docusate Sodium (Colace -) 100 mg PO TID [facility] Last Admin: 10/12/17 05:12 Dose: Not Given Metoprolol Succinate (Toprol Xl -) 50 mg PO BID [facility] Last Admin: 10/12/17 09:59 Dose: Not Given Metoprolol Tartrate (Lopressor Injection -) 5 mg IVPUSH Q4H PRN PRN Reason: HYPERTENSION Last Admin: 10/12/17 01:57 Dose: 5 mg - Objective Vital Signs: Vital Signs Temperature 98.6 F 10/12/17 10:10 Pulse Rate 82 10/12/17 10:45 Respiratory Rate 18 10/12/17 10:45 Blood Pressure 98/75 10/12/17 10:45 O2 Sat by Pulse Oximetry (%) 99 10/11/17 20:00 Constitutional: Yes: No Distress, Calm Eyes: Yes: Conjunctiva Clear HENT: Yes: Atraumatic, Normocephalic Cardiovascular: Yes: Tachycardia, Pulse Irregular, Murmur, S1, S2. No: Regular Rate and Rhythm, Bradycardia, Bruit, JVD, Gallop, Rub, S3, S4, Varicosities, Other Respiratory: Yes: Regular, Diminished. No: Rales, Rhonchi, SOB, Wheezes Gastrointestinal: Yes: Normal Bowel Sounds, Soft. No: Distention, Tenderness Edema: Yes Neurological: Yes: Alert, Oriented Psychiatric: Yes: Alert, Oriented Labs: CBC, BMP 10/12/17 06:45 10/12/17 06:45 INR, PTT INR 3.02 (0.82-1.09) H 10/12/17 06:45 - ....Imaging Chest X-ray: Report Reviewed, Image Reviewed EKG: Report Reviewed, Image Reviewed Other: Report Reviewed, Image Reviewed (tele-AFib with RVR) Assessment/Plan IMP: Permanent AF, with RVR now Fever, MSSA bacteremia ESRD REC: AF:with RVR, most likely exacerbated by sepsis/fever -pt is septic and intermittently febrile, will be difficult to control HR until sepsis improves and increasing AV boston blockers will likely precipitate hypotensive episodes -cont Toprol at current dose, held prior to HD due to relative hypotension, attempt to give dose after HD -Continue Tele -INR goal 2-3, adjust coumadin 2. Fever/bacteremia: -receiving Abx -TTE did not show a vegetation -if no other source of bacteremia is found will perform NEISHA to evaluate for endocarditis and vegetation on device wire. Discussed this with pts daughter today, she would require anesthesia for the procedure and may need to be intubated 3. Severe MR: -chronic, not a surgical candidate 4. HTN:variable, adequate for now -Toprol as above then re-evaluate -Observe on tele
--- NOTE | 2017-10-12 12:30 | PN ---
Progress Note, Physician History of Present Illness: pulmonary awake,nad,on dialysis, tmax 102.3 - Current Medication List Current Medications: Active Medications Acetaminophen (Tylenol Suppository -) 650 mg OR Q4H PRN PRN Reason: FEVER Last Admin: 10/12/17 01:43 Dose: 650 mg Albuterol/Ipratropium (Duoneb -) 1 amp NEB RQID [facility] Last Admin: 10/12/17 11:35 Dose: 1 amp Docusate Sodium (Colace -) 100 mg PO TID [facility] Last Admin: 10/12/17 05:12 Dose: Not Given Metoprolol Succinate (Toprol Xl -) 50 mg PO BID [facility] Last Admin: 10/12/17 09:59 Dose: Not Given Metoprolol Tartrate (Lopressor Injection -) 5 mg IVPUSH Q4H PRN PRN Reason: HYPERTENSION Last Admin: 10/12/17 01:57 Dose: 5 mg - Objective Vital Signs: Vital Signs Temperature 98.6 F 10/12/17 10:10 Pulse Rate 112 H 10/12/17 12:15 Respiratory Rate 18 10/12/17 12:15 Blood Pressure 96/75 10/12/17 12:15 O2 Sat by Pulse Oximetry (%) 99 10/12/17 09:00 Constitutional: Yes: Well Nourished, Calm Eyes: Yes: WNL HENT: Yes: WNL Neck: Yes: WNL Cardiovascular: Yes: Pulse Irregular, S1, S2 Respiratory: Yes: Diminished Gastrointestinal: Yes: Normal Bowel Sounds, Soft Extremities: Yes: WNL Edema: No Labs: CBC, BMP 10/12/17 06:45 10/12/17 06:45 INR, PTT INR 3.02 (0.82-1.09) H 10/12/17 06:45 Problem List - Problems (1) Abdominal pain Code(s): R10.9 - UNSPECIFIED ABDOMINAL PAIN (2) DVT prophylaxis Code(s): [id number] - (3) ESRD (end stage renal disease) on dialysis Code(s): N18.6 - END STAGE RENAL DISEASE; Z99.2 - DEPENDENCE ON RENAL DIALYSIS (4) Pleural effusion Code(s): J90 - PLEURAL EFFUSION, NOT ELSEWHERE CLASSIFIED (5) Pneumonia Code(s): J18.9 - PNEUMONIA, UNSPECIFIED ORGANISM Qualifiers: Pneumonia type: due to unspecified organism Laterality: right Lung location: lower lobe of lung Qualified Code(s): J18.1 - Lobar pneumonia, unspecified organism (6) Afib Code(s): I48.91 - UNSPECIFIED ATRIAL FIBRILLATION Qualifiers: Atrial fibrillation type: chronic Qualified Code(s): I48.2 - Chronic atrial fibrillation (7) Anemia Code(s): D64.9 - ANEMIA, UNSPECIFIED Qualifiers: Anemia type: unspecified type Qualified Code(s): D64.9 - Anemia, unspecified (8) Chronic atrial fibrillation Code(s): I48.2 - CHRONIC ATRIAL FIBRILLATION (9) Cough Code(s): R05 - COUGH (10) Diastolic CHF due to valvular disease Code(s): I38 - ENDOCARDITIS, VALVE UNSPECIFIED; I50.30 - UNSPECIFIED DIASTOLIC ( CONGESTIVE) HEART FAILURE (11) Hypertension Code(s): I10 - ESSENTIAL (PRIMARY) HYPERTENSION Qualifiers: Hypertension type: essential hypertension Qualified Code(s): I10 - Essential (primary) hypertension (12) Positive blood culture Code(s): R78.81 - BACTEREMIA Assessment/Plan IMP CHF ESRD ON HD COUGH RML INFILTRATE BACTEREMIA MSSA BILATERAL PLEURAL EFFUSIONS AFIB S/P PPM HLD HTN PLAN HD PER RENAL O2 INHALED BRONCHODILATORS ABX PER ID ANTITUSSIVES F/U CHEST X-RAY THORACENTESIS ECHO DR RED Problem List - Problems (1) Abdominal pain Code(s): R10.9 - UNSPECIFIED ABDOMINAL PAIN (2) DVT prophylaxis Code(s): [id number] - (3) ESRD (end stage renal disease) on dialysis Code(s): N18.6 - END STAGE RENAL DISEASE; Z99.2 - DEPENDENCE ON RENAL DIALYSIS (4) Pleural effusion Code(s): J90 - PLEURAL EFFUSION, NOT ELSEWHERE CLASSIFIED (5) Pneumonia Code(s): J18.9 - PNEUMONIA, UNSPECIFIED ORGANISM Qualifiers: Pneumonia type: due to unspecified organism Laterality: right Lung location: lower lobe of lung Qualified Code(s): J18.1 - Lobar pneumonia, unspecified organism (6) Afib Code(s): I48.91 - UNSPECIFIED ATRIAL FIBRILLATION Qualifiers: Atrial fibrillation type: chronic Qualified Code(s): I48.2 - Chronic atrial fibrillation (7) Anemia Code(s): D64.9 - ANEMIA, UNSPECIFIED Qualifiers: Anemia type: unspecified type Qualified Code(s): D64.9 - Anemia, unspecified (8) Chronic atrial fibrillation Code(s): I48.2 - CHRONIC ATRIAL FIBRILLATION (9) Cough Code(s): R05 - COUGH (10) Diastolic CHF due to valvular disease Code(s): I38 - ENDOCARDITIS, VALVE UNSPECIFIED; I50.30 - UNSPECIFIED DIASTOLIC ( CONGESTIVE) HEART FAILURE (11) Hypertension Code(s): I10 - ESSENTIAL (PRIMARY) HYPERTENSION Qualifiers: Hypertension type: essential hypertension Qualified Code(s): I10 - Essential (primary) hypertension (12) Positive blood culture Code(s): R78.81 - BACTEREMIA
--- NOTE | 2017-10-12 14:17 | PN ---
Progress Note, [employer] - Note Progress Note: Selected Entries 10/10/17 10/10/17 10/10/17 02:00 06:00 10:00 Breakfast Supper Temperature 98.9 F 99.1 F 99.6 F 10/10/17 10/10/17 10/10/17 17:00 20:44 23:00 Breakfast Supper Temperature 98.9 F 101.3 F H 99.4 F 10/11/17 10/11/17 10/11/17 02:00 05:40 10:00 Breakfast Supper Temperature 98.9 F 99.6 F 98.8 F 10/11/17 10/11/17 10/11/17 11:06 14:00 17:00 Breakfast 25% Supper Temperature 100.6 F H 99.1 F 10/11/17 10/11/17 10/12/17 18:52 20:00 02:15 Breakfast Supper 25% Temperature 99.4 F 102.3 F H 10/12/17 10/12/17 10/12/17 06:00 10:00 10:10 Breakfast Supper Temperature 98.7 F 97.6 F 98.6 F Laboratory Tests 10/12/17 06:45 WBC 8.2 Pt dislikes the food, eating breakfast this am for her daughter but not lunch. Suggest: trial of thin liquid, ensure plus/magic cup as indicated. Trial of Dys chopped, with 1-2 soft, moist, easy to chew foods.
--- NOTE | 2017-10-12 16:03 | PN ---
Progress Note, Physician Chief Complaint: RETURNED FROM CT SCAN +PLEURAL EFFUSION GRAFT NOT VIEWED - Current Medication List Current Medications: Active Medications Acetaminophen (Tylenol Suppository -) 650 mg [place] Q4H PRN PRN Reason: FEVER Last Admin: 10/12/17 14:19 Dose: 650 mg Albuterol/Ipratropium (Duoneb -) 1 amp NEB RQID [facility] Last Admin: 10/12/17 15:49 Dose: 1 amp Docusate Sodium (Colace -) 100 mg PO TID [facility] Last Admin: 10/12/17 14:17 Dose: Not Given Metoprolol Succinate (Toprol Xl -) 50 mg PO BID [facility] Last Admin: 10/12/17 14:29 Dose: 50 mg Metoprolol Tartrate (Lopressor Injection -) 5 mg IVPUSH Q4H PRN PRN Reason: HYPERTENSION Last Admin: 10/12/17 01:57 Dose: 5 mg - Objective Vital Signs: Vital Signs Temperature 97.7 F 10/12/17 14:00 Pulse Rate 125 H 10/12/17 14:00 Respiratory Rate 20 10/12/17 14:00 Blood Pressure 139/85 10/12/17 14:00 O2 Sat by Pulse Oximetry (%) 99 10/12/17 09:00 Constitutional: Yes: Mild Distress Eyes: Yes: WNL HENT: Yes: WNL Neck: Yes: WNL Cardiovascular: Yes: WNL Respiratory: Yes: Diminished, On Nasal O2 Gastrointestinal: Yes: WNL Genitourinary: Yes: Other Musculoskeletal: Yes: Muscle Weakness Extremities: Yes: Other Edema: Yes Peripheral Pulses WNL: Yes Wound/Incision: Yes: Dressing Dry and Intact Neurological: Yes: Other ...Motor Strength: LLE, RLE Psychiatric: Yes: Other Labs: CBC, BMP 10/12/17 06:45 10/12/17 06:45 INR, PTT INR 3.02 (0.82-1.09) H 10/12/17 06:45 Problem List - Problems (1) Abdominal pain Code(s): R10.9 - UNSPECIFIED ABDOMINAL PAIN (2) DVT prophylaxis Code(s): [id number] - (3) ESRD (end stage renal disease) on dialysis Code(s): N18.6 - END STAGE RENAL DISEASE; Z99.2 - DEPENDENCE ON RENAL DIALYSIS (4) Irritable bowel syndrome (IBS) Code(s): K58.9 - IRRITABLE BOWEL SYNDROME WITHOUT DIARRHEA (5) Pneumonia Code(s): J18.9 - PNEUMONIA, UNSPECIFIED ORGANISM Qualifiers: Pneumonia type: due to unspecified organism Laterality: right Lung location: lower lobe of lung Qualified Code(s): J18.1 - Lobar pneumonia, unspecified organism (6) Positive blood culture Code(s): R78.81 - BACTEREMIA (7) A-V fistula Code(s): I77.0 - ARTERIOVENOUS FISTULA, ACQUIRED (8) Anemia Code(s): D64.9 - ANEMIA, UNSPECIFIED Qualifiers: Anemia type: unspecified type Qualified Code(s): D64.9 - Anemia, unspecified (9) Aspiration into airway Code(s): T17.908A - UNSP FB IN RESP TRACT, PART UNSP CAUSING OTH INJURY, INIT Assessment/Plan PLEURAL EFFUSION WILL NEED THORACENTESIS CT SCAN DONE W/O CONTRAST A/V FISTULA NOT VIEWED WILL NEED TO D/W NEPHROLOGY FOR OTHER OPTION VASC SX EVAL IV ABX PER ID CULTURES DONE AWAITING RESULTS OF BLOOD AND RESP CX DIET CHANGED FOR DYSPHAGIA AND ASPIRATION PRECAUTIONS
--- NOTE | 2017-10-12 16:08 | PN ---
Progress Note, Physician History of Present Illness: Pt seen and examined at bedside. She is awake and alert. She denies shortness of breath. Her diet is being advanced. - Current Medication List Current Medications: Active Medications Acetaminophen (Tylenol Suppository -) 650 mg [place] Q4H PRN PRN Reason: FEVER Last Admin: 10/12/17 14:19 Dose: 650 mg Albuterol/Ipratropium (Duoneb -) 1 amp NEB RQID [facility] Last Admin: 10/12/17 15:49 Dose: 1 amp Docusate Sodium (Colace -) 100 mg PO TID [facility] Last Admin: 10/12/17 14:17 Dose: Not Given Metoprolol Succinate (Toprol Xl -) 50 mg PO BID [facility] Last Admin: 10/12/17 14:29 Dose: 50 mg Metoprolol Tartrate (Lopressor Injection -) 5 mg IVPUSH Q4H PRN PRN Reason: HYPERTENSION Last Admin: 10/12/17 01:57 Dose: 5 mg - Objective Vital Signs: Vital Signs Temperature 97.7 F 10/12/17 14:00 Pulse Rate 125 H 10/12/17 14:00 Respiratory Rate 20 10/12/17 14:00 Blood Pressure 139/85 10/12/17 14:00 O2 Sat by Pulse Oximetry (%) 99 10/12/17 09:00 Constitutional: Yes: Calm Eyes: Yes: Conjunctiva Clear HENT: Yes: Atraumatic Cardiovascular: Yes: Pulse Irregular, S1, S2 Respiratory: Yes: On Nasal O2 Gastrointestinal: Yes: Soft Genitourinary: Yes: WNL Musculoskeletal: Yes: WNL Edema: LLE: Trace, RLE: Trace Neurological: Yes: Oriented Psychiatric: Yes: Oriented Labs: CBC, BMP 10/12/17 06:45 10/12/17 06:45 INR, PTT INR 3.02 (0.82-1.09) H 10/12/17 06:45 Problem List - Problems (1) ESRD (end stage renal disease) on dialysis Code(s): N18.6 - END STAGE RENAL DISEASE; Z99.2 - DEPENDENCE ON RENAL DIALYSIS (2) Pleural effusion Code(s): J90 - PLEURAL EFFUSION, NOT ELSEWHERE CLASSIFIED (3) Anemia Code(s): D64.9 - ANEMIA, UNSPECIFIED Qualifiers: Anemia type: unspecified type Qualified Code(s): D64.9 - Anemia, unspecified (4) Chronic atrial fibrillation Code(s): I48.2 - CHRONIC ATRIAL FIBRILLATION Assessment/Plan Current Medications Generic Name Dose Route Start Last Admin Trade Name Freq PRN Reason Stop Dose Admin Acetaminophen 650 mg 10/10/17 11:02 10/12/17 14:19 Tylenol Suppository - [place] 650 mg Q4H PRN Administration FEVER Albuterol/Ipratropium 1 amp 10/05/17 12:00 10/12/17 15:49 Duoneb - NEB 1 amp RQID PHANI Administration Docusate Sodium 100 mg 10/07/17 14:00 10/12/17 14:17 Colace - PO Not Given TID PHANI Metoprolol Succinate 50 mg 10/11/17 22:00 10/12/17 14:29 Toprol Xl - PO 50 mg BID PHANI Administration Metoprolol Tartrate 5 mg 10/06/17 14:58 10/12/17 01:57 Lopressor Injection - IVPUSH 5 mg Q4H PRN Administration HYPERTENSION Impression 1. esrd 2. constipation 3. abd pain 4. a-fib 5. htn 6. anemia 7. bacteremia 8. fever Plan - HD today - ID input appreciated - repeat blood cultures - can draw blood cultures on next HD on Thursday - cont current meds - cont epogen - will follow Dr Dunham
[2017-10-13] MEDS: DOCUSATE SODIUM 100 MG CAPSULE (FP) PO SCH ×3 (06:25→21:43)
[2017-10-13 07:02] LABS: INR 3.59 (0.82-1.09); PROTHROMBIN TIME (PATIENT) 40.6 SEC (9.98-11.88)
[2017-10-13 07:36] LABS: ALBUMIN 2.3 g/dl (3.4-5.0); ANION GAP 10 (8-16); BLOOD UREA NITROGEN 14 mg/dL (7-18); CALCIUM 8.7 mg/dL (8.5-10.1); CHLORIDE 97 mmol/L (98-107); CO2 32 mmol/L (21-32); GLUCOSE,RANDOM 95 mg/dL (74-106); POTASSIUM 4.1 mmol/L (3.5-5.1); SGOT/AST 14 U/L (15-37); SGPT/ALT 6 U/L (12-78); SODIUM 139 mmol/L (136-145)
[2017-10-13 07:38] LABS: ALK PHOS 70 U/L (45-117); BILIRUBIN,TOTAL 0.5 mg/dL (0.2-1.0); CREATININE 3.5 mg/dL (0.55-1.02); TOT PROT 8.6 g/dl (6.4-8.2)
[2017-10-13] MEDS: ALBUTEROL SO4 2.5/IPRATROPIUM 0.5 INH SOL 3 ML VIAL.NEB. NEB SCH ×4 (07:40→20:47)
--- NOTE | 2017-10-13 08:58 | PN ---
Progress Note, Physician Chief Complaint: heart rate remained elevated after HD Was unable to tolerate her Toprol post HD due to soft BP - Current Medication List Current Medications: Active Medications Acetaminophen (Tylenol Suppository -) 650 mg [place] Q4H PRN PRN Reason: FEVER Last Admin: 10/12/17 14:19 Dose: 650 mg Albuterol/Ipratropium (Duoneb -) 1 amp NEB RQID [facility] Last Admin: 10/12/17 20:30 Dose: 1 amp Digoxin (Lanoxin -) 0.125 mg PO DAILY [facility] Docusate Sodium (Colace -) 100 mg PO TID [facility] Last Admin: 10/13/17 06:25 Dose: Not Given Metoprolol Succinate (Toprol Xl -) 50 mg PO BID [facility] Last Admin: 10/12/17 22:50 Dose: 50 mg Metoprolol Tartrate (Lopressor Injection -) 5 mg IVPUSH Q4H PRN PRN Reason: HYPERTENSION Last Admin: 10/12/17 01:57 Dose: 5 mg - Objective Vital Signs: Vital Signs Temperature 98.2 F 10/13/17 06:00 Pulse Rate 117 H 10/13/17 06:00 Respiratory Rate 20 10/13/17 06:00 Blood Pressure 134/88 10/13/17 06:00 O2 Sat by Pulse Oximetry (%) 99 10/12/17 21:00 Constitutional: Yes: No Distress Eyes: Yes: Conjunctiva Clear Cardiovascular: Yes: Tachycardia, Pulse Irregular Respiratory: Yes: CTA Bilaterally Gastrointestinal: Yes: Soft Edema: No Neurological: Yes: Alert ...Motor Strength: WNL Labs: CBC, BMP 10/12/17 06:45 10/13/17 06:30 INR, PTT INR 3.59 (0.82-1.09) H 10/13/17 06:30 Microbiology 10/10/17 08:40 Blood - Peripheral Venous Blood Culture - Preliminary Presumptive Mssa (Pbp2a Neg) Laboratory Tests 09/30/17 10/12/17 10/13/17 16:40 06:45 06:30 WBC 8.2 Hgb 9.8 L Plt Count 258 INR 3.59 H Potassium Stool Occult Blood Negative 10/13/17 06:30 WBC Hgb Plt Count INR Potassium 4.1 Stool Occult Blood - ....Imaging EKG: Image Reviewed (AF, RVR 120-130) Assessment/Plan Assessment/Plan IMP: Permanent AF, with RVR now Fever, MSSA bacteremia ESRD REC: AF:with RVR, most likely exacerbated by sepsis/fever -pt is septic and intermittently febrile, will be difficult to control HR until sepsis improves and increasing AV boston blockers will likely precipitate hypotensive episodes -cont Toprol at current dose -Give Lopressor 5mg IV x1 now -Start Digoxin 0.125mg PO daily -Continue Tele -INR goal 2-3, adjust coumadin 2. Fever/bacteremia: -receiving Abx -TTE did not show a vegetation -if no other source of bacteremia is found will perform NEISHA to evaluate for endocarditis and vegetation on device wire. Discussed this with pts daughter yesterday, she would require anesthesia for the procedure and may need to be intubated 3. Severe MR: -chronic, not a surgical candidate
[2017-10-13] MEDS: DIGOXIN 0.125 MG TABLET (FP) PO SCH (09:04)
[2017-10-13] MEDS: METOPROLOL TARTRATE 5 MG/5 ML VIAL IVPUSH PRN (09:05)
--- NOTE | 2017-10-13 11:23 | PN ---
Progress Note, Physician History of Present Illness: pulmonary alert,nad,-sob - Current Medication List Current Medications: Active Medications Acetaminophen (Tylenol Suppository -) 650 mg [place] Q4H PRN PRN Reason: FEVER Last Admin: 10/12/17 14:19 Dose: 650 mg Albuterol/Ipratropium (Duoneb -) 1 amp NEB RQID [facility] Last Admin: 10/13/17 07:40 Dose: 1 amp Digoxin (Lanoxin -) 0.125 mg PO DAILY [facility] Last Admin: 10/13/17 09:04 Dose: 0.125 mg Docusate Sodium (Colace -) 100 mg PO TID [facility] Last Admin: 10/13/17 06:25 Dose: Not Given Metoprolol Succinate (Toprol Xl -) 50 mg PO BID [facility] Last Admin: 10/13/17 09:57 Dose: 50 mg Metoprolol Tartrate (Lopressor Injection -) 5 mg IVPUSH Q4H PRN PRN Reason: HYPERTENSION Last Admin: 10/13/17 09:05 Dose: 5 mg - Objective Vital Signs: Vital Signs Temperature 98.6 F 10/13/17 10:00 Pulse Rate 137 H 10/13/17 10:00 Respiratory Rate 20 10/13/17 10:00 Blood Pressure 107/71 10/13/17 10:00 O2 Sat by Pulse Oximetry (%) 99 10/13/17 09:00 Constitutional: Yes: Well Nourished, Calm Eyes: Yes: WNL HENT: Yes: WNL Neck: Yes: WNL Cardiovascular: Yes: Pulse Irregular, S1, S2 Respiratory: Yes: Diminished Gastrointestinal: Yes: Normal Bowel Sounds, Soft Extremities: Yes: WNL Edema: No Labs: 10/13/17 06:30 INR, PTT INR 3.59 (0.82-1.09) H 10/13/17 06:30 Problem List - Problems (1) Abdominal pain Code(s): R10.9 - UNSPECIFIED ABDOMINAL PAIN (2) DVT prophylaxis Code(s): [id number] - (3) ESRD (end stage renal disease) on dialysis Code(s): N18.6 - END STAGE RENAL DISEASE; Z99.2 - DEPENDENCE ON RENAL DIALYSIS (4) Pleural effusion Code(s): J90 - PLEURAL EFFUSION, NOT ELSEWHERE CLASSIFIED (5) Pneumonia Code(s): J18.9 - PNEUMONIA, UNSPECIFIED ORGANISM Qualifiers: Pneumonia type: due to unspecified organism Laterality: right Lung location: lower lobe of lung Qualified Code(s): J18.1 - Lobar pneumonia, unspecified organism (6) Afib Code(s): I48.91 - UNSPECIFIED ATRIAL FIBRILLATION Qualifiers: Atrial fibrillation type: chronic Qualified Code(s): I48.2 - Chronic atrial fibrillation (7) Anemia Code(s): D64.9 - ANEMIA, UNSPECIFIED Qualifiers: Anemia type: unspecified type Qualified Code(s): D64.9 - Anemia, unspecified (8) Chronic atrial fibrillation Code(s): I48.2 - CHRONIC ATRIAL FIBRILLATION (9) Cough Code(s): R05 - COUGH (10) Diastolic CHF due to valvular disease Code(s): I38 - ENDOCARDITIS, VALVE UNSPECIFIED; I50.30 - UNSPECIFIED DIASTOLIC ( CONGESTIVE) HEART FAILURE (11) Hypertension Code(s): I10 - ESSENTIAL (PRIMARY) HYPERTENSION Qualifiers: Hypertension type: essential hypertension Qualified Code(s): I10 - Essential (primary) hypertension (12) Positive blood culture Code(s): R78.81 - BACTEREMIA Assessment/Plan IMP CHF ESRD ON HD COUGH RML INFILTRATE BACTEREMIA MSSA BILATERAL PLEURAL EFFUSIONS AFIB S/P PPM HLD HTN PLAN HD PER RENAL O2 INHALED BRONCHODILATORS ABX PER ID ANTITUSSIVES F/U CHEST X-RAYS THORACENTESIS WHEN INR CORRECTED DR RED Problem List - Problems (1) Abdominal pain Code(s): R10.9 - UNSPECIFIED ABDOMINAL PAIN (2) DVT prophylaxis Code(s): [id number] - (3) ESRD (end stage renal disease) on dialysis Code(s): N18.6 - END STAGE RENAL DISEASE; Z99.2 - DEPENDENCE ON RENAL DIALYSIS (4) Pleural effusion Code(s): J90 - PLEURAL EFFUSION, NOT ELSEWHERE CLASSIFIED (5) Pneumonia Code(s): J18.9 - PNEUMONIA, UNSPECIFIED ORGANISM Qualifiers: Pneumonia type: due to unspecified organism Laterality: right Lung location: lower lobe of lung Qualified Code(s): J18.1 - Lobar pneumonia, unspecified organism (6) Afib Code(s): I48.91 - UNSPECIFIED ATRIAL FIBRILLATION Qualifiers: Atrial fibrillation type: chronic Qualified Code(s): I48.2 - Chronic atrial fibrillation (7) Anemia Code(s): D64.9 - ANEMIA, UNSPECIFIED Qualifiers: Anemia type: unspecified type Qualified Code(s): D64.9 - Anemia, unspecified (8) Chronic atrial fibrillation Code(s): I48.2 - CHRONIC ATRIAL FIBRILLATION (9) Cough Code(s): R05 - COUGH (10) Diastolic CHF due to valvular disease Code(s): I38 - ENDOCARDITIS, VALVE UNSPECIFIED; I50.30 - UNSPECIFIED DIASTOLIC ( CONGESTIVE) HEART FAILURE (11) Hypertension Code(s): I10 - ESSENTIAL (PRIMARY) HYPERTENSION Qualifiers: Hypertension type: essential hypertension Qualified Code(s): I10 - Essential (primary) hypertension (12) Positive blood culture Code(s): R78.81 - BACTEREMIA
--- NOTE | 2017-10-13 13:21 | PN ---
Progress Note, [employer] - Note Progress Note: Selected Entries 10/12/17 10/12/17 10/12/17 02:15 06:00 10:00 Breakfast Temperature 102.3 F H 98.7 F 97.6 F 10/12/17 10/12/17 10/12/17 10:10 14:00 18:00 Breakfast Temperature 98.6 F 97.7 F 99.0 F 10/12/17 10/13/17 10/13/17 21:00 01:16 06:00 Breakfast Temperature 98.9 F 98.8 F 98.2 F 10/13/17 10/13/17 10:00 11:40 Breakfast 50% Temperature 98.6 F Laboratory Tests 10/12/17 06:45 WBC 8.2 Pt on chopped diet/thin liquid.Eating small amounts, mainly pureed consistency brought by family. On thin liquid now, however, nursing reorts brief cough after intake. Sleepy,weak for me. RR seemed rapid to me,however, nursing felt this was good for her. May benefit from nectar thick again if signs of aspiration continue to be seen. Pt's daughter reports that she coughs at home at times while eating.MBS did not reveal aspiration however pt refused trial of thin during study.
--- NOTE | 2017-10-13 14:49 | PN ---
Progress Note, Physician History of Present Illness: Lethargic today No complaints of pain Afebrile Repeat BC noted - Current Medication List Current Medications: Active Medications Acetaminophen (Tylenol Suppository -) 650 mg [place] Q4H PRN PRN Reason: FEVER Last Admin: 10/12/17 14:19 Dose: 650 mg Albuterol/Ipratropium (Duoneb -) 1 amp NEB RQID [facility] Last Admin: 10/13/17 11:34 Dose: 1 amp Digoxin (Lanoxin -) 0.125 mg PO DAILY [facility] Last Admin: 10/13/17 09:04 Dose: 0.125 mg Docusate Sodium (Colace -) 100 mg PO TID [facility] Last Admin: 10/13/17 06:25 Dose: Not Given Vancomycin HCl 1,000 mg/ (Dextrose) 250 mls @ 200 mls/hr IVPB ONCE ONE Stop: 10/13/17 15:58 Metoprolol Succinate (Toprol Xl -) 50 mg PO BID [facility] Last Admin: 10/13/17 09:57 Dose: 50 mg Metoprolol Tartrate (Lopressor Injection -) 5 mg IVPUSH Q4H PRN PRN Reason: HYPERTENSION Last Admin: 10/13/17 09:05 Dose: 5 mg - Objective Vital Signs: Vital Signs Temperature 98.6 F 10/13/17 10:00 Pulse Rate 137 H 10/13/17 10:00 Respiratory Rate 20 10/13/17 10:00 Blood Pressure 107/71 10/13/17 10:00 O2 Sat by Pulse Oximetry (%) 99 10/13/17 09:00 Constitutional: Yes: No Distress, Thin Eyes: Yes: Conjunctiva Clear Cardiovascular: Yes: Regular Rate and Rhythm, S1, S2. No: Murmur Respiratory: Yes: CTA Bilaterally Gastrointestinal: Yes: Normal Bowel Sounds, Soft. No: Tenderness Edema: No Labs: CBC, BMP 10/12/17 06:45 10/13/17 06:30 INR, PTT INR 3.59 (0.82-1.09) H 10/13/17 06:30 Assessment/Plan MSSA bacteremia, probable endocarditis Soft tissue abscess R UE ESRD Check vanco trough, blood c/s at HD Surgical follow up
[2017-10-13] MEDS ORDERED: VANCOMYCIN 1,000 MG in DEXTROSE 5%-WATER - 250 ML IVPB ONE (15:15)
[2017-10-13] MEDS ORDERED: PHYTONADIONE 10 MG/1 ML AMP SQ ONE ×2 (15:25→17:15)
[2017-10-13] MEDS ORDERED: SODIUM CHLORIDE 250 ML IV PRN (15:31)
--- NOTE | 2017-10-13 15:31 | PN ---
Progress Note, Physician History of Present Illness: Pt seen and examined at bedside. She is awake and alert. She has not had a fever. - Current Medication List Current Medications: Active Medications Acetaminophen (Tylenol Suppository -) 650 mg [place] Q4H PRN PRN Reason: FEVER Last Admin: 10/12/17 14:19 Dose: 650 mg Albuterol/Ipratropium (Duoneb -) 1 amp NEB RQID [facility] Last Admin: 10/13/17 11:34 Dose: 1 amp Digoxin (Lanoxin -) 0.125 mg PO DAILY [facility] Last Admin: 10/13/17 09:04 Dose: 0.125 mg Docusate Sodium (Colace -) 100 mg PO TID [facility] Last Admin: 10/13/17 06:25 Dose: Not Given Vancomycin HCl 1,000 mg/ (Dextrose) 250 mls @ 166.667 mls/hr IVPB ONCE ONE Stop: 10/13/17 16:44 Metoprolol Succinate (Toprol Xl -) 50 mg PO BID [facility] Last Admin: 10/13/17 09:57 Dose: 50 mg Metoprolol Tartrate (Lopressor Injection -) 5 mg IVPUSH Q4H PRN PRN Reason: HYPERTENSION Last Admin: 10/13/17 09:05 Dose: 5 mg - Objective Vital Signs: Vital Signs Temperature 99.6 F 10/13/17 14:00 Pulse Rate 133 H 10/13/17 14:00 Respiratory Rate 20 10/13/17 10:00 Blood Pressure 149/85 10/13/17 14:00 O2 Sat by Pulse Oximetry (%) 99 10/13/17 09:00 Constitutional: Yes: Calm Eyes: Yes: Conjunctiva Clear HENT: Yes: Atraumatic Cardiovascular: Yes: S1, S2 Respiratory: Yes: CTA Bilaterally Gastrointestinal: Yes: Soft Genitourinary: Yes: WNL Extremities: Yes: Other (right arm graft) Neurological: Yes: Oriented Psychiatric: Yes: Oriented Labs: CBC, BMP 10/12/17 06:45 10/13/17 06:30 INR, PTT INR 3.59 (0.82-1.09) H 10/13/17 06:30 Problem List - Problems (1) ESRD (end stage renal disease) on dialysis Code(s): N18.6 - END STAGE RENAL DISEASE; Z99.2 - DEPENDENCE ON RENAL DIALYSIS (2) Pleural effusion Code(s): J90 - PLEURAL EFFUSION, NOT ELSEWHERE CLASSIFIED (3) Anemia Code(s): D64.9 - ANEMIA, UNSPECIFIED Qualifiers: Anemia type: unspecified type Qualified Code(s): D64.9 - Anemia, unspecified (4) Chronic atrial fibrillation Code(s): I48.2 - CHRONIC ATRIAL FIBRILLATION Assessment/Plan Current Medications Generic Name Dose Route Start Last Admin Trade Name Freq PRN Reason Stop Dose Admin Acetaminophen 650 mg 10/10/17 11:02 10/12/17 14:19 Tylenol Suppository - [place] 650 mg Q4H PRN Administration FEVER Albuterol/Ipratropium 1 amp 10/05/17 12:00 10/13/17 11:34 Duoneb - NEB 1 amp RQID PHANI Administration Digoxin 0.125 mg 10/13/17 10:00 10/13/17 09:04 Lanoxin - PO 0.125 mg DAILY PHANI Administration Docusate Sodium 100 mg 10/07/17 14:00 10/13/17 06:25 Colace - PO Not Given TID PHANI Vancomycin HCl 1,000 mg/ 250 mls @ 166.667 mls/hr 10/13/17 15:15 Dextrose IVPB 10/13/17 16:44 ONCE ONE Metoprolol Succinate 50 mg 10/11/17 22:00 10/13/17 09:57 Toprol Xl - PO 50 mg BID PHANI Administration Metoprolol Tartrate 5 mg 10/06/17 14:58 10/13/17 09:05 Lopressor Injection - IVPUSH 5 mg Q4H PRN Administration HYPERTENSION Phytonadione 2.5 mg 10/13/17 15:25 Aqua Mephyton Injection - SQ 10/13/17 15:26 ONCE ONE Impression 1. esrd 2. constipation 3. abd pain 4. a-fib 5. htn 6. anemia 7. bacteremia 8. fever Plan - HD in am - will order blood cultures - cont vanco - ID input appreciated - cont current meds - cont epogen - will follow Dr Dunham
--- NOTE | 2017-10-13 15:53 | PN ---
Progress Note (short form) - Note Progress Note: NEISHA currently booked for am. Discussed the scenario with pts daughter at length today at bedside. Pt is significant risk for respiratory failure with the sedation needed for NEISHA. she may require intubation. She has been DNR/ DNI as per pts daughter. Need to consider the risk vs benefit of going through with the NEISHA and what we would do if we find evidence of endocarditis that would require invasive management as oppossed to Antibiotics alone. She will not be a candidate for valve surgery. The only question is would she benefit from device extraction. This would not be a simple procedure either and would likely require intubation. Pts daughter understands the above discussion and will discuss further with her family. For now would plan for prolonged antibiotic therapy. If pt clinically stable for NEISHA on and if pts family wishes to proceed will move ahead with procedure.
--- NOTE | 2017-10-13 16:36 | PN ---
Progress Note, Physician Chief Complaint: ASLEEP AROUSABLE DAUGHTER SHAHZAD BEDSIDE - Current Medication List Current Medications: Active Medications Acetaminophen (Tylenol Suppository -) 650 mg AL Q4H PRN PRN Reason: FEVER Last Admin: 10/12/17 14:19 Dose: 650 mg Albuterol/Ipratropium (Duoneb -) 1 amp NEB RQID [facility] Last Admin: 10/13/17 11:34 Dose: 1 amp Digoxin (Lanoxin -) 0.125 mg PO DAILY [facility] Last Admin: 10/13/17 09:04 Dose: 0.125 mg Docusate Sodium (Colace -) 100 mg PO TID [facility] Last Admin: 10/13/17 16:00 Dose: Not Given Epoetin Francisco (Epogen -) 5,000 unit IVPUSH ONCE ONE Stop: 10/14/17 15:32 Vancomycin HCl 1,000 mg/ (Dextrose) 250 mls @ 166.667 mls/hr IVPB ONCE ONE Stop: 10/13/17 16:44 Sodium Chloride (Normal Saline -) 250 mls @ 3,000 mls/hr IV PRN PRN PRN Reason: Hypotension Metoprolol Succinate (Toprol Xl -) 50 mg PO BID [facility] Last Admin: 10/13/17 09:57 Dose: 50 mg Metoprolol Tartrate (Lopressor Injection -) 5 mg IVPUSH Q4H PRN PRN Reason: HYPERTENSION Last Admin: 10/13/17 09:05 Dose: 5 mg Phytonadione (Aqua Mephy[place] Injection -) 2.5 mg SQ ONCE ONE Stop: 10/13/17 15:26 - Objective Vital Signs: Vital Signs Temperature 99.6 F 10/13/17 14:00 Pulse Rate 133 H 10/13/17 14:00 Respiratory Rate 20 10/13/17 10:00 Blood Pressure 149/85 10/13/17 14:00 O2 Sat by Pulse Oximetry (%) 99 10/13/17 09:00 Constitutional: Yes: Mild Distress Eyes: Yes: WNL HENT: Yes: WNL Neck: Yes: WNL Cardiovascular: Yes: WNL Respiratory: Yes: On Nasal O2 Gastrointestinal: Yes: WNL Genitourinary: Yes: Other Musculoskeletal: Yes: Muscle Weakness Extremities: Yes: Other Edema: No Integumentary: Yes: WNL Wound/Incision: Yes: Clean/Dry Neurological: Yes: Pre-Existing Deficit ...Motor Strength: LLE, RLE Psychiatric: Yes: Other Labs: CBC, BMP 10/12/17 06:45 10/13/17 06:30 INR, PTT INR 3.59 (0.82-1.09) H 10/13/17 06:30 Problem List - Problems (1) Abdominal pain Code(s): R10.9 - UNSPECIFIED ABDOMINAL PAIN (2) DVT prophylaxis Code(s): [id number] - (3) ESRD (end stage renal disease) on dialysis Code(s): N18.6 - END STAGE RENAL DISEASE; Z99.2 - DEPENDENCE ON RENAL DIALYSIS (4) Irritable bowel syndrome (IBS) Code(s): K58.9 - IRRITABLE BOWEL SYNDROME WITHOUT DIARRHEA (5) Pneumonia Code(s): J18.9 - PNEUMONIA, UNSPECIFIED ORGANISM Qualifiers: Pneumonia type: due to unspecified organism Laterality: right Lung location: lower lobe of lung Qualified Code(s): J18.1 - Lobar pneumonia, unspecified organism (6) Positive blood culture Code(s): R78.81 - BACTEREMIA (7) A-V fistula Code(s): I77.0 - ARTERIOVENOUS FISTULA, ACQUIRED (8) Anemia Code(s): D64.9 - ANEMIA, UNSPECIFIED Qualifiers: Anemia type: unspecified type Qualified Code(s): D64.9 - Anemia, unspecified (9) Aspiration into airway Code(s): T17.908A - UNSP FB IN RESP TRACT, PART UNSP CAUSING OTH INJURY, INIT Assessment/Plan FAMILY HAVING A MEETING ON ADVANCED DIRECTIVES DNR/DNI STATUS RESTARTED NURSE MIRTHA HAS COPY OF PAPERWORK NEISHA AT THIS TIME TO BE DEFERRED PER DAUGHTER "THIS IS NOT WHAT MY MOTHER WOULD WANT" IV ABX, CULTURES ORDERED DURING HD COMFORT CARE PALLIATIVE FOLLOW UP FAMILY WANTS MOM TO COME HOME NOT SNF, AND BE COMFORTABLE
--- NOTE | 2017-10-13 16:37 | PN ---
Progress Note (short form) - Note Progress Note: ADDENDUM: INR ELEVATED FOR THORACENTESIS VIT K 2.5 SQ GIVEN TODAY SUNDAY 10/15 FOR THORACENTESIS WILL HELP WITH RESP FUNCTION Problem List - Problems (1) Abdominal pain Code(s): R10.9 - UNSPECIFIED ABDOMINAL PAIN (2) DVT prophylaxis Code(s): [id number] - (3) ESRD (end stage renal disease) on dialysis Code(s): N18.6 - END STAGE RENAL DISEASE; Z99.2 - DEPENDENCE ON RENAL DIALYSIS (4) Irritable bowel syndrome (IBS) Code(s): K58.9 - IRRITABLE BOWEL SYNDROME WITHOUT DIARRHEA (5) Pneumonia Code(s): J18.9 - PNEUMONIA, UNSPECIFIED ORGANISM Qualifiers: Pneumonia type: due to unspecified organism Laterality: right Lung location: lower lobe of lung Qualified Code(s): J18.1 - Lobar pneumonia, unspecified organism (6) Positive blood culture Code(s): R78.81 - BACTEREMIA (7) A-V fistula Code(s): I77.0 - ARTERIOVENOUS FISTULA, ACQUIRED (8) Anemia Code(s): D64.9 - ANEMIA, UNSPECIFIED Qualifiers: Anemia type: unspecified type Qualified Code(s): D64.9 - Anemia, unspecified (9) Aspiration into airway Code(s): T17.908A - UNSP FB IN RESP TRACT, PART UNSP CAUSING OTH INJURY, INIT
[2017-10-13] MEDS: ACETAMINOPHEN 650 MG SUPP.RECT PR PRN (16:56)
[2017-10-14] MEDS: DOCUSATE SODIUM 100 MG CAPSULE (FP) PO SCH ×3 (05:40→21:10)
[2017-10-14 07:01] LABS: HEMATOCRIT 25.2 % (32.4-45.2); HEMOGLOBIN 8.3 GM/dL (10.7-15.3); MCH 30.9 pg (25.7-33.7); MCHC 32.9 g/dl (32.0-36.0); MEAN CELL VOLUME 93.9 fl (80-96); MEAN PLT VOLUME 7.7 fl (7.5-11.1); PLATELET COUNT 228 K/MM3 (134-434); RBC 2.68 M/mm3 (3.60-5.2); RDW 16.7 % (11.6-15.6); WHITE BLOOD COUNT 5.3 K/mm3 (4.0-10.0)
[2017-10-14 07:24] LABS: ANION GAP 10 (8-16); BLOOD UREA NITROGEN 23 mg/dL (7-18); CALCIUM 8.4 mg/dL (8.5-10.1); CHLORIDE 98 mmol/L (98-107); CO2 29 mmol/L (21-32); CREATININE 4.3 mg/dL (0.55-1.02); GLUCOSE,RANDOM 89 mg/dL (74-106); MAGNESIUM 2.1 mg/dL (1.8-2.4); POTASSIUM 4.4 mmol/L (3.5-5.1); SODIUM 137 mmol/L (136-145)
[2017-10-14 07:29] LABS: INR 1.83 (0.82-1.09); PROTHROMBIN TIME (PATIENT) 20.7 SEC (9.98-11.88)
[2017-10-14] MEDS: ALBUTEROL SO4 2.5/IPRATROPIUM 0.5 INH SOL 3 ML VIAL.NEB. NEB SCH ×4 (08:10→21:25)
[2017-10-14] MEDS ORDERED: EPOETIN ALFA 2,000 UNIT, EPOETIN ALFA 3,000 UNIT IVPUSH ONE (09:00)
[2017-10-14] MEDS ORDERED: EPOETIN ALFA 3,000 UNIT/1 ML ML IVPUSH ONE (09:15)
--- NOTE | 2017-10-14 09:25 | PN ---
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 Repeatedly asks for water. Overtly tolerating single sips. Poor appetite. Has upper dentures and ate reg food premorbidly. Provide soft food trials, as pt desires. rRefused trial of fruit, sandwich at this time. Encourage Nepro.
--- NOTE | 2017-10-14 09:52 | PN ---
Progress Note, Physician Chief Complaint: FAMILY BEDSIDE AGAIN THEY REITERATED THAT THEY DO NOT WANT ANY AGGRESSIVE INTERVENTIONS REFUSED NEISHA HOWEVER HAVE AGREED FOR THE THORACENTESIS THERAPEUTIC FOR PLEURAL EFFUSION - Current Medication List Current Medications: Active Medications Acetaminophen (Tylenol Suppository -) [address] Q4H PRN PRN Reason: FEVER Last Admin: 10/13/17 16:56 Dose: 650 mg Albuterol/Ipratropium (Duoneb -) 1 amp NEB RQID [facility] Last Admin: 10/14/17 08:10 Dose: Not Given Digoxin (Lanoxin -) 0.125 mg PO DAILY [facility] Last Admin: 10/13/17 09:04 Dose: 0.125 mg Docusate Sodium (Colace -) 100 mg PO TID [facility] Last Admin: 10/14/17 05:40 Dose: Not Given Sodium Chloride (Normal Saline -) 250 mls @ 3,000 mls/hr IV PRN PRN PRN Reason: Hypotension Metoprolol Succinate (Toprol Xl -) 50 mg PO BID [facility] Last Admin: 10/13/17 22:45 Dose: 50 mg Metoprolol Tartrate (Lopressor Injection -) 5 mg IVPUSH Q4H PRN PRN Reason: HYPERTENSION Last Admin: 10/13/17 09:05 Dose: 5 mg - Objective Vital Signs: Vital Signs Temperature 98.4 F 10/14/17 07:55 Pulse Rate 91 H 10/14/17 09:30 Respiratory Rate 18 10/14/17 09:30 Blood Pressure 128/94 10/14/17 09:30 O2 Sat by Pulse Oximetry (%) 97 10/13/17 21:00 Constitutional: Yes: Mild Distress Eyes: Yes: WNL HENT: Yes: WNL Neck: Yes: WNL Cardiovascular: Yes: WNL Respiratory: Yes: Diminished, On Nasal O2 Gastrointestinal: Yes: WNL Genitourinary: Yes: Other Musculoskeletal: Yes: Muscle Weakness Extremities: Yes: Other Edema: Yes Edema: LLE: Trace, RLE: Trace Peripheral Pulses WNL: Yes Integumentary: Yes: WNL Wound/Incision: Yes: Other Neurological: Yes: Lethargy ...Motor Strength: LLE, RLE Psychiatric: Yes: Other Labs: CBC, BMP 10/14/17 05:05 10/14/17 05:05 INR, PTT INR 1.83 (0.82-1.09) H D 10/14/17 05:05 Problem List - Problems (1) Abdominal pain Code(s): R10.9 - UNSPECIFIED ABDOMINAL PAIN (2) DVT prophylaxis Code(s): [id number] - (3) ESRD (end stage renal disease) on dialysis Code(s): N18.6 - END STAGE RENAL DISEASE; Z99.2 - DEPENDENCE ON RENAL DIALYSIS (4) Irritable bowel syndrome (IBS) Code(s): K58.9 - IRRITABLE BOWEL SYNDROME WITHOUT DIARRHEA (5) Pneumonia Code(s): J18.9 - PNEUMONIA, UNSPECIFIED ORGANISM Qualifiers: Pneumonia type: due to unspecified organism Laterality: right Lung location: lower lobe of lung Qualified Code(s): J18.1 - Lobar pneumonia, unspecified organism (6) Positive blood culture Code(s): R78.81 - BACTEREMIA (7) A-V fistula Code(s): I77.0 - ARTERIOVENOUS FISTULA, ACQUIRED (8) Anemia Code(s): D64.9 - ANEMIA, UNSPECIFIED Qualifiers: Anemia type: unspecified type Qualified Code(s): D64.9 - Anemia, unspecified (9) Aspiration into airway Code(s): T17.908A - UNSP FB IN RESP TRACT, PART UNSP CAUSING OTH INJURY, INIT Assessment/Plan FAMILY HAVING A MEETING ON ADVANCED DIRECTIVES DNR/DNI STATUS RESTARTED NURSE MIRTHA HAS COPY OF PAPERWORK NEISHA AT THIS TIME TO BE DEFERRED PER DAUGHTER "THIS IS NOT WHAT MY MOTHER WOULD WANT" IV ABX, CULTURES ORDERED DURING HD COMFORT CARE PALLIATIVE FOLLOW UP FAMILY WANTS MOM TO COME HOME NOT SNF, AND BE COMFORTABLE HD TODAY CHECK CULTURES
--- NOTE | 2017-10-14 10:00 | PN ---
Progress Note (short form) - Note Progress Note: ID Blood cultures still positive ! 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 Plan Dr Delcid contacted re possible removal of the AVG for source control Serena Houser MD Problem List - Problems (1) Abdominal pain Code(s): R10.9 - UNSPECIFIED ABDOMINAL PAIN (2) ESRD (end stage renal disease) on dialysis Code(s): N18.6 - END STAGE RENAL DISEASE; Z99.2 - DEPENDENCE ON RENAL DIALYSIS (3) Pneumonia Code(s): J18.9 - PNEUMONIA, UNSPECIFIED ORGANISM Qualifiers: Pneumonia type: due to unspecified organism Laterality: right Lung location: lower lobe of lung Qualified Code(s): J18.1 - Lobar pneumonia, unspecified organism (4) Afib Code(s): I48.91 - UNSPECIFIED ATRIAL FIBRILLATION Qualifiers: Atrial fibrillation type: chronic Qualified Code(s): I48.2 - Chronic atrial fibrillation
--- NOTE | 2017-10-14 11:08 | PN ---
Progress Note (short form) - Note Progress Note: PULMONARY Febrile yesterday with persistent positive cultures. Denies shortness of breath or cough. Last Vital Signs Temp Pulse Resp BP Pulse Ox 98.4 F 97 H 18 97/64 97 10/14/17 07:55 10/14/17 10:00 10/14/17 10:00 10/14/17 10:00 10/13/17 21:00 Gen: less tachypneic at rest Heart: tachycardic, irregular Lung: decreased breath sounds at the bases Abd: soft, nontender Ext: no edema CBC, BMP 10/14/17 05:05 10/14/17 05:05 Active Medications Acetaminophen (Tylenol Suppository -) 650 mg [place] Q4H PRN PRN Reason: FEVER Last Admin: 10/13/17 16:56 Dose: 650 mg Albuterol/Ipratropium (Duoneb -) 1 amp NEB RQID [facility] Last Admin: 10/14/17 08:10 Dose: Not Given Digoxin (Lanoxin -) 0.125 mg PO DAILY [facility] Last Admin: 10/13/17 09:04 Dose: 0.125 mg Docusate Sodium (Colace -) 100 mg PO TID [facility] Last Admin: 10/14/17 05:40 Dose: Not Given Sodium Chloride (Normal Saline -) 250 mls @ 3,000 mls/hr IV PRN PRN PRN Reason: Hypotension Metoprolol Succinate (Toprol Xl -) 50 mg PO BID [facility] Last Admin: 10/13/17 22:45 Dose: 50 mg Metoprolol Tartrate (Lopressor Injection -) 5 mg IVPUSH Q4H PRN PRN Reason: HYPERTENSION Last Admin: 10/13/17 09:05 Dose: 5 mg A/P Pneumonia RUE Abscess/AV graft infection Staph Bacteremia Sepsis Atrial Fibrillation with RVR ESRD on HD Pleural Effusions Mitral Regurgitation HTN Hyperlipidemia - continue antibiotics - f/u pending cultures - vascular f/u for AVG - if remains bacteremic when AVG removed can consider diagnostic thoracentesis - HD per renal - inhaled bronchodilators as needed - rate control - resume anticoagulation when no further procedures planned - O2 to keep SpO2 >90%
[2017-10-14] MEDS: DIGOXIN 0.125 MG TABLET (FP) PO SCH (12:36)
--- NOTE | 2017-10-14 13:34 | PN ---
Progress Note, Physician History of Present Illness: Pt seen and examined at bedside. She is awake and alert. She tolerated HD. - Current Medication List Current Medications: Active Medications Acetaminophen (Tylenol Suppository -) 650 mg [place] Q4H PRN PRN Reason: FEVER Last Admin: 10/13/17 16:56 Dose: 650 mg Albuterol/Ipratropium (Duoneb -) 1 amp NEB RQID [facility] Last Admin: 10/14/17 11:40 Dose: Not Given Digoxin (Lanoxin -) 0.125 mg PO DAILY [facility] Last Admin: 10/14/17 12:36 Dose: 0.125 mg Docusate Sodium (Colace -) 100 mg PO TID [facility] Last Admin: 10/14/17 05:40 Dose: Not Given Heparin Sodium (Porcine) (Heparin -) 5,000 unit SQ TID [facility] Sodium Chloride (Normal Saline -) 250 mls @ 3,000 mls/hr IV PRN PRN PRN Reason: Hypotension Metoprolol Succinate (Toprol Xl -) 50 mg PO BID [facility] Last Admin: 10/14/17 12:36 Dose: 50 mg Metoprolol Tartrate (Lopressor Injection -) 5 mg IVPUSH Q4H PRN PRN Reason: HYPERTENSION Last Admin: 10/13/17 09:05 Dose: 5 mg - Objective Vital Signs: Vital Signs Temperature 98.4 F 10/14/17 07:55 Pulse Rate 106 H 10/14/17 12:36 Respiratory Rate 18 10/14/17 11:31 Blood Pressure 120/78 10/14/17 11:31 O2 Sat by Pulse Oximetry (%) 97 10/13/17 21:00 Constitutional: Yes: Calm Eyes: Yes: Conjunctiva Clear HENT: Yes: Atraumatic Neck: Yes: Supple Cardiovascular: Yes: S1, S2 Respiratory: Yes: On Nasal O2 Gastrointestinal: Yes: Soft Genitourinary: Yes: WNL Musculoskeletal: Yes: Muscle Weakness Edema: No Neurological: Yes: Oriented Psychiatric: Yes: Oriented Labs: CBC, BMP 10/14/17 05:05 10/14/17 05:05 INR, PTT INR 1.83 (0.82-1.09) H D 10/14/17 05:05 Problem List - Problems (1) ESRD (end stage renal disease) on dialysis Code(s): N18.6 - END STAGE RENAL DISEASE; Z99.2 - DEPENDENCE ON RENAL DIALYSIS (2) Pleural effusion Code(s): J90 - PLEURAL EFFUSION, NOT ELSEWHERE CLASSIFIED (3) Anemia Code(s): D64.9 - ANEMIA, UNSPECIFIED Qualifiers: Anemia type: unspecified type Qualified Code(s): D64.9 - Anemia, unspecified (4) Chronic atrial fibrillation Code(s): I48.2 - CHRONIC ATRIAL FIBRILLATION Assessment/Plan Current Medications Generic Name Dose Route Start Last Admin Trade Name Freq PRN Reason Stop Dose Admin Acetaminophen 650 mg 10/10/17 11:02 10/13/17 16:56 Tylenol Suppository - CA 650 mg Q4H PRN Administration FEVER Albuterol/Ipratropium 1 amp 10/05/17 12:00 10/14/17 11:40 Duoneb - NEB Not Given RQID [facility] Digoxin 0.125 mg 10/13/17 10:00 10/14/17 12:36 Lanoxin - PO 0.125 mg DAILY [facility] Administration Docusate Sodium 100 mg 10/07/17 14:00 10/14/17 05:40 Colace - PO Not Given TID [facility] Heparin Sodium (Porcine) 5,000 unit 10/14/17 14:00 Heparin - SQ TID [facility] Sodium Chloride 250 mls @ 3,000 mls/hr 10/13/17 15:31 Normal Saline - IV PRN PRN Hypotension Metoprolol Succinate 50 mg 10/11/17 22:00 10/14/17 12:36 Toprol Xl - PO 50 mg BID [facility] Administration Metoprolol Tartrate 5 mg 10/06/17 14:58 10/13/17 09:05 Lopressor Injection - IVPUSH 5 mg Q4H PRN Administration HYPERTENSION Impression 1. esrd 2. constipation 3. abd pain 4. a-fib 5. htn 6. anemia 7. bacteremia 8. fever Plan - pt tolerated HD - blood cultures still positive - vascular follow up for AVG - ID input appreciated - cont current meds - cont epogen - will follow Dr Dunham
[2017-10-14] MEDS: ACETAMINOPHEN 650 MG SUPP.RECT PR PRN (13:45)
[2017-10-14] MEDS: HEPARIN NA (PORCINE) 5,000 UNITS/ML 1ML VIAL SQ SCH ×2 (14:00→21:11)
[2017-10-14] MEDS ORDERED: EPOETIN ALFA 2,000 UNIT/1 ML VIAL IVPUSH ONE (15:31)
--- NOTE | 2017-10-14 19:12 | PN ---
Progress Note, Physician Chief Complaint: Pt denies chest pain or dyspnea. No abdominal pain. History of Present Illness: The patient is an 87 year old black female with significant history of hypertension, DM, ESRD (on HD MWF, last dialyzed Thursday), brought in with her family for complaints of intermittent, "throbbing" RLQ pain that began today. The also report complaints of rectal discomfort this morning. No fever or chills. No nausea, vomiting, diarrhea, or constipation. No chest pain or shortness of breath. - Current Medication List Current Medications: Active Medications Acetaminophen (Tylenol Suppository -) 650 mg IN Q4H PRN PRN Reason: FEVER Last Admin: 10/14/17 13:45 Dose: 650 mg Albuterol/Ipratropium (Duoneb -) 1 amp NEB RQID [facility] Last Admin: 10/14/17 16:44 Dose: 1 amp Digoxin (Lanoxin -) 0.125 mg PO DAILY [facility] Last Admin: 10/14/17 12:36 Dose: 0.125 mg Docusate Sodium (Colace -) 100 mg PO TID [facility] Last Admin: 10/14/17 14:00 Dose: Not Given Heparin Sodium (Porcine) (Heparin -) 5,000 unit SQ TID [facility] Last Admin: 10/14/17 14:00 Dose: Not Given Sodium Chloride (Normal Saline -) 250 mls @ 3,000 mls/hr IV PRN PRN PRN Reason: Hypotension Metoprolol Succinate (Toprol Xl -) 50 mg PO BID [facility] Last Admin: 10/14/17 12:36 Dose: 50 mg Metoprolol Tartrate (Lopressor Injection -) 5 mg IVPUSH Q4H PRN PRN Reason: HYPERTENSION Last Admin: 10/13/17 09:05 Dose: 5 mg - Objective Vital Signs: Vital Signs Temperature 98.8 F 10/14/17 17:00 Pulse Rate 124 H 10/14/17 17:00 Respiratory Rate 20 10/14/17 17:00 Blood Pressure 128/96 10/14/17 17:00 O2 Sat by Pulse Oximetry (%) 97 10/13/17 21:00 Constitutional: Yes: Calm Eyes: Yes: WNL HENT: Yes: WNL Neck: Yes: Other (+JVD) Cardiovascular: Yes: Tachycardia, Murmur (3/6 systolic murmur, LSB-->apex), S1, S2 Respiratory: Yes: Diminished Gastrointestinal: Yes: Soft ...Rectal Exam: Yes: Deferred Genitourinary: No: Anuria Breast(s): Yes: WNL Musculoskeletal: Yes: Muscle Weakness Extremities: Yes: Cool, Other (right UE av graft dressed; small amout dried blood) Edema: No Peripheral Pulses WNL: No Peripheral Pulses: Left Doralis Pedis: 1+, Right Dorsalis Pedis: 1+ Integumentary: Yes: Other (AV graft RUE; no gross bleed) Neurological: Yes: Alert, Oriented Psychiatric: Yes: WNL Labs: CBC, BMP 10/14/17 05:05 10/14/17 05:05 INR, PTT INR 1.83 (0.82-1.09) H D 10/14/17 05:05 Abnormal Lab Results 10/14/17 10/14/17 10/14/17 05:05 05:05 05:05 RBC 2.68 L Hgb 8.3 L D Hct 25.2 L D RDW 16.7 H PT with INR 20.70 H INR 1.83 H D BUN 23 H Creatinine 4.3 H Calcium 8.4 L - ....Imaging Other: Image Reviewed (telemetry: periods of AF with RVR) Problem List - Problems (1) ESRD (end stage renal disease) on dialysis Code(s): N18.6 - END STAGE RENAL DISEASE; Z99.2 - DEPENDENCE ON RENAL DIALYSIS (2) Anemia Assessment/Plan: Further decrease in Hb; f/u with hematology. Code(s): D64.9 - ANEMIA, UNSPECIFIED Qualifiers: Anemia type: unspecified type Qualified Code(s): D64.9 - Anemia, unspecified (3) Weakness Code(s): R53.1 - WEAKNESS (4) Abscess Assessment/Plan: drained abscess above RUE AV graft. Code(s): L02.91 - CUTANEOUS ABSCESS, UNSPECIFIED (5) Acute on chronic diastolic CHF (congestive heart failure) Assessment/Plan: for guided thoracentesis in am Code(s): I50.33 - ACUTE ON CHRONIC DIASTOLIC (CONGESTIVE) HEART FAILURE (6) Pacemaker Code(s): Z95.0 - PRESENCE OF CARDIAC PACEMAKER (7) Afib Assessment/Plan: On metoprolol and digoxin. Code(s): I48.91 - UNSPECIFIED ATRIAL FIBRILLATION Qualifiers: Atrial fibrillation type: chronic Qualified Code(s): I48.2 - Chronic atrial fibrillation
[2017-10-15] MEDS: DOCUSATE SODIUM 100 MG CAPSULE (FP) PO SCH ×3 (05:17→21:32)
[2017-10-15 06:56] LABS: INR 1.21 (0.82-1.09); PROTHROMBIN TIME (PATIENT) 13.7 SEC (9.98-11.88)
[2017-10-15] MEDS: ALBUTEROL SO4 2.5/IPRATROPIUM 0.5 INH SOL 3 ML VIAL.NEB. NEB SCH ×4 (07:27→20:46)
[2017-10-15] MEDS: DIGOXIN 0.125 MG TABLET (FP) PO SCH (09:59)
[2017-10-15] MEDS: ACETAMINOPHEN 650 MG SUPP.RECT PR PRN (09:59)
--- NOTE | 2017-10-15 11:15 | PN ---
Progress Note (short form) - Note Progress Note: VAscular Surgery Pt seen and examined. Right avg site with wound on upper arm. Area of old pseudoaneursym. Area compressed and old clot came out. Will place bacitracin to area. That area could be source of bacteremia. If so, will need to remove AVG, and pt will need permacath for HD. Pt going for thoracentesis today. Alan Delcid DO
--- NOTE | 2017-10-15 11:23 | PN ---
Progress Note, Physician History of Present Illness: seen and examined today. more awake and alert. - Current Medication List Current Medications: Active Medications Acetaminophen (Tylenol Suppository -) 650 mg [place] Q4H PRN PRN Reason: FEVER Last Admin: 10/15/17 09:59 Dose: 650 mg Albuterol/Ipratropium (Duoneb -) 1 amp NEB RQID [facility] Last Admin: 10/15/17 07:27 Dose: 1 amp Bacitracin (Bacitracin -) 1 applic TP DAILY [facility] Digoxin (Lanoxin -) 0.125 mg PO DAILY [facility] Last Admin: 10/15/17 09:59 Dose: 0.125 mg Docusate Sodium (Colace -) 100 mg PO TID [facility] Last Admin: 10/15/17 05:17 Dose: Not Given Heparin Sodium (Porcine) (Heparin -) 5,000 unit SQ TID [facility] Last Admin: 10/14/17 21:11 Dose: Not Given Sodium Chloride (Normal Saline -) 250 mls @ 3,000 mls/hr IV PRN PRN PRN Reason: Hypotension Metoprolol Succinate (Toprol Xl -) 50 mg PO BID [facility] Last Admin: 10/15/17 09:59 Dose: 50 mg Metoprolol Tartrate (Lopressor Injection -) 5 mg IVPUSH Q4H PRN PRN Reason: HYPERTENSION Last Admin: 10/13/17 09:05 Dose: 5 mg - Objective Vital Signs: Vital Signs Temperature 100.6 F H 10/15/17 10:00 Pulse Rate 128 H 10/15/17 10:00 Respiratory Rate 24 10/15/17 10:00 Blood Pressure 133/92 10/15/17 10:00 O2 Sat by Pulse Oximetry (%) 96 10/14/17 21:00 Constitutional: Yes: No Distress, Calm Eyes: Yes: Conjunctiva Clear, EOM Intact, PERRL HENT: Yes: Atraumatic, Normocephalic Neck: Yes: Supple, Trachea Midline Cardiovascular: Yes: Murmur, S1, S2. No: Regular Rate and Rhythm, Bradycardia, Tachycardia, Pulse Irregular, Bruit, JVD, Gallop, Rub, S3, S4, Varicosities Respiratory: Yes: Regular, Diminished. No: Rales, Rhonchi, Wheezes Gastrointestinal: Yes: Normal Bowel Sounds, Soft. No: Distention, Tenderness Edema: No Peripheral Pulses WNL: Yes Peripheral Pulses: Left Doralis Pedis: 2+, Right Dorsalis Pedis: 2+ Neurological: Yes: Alert Psychiatric: Yes: Alert Labs: CBC, BMP 10/14/17 05:05 10/14/17 05:05 INR, PTT INR 1.21 (0.82-1.09) H D 10/15/17 05:05 - ....Imaging Chest X-ray: Report Reviewed, Image Reviewed EKG: Report Reviewed, Image Reviewed Other: Report Reviewed, Image Reviewed (tele-Afib, HR adequately controlled, above goal but improved) Assessment/Plan IMP: Permanent AF, with RVR now Fever, MSSA bacteremia ESRD REC: AF:with RVR, most likely exacerbated by sepsis/fever -HR control has improved, still above goal at times -cont Toprol at current dose, held prior to HD due to relative hypotension, attempt to give dose after HD -Continue Tele -INR goal 2-3, adjust coumadin 2.Sepsis:uncertain source, persistent bacteremia -receiving Abx -TTE did not show a vegetation -pts family has decided against NEISHA as she is not a candidate for valve surgery and device extraction would be a more invasive procedure than they or she would want thus the utility of NEISHA would be low -she is being considere for AVG removal 3. Severe MR: -chronic, not a surgical candidate 4. HTN:variable, adequate for now -Toprol as above then re-evaluate -Observe on tele
--- NOTE | 2017-10-15 11:48 | PN ---
Progress Note, Physician History of Present Illness: pulmonary alert,comfortable,-resp distress. febrile t 100.6 - Current Medication List Current Medications: Active Medications Acetaminophen (Tylenol Suppository -) 650 mg [place] Q4H PRN PRN Reason: FEVER Last Admin: 10/15/17 09:59 Dose: 650 mg Albuterol/Ipratropium (Duoneb -) 1 amp NEB RQID [facility] Last Admin: 10/15/17 11:18 Dose: 1 amp Bacitracin (Bacitracin -) 1 applic TP DAILY [facility] Digoxin (Lanoxin -) 0.125 mg PO DAILY [facility] Last Admin: 10/15/17 09:59 Dose: 0.125 mg Docusate Sodium (Colace -) 100 mg PO TID [facility] Last Admin: 10/15/17 05:17 Dose: Not Given Heparin Sodium (Porcine) (Heparin -) 5,000 unit SQ TID [facility] Last Admin: 10/14/17 21:11 Dose: Not Given Sodium Chloride (Normal Saline -) 250 mls @ 3,000 mls/hr IV PRN PRN PRN Reason: Hypotension Metoprolol Succinate (Toprol Xl -) 50 mg PO BID [facility] Last Admin: 10/15/17 09:59 Dose: 50 mg Metoprolol Tartrate (Lopressor Injection -) 5 mg IVPUSH Q4H PRN PRN Reason: HYPERTENSION Last Admin: 10/13/17 09:05 Dose: 5 mg - Objective Vital Signs: Vital Signs Temperature 100.6 F H 10/15/17 10:00 Pulse Rate 128 H 10/15/17 10:00 Respiratory Rate 24 10/15/17 10:00 Blood Pressure 133/92 10/15/17 10:00 O2 Sat by Pulse Oximetry (%) 96 10/14/17 21:00 Constitutional: Yes: Well Nourished, Calm Eyes: Yes: WNL HENT: Yes: WNL Neck: Yes: WNL Cardiovascular: Yes: Pulse Irregular, S1, S2 Respiratory: Yes: Diminished Gastrointestinal: Yes: WNL Extremities: Yes: WNL Edema: No Labs: CBC, BMP 10/14/17 05:05 10/14/17 05:05 INR, PTT INR 1.21 (0.82-1.09) H D 10/15/17 05:05 Problem List - Problems (1) Abdominal pain Code(s): R10.9 - UNSPECIFIED ABDOMINAL PAIN (2) DVT prophylaxis Code(s): [id number] - (3) ESRD (end stage renal disease) on dialysis Code(s): N18.6 - END STAGE RENAL DISEASE; Z99.2 - DEPENDENCE ON RENAL DIALYSIS (4) Pleural effusion Code(s): J90 - PLEURAL EFFUSION, NOT ELSEWHERE CLASSIFIED (5) Pneumonia Code(s): J18.9 - PNEUMONIA, UNSPECIFIED ORGANISM Qualifiers: Pneumonia type: due to unspecified organism Laterality: right Lung location: lower lobe of lung Qualified Code(s): J18.1 - Lobar pneumonia, unspecified organism (6) Afib Code(s): I48.91 - UNSPECIFIED ATRIAL FIBRILLATION Qualifiers: Atrial fibrillation type: chronic Qualified Code(s): I48.2 - Chronic atrial fibrillation (7) Anemia Code(s): D64.9 - ANEMIA, UNSPECIFIED Qualifiers: Anemia type: unspecified type Qualified Code(s): D64.9 - Anemia, unspecified (8) Chronic atrial fibrillation Code(s): I48.2 - CHRONIC ATRIAL FIBRILLATION (9) Cough Code(s): R05 - COUGH (10) Diastolic CHF due to valvular disease Code(s): I38 - ENDOCARDITIS, VALVE UNSPECIFIED; I50.30 - UNSPECIFIED DIASTOLIC ( CONGESTIVE) HEART FAILURE (11) Hypertension Code(s): I10 - ESSENTIAL (PRIMARY) HYPERTENSION Qualifiers: Hypertension type: essential hypertension Qualified Code(s): I10 - Essential (primary) hypertension (12) Positive blood culture Code(s): R78.81 - BACTEREMIA Assessment/Plan IMP CHF ESRD ON HD COUGH RML INFILTRATE BACTEREMIA MSSA BILATERAL PLEURAL EFFUSIONS AFIB S/P PPM HLD HTN PLAN HD PER RENAL O2 INHALED BRONCHODILATORS ABX PER ID ANTITUSSIVES F/U CHEST X-RAYS THORACENTESIS WHEN INR CORRECTED DR RED Problem List - Problems (1) Abdominal pain Code(s): R10.9 - UNSPECIFIED ABDOMINAL PAIN (2) DVT prophylaxis Code(s): [id number] - (3) ESRD (end stage renal disease) on dialysis Code(s): N18.6 - END STAGE RENAL DISEASE; Z99.2 - DEPENDENCE ON RENAL DIALYSIS (4) Pleural effusion Code(s): J90 - PLEURAL EFFUSION, NOT ELSEWHERE CLASSIFIED (5) Pneumonia Code(s): J18.9 - PNEUMONIA, UNSPECIFIED ORGANISM Qualifiers: Pneumonia type: due to unspecified organism Laterality: right Lung location: lower lobe of lung Qualified Code(s): J18.1 - Lobar pneumonia, unspecified organism (6) Afib Code(s): I48.91 - UNSPECIFIED ATRIAL FIBRILLATION Qualifiers: Atrial fibrillation type: chronic Qualified Code(s): I48.2 - Chronic atrial fibrillation (7) Anemia Code(s): D64.9 - ANEMIA, UNSPECIFIED Qualifiers: Anemia type: unspecified type Qualified Code(s): D64.9 - Anemia, unspecified (8) Chronic atrial fibrillation Code(s): I48.2 - CHRONIC ATRIAL FIBRILLATION (9) Cough Code(s): R05 - COUGH (10) Diastolic CHF due to valvular disease Code(s): I38 - ENDOCARDITIS, VALVE UNSPECIFIED; I50.30 - UNSPECIFIED DIASTOLIC ( CONGESTIVE) HEART FAILURE (11) Hypertension Code(s): I10 - ESSENTIAL (PRIMARY) HYPERTENSION Qualifiers: Hypertension type: essential hypertension Qualified Code(s): I10 - Essential (primary) hypertension (12) Positive blood culture Code(s): R78.81 - BACTEREMIA
--- NOTE | 2017-10-15 13:12 | PN ---
Progress Note, Physician Chief Complaint: patient is DNR/DNI s/p thoracocentesis got HD yesterday - Current Medication List Current Medications: Active Medications Acetaminophen (Tylenol Suppository -) 650 mg [place] Q4H PRN PRN Reason: FEVER Last Admin: 10/15/17 09:59 Dose: 650 mg Albuterol/Ipratropium (Duoneb -) 1 amp NEB RQID [facility] Last Admin: 10/15/17 11:18 Dose: 1 amp Bacitracin (Bacitracin -) 1 applic TP DAILY [facility] Digoxin (Lanoxin -) 0.125 mg PO DAILY [facility] Last Admin: 10/15/17 09:59 Dose: 0.125 mg Docusate Sodium (Colace -) 100 mg PO TID [facility] Last Admin: 10/15/17 05:17 Dose: Not Given Heparin Sodium (Porcine) (Heparin -) 5,000 unit SQ TID [facility] Last Admin: 10/14/17 21:11 Dose: Not Given Sodium Chloride (Normal Saline -) 250 mls @ 3,000 mls/hr IV PRN PRN PRN Reason: Hypotension Metoprolol Succinate (Toprol Xl -) 50 mg PO BID [facility] Last Admin: 10/15/17 09:59 Dose: 50 mg Metoprolol Tartrate (Lopressor Injection -) 5 mg IVPUSH Q4H PRN PRN Reason: HYPERTENSION Last Admin: 10/13/17 09:05 Dose: 5 mg - Objective Vital Signs: Vital Signs Temperature 100.6 F H 10/15/17 10:00 Pulse Rate 128 H 10/15/17 10:00 Respiratory Rate 24 10/15/17 10:00 Blood Pressure 133/92 10/15/17 10:00 O2 Sat by Pulse Oximetry (%) 95 10/15/17 09:00 Constitutional: Yes: Calm, Thin Cardiovascular: Yes: Pulse Irregular, S1 Respiratory: Yes: Diminished Gastrointestinal: Yes: Soft Extremities: Yes: Other (Right AVG with wound) Labs: CBC, BMP 10/14/17 05:05 10/14/17 05:05 INR, PTT INR 1.21 (0.82-1.09) H D 10/15/17 05:05 Problem List - Problems (1) Pleural effusion Assessment/Plan: s/p thoracocentesis today Code(s): J90 - PLEURAL EFFUSION, NOT ELSEWHERE CLASSIFIED (2) Positive blood culture Assessment/Plan: gram postive cocci cluster per ID note ? AVG might be source of infection vanco renal dose Code(s): R78.81 - BACTEREMIA (3) ESRD (end stage renal disease) on dialysis Assessment/Plan: HD per renal AVG graft with wound? 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
--- NOTE | 2017-10-15 14:24 | PN ---
Progress Note, Physician History of Present Illness: Pt seen and examined earlier today. She is going for paracentesis. - Current Medication List Current Medications: Active Medications Acetaminophen (Tylenol Suppository -) 650 mg ID Q4H PRN PRN Reason: FEVER Last Admin: 10/15/17 09:59 Dose: 650 mg Albuterol/Ipratropium (Duoneb -) 1 amp NEB RQID [facility] Last Admin: 10/15/17 11:18 Dose: 1 amp Bacitracin (Bacitracin -) 1 applic TP DAILY [facility] Digoxin (Lanoxin -) 0.125 mg PO DAILY [facility] Last Admin: 10/15/17 09:59 Dose: 0.125 mg Docusate Sodium (Colace -) 100 mg PO TID [facility] Last Admin: 10/15/17 05:17 Dose: Not Given Heparin Sodium (Porcine) (Heparin -) 5,000 unit SQ TID [facility] Last Admin: 10/14/17 21:11 Dose: Not Given Sodium Chloride (Normal Saline -) 250 mls @ 3,000 mls/hr IV PRN PRN PRN Reason: Hypotension Metoprolol Succinate (Toprol Xl -) 50 mg PO BID [facility] Last Admin: 10/15/17 09:59 Dose: 50 mg Metoprolol Tartrate (Lopressor Injection -) 5 mg IVPUSH Q4H PRN PRN Reason: HYPERTENSION Last Admin: 10/13/17 09:05 Dose: 5 mg - Objective Vital Signs: Vital Signs Temperature 100.6 F H 10/15/17 10:00 Pulse Rate 128 H 10/15/17 10:00 Respiratory Rate 24 10/15/17 10:00 Blood Pressure 133/92 10/15/17 10:00 O2 Sat by Pulse Oximetry (%) 95 10/15/17 09:00 Constitutional: Yes: Calm Eyes: Yes: Conjunctiva Clear HENT: Yes: Atraumatic Neck: Yes: Supple Cardiovascular: Yes: S1, S2 Respiratory: Yes: On Nasal O2 Gastrointestinal: Yes: Soft Genitourinary: Yes: WNL Musculoskeletal: Yes: Muscle Weakness Edema: Yes Edema: LLE: Trace, RLE: Trace Neurological: Yes: Oriented Psychiatric: Yes: Oriented Labs: CBC, BMP 10/14/17 05:05 10/14/17 05:05 INR, PTT INR 1.21 (0.82-1.09) H D 10/15/17 05:05 Problem List - Problems (1) ESRD (end stage renal disease) on dialysis Code(s): N18.6 - END STAGE RENAL DISEASE; Z99.2 - DEPENDENCE ON RENAL DIALYSIS (2) Pleural effusion Code(s): J90 - PLEURAL EFFUSION, NOT ELSEWHERE CLASSIFIED (3) Anemia Code(s): D64.9 - ANEMIA, UNSPECIFIED Qualifiers: Anemia type: unspecified type Qualified Code(s): D64.9 - Anemia, unspecified (4) Chronic atrial fibrillation Code(s): I48.2 - CHRONIC ATRIAL FIBRILLATION Assessment/Plan Current Medications Generic Name Dose Route Start Last Admin Trade Name Freq PRN Reason Stop Dose Admin Acetaminophen 650 mg 10/10/17 11:02 10/15/17 09:59 Tylenol Suppository - ID 650 mg Q4H PRN Administration FEVER Albuterol/Ipratropium 1 amp 10/05/17 12:00 10/15/17 11:18 Duoneb - NEB 1 amp RQID [facility] Administration Bacitracin 1 applic 10/15/17 10:00 Bacitracin - TP DAILY [facility] Digoxin 0.125 mg 10/13/17 10:00 10/15/17 09:59 Lanoxin - PO 0.125 mg DAILY [facility] Administration Docusate Sodium 100 mg 10/07/17 14:00 10/15/17 05:17 Colace - PO Not Given TID [facility] Heparin Sodium (Porcine) 5,000 unit 10/14/17 14:00 10/14/17 21:11 Heparin - SQ Not Given TID [facility] Sodium Chloride 250 mls @ 3,000 mls/hr 10/13/17 15:31 Normal Saline - IV PRN PRN Hypotension Metoprolol Succinate 50 mg 10/11/17 22:00 10/15/17 09:59 Toprol Xl - PO 50 mg BID [facility] Administration Metoprolol Tartrate 5 mg 10/06/17 14:58 10/13/17 09:05 Lopressor Injection - IVPUSH 5 mg Q4H PRN Administration HYPERTENSION Impression 1. esrd 2. constipation 3. abd pain 4. a-fib 5. htn 6. anemia 7. bacteremia 8. fever Plan - paracentesis today - HD in am - will discuss graft with vascular and ID - cont current meds - cont epogen - will follow Dr Dunham
[2017-10-15 14:25] LABS: PLEURAL FLUID APPEARANCE CLOUDY; PLEURAL FLUID COLOR RED
[2017-10-15 15:01] LABS: GLUCOSE,PLEURAL FLUID 83.392
[2017-10-15 15:20] LABS: PLEURAL FLUID LYMPHOCYTES 51 %; PLEURAL FLUID MACROPHAGES 29 %; PLEURAL FLUID NEUTROPHIL 20 %
[2017-10-15] MEDS: BACITRACIN 15 GM TUBE TOPICAL OINTMENT TP SCH (18:26)
[2017-10-16] MEDS: DOCUSATE SODIUM 100 MG CAPSULE (FP) PO SCH ×3 (05:32→21:12)
[2017-10-16] MEDS: ALBUTEROL SO4 2.5/IPRATROPIUM 0.5 INH SOL 3 ML VIAL.NEB. NEB SCH ×4 (07:33→20:59)
--- NOTE | 2017-10-16 09:22 | PN ---
Progress Note, Physician Chief Complaint: No acute distress History of Present Illness: low grade fevers persist - Current Medication List Current Medications: Active Medications Acetaminophen (Tylenol Suppository -) 650 mg [place] Q4H PRN PRN Reason: FEVER Last Admin: 10/15/17 09:59 Dose: 650 mg Albuterol/Ipratropium (Duoneb -) 1 amp NEB RQID [facility] Last Admin: 10/16/17 07:33 Dose: 1 amp Bacitracin (Bacitracin -) 1 applic TP DAILY [facility] Last Admin: 10/15/17 18:26 Dose: 1 applic Digoxin (Lanoxin -) 0.125 mg PO DAILY [facility] Last Admin: 10/15/17 09:59 Dose: 0.125 mg Docusate Sodium (Colace -) 100 mg PO TID [facility] Last Admin: 10/16/17 05:32 Dose: Not Given Heparin Sodium (Porcine) (Heparin -) 5,000 unit SQ TID [facility] Last Admin: 10/14/17 21:11 Dose: Not Given Sodium Chloride (Normal Saline -) 250 mls @ 3,000 mls/hr IV PRN PRN PRN Reason: Hypotension Metoprolol Succinate (Toprol Xl -) 50 mg PO BID [facility] Last Admin: 10/15/17 21:31 Dose: 50 mg Metoprolol Tartrate (Lopressor Injection -) 5 mg IVPUSH Q4H PRN PRN Reason: HYPERTENSION Last Admin: 10/13/17 09:05 Dose: 5 mg - Objective Vital Signs: Vital Signs Temperature 97.2 F L 10/16/17 06:00 Pulse Rate 92 H 10/16/17 06:00 Respiratory Rate 18 10/16/17 06:00 Blood Pressure 118/72 10/16/17 06:00 O2 Sat by Pulse Oximetry (%) 98 10/15/17 21:00 Constitutional: Yes: No Distress Eyes: Yes: Conjunctiva Clear Cardiovascular: Yes: Pulse Irregular Respiratory: Yes: CTA Bilaterally Gastrointestinal: Yes: Soft (non-tender) Edema: No Neurological: Yes: Alert Labs: CBC, BMP 10/14/17 05:05 10/14/17 05:05 INR, PTT INR 1.21 (0.82-1.09) H D 10/15/17 05:05 - ....Imaging EKG: Image Reviewed (TELE: rate controlled AF < 100bpm; one run in 140s self limited. Paced.) Assessment/Plan IMP: Permanent AF, with RVR now Fever, MSSA bacteremia ESRD REC: AF:with RVR, most likely exacerbated by sepsis/fever -HR control has improved, still above goal at times -cont Toprol at current dose as tolerated, may need to hold w/ HD. Cont. Dig. -Continue Tele -INR goal 2-3, adjust coumadin 2.Sepsis:uncertain source, persistent bacteremia -receiving Abx -TTE did not show a vegetation -pts family has decided against NEISHA as she is not a candidate for valve surgery and device extraction would be a more invasive procedure than they or she would want thus the utility of NEISHA would be low -she is being considered for AVG removal, which may be the source of her bacteremia 3. Severe MR: -chronic, not a surgical candidate
[2017-10-16] MEDS: BACITRACIN 15 GM TUBE TOPICAL OINTMENT TP SCH (10:03)
[2017-10-16] MEDS ORDERED: EPOETIN ALFA 3,000 UNIT/1 ML ML IVPUSH ONE (11:15)
[2017-10-16] MEDS: DIGOXIN 0.125 MG TABLET (FP) PO SCH (11:19)
--- NOTE | 2017-10-16 11:28 | PN ---
Progress Note, Physician History of Present Illness: pulmonary alert,nad,on dialysis,-resp distress. pt s/p thoracentesis ,pleural fluid c/w exudate - Current Medication List Current Medications: Active Medications Acetaminophen (Tylenol Suppository -) 650 mg [place] Q4H PRN PRN Reason: FEVER Last Admin: 10/15/17 09:59 Dose: 650 mg Albuterol/Ipratropium (Duoneb -) 1 amp NEB RQID [facility] Last Admin: 10/16/17 07:33 Dose: 1 amp Bacitracin (Bacitracin -) 1 applic TP DAILY [facility] Last Admin: 10/15/17 18:26 Dose: 1 applic Digoxin (Lanoxin -) 0.125 mg PO DAILY [facility] Last Admin: 10/16/17 11:19 Dose: Not Given Docusate Sodium (Colace -) 100 mg PO TID [facility] Last Admin: 10/16/17 05:32 Dose: Not Given Heparin Sodium (Porcine) (Heparin -) 5,000 unit SQ TID [facility] Last Admin: 10/14/17 21:11 Dose: Not Given Sodium Chloride (Normal Saline -) 250 mls @ 3,000 mls/hr IV PRN PRN PRN Reason: Hypotension Metoprolol Succinate (Toprol Xl -) 50 mg PO BID [facility] Last Admin: 10/16/17 11:20 Dose: Not Given Metoprolol Tartrate (Lopressor Injection -) 5 mg IVPUSH Q4H PRN PRN Reason: HYPERTENSION Last Admin: 10/13/17 09:05 Dose: 5 mg - Objective Vital Signs: Vital Signs Temperature 98.3 F 10/16/17 10:00 Pulse Rate 103 H 10/16/17 10:00 Respiratory Rate 18 10/16/17 10:00 Blood Pressure 114/71 10/16/17 10:00 O2 Sat by Pulse Oximetry (%) 98 10/16/17 09:00 Constitutional: Yes: Well Nourished, Calm Eyes: Yes: WNL HENT: Yes: WNL Neck: Yes: WNL Cardiovascular: Yes: Pulse Irregular, S1, S2 Respiratory: Yes: Diminished Gastrointestinal: Yes: Normal Bowel Sounds, Soft Extremities: Yes: WNL Edema: No Labs: CBC, BMP 10/14/17 05:05 10/14/17 05:05 INR, PTT INR 1.21 (0.82-1.09) H D 10/15/17 05:05 Problem List - Problems (1) Abdominal pain Code(s): R10.9 - UNSPECIFIED ABDOMINAL PAIN (2) DVT prophylaxis Code(s): [id number] - (3) ESRD (end stage renal disease) on dialysis Code(s): N18.6 - END STAGE RENAL DISEASE; Z99.2 - DEPENDENCE ON RENAL DIALYSIS (4) Pleural effusion Code(s): J90 - PLEURAL EFFUSION, NOT ELSEWHERE CLASSIFIED (5) Pneumonia Code(s): J18.9 - PNEUMONIA, UNSPECIFIED ORGANISM Qualifiers: Pneumonia type: due to unspecified organism Laterality: right Lung location: lower lobe of lung Qualified Code(s): J18.1 - Lobar pneumonia, unspecified organism (6) Afib Code(s): I48.91 - UNSPECIFIED ATRIAL FIBRILLATION Qualifiers: Atrial fibrillation type: chronic Qualified Code(s): I48.2 - Chronic atrial fibrillation (7) Anemia Code(s): D64.9 - ANEMIA, UNSPECIFIED Qualifiers: Anemia type: unspecified type Qualified Code(s): D64.9 - Anemia, unspecified (8) Chronic atrial fibrillation Code(s): I48.2 - CHRONIC ATRIAL FIBRILLATION (9) Cough Code(s): R05 - COUGH (10) Diastolic CHF due to valvular disease Code(s): I38 - ENDOCARDITIS, VALVE UNSPECIFIED; I50.30 - UNSPECIFIED DIASTOLIC ( CONGESTIVE) HEART FAILURE (11) Hypertension Code(s): I10 - ESSENTIAL (PRIMARY) HYPERTENSION Qualifiers: Hypertension type: essential hypertension Qualified Code(s): I10 - Essential (primary) hypertension (12) Positive blood culture Code(s): R78.81 - BACTEREMIA Assessment/Plan IMP CHF IMPROVING ESRD ON HD COUGH RML INFILTRATE BACTEREMIA MSSA BILATERAL PLEURAL EFFUSIONS AFIB S/P PPM HLD HTN PLAN HD PER RENAL O2 INHALED BRONCHODILATORS ABX PER ID ANTITUSSIVES F/U CHEST X-RAYS AC DR RED Problem List - Problems (1) Abdominal pain Code(s): R10.9 - UNSPECIFIED ABDOMINAL PAIN (2) DVT prophylaxis Code(s): [id number] - (3) ESRD (end stage renal disease) on dialysis Code(s): N18.6 - END STAGE RENAL DISEASE; Z99.2 - DEPENDENCE ON RENAL DIALYSIS (4) Pleural effusion Code(s): J90 - PLEURAL EFFUSION, NOT ELSEWHERE CLASSIFIED (5) Pneumonia Code(s): J18.9 - PNEUMONIA, UNSPECIFIED ORGANISM Qualifiers: Pneumonia type: due to unspecified organism Laterality: right Lung location: lower lobe of lung Qualified Code(s): J18.1 - Lobar pneumonia, unspecified organism (6) Afib Code(s): I48.91 - UNSPECIFIED ATRIAL FIBRILLATION Qualifiers: Atrial fibrillation type: chronic Qualified Code(s): I48.2 - Chronic atrial fibrillation (7) Anemia Code(s): D64.9 - ANEMIA, UNSPECIFIED Qualifiers: Anemia type: unspecified type Qualified Code(s): D64.9 - Anemia, unspecified (8) Chronic atrial fibrillation Code(s): I48.2 - CHRONIC ATRIAL FIBRILLATION (9) Cough Code(s): R05 - COUGH (10) Diastolic CHF due to valvular disease Code(s): I38 - ENDOCARDITIS, VALVE UNSPECIFIED; I50.30 - UNSPECIFIED DIASTOLIC ( CONGESTIVE) HEART FAILURE (11) Hypertension Code(s): I10 - ESSENTIAL (PRIMARY) HYPERTENSION Qualifiers: Hypertension type: essential hypertension Qualified Code(s): I10 - Essential (primary) hypertension (12) Positive blood culture Code(s): R78.81 - BACTEREMIA
--- NOTE | 2017-10-16 12:31 | PN ---
Progress Note, Physician Chief Complaint: ASLEEP DURING BEDSIDE HD FEVER + PAST 24HRS S/P THORACENTESIS - Current Medication List Current Medications: Active Medications Acetaminophen (Tylenol Suppository -) 650 mg [place] Q4H PRN PRN Reason: FEVER Last Admin: 10/15/17 09:59 Dose: 650 mg Albuterol/Ipratropium (Duoneb -) 1 amp NEB RQID [facility] Last Admin: 10/16/17 11:30 Dose: 1 amp Bacitracin (Bacitracin -) 1 applic TP DAILY [facility] Last Admin: 10/15/17 18:26 Dose: 1 applic Digoxin (Lanoxin -) 0.125 mg PO DAILY [facility] Last Admin: 10/16/17 11:19 Dose: Not Given Docusate Sodium (Colace -) 100 mg PO TID [facility] Last Admin: 10/16/17 05:32 Dose: Not Given Heparin Sodium (Porcine) (Heparin -) 5,000 unit SQ TID [facility] Last Admin: 10/14/17 21:11 Dose: Not Given Sodium Chloride (Normal Saline -) 250 mls @ 3,000 mls/hr IV PRN PRN PRN Reason: Hypotension Metoprolol Succinate (Toprol Xl -) 50 mg PO BID [facility] Last Admin: 10/16/17 11:20 Dose: Not Given Metoprolol Tartrate (Lopressor Injection -) 5 mg IVPUSH Q4H PRN PRN Reason: HYPERTENSION Last Admin: 10/13/17 09:05 Dose: 5 mg - Objective Vital Signs: Vital Signs Temperature 98.4 F 10/16/17 10:10 Pulse Rate 73 10/16/17 11:15 Respiratory Rate 18 10/16/17 11:15 Blood Pressure 123/98 10/16/17 11:15 O2 Sat by Pulse Oximetry (%) 98 10/16/17 09:00 Constitutional: Yes: Mild Distress, Other Eyes: Yes: WNL HENT: Yes: WNL Neck: Yes: WNL Cardiovascular: Yes: Pulse Irregular Respiratory: Yes: Diminished, On Nasal O2 Gastrointestinal: Yes: WNL Genitourinary: Yes: Other Musculoskeletal: Yes: Muscle Weakness Extremities: Yes: Other Edema: No Peripheral Pulses WNL: Yes Integumentary: Yes: WNL Wound/Incision: Yes: Clean/Dry Neurological: Yes: Pre-Existing Deficit, Weakness Psychiatric: Yes: Other Labs: CBC, BMP 10/14/17 05:05 10/14/17 05:05 INR, PTT INR 1.21 (0.82-1.09) H D 10/15/17 05:05 Problem List - Problems (1) Abdominal pain Code(s): R10.9 - UNSPECIFIED ABDOMINAL PAIN (2) DVT prophylaxis Code(s): [id number] - (3) ESRD (end stage renal disease) on dialysis Code(s): N18.6 - END STAGE RENAL DISEASE; Z99.2 - DEPENDENCE ON RENAL DIALYSIS (4) Irritable bowel syndrome (IBS) Code(s): K58.9 - IRRITABLE BOWEL SYNDROME WITHOUT DIARRHEA (5) Pneumonia Code(s): J18.9 - PNEUMONIA, UNSPECIFIED ORGANISM Qualifiers: Pneumonia type: due to unspecified organism Laterality: right Lung location: lower lobe of lung Qualified Code(s): J18.1 - Lobar pneumonia, unspecified organism (6) Positive blood culture Code(s): R78.81 - BACTEREMIA (7) A-V fistula Code(s): 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 - ARTERIOVENOUS FISTULA, ACQUIRED (8) Anemia Code(s): D64.9 - ANEMIA, UNSPECIFIED Qualifiers: Anemia type: unspecified type Qualified Code(s): D64.9 - Anemia, unspecified (9) Aspiration into airway Code(s): T17.908A - UNSP FB IN RESP TRACT, PART UNSP CAUSING OTH INJURY, INIT Assessment/Plan S/P THORACENTESIS AWAIT CULTURES SOME RELIEF WITH DYSPNEA SOURCE OF INFECTION LIKELY FROM AV GRAFT HOWEVER FAMILY AT THIS TIME AGREE TO IV ABX AND REVISIT REMOVING THE GRAFT WITH DR SUTTON IF NECESSARY, HOWEVER THEY ARE RELUCTANT TO HAVE ANY AGGRESSIVE SURGERY/PROCEDURES NEISHA HAS BEEN DECLINED BY FAMILY QUALITY OF LIFE FOR THIS PATIENT IS POOR AND THE DAUGHTERS DO NOT WISH TO HAVE THEIR MOM SUFFER AND WILL AVOID ANY MORE. CONTINUE ABX PULM FOLLOW UP HD PER RENAL WILL NEED PICC LINE? D/W ID DR SANCHEZ
[2017-10-16] MEDS: ACETAMINOPHEN 650 MG SUPP.RECT PR PRN (14:04)
--- NOTE | 2017-10-16 14:04 | PATH ---
Cytology Non-Gynecological Report Patient Name: ADRIANNE VANEGAS [facility]. Rec. #: [id number] /Age/Gender: 1930 (Age: 87) / F Account: [id number] Location: 4 W TELEMETRY U Taken: 10/15/2017 Received: 10/15/2017 Reported: 10/16/2017 Physicians: Molly Diaz M.D. Specimen(s) Received A: PLEURAL FLUID B: PLEURAL FLUID Clinical History Pleural effusion Final Diagnosis A & B. PLEURAL FLUID, THORACENTESIS: SATISFACTORY FOR EVALUATION NO MALIGNANT CELLS IDENTIFIED. MESOTHELIAL CELLS, FEW MACROPHAGES, FEW NEUTROPHILS AND FEW LYMPHOCYTES PRESENT. Electronically Signed Maryuri Jones M.D. Gross Description A. Approximately 50 cc of yellow fluid received fixed in 50% alcohol. Two cytofunnels and one cellblock prepared. B. Approximately 1500 cc of yellow fluid received fresh. Two cytofunnels and one cellblock prepared.
--- NOTE | 2017-10-16 15:06 | PN ---
Progress Note, Physician History of Present Illness: Pt seen and examined at bedside. She is drowsy. Family are at bedside. - Current Medication List Current Medications: Active Medications Acetaminophen (Tylenol Suppository -) 650 mg [place] Q4H PRN PRN Reason: FEVER Last Admin: 10/16/17 14:04 Dose: 650 mg Albuterol/Ipratropium (Duoneb -) 1 amp NEB RQID [facility] Last Admin: 10/16/17 11:30 Dose: 1 amp Bacitracin (Bacitracin -) 1 applic TP DAILY [facility] Last Admin: 10/16/17 10:03 Dose: 1 applic Digoxin (Lanoxin -) 0.125 mg PO DAILY [facility] Last Admin: 10/16/17 11:19 Dose: Not Given Docusate Sodium (Colace -) 100 mg PO TID [facility] Last Admin: 10/16/17 14:03 Dose: 100 mg Heparin Sodium (Porcine) (Heparin -) 5,000 unit SQ TID [facility] Last Admin: 10/14/17 21:11 Dose: Not Given Sodium Chloride (Normal Saline -) 250 mls @ 3,000 mls/hr IV PRN PRN PRN Reason: Hypotension Metoprolol Succinate (Toprol Xl -) 50 mg PO BID [facility] Last Admin: 10/16/17 11:20 Dose: Not Given Metoprolol Tartrate (Lopressor Injection -) 5 mg IVPUSH Q4H PRN PRN Reason: HYPERTENSION Last Admin: 10/13/17 09:05 Dose: 5 mg - Objective Vital Signs: Vital Signs Temperature 98.4 F 10/16/17 10:10 Pulse Rate 90 10/16/17 13:30 Respiratory Rate 18 10/16/17 13:30 Blood Pressure 120/82 10/16/17 13:30 O2 Sat by Pulse Oximetry (%) 98 10/16/17 09:00 Constitutional: Yes: Calm Eyes: Yes: Conjunctiva Clear HENT: Yes: Atraumatic Cardiovascular: Yes: S1, S2 Respiratory: Yes: On Nasal O2 Gastrointestinal: Yes: Normal Bowel Sounds, Soft Genitourinary: Yes: Incontinence Musculoskeletal: Yes: Muscle Weakness Edema: LLE: Trace, RLE: Trace Neurological: Yes: Oriented Psychiatric: Yes: Oriented Labs: CBC, BMP 10/14/17 05:05 10/14/17 05:05 INR, PTT INR 1.21 (0.82-1.09) H D 10/15/17 05:05 Problem List - Problems (1) ESRD (end stage renal disease) on dialysis Code(s): N18.6 - END STAGE RENAL DISEASE; Z99.2 - DEPENDENCE ON RENAL DIALYSIS (2) Pleural effusion Code(s): J90 - PLEURAL EFFUSION, NOT ELSEWHERE CLASSIFIED (3) Anemia Code(s): D64.9 - ANEMIA, UNSPECIFIED Qualifiers: Anemia type: unspecified type Qualified Code(s): D64.9 - Anemia, unspecified (4) Chronic atrial fibrillation Code(s): I48.2 - CHRONIC ATRIAL FIBRILLATION Assessment/Plan Current Medications Generic Name Dose Route Start Last Admin Trade Name Freq PRN Reason Stop Dose Admin Acetaminophen 650 mg 10/10/17 11:02 10/16/17 14:04 Tylenol Suppository - CO 650 mg Q4H PRN Administration FEVER Albuterol/Ipratropium 1 amp 10/05/17 12:00 10/16/17 11:30 Duoneb - NEB 1 amp RQID PHANI Administration Bacitracin 1 applic 10/15/17 10:00 10/16/17 10:03 Bacitracin - TP 1 applic DAILY PH[facility] Administration Digoxin 0.125 mg 10/13/17 10:00 10/16/17 11:19 Lanoxin - PO Not Given DAILY [facility] Docusate Sodium 100 mg 10/07/17 14:00 10/16/17 14:03 Colace - PO 100 mg TID PHANI Administration Heparin Sodium (Porcine) 5,000 unit 10/14/17 14:00 10/14/17 21:11 Heparin - SQ Not Given TID PHANI Sodium Chloride 250 mls @ 3,000 mls/hr 10/13/17 15:31 Normal Saline - IV PRN PRN Hypotension Metoprolol Succinate 50 mg 10/11/17 22:00 10/16/17 11:20 Toprol Xl - PO Not Given BID PHANI Metoprolol Tartrate 5 mg 10/06/17 14:58 10/13/17 09:05 Lopressor Injection - IVPUSH 5 mg Q4H PRN Administration HYPERTENSION Impression 1. esrd 2. constipation 3. abd pain 4. a-fib 5. htn 6. anemia 7. bacteremia 8. fever Plan - follow cultures - family are discussing GOC - will likely need graft to be removed, ID follow up - vascular follow up - cont current meds - cont epogen - discussed with pts family - will follow Dr Dunham
[2017-10-16] MEDS ORDERED: VANCOMYCIN 1,000 MG in DEXTROSE 5%-WATER - 250 ML IVPB ONE (15:47)
--- NOTE | 2017-10-16 15:47 | PN ---
Progress Note (short form) - Note Progress Note: ID Explained to family there is nothing further medically that can be offered. Has failed antibiotic treatment Graft needs to be remove whcih would then require temporary access groin and permacath The patient has expressed her wished to be left alone. Selected Entries 10/16/17 15:05 Temperature 98.4 F Pulse Rate 104 H Respiratory 20 Rate Blood Pressure 113/85 Microbiology 10/15/17 12:00 Pleural Fluid Gram Stain - Final 09/30/17 15:17 Blood - Peripheral Venous Blood Culture - Final Staphylococcus Aureus 10/15/17 12:00 Pleural Fluid Body Fluid Culture - Preliminary NO AEROBIC GROWTH, 24 HRS 10/14/17 08:15 Blood - Pre-Dialysis Blood Culture - Preliminary Staphylococcus Latex Coag Pos Laboratory Tests 10/14/17 10/15/17 05:05 12:00 WBC 5.3 D Hgb 8.3 L D Hct 25.2 L D Plt Count 228 Pleural Total Protein 5.660 Pleural LDH 278.83 Pleural Glucose 83.392 Assessment Persistant MSSA bacteremia Infected vascular graft Exudative effusion not empyema Plan Redose vancmarcella now Little more to offer her Family considering Steven Houser MD Problem List - Problems (1) Abdominal pain Code(s): R10.9 - UNSPECIFIED ABDOMINAL PAIN (2) ESRD (end stage renal disease) on dialysis Code(s): N18.6 - END STAGE RENAL DISEASE; Z99.2 - DEPENDENCE ON RENAL DIALYSIS (3) Pneumonia Code(s): J18.9 - PNEUMONIA, UNSPECIFIED ORGANISM Qualifiers: Pneumonia type: due to unspecified organism Laterality: right Lung location: lower lobe of lung Qualified Code(s): J18.1 - Lobar pneumonia, unspecified organism (4) Afib Code(s): I48.91 - UNSPECIFIED ATRIAL FIBRILLATION Qualifiers: Atrial fibrillation type: chronic Qualified Code(s): I48.2 - Chronic atrial fibrillation
[2017-10-16] MEDS ORDERED: ACETAMINOPHEN 325 MG TABLET (FP) ONE (16:52)
[2017-10-16] MEDS ORDERED: WARFARIN NA 5 MG TABLET (UD) PO ONE (20:45)
[2017-10-17] MEDS: DOCUSATE SODIUM 100 MG CAPSULE (FP) PO SCH ×3 (06:09→21:33)
[2017-10-17] MEDS: HEPARIN NA (PORCINE) 5,000 UNITS/ML 1ML VIAL SQ SCH ×3 (06:09→21:33)
[2017-10-17 07:08] LABS: INR 1.16 (0.82-1.09); PROTHROMBIN TIME (PATIENT) 13.1 SEC (9.98-11.88)
[2017-10-17] MEDS: ALBUTEROL SO4 2.5/IPRATROPIUM 0.5 INH SOL 3 ML VIAL.NEB. NEB SCH ×4 (07:54→20:00)
[2017-10-17] MEDS: DIGOXIN 0.125 MG TABLET (FP) PO SCH (09:36)
[2017-10-17] MEDS: BACITRACIN 15 GM TUBE TOPICAL OINTMENT TP SCH (09:36)
--- NOTE | 2017-10-17 09:55 | PN ---
Progress Note, Physician - Current Medication List Current Medications: Active Medications Acetaminophen (Tylenol Suppository -) 650 mg [place] Q4H PRN PRN Reason: FEVER Last Admin: 10/16/17 14:04 Dose: 650 mg Albuterol/Ipratropium (Duoneb -) 1 amp NEB RQID [facility] Last Admin: 10/17/17 07:54 Dose: 1 amp Bacitracin (Bacitracin -) 1 applic TP DAILY [facility] Last Admin: 10/17/17 09:36 Dose: 1 applic Digoxin (Lanoxin -) 0.125 mg PO DAILY [facility] Last Admin: 10/17/17 09:36 Dose: 0.125 mg Docusate Sodium (Colace -) 100 mg PO TID [facility] Last Admin: 10/17/17 06:09 Dose: Not Given Heparin Sodium (Porcine) (Heparin -) 5,000 unit SQ TID [facility] Last Admin: 10/17/17 06:09 Dose: Not Given Sodium Chloride (Normal Saline -) 250 mls @ 3,000 mls/hr IV PRN PRN PRN Reason: Hypotension Metoprolol Succinate (Toprol Xl -) 50 mg PO BID [facility] Last Admin: 10/17/17 09:36 Dose: 50 mg Metoprolol Tartrate (Lopressor Injection -) 5 mg IVPUSH Q4H PRN PRN Reason: HYPERTENSION Last Admin: 10/13/17 09:05 Dose: 5 mg - Objective Vital Signs: Vital Signs Temperature 98.2 F 10/17/17 07:51 Pulse Rate 98 H 10/17/17 09:36 Respiratory Rate 20 10/17/17 07:54 Blood Pressure 102/64 10/17/17 07:51 O2 Sat by Pulse Oximetry (%) 96 10/17/17 07:54 Eyes: Yes: WNL, Conjunctiva Clear, EOM Intact HENT: Yes: WNL, Atraumatic, Normocephalic Neck: Yes: WNL, Supple, Trachea Midline Cardiovascular: Yes: Pulse Irregular, S1, S2 Respiratory: Yes: WNL, Regular, CTA Bilaterally Gastrointestinal: Yes: WNL, Normal Bowel Sounds Genitourinary: Yes: WNL Musculoskeletal: Yes: WNL Extremities: Yes: WNL Edema: No Integumentary: Yes: WNL Neurological: Yes: WNL, Alert, Oriented ...Motor Strength: WNL Psychiatric: Yes: WNL Labs: CBC, BMP 10/14/17 05:05 10/14/17 05:05 INR, PTT INR 1.16 (0.82-1.09) H 10/17/17 05:05 Assessment/Plan IMP: Permanent AF, with RVR now Fever, MSSA bacteremia ESRD REC: AF:with RVR, most likely exacerbated by sepsis/fever -HR control has improved, still above goal at times -cont Toprol at current dose as tolerated, may need to hold w/ HD. Cont. Dig. -Continue Tele -INR goal 2-3, adjust coumadin 2.Sepsis:uncertain source, persistent bacteremia -receiving Abx -TTE did not show a vegetation -pts family has decided against NEISHA as she is not a candidate for valve surgery and device extraction would be a more invasive procedure than they or she would want thus the utility of NEISHA would be low -she is being considered for AVG removal, which may be the source of her bacteremia 3. Severe MR: -chronic, not a surgical candidate
--- NOTE | 2017-10-17 11:06 | PN ---
Progress Note, Physician History of Present Illness: PULMONARY ALERT,NAD,-TACHYPNEA,-DYSPNEA - Current Medication List Current Medications: Active Medications Acetaminophen (Tylenol Suppository -) 650 mg [place] Q4H PRN PRN Reason: FEVER Last Admin: 10/16/17 14:04 Dose: 650 mg Albuterol/Ipratropium (Duoneb -) 1 amp NEB RQID [facility] Last Admin: 10/17/17 07:54 Dose: 1 amp Bacitracin (Bacitracin -) 1 applic TP DAILY [facility] Last Admin: 10/17/17 09:36 Dose: 1 applic Digoxin (Lanoxin -) 0.125 mg PO DAILY [facility] Last Admin: 10/17/17 09:36 Dose: 0.125 mg Docusate Sodium (Colace -) 100 mg PO TID [facility] Last Admin: 10/17/17 06:09 Dose: Not Given Heparin Sodium (Porcine) (Heparin -) 5,000 unit SQ TID [facility] Last Admin: 10/17/17 06:09 Dose: Not Given Sodium Chloride (Normal Saline -) 250 mls @ 3,000 mls/hr IV PRN PRN PRN Reason: Hypotension Metoprolol Succinate (Toprol Xl -) 50 mg PO BID [facility] Last Admin: 10/17/17 09:36 Dose: 50 mg Metoprolol Tartrate (Lopressor Injection -) 5 mg IVPUSH Q4H PRN PRN Reason: HYPERTENSION Last Admin: 10/13/17 09:05 Dose: 5 mg Warfarin Sodium (Coumadin -) 5 mg PO ONCE@1800 ONE Stop: 10/17/17 18:01 - Objective Vital Signs: Vital Signs Temperature 98.2 F 10/17/17 07:51 Pulse Rate 98 H 10/17/17 09:36 Respiratory Rate 20 10/17/17 07:54 Blood Pressure 102/64 10/17/17 07:51 O2 Sat by Pulse Oximetry (%) 96 10/17/17 07:54 Constitutional: Yes: Well Nourished, Calm Eyes: Yes: WNL HENT: Yes: WNL Neck: Yes: WNL Cardiovascular: Yes: Pulse Irregular, S1, S2 Respiratory: Yes: Rhonchi (FEW SCATTERED RHONCHI) Gastrointestinal: Yes: Normal Bowel Sounds, Soft Extremities: Yes: WNL Edema: No Labs: CBC, BMP 10/14/17 05:05 10/14/17 05:05 INR, PTT INR 1.16 (0.82-1.09) H 10/17/17 05:05 Problem List - Problems (1) Abdominal pain Code(s): R10.9 - UNSPECIFIED ABDOMINAL PAIN (2) DVT prophylaxis Code(s): [id number] - (3) ESRD (end stage renal disease) on dialysis Code(s): N18.6 - END STAGE RENAL DISEASE; Z99.2 - DEPENDENCE ON RENAL DIALYSIS (4) Pleural effusion Code(s): J90 - PLEURAL EFFUSION, NOT ELSEWHERE CLASSIFIED (5) Pneumonia Code(s): J18.9 - PNEUMONIA, UNSPECIFIED ORGANISM Qualifiers: Pneumonia type: due to unspecified organism Laterality: right Lung location: lower lobe of lung Qualified Code(s): J18.1 - Lobar pneumonia, unspecified organism (6) Afib Code(s): I48.91 - UNSPECIFIED ATRIAL FIBRILLATION Qualifiers: Atrial fibrillation type: chronic Qualified Code(s): I48.2 - Chronic atrial fibrillation (7) Anemia Code(s): D64.9 - ANEMIA, UNSPECIFIED Qualifiers: Anemia type: unspecified type Qualified Code(s): D64.9 - Anemia, unspecified (8) Chronic atrial fibrillation Code(s): I48.2 - CHRONIC ATRIAL FIBRILLATION (9) Cough Code(s): R05 - COUGH (10) Diastolic CHF due to valvular disease Code(s): I38 - ENDOCARDITIS, VALVE UNSPECIFIED; I50.30 - UNSPECIFIED DIASTOLIC ( CONGESTIVE) HEART FAILURE (11) Hypertension Code(s): I10 - ESSENTIAL (PRIMARY) HYPERTENSION Qualifiers: Hypertension type: essential hypertension Qualified Code(s): I10 - Essential (primary) hypertension (12) Positive blood culture Code(s): R78.81 - BACTEREMIA Assessment/Plan IMP CHF IMPROVING ESRD ON HD COUGH RML INFILTRATE BACTEREMIA MSSA BILATERAL PLEURAL EFFUSIONS AFIB S/P PPM HLD HTN PLAN HD PER RENAL O2 INHALED BRONCHODILATORS ABX PER ID ANTITUSSIVES F/U CHEST X-RAYS AC PT REFUSES GRAFT REMOVAL DR RED Problem List - Problems (1) Abdominal pain Code(s): R10.9 - UNSPECIFIED ABDOMINAL PAIN (2) DVT prophylaxis Code(s): [id number] - (3) ESRD (end stage renal disease) on dialysis Code(s): N18.6 - END STAGE RENAL DISEASE; Z99.2 - DEPENDENCE ON RENAL DIALYSIS (4) Pleural effusion Code(s): J90 - PLEURAL EFFUSION, NOT ELSEWHERE CLASSIFIED (5) Pneumonia Code(s): J18.9 - PNEUMONIA, UNSPECIFIED ORGANISM Qualifiers: Pneumonia type: due to unspecified organism Laterality: right Lung location: lower lobe of lung Qualified Code(s): J18.1 - Lobar pneumonia, unspecified organism (6) Afib Code(s): I48.91 - UNSPECIFIED ATRIAL FIBRILLATION Qualifiers: Atrial fibrillation type: chronic Qualified Code(s): I48.2 - Chronic atrial fibrillation (7) Anemia Code(s): D64.9 - ANEMIA, UNSPECIFIED Qualifiers: Anemia type: unspecified type Qualified Code(s): D64.9 - Anemia, unspecified (8) Chronic atrial fibrillation Code(s): I48.2 - CHRONIC ATRIAL FIBRILLATION (9) Cough Code(s): R05 - COUGH (10) Diastolic CHF due to valvular disease Code(s): I38 - ENDOCARDITIS, VALVE UNSPECIFIED; I50.30 - UNSPECIFIED DIASTOLIC ( CONGESTIVE) HEART FAILURE (11) Hypertension Code(s): I10 - ESSENTIAL (PRIMARY) HYPERTENSION Qualifiers: Hypertension type: essential hypertension Qualified Code(s): I10 - Essential (primary) hypertension (12) Positive blood culture Code(s): R78.81 - BACTEREMIA
--- NOTE | 2017-10-17 13:33 | PN ---
Progress Note, Physician History of Present Illness: awake monitor intake - Current Medication List Current Medications: Active Medications Acetaminophen (Tylenol Suppository -) 650 mg [place] Q4H PRN PRN Reason: FEVER Last Admin: 10/16/17 14:04 Dose: 650 mg Albuterol/Ipratropium (Duoneb -) 1 amp NEB RQID [facility] Last Admin: 10/17/17 11:47 Dose: 1 amp Bacitracin (Bacitracin -) 1 applic TP DAILY [facility] Last Admin: 10/17/17 09:36 Dose: 1 applic Digoxin (Lanoxin -) 0.125 mg PO DAILY [facility] Last Admin: 10/17/17 09:36 Dose: 0.125 mg Docusate Sodium (Colace -) 100 mg PO TID [facility] Last Admin: 10/17/17 06:09 Dose: Not Given Heparin Sodium (Porcine) (Heparin -) 5,000 unit SQ TID [facility] Last Admin: 10/17/17 06:09 Dose: Not Given Sodium Chloride (Normal Saline -) 250 mls @ 3,000 mls/hr IV PRN PRN PRN Reason: Hypotension Metoprolol Succinate (Toprol Xl -) 50 mg PO BID [facility] Last Admin: 10/17/17 09:36 Dose: 50 mg Metoprolol Tartrate (Lopressor Injection -) 5 mg IVPUSH Q4H PRN PRN Reason: HYPERTENSION Last Admin: 10/13/17 09:05 Dose: 5 mg Warfarin Sodium (Coumadin -) 5 mg PO ONCE@1800 ONE Stop: 10/17/17 18:01 - Objective Vital Signs: Vital Signs Temperature 98.2 F 10/17/17 07:51 Pulse Rate 98 H 10/17/17 09:36 Respiratory Rate 20 10/17/17 07:54 Blood Pressure 102/64 10/17/17 07:51 O2 Sat by Pulse Oximetry (%) 96 10/17/17 07:54 Cardiovascular: Yes: S1, S2 Respiratory: Yes: Regular, CTA Bilaterally Gastrointestinal: Yes: Normal Bowel Sounds, Soft Labs: CBC, BMP 10/14/17 05:05 10/14/17 05:05 INR, PTT INR 1.16 (0.82-1.09) H 10/17/17 05:05 Assessment/Plan - Problems (1) Pleural effusion Assessment/Plan: s/p thoracocentesis today Code(s): J90 - PLEURAL EFFUSION, NOT ELSEWHERE CLASSIFIED (2) Positive blood culture Assessment/Plan: gram postive cocci cluster per ID note ? AVG might be source of infection vanco renal dose Code(s): R78.81 - BACTEREMIA (3) ESRD (end stage renal disease) on dialysis Assessment/Plan: HD per renal AVG graft with wound? 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
--- NOTE | 2017-10-17 15:44 | PN ---
Progress Note, Physician History of Present Illness: Pt seen and examined at bedside. Family are at bedside. - Current Medication List Current Medications: Active Medications Acetaminophen (Tylenol Suppository -) 650 mg [place] Q4H PRN PRN Reason: FEVER Last Admin: 10/16/17 14:04 Dose: 650 mg Albuterol/Ipratropium (Duoneb -) 1 amp NEB RQID [facility] Last Admin: 10/17/17 11:47 Dose: 1 amp Bacitracin (Bacitracin -) 1 applic TP DAILY [facility] Last Admin: 10/17/17 09:36 Dose: 1 applic Digoxin (Lanoxin -) 0.125 mg PO DAILY [facility] Last Admin: 10/17/17 09:36 Dose: 0.125 mg Docusate Sodium (Colace -) 100 mg PO TID [facility] Last Admin: 10/17/17 14:54 Dose: 100 mg Heparin Sodium (Porcine) (Heparin -) 5,000 unit SQ TID [facility] Last Admin: 10/17/17 14:54 Dose: 5,000 unit Sodium Chloride (Normal Saline -) 250 mls @ 3,000 mls/hr IV PRN PRN PRN Reason: Hypotension Metoprolol Succinate (Toprol Xl -) 50 mg PO BID [facility] Last Admin: 10/17/17 09:36 Dose: 50 mg Metoprolol Tartrate (Lopressor Injection -) 5 mg IVPUSH Q4H PRN PRN Reason: HYPERTENSION Last Admin: 10/13/17 09:05 Dose: 5 mg Warfarin Sodium (Coumadin -) 5 mg PO ONCE@1800 ONE Stop: 10/17/17 18:01 - Objective Vital Signs: Vital Signs Temperature 99.1 F 10/17/17 14:00 Pulse Rate 93 H 10/17/17 14:00 Respiratory Rate 20 10/17/17 14:00 Blood Pressure 94/62 10/17/17 14:00 O2 Sat by Pulse Oximetry (%) 96 10/17/17 07:54 Constitutional: Yes: Calm Eyes: Yes: Conjunctiva Clear HENT: Yes: Atraumatic Cardiovascular: Yes: S1, S2 Respiratory: Yes: On Nasal O2 Gastrointestinal: Yes: Soft Genitourinary: Yes: Incontinence Musculoskeletal: Yes: Muscle Weakness Edema: No Neurological: Yes: Oriented Psychiatric: Yes: Oriented Labs: CBC, BMP 10/14/17 05:05 10/14/17 05:05 INR, PTT INR 1.16 (0.82-1.09) H 10/17/17 05:05 Problem List - Problems (1) ESRD (end stage renal disease) on dialysis Code(s): N18.6 - END STAGE RENAL DISEASE; Z99.2 - DEPENDENCE ON RENAL DIALYSIS (2) Pleural effusion Code(s): J90 - PLEURAL EFFUSION, NOT ELSEWHERE CLASSIFIED (3) Anemia Code(s): D64.9 - ANEMIA, UNSPECIFIED Qualifiers: Anemia type: unspecified type Qualified Code(s): D64.9 - Anemia, unspecified (4) Chronic atrial fibrillation Code(s): I48.2 - CHRONIC ATRIAL FIBRILLATION Assessment/Plan Current Medications Generic Name Dose Route Start Last Admin Trade Name Freq PRN Reason Stop Dose Admin Acetaminophen 650 mg 10/10/17 11:02 10/16/17 14:04 Tylenol Suppository - [place] 650 mg Q4H PRN Administration FEVER Albuterol/Ipratropium 1 amp 10/05/17 12:00 10/17/17 11:47 Duoneb - NEB 1 amp RQID PHANI Administration Bacitracin 1 applic 10/15/17 10:00 10/17/17 09:36 Bacitracin - TP 1 applic DAILY PHANI Administration Digoxin 0.125 mg 10/13/17 10:00 10/17/17 09:36 Lanoxin - PO 0.125 mg DAILY PHANI Administration Docusate Sodium 100 mg 10/07/17 14:00 10/17/17 14:54 Colace - PO 100 mg TID PHANI Administration Heparin Sodium (Porcine) 5,000 unit 10/14/17 14:00 10/17/17 14:54 Heparin - SQ 5,000 unit TID PHANI Administration Sodium Chloride 250 mls @ 3,000 mls/hr 10/13/17 15:31 Normal Saline - IV PRN PRN Hypotension Metoprolol Succinate 50 mg 10/11/17 22:00 10/17/17 09:36 Toprol Xl - PO 50 mg BID PHANI Administration Metoprolol Tartrate 5 mg 10/06/17 14:58 10/13/17 09:05 Lopressor Injection - IVPUSH 5 mg Q4H PRN Administration HYPERTENSION Warfarin Sodium 5 mg 10/17/17 18:00 Coumadin - PO 10/17/17 18:01 ONCE@1800 ONE Impression 1. esrd 2. constipation 3. abd pain 4. a-fib 5. htn 6. anemia 7. bacteremia 8. fever Plan - cont with abx - family and pt do not want surgery - they want to keep her comfortable but the also want to continue with HD - will need to clarrify GOC - cont epogen - discussed with pts family - will follow Dr Dunham
[2017-10-17] MEDS ORDERED: WARFARIN NA 5 MG TABLET (UD) PO ONE (18:00)
[2017-10-18] MEDS: HEPARIN NA (PORCINE) 5,000 UNITS/ML 1ML VIAL SQ SCH ×3 (06:35→21:41)
[2017-10-18] MEDS: DOCUSATE SODIUM 100 MG CAPSULE (FP) PO SCH ×2 (06:35→21:41)
[2017-10-18] MEDS: ALBUTEROL SO4 2.5/IPRATROPIUM 0.5 INH SOL 3 ML VIAL.NEB. NEB SCH ×4 (08:37→20:50)
--- NOTE | 2017-10-18 09:26 | PN ---
Progress Note, Physician - Current Medication List Current Medications: Active Medications Acetaminophen (Tylenol Suppository -) 650 mg [place] Q4H PRN PRN Reason: FEVER Last Admin: 10/16/17 14:04 Dose: 650 mg Albuterol/Ipratropium (Duoneb -) 1 amp NEB RQID [facility] Last Admin: 10/18/17 08:37 Dose: 1 amp Bacitracin (Bacitracin -) 1 applic TP DAILY [facility] Last Admin: 10/17/17 09:36 Dose: 1 applic Digoxin (Lanoxin -) 0.125 mg PO DAILY [facility] Last Admin: 10/17/17 09:36 Dose: 0.125 mg Docusate Sodium (Colace -) 100 mg PO TID [facility] Last Admin: 10/18/17 06:35 Dose: 100 mg Heparin Sodium (Porcine) (Heparin -) 5,000 unit SQ TID [facility] Last Admin: 10/18/17 06:35 Dose: 5,000 unit Sodium Chloride (Normal Saline -) 250 mls @ 3,000 mls/hr IV PRN PRN PRN Reason: Hypotension Metoprolol Succinate (Toprol Xl -) 50 mg PO BID [facility] Last Admin: 10/17/17 21:33 Dose: 50 mg Metoprolol Tartrate (Lopressor Injection -) 5 mg IVPUSH Q4H PRN PRN Reason: HYPERTENSION Last Admin: 10/13/17 09:05 Dose: 5 mg - Objective Vital Signs: Vital Signs Temperature 99.0 F 10/18/17 07:14 Pulse Rate 98 H 10/18/17 07:14 Respiratory Rate 18 10/18/17 07:16 Blood Pressure 110/70 10/18/17 07:14 O2 Sat by Pulse Oximetry (%) 94 L 10/18/17 07:16 Eyes: Yes: WNL, Conjunctiva Clear, EOM Intact HENT: Yes: WNL, Atraumatic, Normocephalic Neck: Yes: WNL, Supple, Trachea Midline Cardiovascular: Yes: S1, S2 Respiratory: Yes: WNL, Regular, CTA Bilaterally Gastrointestinal: Yes: WNL, Normal Bowel Sounds Genitourinary: Yes: WNL Musculoskeletal: Yes: WNL Extremities: Yes: WNL Edema: No Integumentary: Yes: WNL Neurological: Yes: Alert ...Motor Strength: WNL Psychiatric: Yes: WNL Labs: CBC, BMP 03/07/18 05:05 10/14/17 05:05 INR, PTT INR 1.16 (0.82-1.09) H 10/17/17 05:05 Assessment/Plan IMP: Permanent AF, with RVR now Fever, MSSA bacteremia ESRD REC: AF:with RVR, most likely exacerbated by sepsis/fever -HR control has improved, still above goal at times -cont Toprol at current dose as tolerated, may need to hold w/ HD. Cont. Dig. -Continue Tele -INR goal 2-3, adjust coumadin 2.Sepsis:uncertain source, persistent bacteremia -receiving Abx -TTE did not show a vegetation -pts family has decided against NEISHA as she is not a candidate for valve surgery and device extraction would be a more invasive procedure than they or she would want thus the utility of NEISHA would be low -she is being considered for AVG removal, which may be the source of her bacteremia 3. Severe MR: -chronic, not a surgical candidate
[2017-10-18] MEDS: DIGOXIN 0.125 MG TABLET (FP) PO SCH (09:34)
[2017-10-18] MEDS: BACITRACIN 15 GM TUBE TOPICAL OINTMENT TP SCH (09:36)
--- NOTE | 2017-10-18 11:14 | PN ---
Progress Note, Physician History of Present Illness: PULMONARY ALERT,FEELING BETTER LESS DYSPNEIC, LESS COUGH - Current Medication List Current Medications: Active Medications Acetaminophen (Tylenol Suppository -) 650 mg UT Q4H PRN PRN Reason: FEVER Last Admin: 10/16/17 14:04 Dose: 650 mg Albuterol/Ipratropium (Duoneb -) 1 amp NEB RQID [facility] Last Admin: 10/18/17 08:37 Dose: 1 amp Bacitracin (Bacitracin -) 1 applic TP DAILY [facility] Last Admin: 10/18/17 09:36 Dose: 1 applic Digoxin (Lanoxin -) 0.125 mg PO DAILY [facility] Last Admin: 10/18/17 09:34 Dose: 0.125 mg Docusate Sodium (Colace -) 100 mg PO TID [facility] Last Admin: 10/18/17 06:35 Dose: 100 mg Heparin Sodium (Porcine) (Heparin -) 5,000 unit SQ TID [facility] Last Admin: 10/18/17 06:35 Dose: 5,000 unit Sodium Chloride (Normal Saline -) 250 mls @ 3,000 mls/hr IV PRN PRN PRN Reason: Hypotension Metoprolol Succinate (Toprol Xl -) 50 mg PO BID [facility] Last Admin: 10/18/17 09:34 Dose: 50 mg Metoprolol Tartrate (Lopressor Injection -) 5 mg IVPUSH Q4H PRN PRN Reason: HYPERTENSION Last Admin: 10/13/17 09:05 Dose: 5 mg - Objective Vital Signs: Vital Signs Temperature 99.0 F 10/18/17 07:14 Pulse Rate 94 H 10/18/17 09:34 Respiratory Rate 18 10/18/17 07:16 Blood Pressure 110/70 10/18/17 07:14 O2 Sat by Pulse Oximetry (%) 94 L 10/18/17 07:16 Constitutional: Yes: Well Nourished, Calm Eyes: Yes: WNL HENT: Yes: WNL Neck: Yes: WNL Cardiovascular: Yes: Pulse Irregular, S1, S2 Respiratory: Yes: Rales (BIBASILAR RACKLES) Gastrointestinal: Yes: Normal Bowel Sounds, Soft Extremities: Yes: WNL Edema: No Labs: CBC, BMP 10/14/17 05:05 10/14/17 05:05 INR, PTT INR 1.16 (0.82-1.09) H 10/17/17 05:05 Problem List - Problems (1) Abdominal pain Code(s): R10.9 - UNSPECIFIED ABDOMINAL PAIN (2) DVT prophylaxis Code(s): [id number] - (3) ESRD (end stage renal disease) on dialysis Code(s): N18.6 - END STAGE RENAL DISEASE; Z99.2 - DEPENDENCE ON RENAL DIALYSIS (4) Pleural effusion Code(s): J90 - PLEURAL EFFUSION, NOT ELSEWHERE CLASSIFIED (5) Pneumonia Code(s): J18.9 - PNEUMONIA, UNSPECIFIED ORGANISM Qualifiers: Pneumonia type: due to unspecified organism Laterality: right Lung location: lower lobe of lung Qualified Code(s): J18.1 - Lobar pneumonia, unspecified organism (6) Afib Code(s): I48.91 - UNSPECIFIED ATRIAL FIBRILLATION Qualifiers: Atrial fibrillation type: chronic Qualified Code(s): I48.2 - Chronic atrial fibrillation (7) Anemia Code(s): D64.9 - ANEMIA, UNSPECIFIED Qualifiers: Anemia type: unspecified type Qualified Code(s): D64.9 - Anemia, unspecified (8) Chronic atrial fibrillation Code(s): I48.2 - CHRONIC ATRIAL FIBRILLATION (9) Cough Code(s): R05 - COUGH (10) Diastolic CHF due to valvular disease Code(s): I38 - ENDOCARDITIS, VALVE UNSPECIFIED; I50.30 - UNSPECIFIED DIASTOLIC ( CONGESTIVE) HEART FAILURE (11) Hypertension Code(s): I10 - ESSENTIAL (PRIMARY) HYPERTENSION Qualifiers: Hypertension type: essential hypertension Qualified Code(s): I10 - Essential (primary) hypertension (12) Positive blood culture Code(s): R78.81 - BACTEREMIA Assessment/Plan IMP CHF IMPROVING ESRD ON HD COUGH RML INFILTRATE BACTEREMIA MSSA BILATERAL PLEURAL EFFUSIONS AFIB S/P PPM HLD HTN ANEMIA PLAN HD PER RENAL O2 INHALED BRONCHODILATORS ABX PER ID ANTITUSSIVES F/U CHEST X-RAYS AC PT REFUSES GRAFT REMOVAL DR ERD Problem List - Problems (1) Abdominal pain Code(s): R10.9 - UNSPECIFIED ABDOMINAL PAIN (2) DVT prophylaxis Code(s): [id number] - (3) ESRD (end stage renal disease) on dialysis Code(s): N18.6 - END STAGE RENAL DISEASE; Z99.2 - DEPENDENCE ON RENAL DIALYSIS (4) Pleural effusion Code(s): J90 - PLEURAL EFFUSION, NOT ELSEWHERE CLASSIFIED (5) Pneumonia Code(s): J18.9 - PNEUMONIA, UNSPECIFIED ORGANISM Qualifiers: Pneumonia type: due to unspecified organism Laterality: right Lung location: lower lobe of lung Qualified Code(s): J18.1 - Lobar pneumonia, unspecified organism (6) Afib Code(s): I48.91 - UNSPECIFIED ATRIAL FIBRILLATION Qualifiers: Atrial fibrillation type: chronic Qualified Code(s): I48.2 - Chronic atrial fibrillation (7) Anemia Code(s): D64.9 - ANEMIA, UNSPECIFIED Qualifiers: Anemia type: unspecified type Qualified Code(s): D64.9 - Anemia, unspecified (8) Chronic atrial fibrillation Code(s): I48.2 - CHRONIC ATRIAL FIBRILLATION (9) Cough Code(s): R05 - COUGH (10) Diastolic CHF due to valvular disease Code(s): I38 - ENDOCARDITIS, VALVE UNSPECIFIED; I50.30 - UNSPECIFIED DIASTOLIC ( CONGESTIVE) HEART FAILURE (11) Hypertension Code(s): I10 - ESSENTIAL (PRIMARY) HYPERTENSION Qualifiers: Hypertension type: essential hypertension Qualified Code(s): I10 - Essential (primary) hypertension (12) Positive blood culture Code(s): R78.81 - BACTEREMIA
--- NOTE | 2017-10-18 11:39 | PN ---
Progress Note, Physician History of Present Illness: awake monitor intake - Current Medication List Current Medications: Active Medications Acetaminophen (Tylenol Suppository -) 650 mg DE Q4H PRN PRN Reason: FEVER Last Admin: 10/16/17 14:04 Dose: 650 mg Albuterol/Ipratropium (Duoneb -) 1 amp NEB RQID [facility] Last Admin: 10/18/17 08:37 Dose: 1 amp Bacitracin (Bacitracin -) 1 applic TP DAILY [facility] Last Admin: 10/18/17 09:36 Dose: 1 applic Digoxin (Lanoxin -) 0.125 mg PO DAILY [facility] Last Admin: 10/18/17 09:34 Dose: 0.125 mg Docusate Sodium (Colace -) 100 mg PO TID [facility] Last Admin: 10/18/17 06:35 Dose: 100 mg Heparin Sodium (Porcine) (Heparin -) 5,000 unit SQ TID [facility] Last Admin: 10/18/17 06:35 Dose: 5,000 unit Sodium Chloride (Normal Saline -) 250 mls @ 3,000 mls/hr IV PRN PRN PRN Reason: Hypotension Metoprolol Succinate (Toprol Xl -) 50 mg PO BID [facility] Last Admin: 10/18/17 09:34 Dose: 50 mg Metoprolol Tartrate (Lopressor Injection -) 5 mg IVPUSH Q4H PRN PRN Reason: HYPERTENSION Last Admin: 10/13/17 09:05 Dose: 5 mg - Objective Vital Signs: Vital Signs Temperature 99.0 F 10/18/17 07:14 Pulse Rate 94 H 10/18/17 09:34 Respiratory Rate 18 10/18/17 07:16 Blood Pressure 110/70 10/18/17 07:14 O2 Sat by Pulse Oximetry (%) 94 L 10/18/17 07:16 Cardiovascular: Yes: S1, S2 Respiratory: Yes: Regular, CTA Bilaterally Gastrointestinal: Yes: Normal Bowel Sounds, Soft Labs: CBC, BMP 10/14/17 05:05 10/14/17 05:05 INR, PTT INR 1.16 (0.82-1.09) H 10/17/17 05:05 Assessment/Plan - Problems (1) Pleural effusion Assessment/Plan: s/p thoracocentesis today Code(s): J90 - PLEURAL EFFUSION, NOT ELSEWHERE CLASSIFIED (2) Positive blood culture Assessment/Plan: gram postive cocci cluster per ID note ? AVG might be source of infection vanco renal dose Code(s): R78.81 - BACTEREMIA (3) ESRD (end stage renal disease) on dialysis Assessment/Plan: HD per renal AVG graft with wound? 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
--- NOTE | 2017-10-18 18:35 | PN ---
Progress Note, Physician History of Present Illness: Pt seen and examined at bedside. She is awake and appears comfortable. Her family are at bedside. They want her to continue to with HD. - Current Medication List Current Medications: Active Medications Acetaminophen (Tylenol Suppository -) 650 mg MA Q4H PRN PRN Reason: FEVER Last Admin: 10/16/17 14:04 Dose: 650 mg Albuterol/Ipratropium (Duoneb -) 1 amp NEB RQID [facility] Last Admin: 10/18/17 15:30 Dose: 1 amp Bacitracin (Bacitracin -) 1 applic TP DAILY [facility] Last Admin: 10/18/17 09:36 Dose: 1 applic Digoxin (Lanoxin -) 0.125 mg PO DAILY [facility] Last Admin: 10/18/17 09:34 Dose: 0.125 mg Docusate Sodium (Colace -) 100 mg PO TID [facility] Last Admin: 10/18/17 06:35 Dose: 100 mg Heparin Sodium (Porcine) (Heparin -) 5,000 unit SQ TID [facility] Last Admin: 10/18/17 14:35 Dose: Not Given Sodium Chloride (Normal Saline -) 250 mls @ 3,000 mls/hr IV PRN PRN PRN Reason: Hypotension Metoprolol Succinate (Toprol Xl -) 50 mg PO BID [facility] Last Admin: 10/18/17 09:34 Dose: 50 mg Metoprolol Tartrate (Lopressor Injection -) 5 mg IVPUSH Q4H PRN PRN Reason: HYPERTENSION Last Admin: 10/13/17 09:05 Dose: 5 mg - Objective Vital Signs: Vital Signs Temperature 98.4 F 10/18/17 14:00 Pulse Rate 82 10/18/17 14:00 Respiratory Rate 20 10/18/17 14:00 Blood Pressure 95/63 10/18/17 14:00 O2 Sat by Pulse Oximetry (%) 94 L 10/18/17 07:16 Constitutional: Yes: Calm Eyes: Yes: Conjunctiva Clear HENT: Yes: Atraumatic Neck: Yes: Supple Cardiovascular: Yes: S1, S2 Respiratory: Yes: On Nasal O2 Gastrointestinal: Yes: Normal Bowel Sounds, Soft Genitourinary: Yes: Incontinence Musculoskeletal: Yes: Muscle Weakness Edema: LLE: Trace, RLE: Trace Neurological: Yes: Oriented Psychiatric: Yes: Oriented Labs: CBC, BMP 10/14/17 05:05 10/14/17 05:05 INR, PTT INR 1.16 (0.82-1.09) H 10/17/17 05:05 Problem List - Problems (1) ESRD (end stage renal disease) on dialysis Code(s): N18.6 - END STAGE RENAL DISEASE; Z99.2 - DEPENDENCE ON RENAL DIALYSIS (2) Pleural effusion Code(s): J90 - PLEURAL EFFUSION, NOT ELSEWHERE CLASSIFIED (3) Anemia Code(s): D64.9 - ANEMIA, UNSPECIFIED Qualifiers: Anemia type: unspecified type Qualified Code(s): D64.9 - Anemia, unspecified (4) Chronic atrial fibrillation Code(s): I48.2 - CHRONIC ATRIAL FIBRILLATION Assessment/Plan Current Medications Generic Name Dose Route Start Last Admin Trade Name Freq PRN Reason Stop Dose Admin Acetaminophen 650 mg 10/10/17 11:02 10/16/17 14:04 Tylenol Suppository - MA 650 mg Q4H PRN Administration FEVER Albuterol/Ipratropium 1 amp 10/05/17 12:00 10/18/17 15:30 Duoneb - NEB 1 amp RQID [facility] Administration Bacitracin 1 applic 10/15/17 10:00 10/18/17 09:36 Bacitracin - TP 1 applic DAILY [facility] Administration Digoxin 0.125 mg 10/13/17 10:00 10/18/17 09:34 Lanoxin - PO 0.125 mg DAILY [facility] Administration Docusate Sodium 100 mg 10/07/17 14:00 10/18/17 06:35 Colace - PO 100 mg TID [facility] Administration Heparin Sodium (Porcine) 5,000 unit 10/14/17 14:00 10/18/17 14:35 Heparin - SQ Not Given TID [facility] Sodium Chloride 250 mls @ 3,000 mls/hr 10/13/17 15:31 Normal Saline - IV PRN PRN Hypotension Metoprolol Succinate 50 mg 10/11/17 22:00 10/18/17 09:34 Toprol Xl - PO 50 mg BID [facility] Administration Metoprolol Tartrate 5 mg 10/06/17 14:58 10/13/17 09:05 Lopressor Injection - IVPUSH 5 mg Q4H PRN Administration HYPERTENSION Impression 1. esrd 2. constipation 3. abd pain 4. a-fib 5. htn 6. anemia 7. bacteremia 8. fever Plan - family at bedside, pt and family do not want to stop HD - will arrange for HD in am - will need to clarify GOC - ID follow up for abx - cont epogen - will follow Dr Dunham
[2017-10-18] MEDS ORDERED: WARFARIN NA 2.5 MG TABLET (FP) PO ONE (20:25)
[2017-10-19] MEDS: HEPARIN NA (PORCINE) 5,000 UNITS/ML 1ML VIAL SQ SCH ×3 (06:18→21:56)
[2017-10-19] MEDS: DOCUSATE SODIUM 100 MG CAPSULE (FP) PO SCH ×3 (06:18→21:55)
[2017-10-19] MEDS: ALBUTEROL SO4 2.5/IPRATROPIUM 0.5 INH SOL 3 ML VIAL.NEB. NEB SCH (07:50)
--- NOTE | 2017-10-19 12:04 | PN ---
Progress Note, Physician History of Present Illness: pt family in to see her, praying with her. d/w 2 daughters today, plan to take pt home to provide comfort care themselves and continue outpatient HD. - Current Medication List Current Medications: Active Medications Acetaminophen (Tylenol Suppository -) 650 mg [place] Q4H PRN PRN Reason: FEVER Last Admin: 10/16/17 14:04 Dose: 650 mg Bacitracin (Bacitracin -) 1 applic TP DAILY [facility] Last Admin: 10/18/17 09:36 Dose: 1 applic Digoxin (Lanoxin -) 0.125 mg PO DAILY [facility] Last Admin: 10/18/17 09:34 Dose: 0.125 mg Docusate Sodium (Colace -) 100 mg PO TID [facility] Last Admin: 10/19/17 06:18 Dose: Not Given Epoetin Francisco (Epogen -) 5,000 unit IVPUSH ONCE ONE Stop: 10/19/17 18:36 Heparin Sodium (Porcine) (Heparin -) 5,000 unit SQ TID [facility] Last Admin: 10/19/17 06:18 Dose: 5,000 unit Sodium Chloride (Normal Saline -) 250 mls @ 3,000 mls/hr IV PRN PRN PRN Reason: Hypotension Metoprolol Succinate (Toprol Xl -) 50 mg PO BID [facility] Last Admin: 10/18/17 21:41 Dose: 50 mg Metoprolol Tartrate (Lopressor Injection -) 5 mg IVPUSH Q4H PRN PRN Reason: HYPERTENSION Last Admin: 10/13/17 09:05 Dose: 5 mg - Objective Vital Signs: Vital Signs Temperature 98 F 10/19/17 09:11 Pulse Rate 68 10/19/17 09:11 Respiratory Rate 18 10/19/17 09:11 Blood Pressure 113/67 10/19/17 09:11 O2 Sat by Pulse Oximetry (%) 100 10/19/17 09:00 Constitutional: Yes: No Distress, Calm Labs: CBC, BMP 10/14/17 05:05 10/14/17 05:05 INR, PTT INR 1.16 (0.82-1.09) H 10/17/17 05:05 - ....Imaging Other: Report Reviewed, Image Reviewed (tele-Afib, HR controlled, intermittent Vpaced) Assessment/Plan IMP: Permanent AF, with RVR now Fever, MSSA bacteremia ESRD REC: AF:with RVR, most likely exacerbated by sepsis/fever -HRimproved -cont Toprol at current dose as tolerated, may need to hold if BP isues w/ HD. -Cont. Dig. -INR goal 2-3, adjust coumadin -can D/c tele as plan is for discharge with comfort measures 2.Sepsis: persistent bacteremia -receiving Abx -TTE did not show a vegetation -decision was made by pt and pts family to avoid invasive procedures including NEISHA/device extraction and AVG removal -plan is to cont Vancomycine with HD as outpatient 3. Severe MR: -chronic, not a surgical candidate Pts family planning to take pt home tomorrow to provide comfort care measures but include HD and Abx with HD
--- NOTE | 2017-10-19 13:20 | PN ---
Progress Note, Physician History of Present Illness: PULMONARY ALERT,COMFORTABLE,-RESP DISTRESS. - Current Medication List Current Medications: Active Medications Acetaminophen (Tylenol Suppository -) 650 mg MA Q4H PRN PRN Reason: FEVER Last Admin: 10/16/17 14:04 Dose: 650 mg Bacitracin (Bacitracin -) 1 applic TP DAILY [facility] Last Admin: 10/18/17 09:36 Dose: 1 applic Digoxin (Lanoxin -) 0.125 mg PO DAILY [facility] Last Admin: 10/18/17 09:34 Dose: 0.125 mg Docusate Sodium (Colace -) 100 mg PO TID [facility] Last Admin: 10/19/17 06:18 Dose: Not Given Epoetin Francisco (Epogen -) 5,000 unit IVPUSH ONCE ONE Stop: 10/19/17 18:36 Heparin Sodium (Porcine) (Heparin -) 5,000 unit SQ TID [facility] Last Admin: 10/19/17 06:18 Dose: 5,000 unit Sodium Chloride (Normal Saline -) 250 mls @ 3,000 mls/hr IV PRN PRN PRN Reason: Hypotension Metoprolol Succinate (Toprol Xl -) 50 mg PO BID [facility] Last Admin: 10/18/17 21:41 Dose: 50 mg Metoprolol Tartrate (Lopressor Injection -) 5 mg IVPUSH Q4H PRN PRN Reason: HYPERTENSION Last Admin: 10/13/17 09:05 Dose: 5 mg - Objective Vital Signs: Vital Signs Temperature 98 F 10/19/17 09:11 Pulse Rate 68 10/19/17 09:11 Respiratory Rate 18 10/19/17 09:11 Blood Pressure 113/67 10/19/17 09:11 O2 Sat by Pulse Oximetry (%) 100 10/19/17 09:00 Constitutional: Yes: Well Nourished, Calm Eyes: Yes: WNL HENT: Yes: WNL Neck: Yes: WNL Cardiovascular: Yes: Pulse Irregular, S1, S2 Gastrointestinal: Yes: Normal Bowel Sounds, Soft Extremities: Yes: WNL Edema: No Problem List - Problems (1) Abdominal pain Code(s): R10.9 - UNSPECIFIED ABDOMINAL PAIN (2) DVT prophylaxis Code(s): [id number] - (3) ESRD (end stage renal disease) on dialysis Code(s): N18.6 - END STAGE RENAL DISEASE; Z99.2 - DEPENDENCE ON RENAL DIALYSIS (4) Pleural effusion Code(s): J90 - PLEURAL EFFUSION, NOT ELSEWHERE CLASSIFIED (5) Pneumonia Code(s): J18.9 - PNEUMONIA, UNSPECIFIED ORGANISM Qualifiers: Pneumonia type: due to unspecified organism Laterality: right Lung location: lower lobe of lung Qualified Code(s): J18.1 - Lobar pneumonia, unspecified organism (6) Afib Code(s): I48.91 - UNSPECIFIED ATRIAL FIBRILLATION Qualifiers: Atrial fibrillation type: chronic Qualified Code(s): I48.2 - Chronic atrial fibrillation (7) Anemia Code(s): D64.9 - ANEMIA, UNSPECIFIED Qualifiers: Anemia type: unspecified type Qualified Code(s): D64.9 - Anemia, unspecified (8) Chronic atrial fibrillation Code(s): I48.2 - CHRONIC ATRIAL FIBRILLATION (9) Cough Code(s): R05 - COUGH (10) Diastolic CHF due to valvular disease Code(s): I38 - ENDOCARDITIS, VALVE UNSPECIFIED; I50.30 - UNSPECIFIED DIASTOLIC ( CONGESTIVE) HEART FAILURE (11) Hypertension Code(s): I10 - ESSENTIAL (PRIMARY) HYPERTENSION Qualifiers: Hypertension type: essential hypertension Qualified Code(s): I10 - Essential (primary) hypertension (12) Positive blood culture Code(s): R78.81 - BACTEREMIA Assessment/Plan IMP CHF IMPROVING ESRD ON HD COUGH RML INFILTRATE BACTEREMIA MSSA BILATERAL PLEURAL EFFUSIONS AFIB S/P PPM HLD HTN ANEMIA PLAN HD PER RENAL O2 INHALED BRONCHODILATORS ABX PER ID ANTITUSSIVES F/U CHEST X-RAYS AC PT REFUSES GRAFT REMOVAL COMFORT CARE DR RED Problem List - Problems (1) Abdominal pain Code(s): R10.9 - UNSPECIFIED ABDOMINAL PAIN (2) DVT prophylaxis Code(s): [id number] - (3) ESRD (end stage renal disease) on dialysis Code(s): N18.6 - END STAGE RENAL DISEASE; Z99.2 - DEPENDENCE ON RENAL DIALYSIS (4) Pleural effusion Code(s): J90 - PLEURAL EFFUSION, NOT ELSEWHERE CLASSIFIED (5) Pneumonia Code(s): J18.9 - PNEUMONIA, UNSPECIFIED ORGANISM Qualifiers: Pneumonia type: due to unspecified organism Laterality: right Lung location: lower lobe of lung Qualified Code(s): J18.1 - Lobar pneumonia, unspecified organism (6) Afib Code(s): I48.91 - UNSPECIFIED ATRIAL FIBRILLATION Qualifiers: Atrial fibrillation type: chronic Qualified Code(s): I48.2 - Chronic atrial fibrillation (7) Anemia Code(s): D64.9 - ANEMIA, UNSPECIFIED Qualifiers: Anemia type: unspecified type Qualified Code(s): D64.9 - Anemia, unspecified (8) Chronic atrial fibrillation Code(s): I48.2 - CHRONIC ATRIAL FIBRILLATION (9) Cough Code(s): R05 - COUGH (10) Diastolic CHF due to valvular disease Code(s): I38 - ENDOCARDITIS, VALVE UNSPECIFIED; I50.30 - UNSPECIFIED DIASTOLIC ( CONGESTIVE) HEART FAILURE (11) Hypertension Code(s): I10 - ESSENTIAL (PRIMARY) HYPERTENSION Qualifiers: Hypertension type: essential hypertension Qualified Code(s): I10 - Essential (primary) hypertension (12) Positive blood culture Code(s): R78.81 - BACTEREMIA
--- NOTE | 2017-10-19 15:28 | DS ---
Physical Examination Vital Signs: Vital Signs Temperature 98.5 F 10/19/17 14:00 Pulse Rate 81 10/19/17 14:00 Respiratory Rate 20 10/19/17 14:00 Blood Pressure 111/70 10/19/17 14:00 O2 Sat by Pulse Oximetry (%) 100 10/19/17 09:00 Findings/Remarks: FAMILY BEDSIDE AGREEING TO HOSPICE CENTER OR HOME HOSPICE Constitutional: Yes: Moderate Distress Eyes: Yes: WNL HENT: Yes: WNL Neck: Yes: WNL Cardiovascular: Yes: Pulse Irregular Respiratory: Yes: WNL, On Nasal O2 Gastrointestinal: Yes: WNL Renal/: Yes: WNL Musculoskeletal: Yes: Muscle Weakness Extremities: Yes: Other Edema: Yes Peripheral Pulses WNL: Yes Integumentary: Yes: WNL Wound/Incision: Yes: Clean/Dry Neurological: Yes: Pre-Existing Deficit ...Motor Strength: LLE, RUE, RLE Psychiatric: Yes: Other Labs: CBC, BMP 10/14/17 05:05 10/14/17 05:05 Discharge Summary Reason For Visit: PNEUMONIA Current Active Problems Abdominal pain (Acute) Abscess (Acute) Acute on chronic diastolic CHF (congestive heart failure) (Acute) Aspiration into airway (Acute) DVT prophylaxis (Acute) ESRD (end stage renal disease) on dialysis (Acute) Irritable bowel syndrome (IBS) (Acute) Pacemaker (Acute) Pleural effusion (Acute) Pneumonia (Acute) Positive blood culture (Acute) Procedures: Principal: THORACENTESIS,CT SCANS, TELE, IV ABX Hospital Course: MULTIPLE MEDICAL ISSUES WITH ESRD, HD, PLEURAL EFFUSIONS, FEVERS, SEPSIS, GRAFT AV MALFUNCTION, RESP DISTRESS, AT THIS POINT FAMILY HAS OPTED HOSPICE CARE PALLIATIVE. Condition: Poor - Instructions Diet, Activity, Other Instructions: TOLERATED HOSPICE PLACEMENT Referrals: Arnav Samaniego MD [Primary Care Provider] - Disposition: TRANSFER ACUTE CARE/OTHER HOSP - Home Medications Comprehensive Discharge Medication List: Ambulatory Orders Metoprolol Succinate [Toprol XL -] 50 mg PO DAILY 03/21/16 Warfarin Na [Coumadin -] 2.5 mg PO DAILY@1800 04/04/16 Warfarin Na [Coumadin] 5 mg PO ASDIR 07/16/17
[2017-10-19] MEDS ORDERED: EPOETIN ALFA 2,000 UNIT/1 ML VIAL IVPUSH ONE ×2 (16:00→19:00)
[2017-10-19 16:38] LABS: HEMATOCRIT 24.1 % (32.4-45.2); HEMOGLOBIN 8.1 GM/dL (10.7-15.3); MCH 30.4 pg (25.7-33.7); MCHC 33.5 g/dl (32.0-36.0); MEAN CELL VOLUME 90.7 fl (80-96); MEAN PLT VOLUME 7.8 fl (7.5-11.1); PLATELET COUNT 183 K/MM3 (134-434); RBC 2.65 M/mm3 (3.60-5.2); RDW 16.6 % (11.6-15.6)
[2017-10-19 16:58] LABS: ALBUMIN 1.9 g/dl (3.4-5.0); ALK PHOS 62 U/L (45-117); ANION GAP 9 (8-16); BILIRUBIN,TOTAL 0.3 mg/dL (0.2-1.0); BLOOD UREA NITROGEN 15 mg/dL (7-18); CALCIUM 7.2 mg/dL (8.5-10.1); CHLORIDE 105 mmol/L (98-107); CO2 28 mmol/L (21-32); CREATININE 2.8 mg/dL (0.55-1.02); GLUCOSE,RANDOM 113 mg/dL (74-106); POTASSIUM 3.1 mmol/L (3.5-5.1); SGOT/AST 28 U/L (15-37); SGPT/ALT 11 U/L (12-78); SODIUM 142 mmol/L (136-145); TOT PROT 6.8 g/dl (6.4-8.2)
--- NOTE | 2017-10-19 18:10 | PN ---
Progress Note, Physician History of Present Illness: Pt seen and examined at bedside. She is awake and alert. She denies shortness of breath. - Current Medication List Current Medications: Active Medications Acetaminophen (Tylenol Suppository -) 650 mg ID Q4H PRN PRN Reason: FEVER Last Admin: 10/16/17 14:04 Dose: 650 mg Bacitracin (Bacitracin -) 1 applic TP DAILY [facility] Last Admin: 10/18/17 09:36 Dose: 1 applic Digoxin (Lanoxin -) 0.125 mg PO DAILY [facility] Last Admin: 10/18/17 09:34 Dose: 0.125 mg Docusate Sodium (Colace -) 100 mg PO TID [facility] Last Admin: 10/19/17 06:18 Dose: Not Given Epoetin Francisco (Epogen -) 2,000 unit IVPUSH ONCE ONE Stop: 10/19/17 19:01 Heparin Sodium (Porcine) (Heparin -) 5,000 unit SQ TID [facility] Last Admin: 10/19/17 06:18 Dose: 5,000 unit Sodium Chloride (Normal Saline -) 250 mls @ 3,000 mls/hr IV PRN PRN PRN Reason: Hypotension Metoprolol Succinate (Toprol Xl -) 50 mg PO BID [facility] Last Admin: 10/18/17 21:41 Dose: 50 mg Metoprolol Tartrate (Lopressor Injection -) 5 mg IVPUSH Q4H PRN PRN Reason: HYPERTENSION Last Admin: 10/13/17 09:05 Dose: 5 mg - Objective Vital Signs: Vital Signs Temperature 98.4 F 10/19/17 15:10 Pulse Rate 97 H 10/19/17 17:20 Respiratory Rate 18 10/19/17 17:20 Blood Pressure 118/80 10/19/17 17:20 O2 Sat by Pulse Oximetry (%) 100 10/19/17 09:00 Constitutional: Yes: Calm Eyes: Yes: Conjunctiva Clear HENT: Yes: Atraumatic Neck: Yes: Supple Cardiovascular: Yes: S1, S2 Respiratory: Yes: On Nasal O2 Gastrointestinal: Yes: Normal Bowel Sounds, Soft Genitourinary: Yes: WNL Musculoskeletal: Yes: Muscle Weakness Edema: Yes Edema: LLE: Trace, RLE: Trace Neurological: Yes: Oriented Psychiatric: Yes: Oriented Labs: CBC, BMP 10/19/17 15:20 10/19/17 15:20 INR, PTT INR 1.16 (0.82-1.09) H 10/17/17 05:05 Problem List - Problems (1) ESRD (end stage renal disease) on dialysis Code(s): N18.6 - END STAGE RENAL DISEASE; Z99.2 - DEPENDENCE ON RENAL DIALYSIS (2) Pleural effusion Code(s): J90 - PLEURAL EFFUSION, NOT ELSEWHERE CLASSIFIED (3) Anemia Code(s): D64.9 - ANEMIA, UNSPECIFIED Qualifiers: Anemia type: unspecified type Qualified Code(s): D64.9 - Anemia, unspecified (4) Chronic atrial fibrillation Code(s): I48.2 - CHRONIC ATRIAL FIBRILLATION Assessment/Plan Current Medications Generic Name Dose Route Start Last Admin Trade Name Freq PRN Reason Stop Dose Admin Acetaminophen 650 mg 10/10/17 11:02 10/16/17 14:04 Tylenol Suppository - ID 650 mg Q4H PRN Administration FEVER Bacitracin 1 applic 10/15/17 10:00 10/18/17 09:36 Bacitracin - TP 1 applic DAILY [facility] Administration Digoxin 0.125 mg 10/13/17 10:00 10/18/17 09:34 Lanoxin - PO 0.125 mg DAILY [facility] Administration Docusate Sodium 100 mg 10/07/17 14:00 10/19/17 06:18 Colace - PO Not Given TID [facility] Epoetin Francisco 2,000 unit 10/19/17 19:00 Epogen - IVPUSH 10/19/17 19:01 ONCE ONE Heparin Sodium (Porcine) 5,000 unit 10/14/17 14:00 10/19/17 06:18 Heparin - SQ 5,000 unit TID [facility] Administration Sodium Chloride 250 mls @ 3,000 mls/hr 10/13/17 15:31 Normal Saline - IV PRN PRN Hypotension Metoprolol Succinate 50 mg 10/11/17 22:00 10/18/17 21:41 Toprol Xl - PO 50 mg BID PHANI Administration Metoprolol Tartrate 5 mg 10/06/17 14:58 10/13/17 09:05 Lopressor Injection - IVPUSH 5 mg Q4H PRN Administration HYPERTENSION Impression 1. esrd 2. constipation 3. abd pain 4. a-fib 5. htn 6. anemia 7. bacteremia 8. fever Plan - HD today - discussed with ID, will give a dose of vanco - family and pt refusing to remove graft, they understand the risks - cont epogen - will follow Dr Dunham
[2017-10-19] MEDS: DIGOXIN 0.125 MG TABLET (FP) PO SCH (18:27)
[2017-10-19] MEDS ORDERED: VANCOMYCIN 500 MG in DEXTROSE 5%-WATER - 100 ML IVPB ONE (18:45)
[2017-10-19] MEDS ORDERED: PT OWN MED DRAWER 7, Y5N ONE (21:25)
[2017-10-19] MEDS: NYSTATIN POWDER 100,000 UNITS/GM - 15 GM TOPICAL POWDER TP SCH (21:55)
[2017-10-19] MEDS: BACITRACIN 15 GM TUBE TOPICAL OINTMENT TP SCH (21:56)
[2017-10-20] MEDS: DOCUSATE SODIUM 100 MG CAPSULE (FP) PO SCH (06:46)
[2017-10-20] MEDS: HEPARIN NA (PORCINE) 5,000 UNITS/ML 1ML VIAL SQ SCH (06:46)
[2017-10-20 07:54] VITALS: BP 118/72; TEMP 97.9
--- NOTE | 2017-10-20 08:59 | PN ---
Progress Note, Physician History of Present Illness: awake monitor intake - Current Medication List Current Medications: Active Medications Acetaminophen (Tylenol Suppository -) 650 mg PA Q4H PRN PRN Reason: FEVER Last Admin: 10/16/17 14:04 Dose: 650 mg Bacitracin (Bacitracin -) 1 applic TP DAILY [facility] Last Admin: 10/19/17 21:56 Dose: 1 applic Digoxin (Lanoxin -) 0.125 mg PO DAILY [facility] Last Admin: 10/19/17 18:27 Dose: Not Given Docusate Sodium (Colace -) 100 mg PO TID [facility] Last Admin: 10/20/17 06:46 Dose: 100 mg Heparin Sodium (Porcine) (Heparin -) 5,000 unit SQ TID [facility] Last Admin: 10/20/17 06:46 Dose: 5,000 unit Sodium Chloride (Normal Saline -) 250 mls @ 3,000 mls/hr IV PRN PRN PRN Reason: Hypotension Metoprolol Succinate (Toprol Xl -) 50 mg PO BID [facility] Last Admin: 10/19/17 21:55 Dose: 50 mg Metoprolol Tartrate (Lopressor Injection -) 5 mg IVPUSH Q4H PRN PRN Reason: HYPERTENSION Last Admin: 10/13/17 09:05 Dose: 5 mg Nystatin (Nystop Powder -) 1 applic TP DAILY [facility] Last Admin: 10/19/17 21:55 Dose: 1 applic - Objective Vital Signs: Vital Signs Temperature 97.9 F 10/20/17 07:54 Pulse Rate 81 10/20/17 07:54 Respiratory Rate 16 10/20/17 07:54 Blood Pressure 118/72 10/20/17 07:54 O2 Sat by Pulse Oximetry (%) 100 10/19/17 21:00 Cardiovascular: Yes: S1, S2 Respiratory: Yes: CTA Bilaterally Gastrointestinal: Yes: Normal Bowel Sounds, Soft Labs: CBC, BMP 10/19/17 15:20 10/19/17 15:20 INR, PTT INR 1.16 (0.82-1.09) H 10/17/17 05:05 Assessment/Plan - Problems (1) Pleural effusion Assessment/Plan: s/p thoracocentesis today Code(s): J90 - PLEURAL EFFUSION, NOT ELSEWHERE CLASSIFIED (2) Positive blood culture Assessment/Plan: gram postive cocci cluster per ID note ? AVG might be source of infection vanco renal dose Code(s): R78.81 - BACTEREMIA (3) ESRD (end stage renal disease) on dialysis Assessment/Plan: HD per renal AVG graft with wound? 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
--- NOTE | 2017-10-20 09:09 | PN ---
Progress Note, Physician Chief Complaint: no distress Daughter at bedside - Current Medication List Current Medications: Active Medications Acetaminophen (Tylenol Suppository -) 650 mg MN Q4H PRN PRN Reason: FEVER Last Admin: 10/16/17 14:04 Dose: 650 mg Bacitracin (Bacitracin -) 1 applic TP DAILY [facility] Last Admin: 10/19/17 21:56 Dose: 1 applic Digoxin (Lanoxin -) 0.125 mg PO DAILY [facility] Last Admin: 10/19/17 18:27 Dose: Not Given Docusate Sodium (Colace -) 100 mg PO TID [facility] Last Admin: 10/20/17 06:46 Dose: 100 mg Heparin Sodium (Porcine) (Heparin -) 5,000 unit SQ TID [facility] Last Admin: 10/20/17 06:46 Dose: 5,000 unit Sodium Chloride (Normal Saline -) 250 mls @ 3,000 mls/hr IV PRN PRN PRN Reason: Hypotension Metoprolol Succinate (Toprol Xl -) 50 mg PO BID [facility] Last Admin: 10/19/17 21:55 Dose: 50 mg Metoprolol Tartrate (Lopressor Injection -) 5 mg IVPUSH Q4H PRN PRN Reason: HYPERTENSION Last Admin: 10/13/17 09:05 Dose: 5 mg Nystatin (Nystop Powder -) 1 applic TP DAILY [facility] Last Admin: 10/19/17 21:55 Dose: 1 applic - Objective Vital Signs: Vital Signs Temperature 97.9 F 10/20/17 07:54 Pulse Rate 81 10/20/17 07:54 Respiratory Rate 16 10/20/17 07:54 Blood Pressure 118/72 10/20/17 07:54 O2 Sat by Pulse Oximetry (%) 100 10/19/17 21:00 Constitutional: Yes: No Distress Cardiovascular: Yes: Pulse Irregular Respiratory: Yes: CTA Bilaterally Gastrointestinal: Yes: Soft Edema: No Labs: CBC, BMP 10/19/17 15:20 10/19/17 15:20 INR, PTT INR 1.16 (0.82-1.09) H 10/17/17 05:05 - ....Imaging EKG: Image Reviewed Assessment/Plan IMP: Elderly, ESRD, severe MR, persistent gram + bacteremia, pacemaker. Possible infected HD access Possible endocarditis REC: Patient and family have opted for no further diagnostic or invasive measures. DNR/DNI. Discharge planning ongoing.
[2017-10-20] MEDS ORDERED: PT OWN MED DRAWER 7, Y5N ONE (09:41)
[2017-10-20] MEDS: DIGOXIN 0.125 MG TABLET (FP) PO SCH (09:44)
[2017-10-20] MEDS: NYSTATIN POWDER 100,000 UNITS/GM - 15 GM TOPICAL POWDER TP SCH (09:45)
[2017-10-20 10:49] VITALS: PULSE 79
[2017-10-20] MEDS: BACITRACIN 15 GM TUBE TOPICAL OINTMENT TP SCH (11:00)
== END 2017-10-20 13:39 | disposition home or self-care (01) | DRG 871 ==
LOC: JER 12:43 → JERBED 20:49 → J4W 10-01 12:20
PROVIDERS: ADMIT Internal Medicine; ATTEND Family Medicine
PROC: 5A1D70Z Performance of Urinary Filtration, Intermittent, Less than 6 Hours Per Day (ICD-10-PCS; 2017-10-06)
PROC: 0W993ZX Drainage of Right Pleural Cavity, Percutaneous Approach, Diagnostic (ICD-10-PCS; principal; 2017-10-15)
DX: A41.01 Sepsis due to Methicillin susceptible Staphylococcus aureus (principal); J18.1 Lobar pneumonia, unspecified organism; N18.6 End stage renal disease; I12.0 Hypertensive chronic kidney disease with stage 5 chronic kidney disease or end stage renal disease; I50.32 Chronic diastolic (congestive) heart failure; L02.413 Cutaneous abscess of right upper limb; J90 Pleural effusion, not elsewhere classified; I38 Endocarditis, valve unspecified; E11.22 Type 2 diabetes mellitus with diabetic chronic kidney disease; Z99.2 Dependence on renal dialysis; Z79.01 Long term (current) use of anticoagulants; Z88.0 Allergy status to penicillin; I11.0 Hypertensive heart disease with heart failure; D64.9 Anemia, unspecified; F03.90 Unspecified dementia, unspecified severity, without behavioral disturbance, psychotic disturbance, mood disturbance, and anxiety; I34.0 Nonrheumatic mitral (valve) insufficiency; Z95.0 Presence of cardiac pacemaker; K58.1 Irritable bowel syndrome with constipation; I48.2 Chronic atrial fibrillation
CPT/HCPCS: 36415; 71045-TC-FY; 71250-TC; 72131-TC; 73200-TC-RT; 74018-TC-FY; 74176-TC; 74230-TC-FY; 76942; 80048; 80053; 80061; 81003; 81015; 82042; 82150; 82272; 82438; 82550; 82607; 82728; 82803; 82945; 82962; 83036; 83605; 83615; 83721; 83735; 84100; 84157; 84311; 84439; 84443; 84478; 84484; 85025; 85027; 85610; 85651; 85730; 86140; 86704; 86706; 86708; 86850; 86870; 86880; 86900; 86901; 86902; 87040; 87070; 87075; 87086; 87102; 87116; 87186; 87205; 87206; 87210; 87324; 87340; 87449; 88108; 88305-TC; 89051; 92611-GN; 93005; 93010; 93306-TC; 93931; 94640; 94761; 97161-GP; 99284-25; G0480; J0885; J1644

== ENCOUNTER 2017-11-09 16:44 | Inpatient (IN) | payer OTHER ==
--- NOTE | 2017-11-09 17:09 | PDOC ---
History of Present Illness - General History Source: Patient, Family, Old Records Exam Limitations: Other (unable to communicate needs.) - History of Present Illness Initial Comments: 11/09/17 18:50 The patient is a year old female with a significant PMH of ESRD (on HD MWF), HTN , diabetes, CHF, and Afib (on Coumadin), who presents to the emergency department from Dr. Bradley office for evaluation of suspected clotting in her dialysis shunt. The patients reports right arm swelling at her dialysis insertion site. The patient presents with a note from Dr. Bradley office stating: unable to dialyze patient due to clotted access. The patients java programmer was informed and ordered transfer to [facility] for further evaluation and possible catheter placement. This patient history is limited as she is unable to communicate her needs at baseline. Allergies: Penicillins Past surgical history: Pacemaker placement. Social history: No reported cigarette, alcohol, or drug use. PCP: Dr. Samaniego Nephro: Dr. Dunham Vascular: Dr. Elio Delcid <Shakeel Huynh - Last Filed: 11/09/17 18:49> <Ree Lozano - Last Filed: 11/11/17 11:28> - General Chief Complaint: Dialysis Shunt Problem Stated Complaint: SHUNT ISSUES Time Seen by Provider: 11/09/17 17:09 Past History <Shakeel Huynh - Last Filed: 11/09/17 18:49> - Past Medical History Anemia: No Asthma: No Cancer: No Cardiac Disorders: Yes CVA: No COPD: No CHF: No Dementia: No Diabetes: Yes Dialysis: Yes ([id number]) GI Disorders: No Disorders: No HTN: Yes Hypercholesterolemia: No Liver Disease: No Seizures: No Thyroid Disease: No - Surgical History Abdominal Surgery: No Appendectomy: No Cardiac Surgery: Yes (pacemaker) Cholecystectomy: No Lung Surgery: No Neurologic Surgery: No Orthopedic Surgery: No - Immunization History Td Vaccination: Yes TDAP Vaccination: No Immunization Up to Date: Yes - Suicide/Smoking/Psychosocial Hx Smoking Status: No Smoking History: Never smoked Have you smoked in the past 12 months: No Number of Cigarettes Smoked Daily: 0 Hx Alcohol Use: No Drug/Substance Use Hx: No Substance Use Type: None Hx Substance Use Treatment: No <Ree Lozano - Last Filed: 11/11/17 11:28> - Past Medical History Allergies/Adverse Reactions: Allergies Allergy/AdvReac Type Severity Reaction Status Date / Time Penicillins Allergy Severe Hives, RASH Verified 11/09/17 17:21 Home Medications: Ambulatory Orders Amlodipine Besylate 10 mg PO DAILY 11/09/17 Cholecalciferol (Vitamin D3) [Vitamin D3 -] 400 unit PO DAILY 11/09/17 Digoxin [Lanoxin -] 0.125 mg PO DAILY 11/09/17 Duloxetine HCl [Cymbalta] 60 mg PO DAILY 11/09/17 Hydralazine HCl 100 mg PO DAILY 11/09/17 Metoprolol Succinate 100 mg PO DAILY 11/09/17 Nut.tx.imp.renal Fxn,Lac-Reduc [Nepro Carb Steady] 237 ml PO DAILY 11/09/17 Pantoprazole Sodium 40 mg PO DAILY 11/09/17 Warfarin Sodium [Coumadin] 0 mg PO DAILY 11/09/17 Review of Systems - Review of Systems Able to Perform ROS?: No <Shakeel Huynh - Last Filed: 11/09/17 18:49> *Physical Exam - Vital Signs Last Vital Signs Temp Pulse Resp BP Pulse Ox 97.1 F L 95 H 18 141/83 100 11/09/17 17:15 11/09/17 17:15 11/09/17 17:15 11/09/17 17:15 11/09/17 17:15 - Physical Exam Comments: 11/09/17 18:50 GENERAL: Awake and alert. In no acute distress HEAD: No signs of trauma EYES: PERRLA, EOMI, sclera anicteric, conjunctiva clear ENT: Auricles normal inspection, hearing grossly normal, nares patent, oropharynx clear without exudates. Moist mucosa NECK: Normal ROM, supple, no lymphadenopathy, JVD, or masses LUNGS: Breath sounds equal, clear to auscultation bilaterally. No wheezes, and no crackles HEART: Regular rate and rhythm, normal S1 and S2, no murmurs, rubs or gallops ABDOMEN: Soft, nontender, normoactive bowel sounds. No guarding, no rebound. No masses EXTREMITIES: +Bruit at RUE access site. Normal range of motion. No clubbing or cyanosis. No cords, erythema, or tenderness NEUROLOGICAL: Cranial nerves II through XII grossly intact. SKIN: Warm, Dry, normal turgor, no rashes or lesions noted. <Shakeel Huynh - Last Filed: 11/09/17 18:49> ED Treatment Course - LABORATORY CBC & Chemistry Diagram: 11/09/17 17:52 11/09/17 17:52 <Shakeel Huynh - Last Filed: 11/09/17 18:49> - LABORATORY CBC & Chemistry Diagram: 11/10/17 08:00 11/10/17 08:00 <Ree Lozano - Last Filed: 11/11/17 11:28> Medical Decision Making - Medical Decision Making 11/09/17 17:[address] Dunham, who came down to see the patient. Placed call to Dr. Elio Delcid at 17:55. <Shakeel Huynh - Last Filed: 11/09/17 18:49> - Medical Decision Making 11/09/17 18:40 Miss Darius weiss is an 87-year-old female with multiple medical problems, known infected right upper extremity graft, who presents emergency department via EMS from dialysis. The patient apparently has a thrombosed graft, they were unable to dialyze today through the graft No fevers or chills On exam: No palpable thrill (+) audible bruit Irregularly irregular No murmur No abd tenderness Case reviewed with Dr Rueda Recommends admission Attempt to dialyze tomorrow Pt may need Schiley cathether Case reviewe with Dr Delcid He has some concern that they are not correctly accessing the graft Awaiting labs EKG:Afib, Rate of 93 bpm, axis nml, no st elevations or depressions <Ree Lozano - Last Filed: 11/11/17 11:28> *DC/Admit/Observation/Transfer - Attestations Scribe Attestion: 11/09/17 18:52 Documentation prepared by Shakeel Huynh, acting as back office medical assistant for Ree Lozano MD. <Shakeel Huynh - Last Filed: 11/09/17 18:49> <Ree Lozano - Last Filed: 11/11/17 11:28> Diagnosis at time of Disposition: Problem with dialysis shunt - Discharge Dispostion Condition at time of disposition: Stable
[2017-11-09 17:21] VITALS: BMI 26.6
[2017-11-09 18:08] LABS: BASO % 0.7 % (0-2.0); EOS % 1.1 % (0-4.5); HEMATOCRIT 25.6 % (32.4-45.2); HEMOGLOBIN 8.6 GM/dL (10.7-15.3); LYMPH % 16.1 % (8-40); MCH 29.4 pg (25.7-33.7); MCHC 33.4 g/dl (32.0-36.0); MEAN PLT VOLUME 7.8 fl (7.5-11.1); MONO % 10.2 % (3.8-10.2); NEUT % 71.9 % (42.8-82.8); PLATELET COUNT 212 K/MM3 (134-434); RBC 2.91 M/mm3 (3.60-5.2); RDW 17.6 % (11.6-15.6); WHITE BLOOD COUNT 2.9 K/mm3 (4.0-10.0)
[2017-11-09 18:30] LABS: INR 2.94 (0.82-1.09); PROTHROMBIN TIME (PATIENT) 33.2 SEC (9.98-11.88)
[2017-11-09] MEDS ORDERED: VANCOMYCIN 1,000 MG in DEXTROSE 5%-WATER - 250 ML IVPB ONE (19:05)
[2017-11-09] MEDS ORDERED: VANCOMYCIN 1 GRAM (PRE-DOCKED) 1,000 MG/250 ML BAG IVPB ONE (19:50)
[2017-11-09 21:04] LABS: ANION GAP 7 (8-16); BILIRUBIN,TOTAL 0.4 mg/dL (0.2-1.0); BLOOD UREA NITROGEN 31 mg/dL (7-18); CALCIUM 8.1 mg/dL (8.5-10.1); CHLORIDE 90 mmol/L (98-107); CO2 33 mmol/L (21-32); CREATININE 4.5 mg/dL (0.55-1.02); GLUCOSE,RANDOM 91 mg/dL (74-106); MAGNESIUM 1.9 mg/dL (1.8-2.4); PHOSPHOROUS 5.1 mg/dL (2.5-4.9); POTASSIUM 3.8 mmol/L (3.5-5.1); SGOT/AST 21 U/L (15-37); SGPT/ALT 7 U/L (12-78); SODIUM 130 mmol/L (136-145); TOT PROT 7.7 g/dl (6.4-8.2)
[2017-11-09 21:05] LABS: ALK PHOS 73 U/L (45-117)
--- NOTE | 2017-11-09 21:08 | PDOC ---
*Physical Exam - Vital Signs Last Vital Signs Temp Pulse Resp BP Pulse Ox 97.1 F L 95 H 18 141/83 100 11/09/17 17:15 11/09/17 17:15 11/09/17 17:15 11/09/17 17:15 11/09/17 17:15 ED Treatment Course - LABORATORY CBC & Chemistry Diagram: 11/09/17 17:52 11/09/17 20:10 - ADDITIONAL ORDERS Additional order review: Laboratory Results 11/09/17 11/09/17 11/09/17 20:10 17:52 17:52 PT with INR 33.20 H INR 2.94 H D Sodium 130 L Potassium 3.8 Chloride 90 L Carbon Dioxide 33 H Anion Gap 7 L BUN 31 H Creatinine 4.5 H Creat Clearance w eGFR 9.25 Random Glucose 91 Calcium 8.1 L Phosphorus 5.1 H Magnesium 1.9 Total Bilirubin 0.4 D AST 21 ALT 7 L Alkaline Phosphatase 73 Total Protein 7.7 Albumin 2.0 L Anti-A Titer Cancelled Blood Type Cancelled Antibody Screen Cancelled 11/09/17 17:52 PT with INR INR Sodium Cancelled Potassium Cancelled Chloride Cancelled Carbon Dioxide Cancelled Anion Gap Cancelled BUN Cancelled Creatinine Cancelled Creat Clearance w eGFR Cancelled Random Glucose Cancelled Calcium Cancelled Phosphorus Magnesium Total Bilirubin Cancelled AST Cancelled ALT Cancelled Alkaline Phosphatase Cancelled Total Protein Cancelled Albumin Cancelled Anti-A Titer Blood Type Antibody Screen 11/09/17 17:52 RBC 2.91 L MCV 88.0 MCHC 33.4 RDW 17.6 H MPV 7.8 Neutrophils % 71.9 Lymphocytes % 16.1 D Monocytes % 10.2 Eosinophils % 1.1 D Basophils % 0.7 - Medications Given in the ED: ED Medications Discontinued Medications Generic Name Dose Route Start Last Admin Trade Name Freq PRN Reason Stop Dose Admin Vancomycin HCl 1,000 mg/ 250 mls @ 250 mls/hr 11/09/17 19:05 11/09/17 20:02 Dextrose IVPB 11/09/17 20:04 250 mls/hr ONCE ONE Administration Protocol Medical Decision Making - Medical Decision Making 11/09/17 21:07 Case discussed with chris hospitalist. Admitted to med/surg admission. Case discussed in detail with admitting physician including history, physical exam and ancillary studies. Admitting physician has assumed care for the patient, will follow all pending diagnostics and will complete the evaluation and treatment. *DC/Admit/Observation/Transfer Diagnosis at time of Disposition: Problem with dialysis shunt Qualifiers: Encounter type: initial encounter Qualified Code(s): T82.898A - Other specified complication of vascular prosthetic devices, implants and grafts, initial encounter - Discharge Dispostion Condition at time of disposition: Stable Admit: Yes - Referrals Referrals: Arnav Samaniego MD [Primary Care Provider] - - Patient Instructions - Post Discharge Activity
--- NOTE | 2017-11-09 21:11 | PN ---
Teaching Attending Note Name of Resident: Flakito Guevara ATTENDING PHYSICIAN STATEMENT I saw and evaluated the patient. I reviewed the resident's note and discussed the case with the resident. I agree with the resident's findings and plan as documented. SUBJECTIVE: 87 yo F who presents with R. Arm pain Pmhx: ESRD on HD (M/W/F), HTN, DM. CHF, and A-FIB (on Coumadin) who presented to ED from Dr. Sandoval's office. She was at HD today and her shunt could not be accessed due to clotting. Her last HD was Thursday. She notes pain at site, as per family. She presents for alternate HD access to be placed and evaluation of shunt. OBJECTIVE: Physical: VS: Vital Signs Period Temp Pulse Resp BP Sys/Tavares Pulse Ox Last 24 Hr 97.1 F 95 18 141/83 100 GEN:NAD, Resting in bed, AA0X0 HEENT: NCAT, PERRL, Throat without erythema or exudates CARD: RRR S1, S2 RESP: CTAB ABD: BSx4, NTD to palpation EXT: RUE Forarm shunt, bandage placed, pulses intact, LE - C/C/E CBCD WBC 2.9 K/mm3 (4.0-10.0) L 11/09/17 17:52 RBC 2.91 M/mm3 (3.60-5.2) L 11/09/17 17:52 Hgb 8.6 GM/dL (10.7-15.3) L 11/09/17 17:52 Hct 25.6 % (32.4-45.2) L 11/09/17 17:52 MCV 88.0 fl (80-96) 11/09/17 17:52 MCHC 33.4 g/dl (32.0-36.0) 11/09/17 17:52 RDW 17.6 % (11.6-15.6) H 11/09/17 17:52 Plt Count 212 K/MM3 (134-434) 11/09/17 17:52 MPV 7.8 fl (7.5-11.1) 11/09/17 17:52 CMP Sodium 130 mmol/L (136-145) L 11/09/17 20:10 Potassium 3.8 mmol/L (3.5-5.1) 11/09/17 20:10 Chloride 90 mmol/L (98-107) L 11/09/17 20:10 Carbon Dioxide 33 mmol/L (21-32) H 11/09/17 20:10 Anion Gap 7 (8-16) L 11/09/17 20:10 BUN 31 mg/dL (7-18) H 11/09/17 20:10 Creatinine 4.5 mg/dL (0.55-1.02) H 11/09/17 20:10 Creat Clearance w eGFR 9.25 (>60) 11/09/17 20:10 Random Glucose 91 mg/dL (74-106) 11/09/17 20:10 Calcium 8.1 mg/dL (8.5-10.1) L 11/09/17 20:10 Total Bilirubin 0.4 mg/dL (0.2-1.0) D 11/09/17 20:10 AST 21 U/L (15-37) 11/09/17 20:10 ALT 7 U/L (12-78) L 11/09/17 20:10 Alkaline Phosphatase 73 U/L (45-117) 11/09/17 20:10 Total Protein 7.7 g/dl (6.4-8.2) 11/09/17 20:10 Albumin 2.0 g/dl (3.4-5.0) L 11/09/17 20:10 CXR- Congestion/Cardiomegaly CBCD WBC 2.9 K/mm3 (4.0-10.0) L 11/09/17 17:52 RBC 2.91 M/mm3 (3.60-5.2) L 11/09/17 17:52 Hgb 8.6 GM/dL (10.7-15.3) L 11/09/17 17:52 Hct 25.6 % (32.4-45.2) L 11/09/17 17:52 MCV 88.0 fl (80-96) 11/09/17 17:52 MCHC 33.4 g/dl (32.0-36.0) 11/09/17 17:52 RDW 17.6 % (11.6-15.6) H 11/09/17 17:52 Plt Count 212 K/MM3 (134-434) 11/09/17 17:52 MPV 7.8 fl (7.5-11.1) 11/09/17 17:52 CMP Sodium 130 mmol/L (136-145) L 11/09/17 20:10 Potassium 3.8 mmol/L (3.5-5.1) 11/09/17 20:10 Chloride 90 mmol/L (98-107) L 11/09/17 20:10 Carbon Dioxide 33 mmol/L (21-32) H 11/09/17 20:10 Anion Gap 7 (8-16) L 11/09/17 20:10 BUN 31 mg/dL (7-18) H 11/09/17 20:10 Creatinine 4.5 mg/dL (0.55-1.02) H 11/09/17 20:10 Creat Clearance w eGFR 9.25 (>60) 11/09/17 20:10 Random Glucose 91 mg/dL (74-106) 11/09/17 20:10 Calcium 8.1 mg/dL (8.5-10.1) L 11/09/17 20:10 Total Bilirubin 0.4 mg/dL (0.2-1.0) D 11/09/17 20:10 AST 21 U/L (15-37) 11/09/17 20:10 ALT 7 U/L (12-78) L 11/09/17 20:10 Alkaline Phosphatase 73 U/L (45-117) 11/09/17 20:10 Total Protein 7.7 g/dl (6.4-8.2) 11/09/17 20:10 Albumin 2.0 g/dl (3.4-5.0) L 11/09/17 20:10 Home Medications Medication Instructions Recorded Amlodipine Besylate 10 mg PO DAILY 11/09/17 Cholecalciferol (Vitamin D3) 400 unit PO DAILY 11/09/17 [Vitamin D3 -] Digoxin [Lanoxin -] 0.125 mg PO DAILY 11/09/17 Duloxetine HCl [Cymbalta] 60 mg PO DAILY 11/09/17 Hydralazine HCl 100 mg PO DAILY 11/09/17 Metoprolol Succinate 100 mg PO DAILY 11/09/17 Nut.tx.imp.renal Fxn,Lac-Reduc 237 ml PO DAILY 11/09/17 [Nepro Carb Steady] Pantoprazole Sodium 40 mg PO DAILY 11/09/17 Warfarin Sodium [Coumadin] 0 mg PO DAILY 11/09/17 ASSESSMENT AND PLAN: Pmhx: ESRD on HD (M/W/F), HTN, DM. CHF, and A-FIB (on Coumadin) who presented to ED from HD due to clotted shunt. 1.) Clotted HD shunt - INR theraputic - Vasc consult - Type & Screen - Repeat Coags in am 2.) ESRD on HD - Temporary Acess to be placed tomorrow - Nephro on consult - C/W Nepro 3.) AFIB - INR theraputic - C/W Digoxin/BB 4.) HTN - C/W BB/Amlodipine 5.) Bacteremia - On Vanco - ID consult 6.) Dvt Ppx - INR Theraputic Admit to Med-Sx
--- NOTE | 2017-11-09 21:25 | HP ---
CHIEF COMPLAINT:occluded graft. PCP:Dr. Samaniego Nephro: Dr. Dunham Vascular: Dr. Elio Delcid HISTORY OF PRESENT ILLNESS: 87 yo F significant PMHx of ESRD (on HD MWF), HTN, diabetes, CHF, and Afib (on Coumadin), who presented to ED from dialyisis today. Family reports that the had multiple attempts but unable to dialyze patient today due to clotted AV shunt. The patients reports right arm swelling and pain at her dialysis insertion site. Patient recently discharged from [facility] with bacteremia and currently on IV Vanco as outpatient. Denies MAYERS, SOB, palpitations, CP, abdominal pain, N/V, fever or chills. ER course was notable for: (1)Nephrology consulted. (2)Vascular surgery consulted. (3) Recent Travel:done PAST MEDICAL HISTORY: ESRD (on HD MWF), HTN, diabetes, CHF, and Afib PAST SURGICAL HISTORY:V Fistula/Graft (03/01/15), Permanent Pacemaker Social History: Smoking:never smoked Alcohol:No ETOH Drugs: never. Family History: Allergies Penicillins Allergy (Severe, Verified 11/09/17 17:21) Hives, RASH HOME MEDICATIONS: Home Medications Medication Instructions Recorded Amlodipine Besylate 10 mg PO DAILY 11/09/17 Cholecalciferol (Vitamin D3) 400 unit PO DAILY 11/09/17 [Vitamin D3 -] Digoxin [Lanoxin -] 0.125 mg PO DAILY 11/09/17 Duloxetine HCl [Cymbalta] 60 mg PO DAILY 11/09/17 Hydralazine HCl 100 mg PO DAILY 11/09/17 Metoprolol Succinate 100 mg PO DAILY 11/09/17 Nut.tx.imp.renal Fxn,Lac-Reduc 237 ml PO DAILY 11/09/17 [Nepro Carb Steady] Pantoprazole Sodium 40 mg PO DAILY 11/09/17 Warfarin Sodium [Coumadin] 0 mg PO DAILY 11/09/17 REVIEW OF SYSTEMS Unable to obtain 2/2 non verbal PHYSICAL EXAMINATION Vital Signs - 24 hr 11/09/17 17:15 Temperature 97.1 F L Pulse Rate 95 H Respiratory 18 Rate Blood Pressure 141/83 O2 Sat by Pulse 100 Oximetry (%) GENERAL: awake, lethargic. HEAD: NC/AT EYES: Pupils equal, round and reactive to light, extraocular movements intact, sclera anicteric, conjunctiva clear. No lid lag. EARS, NOSE, THROAT: Moist mucous membranes. NECK: supple, no jvd LUNGS: CTAB, NO wheezing or rales. HEART: Irregularly irregular, 3/6 SCOTT ABDOMEN: Soft, NT/ND, NL BS, no guarding, no rebound, no masses. No hepatomegaly or splenomegaly. UPPER EXTREMITIES: RUE with AV fistula. NO palpable thrill but (+) audible bruit. LOWER EXTREMITIES: 2+ pulses, warm, well-perfused. No calf tenderness. No peripheral edema. NEUROLOGICAL: no focal neurological deficits. Laboratory Results - last 24 hr 11/09/17 11/09/17 11/09/17 17:52 17:52 17:52 WBC 2.9 L RBC 2.91 L Hgb 8.6 L Hct 25.6 L MCV 88.0 MCH 29.4 MCHC 33.4 RDW 17.6 H Plt Count 212 MPV 7.8 Neutrophils % 71.9 Lymphocytes % 16.1 D Monocytes % 10.2 Eosinophils % 1.1 D Basophils % 0.7 PT with INR 33.20 H INR 2.94 H D Sodium Cancelled Potassium Cancelled Chloride Cancelled Carbon Dioxide Cancelled Anion Gap Cancelled BUN Cancelled Creatinine Cancelled Creat Clearance w eGFR Cancelled Random Glucose Cancelled Calcium Cancelled Phosphorus Magnesium Total Bilirubin Cancelled AST Cancelled ALT Cancelled Alkaline Phosphatase Cancelled Total Protein Cancelled Albumin Cancelled Anti-A Titer Blood Type Antibody Screen 11/09/17 11/09/17 17:52 20:10 WBC RBC Hgb Hct MCV MCH MCHC RDW Plt Count MPV Neutrophils % Lymphocytes % Monocytes % Eosinophils % Basophils % PT with INR INR Sodium 130 L Potassium 3.8 Chloride 90 L Carbon Dioxide 33 H Anion Gap 7 L BUN 31 H Creatinine 4.5 H Creat Clearance w eGFR 9.25 Random Glucose 91 Calcium 8.1 L Phosphorus 5.1 H Magnesium 1.9 Total Bilirubin 0.4 D AST 21 ALT 7 L Alkaline Phosphatase 73 Total Protein 7.7 Albumin 2.0 L Anti-A Titer Cancelled Blood Type Cancelled Antibody Screen Cancelled ASSESSMENT/PLAN: 87 yo F significant PMHx of ESRD (on HD MWF), HTN, diabetes, CHF, and Afib (on Coumadin) admitted to med-surg 2/2 occlusion of dialysis graft. Problem List - Problem (1) AV fistula occlusion Assessment/Plan: Discussion with Nephro and Vascular most likely need for trialysis cath * Admit to med/surg * Consulted Dr. Delcid for Vascular and Dr. Dunham for Nephrology. * Possible need for trialysis cath insertion. * Possible dialysis tomorrow. (2) Diabetes type 2, controlled Assessment/Plan: Diabetic . * BGM TIDAC * ISS TIDAC (3) Chronic atrial fibrillation Assessment/Plan: She is 1mg daily of coumadin. * Currently therapeutic * Will hold coumadin for possible procedure tomorrow. * Repeat INR in AM (4) ESRD (end stage renal disease) on dialysis Assessment/Plan: Will most likely need trialysis cath tomorrow. * Will dialyze tomorrow as per Dr. Dunham. * repeat labs in AM. (5) Hypertension Assessment/Plan: continue home meds. * Amlodipine Besylate (Norvasc -) 10 mg PO DAILY * Hydralazine HCl (Apresoline -) 25 mg PO TID * metoprolol Succinate (Toprol Xl -) 100 mg PO DAILY (6) Bacteremia Assessment/Plan: Currently on Vanomycin * will continue Vanco as inpatient. Visit type - Emergency Visit Emergency Visit: Yes ED Registration Date: 11/09/17 Care time: The patient presented to the Emergency Department on the above date and was hospitalized for further evaluation of their emergent condition. - New Patient This patient is new to me today: Yes Date on this admission: 11/11/17 - Critical Care Critical Care patient: No Hospitalist Screening - Colonoscopy Questionnaire Colonoscopy Questionnaire: Colonoscopy Questionnaire - Patient: 50 - 75 years old and never had a screening colonoscopy: No History of colon or rectal polyps, or CA: No History of IBD, Crohn's disease or UC: No History of abdominal radiation therapy as a child: No - Relative: 1 with colon or rectal CA, or polyps at age 60 or younger: No Colon or rectal CA diagnosed at age 45 or younger: No Multiple relatives with colon or rectal CA: No - Outcome: Screening Result: Negative Screen
[2017-11-10] MEDS ORDERED: ACETAMINOPHEN 325 MG TABLET (FP) ONE (02:19)
[2017-11-10] MEDS ORDERED: hydrALAZINE HCL 25 MG TABLET (FP) ONE (02:20)
[2017-11-10] MEDS: hydrALAZINE HCL 25 MG TABLET (FP) PO SCH ×3 (02:24→15:45)
[2017-11-10] MEDS: ACETAMINOPHEN 325 MG TABLET (FP) PO PRN ×2 (02:24→12:11)
[2017-11-10] MEDS: INSULIN SLIDING SCALE (NOVOLOG) 1 VIAL SQ SCH ×2 (06:21→12:10)
[2017-11-10 08:49] LABS: CHLORIDE 90 mmol/L (98-107); POTASSIUM 3.7 mmol/L (3.5-5.1); SODIUM 128 mmol/L (136-145)
[2017-11-10 09:08] LABS: ALBUMIN 1.9 g/dl (3.4-5.0); ALK PHOS 70 U/L (45-117); ANION GAP 7 (8-16); BILIRUBIN,TOTAL 0.4 mg/dL (0.2-1.0); BLOOD UREA NITROGEN 33 mg/dL (7-18); CALCIUM 7.9 mg/dL (8.5-10.1); CO2 31 mmol/L (21-32); CREATININE 4.6 mg/dL (0.55-1.02); GLUCOSE,RANDOM 81 mg/dL (74-106); MAGNESIUM 1.9 mg/dL (1.8-2.4); PHOSPHOROUS 5.4 mg/dL (2.5-4.9); SGOT/AST 19 U/L (15-37); SGPT/ALT < 6 U/L (12-78); TOT PROT 7.2 g/dl (6.4-8.2)
[2017-11-10 09:36] LABS: BASO % 0.8 % (0-2.0); EOS % 1.9 % (0-4.5); HEMATOCRIT 21.4 % (32.4-45.2); LYMPH % 16.4 % (8-40); MCH 28.7 pg (25.7-33.7); MCHC 32.5 g/dl (32.0-36.0); MEAN CELL VOLUME 88.2 fl (80-96); MONO % 17.1 % (3.8-10.2); NEUT % 63.8 % (42.8-82.8); PLATELET COUNT 168 K/MM3 (134-434); RBC 2.42 M/mm3 (3.60-5.2); RDW 17.7 % (11.6-15.6); WHITE BLOOD COUNT 3.3 K/mm3 (4.0-10.0)
[2017-11-10 09:41] LABS: HEMOGLOBIN 6.9 GM/dL (10.7-15.3)
[2017-11-10] MEDS ORDERED: CHOLECALCIFEROL (VITAMIN D3) 400 UNIT TABLET (FP) PO SCH (10:00)
--- NOTE | 2017-11-10 10:10 | EKG ---
Test Reason : Blood Pressure : / mmHG Vent. Rate : 093 BPM Atrial Rate : 267 BPM P-R Int : 000 ms QRS Dur : 090 ms QT Int : 350 ms P-R-T Axes : 000 042 -05 degrees QTc Int : 435 ms ATRIAL FIBRILLATION WITH PREMATURE VENTRICULAR OR ABERRANTLY CONDUCTED COMPLEXES ABNORMAL ECG WHEN COMPARED WITH ECG OF 01-OCT-2017 21:32, NO SIGNIFICANT CHANGE WAS FOUND Confirmed by Devin Henson MD ([id number]) on 11/10/2017 10:10:03 AM Referred By: Confirmed By:Devin Henson MD
[2017-11-10 11:06] LABS: INR 3.23 (0.82-1.09); PROTHROMBIN TIME (PATIENT) 36.5 SEC (9.98-11.88)
[2017-11-10] MEDS: amLODIPine BESYLATE 10 MG TABLET (FP) PO SCH ×2 (11:42→11:50)
[2017-11-10] MEDS: DULoxetine HCL 30 MG CAPSULE.DR (FP) PO SCH ×2 (11:42→11:49)
[2017-11-10] MEDS: DIGOXIN 0.125 MG TABLET (FP) PO SCH ×2 (11:43→11:50)
[2017-11-10] MEDS: PANTOPRAZOLE 40 MG TABLET (FP) PO SCH ×2 (11:43→11:50)
[2017-11-10] MEDS ORDERED: PT OWN MED DRAWER 7, Y5N ONE ×2 (11:45→14:40)
--- NOTE | 2017-11-10 14:33 | CONSULT ---
Consult Consult Specialty:: Nephrology Reason for Consultation:: ESRD - History of Present Illness Chief Complaint: sent in for clotted graft History of Present Illness: Pt is n 87 year old female with pmhx of esrd, a-fib and anemia who was sent in for clotted av graft. She was recently admitted for bacteremia and it was thought that the graft was infected. Family did not want any surgical intervention at the time. Pt was treated with IV abx. She went to HD yesterday and they were unable to access the graft. She denies shortness of breath or palpitations. 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 (Pleasant affect and can conduct a reasonable conversation.) Cardio/Vascular: Yes: AFIB, CHF, HTN, Hyperlipdemia, Mitral Insufficiency Pulmonary: Yes: Pneumonia Renal/: Yes: Renal Inusuff, Hemodialysis - Past Surgical History Past Surgical History: Yes: AV Fistula/Graft (03/01/15), Permanent Pacemaker - Alcohol/Substance Use Hx Alcohol Use: No - Smoking History Smoking history: Never smoked Have you smoked in the past 12 months: No Aproximately how many cigarettes per day: 0 - Social History Usual Living Arrangement: Skilled Nursing ADL: Support Services History of Recent Travel: No Home Medications - Allergies Allergies/Adverse Reactions: Allergies Allergy/AdvReac Type Severity Reaction Status Date / Time Penicillins Allergy Severe Hives, RASH Verified 11/09/17 17:21 - Home Medications Home Medications: Ambulatory Orders Amlodipine Besylate 10 mg PO DAILY 11/09/17 Cholecalciferol (Vitamin D3) [Vitamin D3 -] 400 unit PO DAILY 11/09/17 Digoxin [Lanoxin -] 0.125 mg PO DAILY 11/09/17 Duloxetine HCl [Cymbalta] 60 mg PO DAILY 11/09/17 Hydralazine HCl 100 mg PO DAILY 11/09/17 Metoprolol Succinate 100 mg PO DAILY 11/09/17 Nut.tx.imp.renal Fxn,Lac-Reduc [Nepro Carb Steady] 237 ml PO DAILY 11/09/17 Pantoprazole Sodium 40 mg PO DAILY 11/09/17 Warfarin Sodium [Coumadin] 0 mg PO DAILY 11/09/17 Family Disease History - Family Disease History Family History: Denies Review of Systems - Review of Systems Constitutional: reports: Malaise Eyes: reports: No Symptoms HENT: reports: No Symptoms Neck: reports: No Symptoms Cardiovascular: reports: No Symptoms Respiratory: reports: No Symptoms Gastrointestinal: reports: No Symptoms Musculoskeletal: reports: No Symptoms Integumentary: reports: No Symptoms Neurological: reports: No Symptoms Endocrine: reports: No Symptoms Hematology/Lymphatic: reports: No Symptoms Psychiatric: reports: No Symptoms Physical Exam Vital Signs: Vital Signs Temperature 98.3 F 11/10/17 13:36 Pulse Rate 82 11/10/17 13:36 Respiratory Rate 20 11/10/17 13:36 Blood Pressure 111/63 11/10/17 13:36 O2 Sat by Pulse Oximetry (%) 97 11/10/17 02:44 Constitutional: Yes: Calm Eyes: Yes: Conjunctiva Clear HENT: Yes: Atraumatic Neck: Yes: Supple Cardiovascular: Yes: S1, S2 Respiratory: Yes: CTA Bilaterally Gastrointestinal: Yes: Soft Renal/: Yes: Incontinence Extremities: Yes: Other (graft faint bruit) Neurological: Yes: Oriented Psychiatric: Yes: Oriented Labs: CBC, BMP 11/10/17 08:00 11/10/17 08:00 Laboratory Tests 11/09/17 11/10/17 11/10/17 17:52 08:00 08:00 Hgb 8.6 L 6.9 L* D Sodium 128 L Potassium 3.7 BUN 33 H Creatinine 4.6 H Imaging - Results Chest X-ray: Report Reviewed Problem List - Problems (1) AV fistula occlusion Code(s): T82.898A - OTH COMPLICATION OF VASCULAR PROSTH DEV/GRFT, INIT Qualifiers: Encounter type: initial encounter Qualified Code(s): T82.898A - Other specified complication of vascular prosthetic devices, implants and grafts, initial encounter (2) Afib Code(s): I48.91 - UNSPECIFIED ATRIAL FIBRILLATION Qualifiers: Atrial fibrillation type: chronic Qualified Code(s): I48.2 - Chronic atrial fibrillation (3) Anemia Code(s): D64.9 - ANEMIA, UNSPECIFIED Qualifiers: Anemia type: unspecified type Qualified Code(s): D64.9 - Anemia, unspecified (4) ESRD (end stage renal disease) on dialysis Code(s): N18.6 - END STAGE RENAL DISEASE; Z99.2 - DEPENDENCE ON RENAL DIALYSIS Assessment/Plan Current Medications Generic Name Dose Route Start Last Admin Trade Name Freq PRN Reason Stop Dose Admin Acetaminophen 650 mg 11/09/17 21:11 11/10/17 12:11 Tylenol - PO 650 mg Q4H PRN Administration PAIN Amlodipine Besylate 10 mg 11/10/17 10:00 11/10/17 11:50 Norvasc - PO Not Given DAILY [facility] Cholecalciferol 400 unit 11/10/17 10:00 11/10/17 11:50 Vitamin D3 - PO Not Given DAILY [facility] Digoxin 0.125 mg 11/10/17 10:00 11/10/17 11:50 Lanoxin - PO Not Given DAILY [facility] Duloxetine HCl 60 mg 11/10/17 10:00 11/10/17 11:49 Cymbalta - PO Not Given DAILY [facility] Hydralazine HCl 25 mg 11/09/17 22:15 11/10/17 06:21 Apresoline - PO Not Given TID [facility] Insulin Aspart 1 vial 11/10/17 07:00 11/10/17 12:10 Novolog Vial Sliding Scale - SQ Not Given TIDAC [facility] Protocol Metoprolol Succinate 100 mg 11/10/17 10:00 11/10/17 11:43 Toprol Xl - PO 100 mg DAILY [facility] Administration Non-Formulary Medication 237 ml 11/10/17 10:00 Nut.Tx.Imp.Renal Fxn,Lac-Reduc [Nepro Carb Steady] PO DAILY [facility] Pantoprazole Sodium 40 mg 11/10/17 10:00 11/10/17 11:50 Protonix - PO Not Given DAILY [facility] Impression 1. esrd 2. occluded av graft 3. failure to thrive 4. a-fib 5. htn 6. anemia Plan - vascular surgery eval - hold coumadin - repeat labs in am - can trasnfuse a unit of blood - will give a dose of epogen - discussed options with family Dr Dunham
[2017-11-10] MEDS ORDERED: EPOETIN ALFA 10,000 UNIT/1 ML VIAL SQ ONE (14:45)
--- NOTE | 2017-11-10 15:26 | PN ---
Progress Note, Physician Chief Complaint: FAMILY BEDSIDE CHART REVIEWED PATIENT IS AWAKE ALERT LETHARGIC COMFORTABLE - Current Medication List Current Medications: Active Medications Acetaminophen (Tylenol -) 650 mg PO Q4H PRN PRN Reason: PAIN Last Admin: 11/10/17 12:11 Dose: 650 mg Metoprolol Succinate (Toprol Xl -) 100 mg PO DAILY PHANI Last Admin: 11/10/17 11:43 Dose: 100 mg Non-Formulary Medication (Nut.Tx.Imp.Renal Fxn,Lac-Reduc [Nepro Carb Steady]) 237 ml PO DAILY PHANI - Objective Vital Signs: Vital Signs Temperature 98.3 F 11/10/17 13:36 Pulse Rate 82 11/10/17 13:36 Respiratory Rate 20 11/10/17 13:36 Blood Pressure 111/63 11/10/17 13:36 O2 Sat by Pulse Oximetry (%) 97 11/10/17 02:44 Constitutional: Yes: No Distress Eyes: Yes: WNL HENT: Yes: WNL Neck: Yes: WNL Cardiovascular: Yes: Pulse Irregular Respiratory: Yes: WNL Gastrointestinal: Yes: WNL ...Rectal Exam: Yes: WNL Genitourinary: Yes: Incontinence, Other Musculoskeletal: Yes: Muscle Weakness Extremities: Yes: Deformity Edema: Yes Edema: RUE: 2+ Peripheral Pulses WNL: Yes Integumentary: Yes: Other Wound/Incision: Yes: Open to air, Reddened Neurological: Yes: Pre-Existing Deficit ...Motor Strength: LUE, LLE, RUE, RLE Psychiatric: Yes: Other Labs: CBC, BMP 11/10/17 08:00 11/10/17 08:00 INR, PTT INR 3.23 (0.82-1.09) H 11/10/17 08:00 Problem List - Problems (1) AV fistula occlusion Code(s): T82.898A - OTH COMPLICATION OF VASCULAR PROSTH DEV/GRFT, INIT Qualifiers: Encounter type: initial encounter Qualified Code(s): T82.898A - Other specified complication of vascular prosthetic devices, implants and grafts, initial encounter (2) Diabetes type 2, controlled Code(s): E11.9 - TYPE 2 DIABETES MELLITUS WITHOUT COMPLICATIONS Qualifiers: Diabetes mellitus fci insulin use: without fci use Diabetes mellitus complication status: with unspecified complications Qualified Code(s) : E11.8 - Type 2 diabetes mellitus with unspecified complications (3) Problem with dialysis shunt Code(s): T82.898A - OTH COMPLICATION OF VASCULAR PROSTH DEV/GRFT, INIT Qualifiers: Encounter type: initial encounter Qualified Code(s): T82.898A - Other specified complication of vascular prosthetic devices, implants and grafts, initial encounter (4) A-V fistula Code(s): I77.0 - ARTERIOVENOUS FISTULA, ACQUIRED (5) Abdominal pain Code(s): R10.9 - UNSPECIFIED ABDOMINAL PAIN (6) Afib Code(s): I48.91 - UNSPECIFIED ATRIAL FIBRILLATION Qualifiers: Atrial fibrillation type: chronic Qualified Code(s): I48.2 - Chronic atrial fibrillation (7) Anemia Code(s): D64.9 - ANEMIA, UNSPECIFIED Qualifiers: Anemia type: unspecified type Qualified Code(s): D64.9 - Anemia, unspecified (8) Diastolic CHF due to valvular disease Code(s): I38 - ENDOCARDITIS, VALVE UNSPECIFIED; I50.30 - UNSPECIFIED DIASTOLIC ( CONGESTIVE) HEART FAILURE (9) Hypertension Code(s): I10 - ESSENTIAL (PRIMARY) HYPERTENSION Qualifiers: Hypertension type: essential hypertension Qualified Code(s): I10 - Essential (primary) hypertension (10) Pacemaker Code(s): Z95.0 - PRESENCE OF CARDIAC PACEMAKER Assessment/Plan VASC SX CONSULT FOR SHILEY RENAL DIET TRANSFUSE PRBC 1 UNIT HOLD AC ABSCESS RIGHT ARM, FAMILY DOES NOT WANT ANY AGGRESSIVE INTERVENTION PATIENT IS DNR/DNI
--- NOTE | 2017-11-10 16:49 | PN ---
Progress Note (short form) - Note Progress Note: called by Dr. Dunham for permacath. INR is 3.2 so will not be able to do tomorrow. plan for placement in OR on
[2017-11-11 06:07] LABS: SERUM IRON SATURATION 14 % (15-55); TOTAL IRON BINDING CAPACITY 123 ug/dL (250-450); UIBC 106 ug/dL (118-369)
[2017-11-11] MEDS: ACETAMINOPHEN 325 MG TABLET (FP) PO PRN ×2 (09:09→15:17)
--- NOTE | 2017-11-11 10:35 | PN ---
Progress Note, Physician - Current Medication List Current Medications: Active Medications Acetaminophen (Tylenol -) 650 mg PO Q4H PRN PRN Reason: PAIN Last Admin: 11/11/17 09:09 Dose: 650 mg Metoprolol Succinate (Toprol Xl -) 100 mg PO DAILY PHANI Last Admin: 11/10/17 11:43 Dose: 100 mg Non-Formulary Medication (Nut.Tx.Imp.Renal Fxn,Lac-Reduc [Nepro Carb Steady]) 237 ml PO DAILY PHANI - Objective Vital Signs: Vital Signs Temperature 98.1 F 11/11/17 04:00 Pulse Rate 91 H 11/11/17 04:00 Respiratory Rate 20 11/11/17 04:00 Blood Pressure 134/72 11/11/17 04:00 O2 Sat by Pulse Oximetry (%) 100 11/10/17 22:11 Labs: CBC, BMP 11/10/17 08:00 11/10/17 08:00 INR, PTT INR 3.23 (0.82-1.09) H 11/10/17 08:00 Problem List - Problems (1) AV fistula occlusion Assessment/Plan: VASC SX CONSULT FOR FRANCISCO JAVIER Code(s): T82.898A - OTH COMPLICATION OF VASCULAR PROSTH DEV/GRFT, INIT Qualifiers: Encounter type: initial encounter Qualified Code(s): T82.898A - Other specified complication of vascular prosthetic devices, implants and grafts, initial encounter (2) Diabetes type 2, controlled Code(s): E11.9 - TYPE 2 DIABETES MELLITUS WITHOUT COMPLICATIONS Qualifiers: Diabetes mellitus equipment operator intermodal yard insulin use: without equipment operator intermodal yard use Diabetes mellitus complication status: with unspecified complications Qualified Code(s) : E11.8 - Type 2 diabetes mellitus with unspecified complications (3) Abscess Assessment/Plan: ID CONSULT ABSCESS RIGHT ARM, FAMILY DOES NOT WANT ANY AGGRESSIVE INTERVENTION PATIENT IS DNR/DNI Code(s): L02.91 - CUTANEOUS ABSCESS, UNSPECIFIED (4) ESRD (end stage renal disease) on dialysis Assessment/Plan: RENAL DIET TRANSFUSED PRBC 1 UNIT HOLD AC Code(s): N18.6 - END STAGE RENAL DISEASE; Z99.2 - DEPENDENCE ON RENAL DIALYSIS (5) Afib Assessment/Plan: HOLD COUMADIN INR Code(s): I48.91 - UNSPECIFIED ATRIAL FIBRILLATION Qualifiers: Atrial fibrillation type: chronic Qualified Code(s): I48.2 - Chronic atrial fibrillation
[2017-11-11] MEDS: morphine SULFATE 4 MG/ML VIAL IM PRN ×2 (11:30→16:30)
[2017-11-11] MEDS ORDERED: ceFAZolin SODIUM 1 GM VIAL IM ONE (12:02)
--- NOTE | 2017-11-11 12:06 | PN ---
Progress Note (short form) - Note Progress Note: ID Consult dictated Chronically infected R AVG R/O sepsis secondary to graft infection ESRD Await c/s Surgical evaluation Empiric vancomycin/ cefazolin adjusted for ESRD
[2017-11-11 13:05] LABS: BASO % 0.5 % (0-2.0); EOS % 0.7 % (0-4.5); HEMATOCRIT 25.1 % (32.4-45.2); HEMOGLOBIN 8.1 GM/dL (10.7-15.3); LYMPH % 13.7 % (8-40); MCH 28.2 pg (25.7-33.7); MCHC 32.5 g/dl (32.0-36.0); MEAN CELL VOLUME 86.8 fl (80-96); MEAN PLT VOLUME 7.3 fl (7.5-11.1); MONO % 13.4 % (3.8-10.2); NEUT % 71.7 % (42.8-82.8); PLATELET COUNT 176 K/MM3 (134-434); RBC 2.89 M/mm3 (3.60-5.2); RDW 19.4 % (11.6-15.6); WHITE BLOOD COUNT 3.9 K/mm3 (4.0-10.0)
[2017-11-11 13:22] LABS: INR 3.26 (0.82-1.09); PROTHROMBIN TIME (PATIENT) 36.8 SEC (9.98-11.88)
--- NOTE | 2017-11-11 13:25 | PN ---
Progress Note, Physician History of Present Illness: Pt seen and examined at bedside. She denies shortness of breath. - Current Medication List Current Medications: Active Medications Acetaminophen (Tylenol -) 650 mg PO Q4H PRN PRN Reason: PAIN Last Admin: 11/11/17 09:09 Dose: 650 mg Cefazolin Sodium (Ancef -) 2 gm IM ONCE ONE Stop: 11/11/17 12:03 Vancomycin HCl 1,000 mg/ (Dextrose) 250 mls @ 166.667 mls/hr IVPB ONCE ONE Stop: 11/11/17 14:59 Metoprolol Succinate (Toprol Xl -) 100 mg PO DAILY PHANI Last Admin: 11/11/17 11:31 Dose: 100 mg Morphine Sulfate (Morphine Sulfate) 0.5 mg IM Q4H PRN PRN Reason: PAIN LEVEL 6-10 Last Admin: 11/11/17 11:30 Dose: 0.5 mg Non-Formulary Medication (Nut.Tx.Imp.Renal Fxn,Lac-Reduc [Nepro Carb Steady]) 237 ml PO DAILY PHANI - Objective Vital Signs: Vital Signs Temperature 98.1 F 11/11/17 04:00 Pulse Rate 91 H 11/11/17 04:00 Respiratory Rate 20 11/11/17 04:00 Blood Pressure 134/72 11/11/17 04:00 O2 Sat by Pulse Oximetry (%) 100 11/10/17 22:11 Constitutional: Yes: Calm Eyes: Yes: Conjunctiva Clear HENT: Yes: Atraumatic Cardiovascular: Yes: S1, S2 Respiratory: Yes: On Nasal O2 Gastrointestinal: Yes: Soft Genitourinary: Yes: Incontinence Musculoskeletal: Yes: Muscle Weakness Extremities: Yes: Other (right arm graft with swelling) Neurological: Yes: Oriented Psychiatric: Yes: Oriented Labs: CBC, BMP 11/11/17 12:25 INR, PTT INR 3.23 (0.82-1.09) H 11/10/17 08:00 Problem List - Problems (1) AV fistula occlusion Code(s): T82.898A - OTH COMPLICATION OF VASCULAR PROSTH DEV/GRFT, INIT Qualifiers: Encounter type: initial encounter Qualified Code(s): T82.898A - Other specified complication of vascular prosthetic devices, implants and grafts, initial encounter (2) Afib Code(s): I48.91 - UNSPECIFIED ATRIAL FIBRILLATION Qualifiers: Atrial fibrillation type: chronic Qualified Code(s): I48.2 - Chronic atrial fibrillation (3) Anemia Code(s): D64.9 - ANEMIA, UNSPECIFIED Qualifiers: Anemia type: unspecified type Qualified Code(s): D64.9 - Anemia, unspecified (4) ESRD (end stage renal disease) on dialysis Code(s): N18.6 - END STAGE RENAL DISEASE; Z99.2 - DEPENDENCE ON RENAL DIALYSIS Assessment/Plan Current Medications Generic Name Dose Route Start Last Admin Trade Name Freq PRN Reason Stop Dose Admin Acetaminophen 650 mg 11/09/17 21:11 11/11/17 09:09 Tylenol - PO 650 mg Q4H PRN Administration PAIN Cefazolin Sodium 2 gm 11/11/17 12:02 Ancef - IM 11/11/17 12:03 ONCE ONE Vancomycin HCl 1,000 mg/ 250 mls @ 166.667 mls/hr 11/11/17 13:30 Dextrose IVPB 11/11/17 14:59 ONCE ONE Metoprolol Succinate 100 mg 11/10/17 10:00 11/11/17 11:31 Toprol Xl - PO 100 mg DAILY PHANI Administration Morphine Sulfate 0.5 mg 11/11/17 11:09 11/11/17 11:30 Morphine Sulfate IM 0.5 mg Q4H PRN Administration PAIN LEVEL 6-10 Non-Formulary Medication 237 ml 11/10/17 10:00 Nut.Tx.Imp.Renal Fxn,Lac-Reduc [Nepro Carb Steady] PO DAILY PHANI Impression 1. esrd 2. occluded av graft 3. failure to thrive 4. a-fib 5. htn 6. anemia Plan - follow up labs - vascular surgery for access - prelim blood cultures are negative - coumadin on hold - repeat labs in am - hg is improved Dr Dunham
[2017-11-11] MEDS ORDERED: VANCOMYCIN 1,000 MG in DEXTROSE 5%-WATER - 250 ML IVPB ONE (13:30)
[2017-11-11 15:02] LABS: BLOOD UREA NITROGEN 39 mg/dL (7-18); GLUCOSE,RANDOM 89 mg/dL (74-106)
[2017-11-11 15:03] LABS: ANION GAP 13 (8-16); BILIRUBIN,TOTAL 0.7 mg/dL (0.2-1.0); CALCIUM 8.3 mg/dL (8.5-10.1); CHLORIDE 89 mmol/L (98-107); CO2 29 mmol/L (21-32); CREATININE 5.3 mg/dL (0.55-1.02); POTASSIUM 4.1 mmol/L (3.5-5.1); SGOT/AST 23 U/L (15-37); SODIUM 131 mmol/L (136-145); TOT PROT 7.9 g/dl (6.4-8.2)
[2017-11-11 15:04] LABS: ALK PHOS 80 U/L (45-117); SGPT/ALT 6 U/L (12-78)
--- NOTE | 2017-11-11 15:23 | CONS ---
INFECTIOUS DISEASE CONSULTATION DATE OF CONSULTATION: DATE OF DICTATION: 11/11/2017 The patient is an 87-year-old female evaluated for right arm abscess. Patient known to our practice from previous hospital admissions. She was hospitalized in September with an infected right upper extremity AV graft and methicillin-sensitive Staph aureus bacteremia. At that time, surgical excision was advised. However, the family had declined any surgical intervention. They had requested conservative measures. She received a course of IV antibiotic therapy, both in the hospital and post-discharge. She now returns with an occluded right AV graft. She had apparently been at dialysis and it was unable to be done because of graft occlusion. She was referred to the hospital. The patient was admitted to the hospital where she was found to have a large, baseball-sized swelling at the graft site. It is tender to touch and fluctuant. No drainage was reported. Nurse did report, however, there was bleeding from the site. She denies any associated fever or chills. Blood cultures from September and October of this year were positive for methicillin-sensitive Staph aureus. Last positive blood culture at [facility] was on October 14, 2017. She denies any fever or chills. 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 PAST SURGICAL HISTORY: Status post permanent pacemaker. ALLERGIES: PENICILLIN (rash). Patient has tolerated cephalosporins, in the past. MEDICATIONS: Include amlodipine, Lanoxin, Cymbalta, hydralazine, metoprolol, Protonix, Coumadin. SOCIAL HISTORY: Resides at home with family members. Nonsmoker. Nondrinker. SYSTEMS REVIEW: Neurologic: No loss of consciousness, seizure activity, focal weakness. Cardiac: Negative chest pain or palpitations. Respiratory: Negative cough or sputum production. Gastrointestinal: Negative vomiting or diarrhea. Genitourinary: End-stage renal disease on hemodialysis. LABORATORY DATA: White count 3.3, 63 neutrophils, 16 lymphocytes, 17 monocytes, hematocrit 21.4, platelets 168. BUN 33, creatinine 4.6. Chest x-ray shows an enlarged heart and a right pleural effusion. PHYSICAL EXAMINATION: General: On physical examination, the patient is supine in bed, awake and alert. She is cachectic and chronically ill appearing. Vital signs: Temperature 98.1, blood pressure 134/72, pulse 91 and regular, respirations 20 per minute. Eyes: Sclerae are anicteric. Heart: Heart sounds S1, S2. Lungs: Clear bilaterally. Abdomen: Soft. No tenderness elicited. No masses, rebound or rigidity. Extremities: Negative for edema. Examination of the right upper extremity: There is a baseball-sized swelling present in the right upper extremity just distal to the AV graft. It is tender to touch. It is slightly fluctuant. There is no expressible drainage. IMPRESSION: 1. Chronically infected right arteriovenous graft. 2. Soft tissue abscess of the right upper extremity. 3. Rule out recurrent bacteremia/sepsis secondary to graft infection. 4. End-stage renal disease on hemodialysis. Await culture results. Surgical evaluation. Empiric antibiotic therapy with vancomycin and cefazolin adjusted for end-stage renal disease. Prognosis is guarded. Case discussed with patient's daughter present at the time of examination. Thank you for the kind referral. GERA GARRIDO M.D. [id number]
[2017-11-11] MEDS ORDERED: CEFAZOLIN 2 GM in DEXTROSE 5%-WATER 100 ML IVPB ONE (18:30)
[2017-11-11] MEDS ORDERED: CEFAZOLIN 2 GM/D5W 2 GM/50 ML ML IVPB ONE (18:45)
[2017-11-12] MEDS: morphine SULFATE 4 MG/ML VIAL IM PRN ×2 (06:56→10:46)
[2017-11-12 07:47] LABS: INR 3.42 (0.82-1.09); PROTHROMBIN TIME (PATIENT) 38.7 SEC (9.98-11.88)
[2017-11-12] MEDS ORDERED: HALOPERIDOL LACTATE 5 MG/ML IM ONE (11:00)
--- NOTE | 2017-11-12 11:16 | PN ---
Progress Note, Physician - Current Medication List Current Medications: Active Medications Acetaminophen (Tylenol -) 650 mg PO Q4H PRN PRN Reason: PAIN Last Admin: 11/11/17 15:17 Dose: 650 mg Metoprolol Succinate (Toprol Xl -) 100 mg PO DAILY PHANI Last Admin: 11/12/17 10:46 Dose: 100 mg Morphine Sulfate (Morphine Sulfate) 0.5 mg IM Q4H PRN PRN Reason: PAIN LEVEL 6-10 Last Admin: 11/12/17 10:46 Dose: 0.5 mg - Objective Vital Signs: Vital Signs Temperature 97.9 F 11/12/17 09:00 Pulse Rate 108 H 11/12/17 09:00 Respiratory Rate 20 11/12/17 09:00 Blood Pressure 144/98 11/12/17 09:00 O2 Sat by Pulse Oximetry (%) 100 11/11/17 20:28 Constitutional: Yes: No Distress, Calm, Thin Cardiovascular: Yes: Regular Rate and Rhythm Respiratory: Yes: Regular Gastrointestinal: Yes: Hypoactive Bowel Sounds Labs: CBC, BMP 11/11/17 12:25 11/11/17 12:25 INR, PTT INR 3.42 (0.82-1.09) H 11/12/17 06:00 Problem List - Problems (1) AV fistula occlusion Assessment/Plan: -HD catheter inserted by Surgery for dialysis -Nephrology onboard Code(s): T82.898A - OTH COMPLICATION OF VASCULAR PROSTH DEV/GRFT, INIT Qualifiers: Encounter type: initial encounter Qualified Code(s): T82.898A - Other specified complication of vascular prosthetic devices, implants and grafts, initial encounter (2) Chronic atrial fibrillation Code(s): I48.2 - CHRONIC ATRIAL FIBRILLATION (3) Diabetes type 2, controlled Assessment/Plan: -controlled Code(s): E11.9 - TYPE 2 DIABETES MELLITUS WITHOUT COMPLICATIONS Qualifiers: Diabetes mellitus senior living insulin use: without intermediate card tender use Diabetes mellitus complication status: with unspecified complications Qualified Code(s) : E11.8 - Type 2 diabetes mellitus with unspecified complications (4) ESRD (end stage renal disease) on dialysis Assessment/Plan: -nephrology consult hemodialysis Code(s): N18.6 - END STAGE RENAL DISEASE; Z99.2 - DEPENDENCE ON RENAL DIALYSIS Assessment/Plan see problem list
--- NOTE | 2017-11-12 11:16 | OP ---
Operative Note - Note: Operative Date: 11/12/17 Pre-Operative Diagnosis: ESRD Operation: nontunneled HD catheter insertion under US guidance right femoral at bedside Findings: 2 ports flushed and aspirated easily Implants: straight [id number] Post-Operative Diagnosis: Same as Pre-op Surgeon: Alexandro Dominguez Anesthesia: Local Estimated Blood Loss (mls): 0 Operative Report Dictated: No
--- NOTE | 2017-11-12 11:50 | PN ---
Progress Note (short form) - Note Progress Note: permacath requested. cancelled due to INR 3.4 right femoral nontunneled HD catheter placed at bedside and ok to use
--- NOTE | 2017-11-12 12:11 | CONS ---
DATE OF CONSULTATION: 11/12/2017 REQUESTING PHYSICIAN: Dr. Dunham CHIEF COMPLAINT: Renal failure with clotted right arm graft. HISTORY OF PRESENT ILLNESS: This 87-year-old woman with past medical history of end-stage renal disease on hemodialysis and atrial fibrillation on Coumadin presented to the hospital with a clotted right arm AV graft. A PermCath was requested and was scheduled for today, but it was cancelled due to the patient's INR being 3.4. PAST MEDICAL HISTORY: End-stage renal disease on hemodialysis, hypertension, diabetes, CHF, atrial fibrillation. PAST SURGICAL HISTORY: Right arm AV [place] [address] Delcid, pacemaker. ALLERGIES: PENICILLIN. MEDICATIONS: Reviewed include Coumadin, which is currently on hold. FAMILY HISTORY: Reviewed and noncontributory. SOCIAL HISTORY: Noncontributory. No alcohol or illicit drug use. REVIEW OF SYSTEMS: A 12-point review of systems unobtainable due to the patient being lethargic. History is per 2 daughters who are at bedside including the healthcare proxy. PHYSICAL EXAMINATION: Vital Signs: Afebrile. Vital signs stable. General: The patient appears lethargic. HEENT: Normocephalic and atraumatic. Neck: Supple. Heart: S1, S2. Lungs: Clear to auscultation bilaterally. Abdomen: Soft, nontender, and nondistended. Extremities: Right upper extremity aneurysmal AV graft with some skin eschar. LABORATORY RESULTS: INR 3.4 today, hemoglobin 8.1, potassium 4.1, BUN 39, creatinine 5.3. ASSESSMENT AND PLAN: An 87-year-old woman with clotted arm atrioventricular graft in need of dialysis access. A right femoral hemodialysis catheter was placed at the bedside after getting consent from the daughter who is the healthcare proxy who the patient lives with, which is okay for use. NAVIN GORE M.D. [id number]
[2017-11-12] MEDS ORDERED: IRON SUCROSE INJECTION 300 MG in SODIUM CHLORIDE 235 ML IVPB ONE (13:00)
[2017-11-12] MEDS ORDERED: SODIUM CHLORIDE 250 ML IV PRN (13:23)
[2017-11-12] MEDS ORDERED: EPOETIN ALFA 10,000 UNIT/1 ML VIAL IVPUSH ONE (13:30)
--- NOTE | 2017-11-12 15:50 | PN ---
Progress Note, Physician History of Present Illness: Pt seen and examined at bedside. She had the shikeven palced today. She is currently getting HD. - Current Medication List Current Medications: Active Medications Acetaminophen (Tylenol -) 650 mg PO Q4H PRN PRN Reason: PAIN Last Admin: 11/11/17 15:17 Dose: 650 mg Sodium Chloride (Normal Saline -) 250 mls @ 3,000 mls/hr IV PRN PRN PRN Reason: Hypotension during Dialysis Stop: 11/13/17 13:22 Last Admin: 11/12/17 14:30 Dose: 3,000 mls/hr Metoprolol Succinate (Toprol Xl -) 100 mg PO DAILY [facility] Last Admin: 11/12/17 10:46 Dose: Not Given Morphine Sulfate (Morphine Sulfate) 0.5 mg IM Q4H PRN PRN Reason: PAIN LEVEL 6-10 Last Admin: 11/12/17 10:46 Dose: 0.5 mg - Objective Vital Signs: Vital Signs Temperature 98.4 F 11/12/17 13:10 Pulse Rate 95 H 11/12/17 15:15 Respiratory Rate 18 11/12/17 15:15 Blood Pressure 91/55 11/12/17 15:15 O2 Sat by Pulse Oximetry (%) 100 11/11/17 20:28 Constitutional: Yes: Calm Eyes: Yes: Conjunctiva Clear HENT: Yes: Atraumatic Neck: Yes: Supple Cardiovascular: Yes: S1, S2 Respiratory: Yes: CTA Bilaterally Gastrointestinal: Yes: Soft Genitourinary: Yes: Incontinence Musculoskeletal: Yes: Muscle Weakness Extremities: Yes: Other (swelling over area of graft) Neurological: Yes: Oriented Labs: CBC, BMP 11/11/17 12:25 11/11/17 12:25 INR, PTT INR 3.42 (0.82-1.09) H 11/12/17 06:00 Problem List - Problems (1) AV fistula occlusion Code(s): T82.898A - H COMPLICATION OF VASCULAR PROSTH DEV/GRFT, INIT Qualifiers: Encounter type: initial encounter Qualified Code(s): T82.898A - Other specified complication of vascular prosthetic devices, implants and grafts, initial encounter (2) Afib Code(s): I48.91 - UNSPECIFIED ATRIAL FIBRILLATION Qualifiers: Atrial fibrillation type: chronic Qualified Code(s): I48.2 - Chronic atrial fibrillation (3) Anemia Code(s): D64.9 - ANEMIA, UNSPECIFIED Qualifiers: Anemia type: unspecified type Qualified Code(s): D64.9 - Anemia, unspecified (4) ESRD (end stage renal disease) on dialysis Code(s): N18.6 - END STAGE RENAL DISEASE; Z99.2 - DEPENDENCE ON RENAL DIALYSIS Assessment/Plan Current Medications Generic Name Dose Route Start Last Admin Trade Name Freq PRN Reason Stop Dose Admin Acetaminophen 650 mg 11/09/17 21:11 11/11/17 15:17 Tylenol - PO 650 mg Q4H PRN Administration PAIN Sodium Chloride 250 mls @ 3,000 mls/hr 11/12/17 13:23 11/12/17 14:30 Normal Saline - IV 11/13/17 13:22 3,000 mls/hr PRN PRN Administration Hypotension during Dialysis Metoprolol Succinate 100 mg 11/10/17 10:00 11/12/17 10:46 Toprol Xl - PO Not Given DAILY [facility] Morphine Sulfate 0.5 mg 11/11/17 11:09 11/12/17 10:46 Morphine Sulfate IM 0.5 mg Q4H PRN Administration PAIN LEVEL 6-10 Impression 1. esrd 2. occluded av graft 3. failure to thrive 4. a-fib 5. htn 6. anemia Plan - HD today - follow cultures - s/p chery - vascular follow up for permacath once INR is stable - graft will need to be evaluated - coumadin on hold - repeat labs in am Dr Dunham
--- NOTE | 2017-11-12 16:09 | PN ---
Progress Note, Physician History of Present Illness: Awake, responsive No complaints Afebrile Receiving HD via catheter - Current Medication List Current Medications: Active Medications Acetaminophen (Tylenol -) 650 mg PO Q4H PRN PRN Reason: PAIN Last Admin: 11/11/17 15:17 Dose: 650 mg Sodium Chloride (Normal Saline -) 250 mls @ 3,000 mls/hr IV PRN PRN PRN Reason: Hypotension during Dialysis Stop: 11/13/17 13:22 Last Admin: 11/12/17 14:30 Dose: 3,000 mls/hr Metoprolol Succinate (Toprol Xl -) 100 mg PO DAILY [facility] Last Admin: 11/12/17 10:46 Dose: Not Given Morphine Sulfate (Morphine Sulfate) 0.5 mg IM Q4H PRN PRN Reason: PAIN LEVEL 6-10 Last Admin: 11/12/17 10:46 Dose: 0.5 mg - Objective Vital Signs: Vital Signs Temperature 98.4 F 11/12/17 13:10 Pulse Rate 90 11/12/17 15:45 Respiratory Rate 18 11/12/17 15:45 Blood Pressure 140/95 11/12/17 15:45 O2 Sat by Pulse Oximetry (%) 100 11/11/17 20:28 Constitutional: Yes: No Distress Eyes: Yes: Conjunctiva Clear Cardiovascular: Yes: Regular Rate and Rhythm, S1, S2 Respiratory: Yes: CTA Bilaterally Gastrointestinal: Yes: Normal Bowel Sounds, Soft. No: Tenderness Extremities: Yes: Other (+ R UE abscess Tender to palp) Labs: CBC, BMP 11/11/17 12:25 11/11/17 12:25 INR, PTT INR 3.42 (0.82-1.09) H 11/12/17 06:00 Assessment/Plan R UE abscess R/O recurrent MSSA bacteremia ESRD Await c/s Vancomycin given Continue cefazolin
[2017-11-12] MEDS ORDERED: CEFAZOLIN 1 GM in DEXTROSE 5%-WATER - 50 ML IVPB SCH (16:15)
[2017-11-12] MEDS ORDERED: PT OWN MED DRAWER 7, Y5N ONE (17:46)
[2017-11-12] MEDS: CEFAZOLIN 1 GM/D5W 1 GM/50 ML BAG IVPB SCH (17:58)
[2017-11-13] MEDS: PATIENT'S OWN MEDICATION (NON-FORMULARY) (Nut.Tx.Imp.Renal Fxn,Lac-Reduc [Nepro Carb Stead PO SCH ×2 (07:53→07:55)
[2017-11-13] MEDS: CEFAZOLIN 1 GM/D5W 1 GM/50 ML BAG IVPB SCH (10:01)
--- NOTE | 2017-11-13 14:14 | PN ---
Progress Note, Physician History of Present Illness: Awake, responsive No complaints of arm pain Afebrile BC no growth - Current Medication List Current Medications: Active Medications Acetaminophen (Tylenol -) 650 mg PO Q4H PRN PRN Reason: PAIN Last Admin: 11/11/17 15:17 Dose: 650 mg Cefazolin Sodium (Ancef 1 Gm Premixed Ivpb -) 1 gm in 50 mls @ 100 mls/hr IVPB DAILY [facility] Last Admin: 11/13/17 10:01 Dose: 100 mls/hr Metoprolol Succinate (Toprol Xl -) 100 mg PO DAILY [facility] Last Admin: 11/13/17 10:01 Dose: 100 mg Morphine Sulfate (Morphine Sulfate) 0.5 mg IM Q4H PRN PRN Reason: PAIN LEVEL 6-10 Last Admin: 11/12/17 10:46 Dose: 0.5 mg - Objective Vital Signs: Vital Signs Temperature 98.0 F 11/13/17 13:59 Pulse Rate 113 H 11/13/17 13:59 Respiratory Rate 24 11/13/17 09:28 Blood Pressure 118/77 11/13/17 13:59 O2 Sat by Pulse Oximetry (%) 97 11/13/17 09:00 Constitutional: Yes: No Distress, Cachectic Cardiovascular: Yes: Regular Rate and Rhythm, S1, S2 Respiratory: Yes: Diminished Gastrointestinal: Yes: Normal Bowel Sounds, Soft. No: Tenderness Extremities: Yes: Other (+ tender, fluctuant swelling R UE with bloody drainage) Labs: CBC, BMP 11/11/17 12:25 11/11/17 12:25 INR, PTT INR 3.42 (0.82-1.09) H 11/12/17 06:00 Assessment/Plan R UE abscess R/O recurrent MSSA bacteremia ESRD BC no gowth Continue cefazolin Redose vancomycin Repeat BC at HD
--- NOTE | 2017-11-13 14:18 | PN ---
Progress Note, Physician Chief Complaint: awake in bed - Current Medication List Current Medications: Active Medications Acetaminophen (Tylenol -) 650 mg PO Q4H PRN PRN Reason: PAIN Last Admin: 11/11/17 15:17 Dose: 650 mg Cefazolin Sodium (Ancef 1 Gm Premixed Ivpb -) 1 gm in 50 mls @ 100 mls/hr IVPB DAILY [facility] Last Admin: 11/13/17 10:01 Dose: 100 mls/hr Vancomycin HCl 1,000 mg/ (Dextrose) 250 mls @ 200 mls/hr IVPB ONCE ONE Stop: 11/13/17 15:29 Metoprolol Succinate (Toprol Xl -) 100 mg PO DAILY [facility] Last Admin: 11/13/17 10:01 Dose: 100 mg Morphine Sulfate (Morphine Sulfate) 0.5 mg IM Q4H PRN PRN Reason: PAIN LEVEL 6-10 Last Admin: 11/12/17 10:46 Dose: 0.5 mg - Objective Vital Signs: Vital Signs Temperature 98.0 F 11/13/17 13:59 Pulse Rate 113 H 11/13/17 13:59 Respiratory Rate 24 11/13/17 09:28 Blood Pressure 118/77 11/13/17 13:59 O2 Sat by Pulse Oximetry (%) 97 11/13/17 09:00 Constitutional: Yes: Calm, Thin Cardiovascular: Yes: Regular Rate and Rhythm, S1, S2 Respiratory: Yes: CTA Bilaterally Gastrointestinal: Yes: Normal Bowel Sounds, Soft Extremities: Yes: Other (permacath right groin RUE) Neurological: Yes: Alert Labs: CBC, BMP 11/11/17 12:25 11/11/17 12:25 INR, PTT INR 3.42 (0.82-1.09) H 11/12/17 06:00 Problem List - Problems (1) Bacteremia Assessment/Plan: r/o recurent MSSA bacteremia on iv vanco per ID repeat blood culture during HD Code(s): R78.81 - BACTEREMIA (2) Abscess Assessment/Plan: cefazolin Code(s): L02.91 - CUTANEOUS ABSCESS, UNSPECIFIED (3) Anemia Assessment/Plan: procit during HD got iv venofer iron panel noted Code(s): D64.9 - ANEMIA, UNSPECIFIED Qualifiers: Anemia type: unspecified type Qualified Code(s): D64.9 - Anemia, unspecified
[2017-11-13] MEDS ORDERED: VANCOMYCIN 1,000 MG in DEXTROSE 5%-WATER - 250 ML IVPB ONE (15:00)
[2017-11-13] MEDS ORDERED: SODIUM CHLORIDE 250 ML IV PRN (15:46)
--- NOTE | 2017-11-13 15:46 | PN ---
Progress Note, Physician History of Present Illness: Pt seen and examined at bedside. She appears fatigued today. - Current Medication List Current Medications: Active Medications Acetaminophen (Tylenol -) 650 mg PO Q4H PRN PRN Reason: PAIN Last Admin: 11/11/17 15:17 Dose: 650 mg Cefazolin Sodium (Ancef 1 Gm Premixed Ivpb -) 1 gm in 50 mls @ 100 mls/hr IVPB DAILY [facility] Last Admin: 11/13/17 10:01 Dose: 100 mls/hr Vancomycin HCl 1,000 mg/ (Dextrose) 250 mls @ 200 mls/hr IVPB ONCE ONE Stop: 11/13/17 16:14 Metoprolol Succinate (Toprol Xl -) 100 mg PO DAILY [facility] Last Admin: 11/13/17 10:01 Dose: 100 mg Morphine Sulfate (Morphine Sulfate) 0.5 mg IM Q4H PRN PRN Reason: PAIN LEVEL 6-10 Last Admin: 11/12/17 10:46 Dose: 0.5 mg - Objective Vital Signs: Vital Signs Temperature 98.0 F 11/13/17 13:59 Pulse Rate 113 H 11/13/17 13:59 Respiratory Rate 24 11/13/17 09:28 Blood Pressure 118/77 11/13/17 13:59 O2 Sat by Pulse Oximetry (%) 97 11/13/17 09:00 Constitutional: Yes: Calm Eyes: Yes: Conjunctiva Clear HENT: Yes: Atraumatic Cardiovascular: Yes: S1, S2 Respiratory: Yes: CTA Bilaterally Gastrointestinal: Yes: Soft Genitourinary: Yes: Incontinence Musculoskeletal: Yes: Muscle Weakness Extremities: Yes: Other (graft with area of swelling) Wound/Incision: Yes: Dressing Dry and Intact Neurological: Yes: Other (awake) Labs: CBC, BMP 11/11/17 12:25 11/11/17 12:25 INR, PTT INR 3.42 (0.82-1.09) H 11/12/17 06:00 Problem List - Problems (1) AV fistula occlusion Code(s): T82.898A - OTH COMPLICATION OF VASCULAR PROSTH DEV/GRFT, INIT Qualifiers: Encounter type: initial encounter Qualified Code(s): T82.898A - Other specified complication of vascular prosthetic devices, implants and grafts, initial encounter (2) Afib Code(s): I48.91 - UNSPECIFIED ATRIAL FIBRILLATION Qualifiers: Atrial fibrillation type: chronic Qualified Code(s): I48.2 - Chronic atrial fibrillation (3) Anemia Code(s): D64.9 - ANEMIA, UNSPECIFIED Qualifiers: Anemia type: unspecified type Qualified Code(s): D64.9 - Anemia, unspecified (4) ESRD (end stage renal disease) on dialysis Code(s): N18.6 - END STAGE RENAL DISEASE; Z99.2 - DEPENDENCE ON RENAL DIALYSIS Assessment/Plan Current Medications Generic Name Dose Route Start Last Admin Trade Name Freq PRN Reason Stop Dose Admin Acetaminophen 650 mg 11/09/17 21:11 11/11/17 15:17 Tylenol - PO 650 mg Q4H PRN Administration PAIN Cefazolin Sodium 1 gm in 50 mls @ 100 mls/hr 11/12/17 17:32 11/13/17 10:01 Ancef 1 Gm Premixed Ivpb - IVPB 100 mls/hr DAILY [facility] Administration Vancomycin HCl 1,000 mg/ 250 mls @ 200 mls/hr 11/13/17 15:00 Dextrose IVPB 11/13/17 16:14 ONCE ONE Metoprolol Succinate 100 mg 11/10/17 10:00 11/13/17 10:01 Toprol Xl - PO 100 mg DAILY [facility] Administration Morphine Sulfate 0.5 mg 11/11/17 11:09 11/12/17 10:46 Morphine Sulfate IM 0.5 mg Q4H PRN Administration PAIN LEVEL 6-10 Impression 1. esrd 2. occluded av graft 3. failure to thrive 4. a-fib 5. htn 6. anemia Plan - will arrange for HD tomorrow - shiley to be removed after HD - vascular for permacath once INR is improved - vascular for eval of av graft - coumadin on hold - repeat labs in am Dr Dunham
--- NOTE | 2017-11-13 17:39 | PN ---
Progress Note (short form) - Note Progress Note: Vascular Surgery Pt seen and examined. Lisset in place Pt for HD moises. Once INR comes back to normal Will place PC. Will then remove AVG from right arm. spoke to family at bedside with the plan. Alan rome DO
[2017-11-14 06:04] VITALS: BP 142/89; PULSE 104; TEMP 98.2
--- NOTE | 2017-11-14 07:10 | HOSP ---
Physical Examination Vital Signs: Vital Signs Temperature 98.2 F 11/14/17 05:00 Pulse Rate 104 H 11/14/17 05:00 Respiratory Rate 20 11/14/17 05:00 Blood Pressure 142/89 11/14/17 05:00 O2 Sat by Pulse Oximetry (%) 96 11/13/17 21:00 Labs: CBC, BMP 11/11/17 12:25 11/11/17 12:25 Hospitalist Encounter Assessment: I was called to see the patient for unresponsiveness. On physical examination the patient didn't respond to verbal or physical stimuli. Absent heart and breath sounds. Absent peripheral pulses. Pupils are fixed and dilated. Corneal reflex was absent. The patient was pronounced at 6:50. Family was notified. billet examiner was notified: 2017 [id number], phone [phone]. Case not accepted. Visit type - Emergency Visit Emergency Visit: Yes ED Registration Date: 11/09/17 Care time: The patient presented to the Emergency Department on the above date and was hospitalized for further evaluation of their emergent condition. - New Patient This patient is new to me today: Yes Date on this admission: 11/14/17 - Critical Care Critical Care patient: No
[2017-11-14] MEDS ORDERED: EPOETIN ALFA 2,000 UNIT/1 ML VIAL IVPUSH ONE (15:46)
[2017-11-15 06:40] LABS: HBSAG SCREEN Negative (Negative); HEP A AB, IGM Negative (Negative); HEP B CORE AB, TOT Negative (Negative)
== END 2017-11-14 10:31 | disposition expired | DRG 314 ==
LOC: JER 16:44 → JERBED 21:08 → J7W 11-10 03:10
PROVIDERS: ADMIT Internal Medicine; ATTEND Family Medicine
PROC: 30233N1 Transfusion of Nonautologous Red Blood Cells into Peripheral Vein, Percutaneous Approach (ICD-10-PCS; 2017-11-10)
PROC: 06HM33Z Insertion of Infusion Device into Right Femoral Vein, Percutaneous Approach (ICD-10-PCS; principal; 2017-11-12)
PROC: 5A1D70Z Performance of Urinary Filtration, Intermittent, Less than 6 Hours Per Day (ICD-10-PCS; 2017-11-12)
DX: T82.898A Other specified complication of vascular prosthetic devices, implants and grafts, initial encounter (principal); N18.6 End stage renal disease; I12.0 Hypertensive chronic kidney disease with stage 5 chronic kidney disease or end stage renal disease; L02.413 Cutaneous abscess of right upper limb; R78.81 Bacteremia; Y83.8 Other surgical procedures as the cause of abnormal reaction of the patient, or of later complication, without mention of misadventure at the time of the procedure; E11.22 Type 2 diabetes mellitus with diabetic chronic kidney disease; I48.2 Chronic atrial fibrillation; D64.9 Anemia, unspecified; R62.7 Adult failure to thrive; B95.61 Methicillin susceptible Staphylococcus aureus infection as the cause of diseases classified elsewhere; Z99.2 Dependence on renal dialysis; Z95.0 Presence of cardiac pacemaker
CPT/HCPCS: 36415; 36430; 71045-TC-FY; 80053; 82728; 82962; 83540; 83550; 83735; 84100; 85025; 85610; 86704; 86706; 86708; 86850; 86870; 86900; 86901; 86902; 86922; 87040; 87340; 93005; 93010; 99284-25; J0885; J1756; P9038; P9058